=== PATIENT | male | born 1960 | race Caucasian/White ===

== ENCOUNTER 2016-08-09 12:50 | Inpatient (IN) | payer MEDICARE ==
[~2016-08-09] VITALS: Ht 177.8 cm; Wt 110.0 kg
[2016-08-09] VITALS (16 sets, daily range): BP systolic 113–248; BP diastolic 54–145; PULSE 65–90; RESP 14–18; TEMP 97.9; O2SAT 96–100
[~2016-08-09 12:50] MED LIST: ALPR.5 PO; ASPI-110 PO; BUME1TAB26 PO; CARV3.125 PO; FERR325T PO; FOLI1TAB4 PO; GABA300C5 PO; HYDR-3516 PO; LEVA750T PO; LEVEMIR SQ; LEVO50TA4 PO; LIPI40TA PO; NORC5TAB PO; NOVOLOGSS SQ; POTA10TA8 PO; PROT40TA PO; ROBA750T PO; TAMS5CAP PO; THIA100T PO; TICA1TAB PO
--- NOTE | 2016-08-09 17:11 | PD ---
HPI Chief Complaint: Hypertension Time Seen by Provider: 16:45 Travel History International Travel<30 days: No Contact w/Intl Traveler<30days: No Traveled to known affect area: No History of Present Illness HPI This is a 56-year-old male who has a history congestive heart failure who went for routine follow-up appointment with cardiology today and was found to have a systolic blood pressure in the 240s. He says he's had some chest tightness today, moderate severity, associated with some shortness of breath. Dr. Masters saw him in the office and told him to come to the emergency department. PFSH Past Medical History Hx Anticoagulant Therapy: Yes (ASA) Asthma: No Blood Disorders: No Anxiety: No Depression: No Heart Rhythm Problems: Yes (Murmur) Cancer: Yes (Skin cancer) Cardiovascular Problems: Yes (2015) High Cholesterol: No Chest Pain: Yes Congestive Heart Failure: No COPD: No Diabetes: Yes Diminished Hearing: No Endocrine: Yes Gastrointestinal Disorders: Yes (Acid reflux) Genitourinary: Yes (BPH) Hepatitis: Yes (C) Hypertension: Yes Immune Disorder: No Implanted Vascular Access Dvce: No Musculoskeletal: Yes (Buldging disk, back.) Neurologic: Yes (Neuropathy) Psychiatric: No Reproductive: No Respiratory: Yes Immunizations Current: No 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, 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.) Sleep Apnea: Yes (Not using C pap) Thyroid Disease: Yes Past Surgical History Ear Surgery: No Endocrine Surgery: No Eye Surgery: No Genitourinary Surgery: No Neurologic Surgery: No Oral Surgery: Yes (TONSILLS REMOVED) Pacemaker: No Tonsillectomy: Yes Other Surgery: Yes (feet) Social History Alcohol Use: No (sober x 2 months) Tobacco Use: No Substance Use: No Allergies-Medications (Allergen,Severity, Reaction): Coded Allergies: *MDRO Multi-Drug Resistant Organism (Verified Adverse Reaction, Unknown, MRSA, 08/08/16) MRSA (foot wound) - 12/2014, 02/2015, 07/2015, 09/2015, 11/2015, 05/2016 Reported Meds & Prescriptions Reported Meds & Active Scripts Active Levaquin (Levofloxacin) 750 Mg Tab 750 Mg PO DAILY Xanax (Alprazolam) 0.5 Mg Tab 0.5 Mg PO DAILY PRN Levemir Inj (Insulin Detemir) 1,000 unit/ 10 ML Vial 10 Units SQ HS 30 Days Reported Zanaflex (Tizanidine HCl) 4 Mg Tab 2 Mg PO QID Ibuprofen 800 Mg Tab 800 Mg PO TID PRN Novolog Inj (Insulin Aspart) 1,000 Unit/10 Ml Vial 2-10 Units SQ ACHS Max dose at bedtime ( ) units; sugars less than 70,(0) units; sugars 150-199,(2) units; sugars 200-249,(4) units; sugars 250-299,(7) units; sugars 300-349,(10) units; sugars greater than 349,(12)units Lortab (Hydrocodone-Acetaminophen) 10-325 Mg Tab 0.5 Tab PO QID PRN Atorvastatin (Atorvastatin Calcium) 20 Mg Tab 20 Mg PO HS Gabapentin 300 Mg Cap 300 Mg PO TID Aspirin 81 (Aspirin) 81 Mg Tabdr 81 Mg PO DAILY Bumex (Bumetanide) 1 Mg Tab 1 Mg PO BID Coreg (Carvedilol) 3.125 Mg Tab 3.125 Mg PO BID Folate (Folic Acid) 1 Mg Tab 1 Mg PO DAILY Levothyroxine (Levothyroxine Sodium) 50 Mcg Tab 50 Mcg PO DAILY Robaxin (Methocarbamol) 750 Mg Tab 750 Mg PO TID PRN Flomax (Tamsulosin HCl) 0.4 Mg Cap 0.4 Mg PO DAILY Thiamine (Thiamine HCl) 100 Mg Tab 100 Mg PO DAILY Review of Systems Except as stated in HPI: all other systems reviewed are Neg Physical Exam Narrative GENERAL:Well appearing, no acute distress SKIN: Chronic venous stasis changes on the bilateral lower extremities with right foot dressing clean and dry and intact HEAD: Atraumatic. Normocephalic. EYES: Pupils equal and round. No injection or drainage. ENT: Moist mucous membranes NECK: Trachea midline. CARDIOVASCULAR: Regular rate and rhythm. No murmur appreciated. RESPIRATORY: Clear to auscultation. Breath sounds equal bilaterally. GASTROINTESTINAL: Abdomen soft, non-tender, nondistended. MUSCULOSKELETAL: No obvious deformities. NEUROLOGICAL: Awake and alert. No obvious cranial nerve deficits. Moving all extremities. PSYCHIATRIC: Appropriate mood and affect; insight and judgment normal. Data Data Last Documented VS Vital Signs Date Time Temp Pulse Resp B/P Pulse Ox O2 Delivery O2 Flow Rate FiO2 08/09/16 17:24 67 18 98 Room Air 08/09/16 17:24 248/113 08/09/16 12:52 97.9 Orders Electrocardiogram (08/09/16 ) Cbc No Diff, Includes Plts (08/09/16 16:53) Basic Metabolic Panel (Bmp) (08/09/16 16:53) Troponin I (08/09/16 16:53) Labetalol Inj (Trandate Inj) (08/09/16 17:15) Resp Blood Gas Venous (08/09/16 ) Resp Lab Draw Arterial Punctur (08/09/16 ) B-Type Natriuretic Peptide (08/09/16 18:08) Chest, Single Ap (08/09/16 ) Morphine Inj (Morphine Inj) (08/09/16 18:15) Labs Laboratory Tests Test 08/09/16 18:00 Sodium Level 134 MEQ/L Potassium Level 4.7 MEQ/L Chloride Level 105 MEQ/L Carbon Dioxide Level 21.2 MEQ/L Anion Gap 8 MEQ/L Blood Urea Nitrogen 37 MG/DL Creatinine 1.71 MG/DL Estimat Glomerular Filtration 41 ML/MIN Rate Random Glucose 329 MG/DL Calcium Level 8.7 MG/DL Troponin I 0.05 NG/ML [facility] Medical Decision Making Medical Screen Exam Complete: Yes Emergency Medical Condition: Yes Interpretation(s) Afebrile, no tachycardia, hypertensive No leukocytosis Renal insufficiency Troponin is normal Differential Diagnosis Hypertensive urgency, hypertensive emergency, acute coronary syndrome Narrative Course This is a 56-year-old male who has a history of congestive heart failure who presents to the emergency department with poorly controlled high blood pressure. He is having some chest tightness in the setting of his symptoms. He was placed on a monitor and an IV was established. EKG is reassuring and nonischemic. Labs are pending. Patient was given a dose of IV labetalol. I think patient will likely require admission in the setting of hypertensive urgency. Case was signed out to Dr. Lopez pending labs. Renetta Smith MD Aug 09, 2016 17:10
[2016-08-09] MEDS ORDERED: LABETALOL HCL 100 MG/20 ML VIAL IV PUSH ONE (17:15)
[2016-08-09 18:12] LABS: HEMATOCRIT 30.9 % (39.0-51.0); MEAN CORPUSCULAR HEMOGLOBIN 26.5 PG (27.0-34.0); MEAN CORPUSCULAR HGB CONC 32.4 % (32.0-36.0); PLATELET COUNT 157 TH/MM3 (150-450); RED BLOOD COUNT 3.77 MIL/MM3 (4.50-5.90); RED CELL DISTRIBUTION WIDTH 22.8 % (11.6-17.2); WHITE BLOOD COUNT 8.7 TH/MM3 (4.0-11.0)
[2016-08-09] MEDS ORDERED: MORPHINE SULFATE 8 MG/ML INJ IV PUSH ONE (18:15)
[2016-08-09] MEDS ORDERED: ATOR20TA15 PO (18:23)
[2016-08-09] MEDS ORDERED: HYDR-3535 PO (18:23)
[2016-08-09] MEDS ORDERED: NOVOLOGP2 SQ (18:23)
[2016-08-09] MEDS ORDERED: IBUP800T23 PO (18:27)
[2016-08-09] MEDS ORDERED: TIZA4 PO (18:27)
[2016-08-09 18:32] LABS: BICARBONATE 21.2 MEQ/L (21.0-32.0); POTASSIUM 4.7 MEQ/L (3.5-5.1)
[2016-08-09 19:00] LABS: REVIEW FLAG FINAL
[2016-08-09] MEDS ORDERED: hydrALAZINE HCL 20 MG/ML VIAL IV PUSH ONE (19:00)
--- NOTE | 2016-08-09 19:03 | RADRPT ---
EXAM DATE/TIME: 08/09/2016 18:25 [place] COMPARISON: CHEST SINGLE AP, May 30, 2016, 17:11. INDICATIONS : Patient has had elevated blood pressure and chest pain since this morning. MEDICAL HISTORY : Hypertension. Hepatitis C. Cardiovascular disease. SURGICAL HISTORY : None. ENCOUNTER: Initial ACUITY: 1 day PAIN SCORE: 0/10 LOCATION: Bilateral chest FINDINGS: A single view of the chest demonstrates the lungs to be symmetrically aerated without evidence of mas s, infiltrate or effusion. The cardiomediastinal contours are unremarkable. Old healed right-sided r ib fractures are seen. CONCLUSION: No acute disease. Dionisio Soria MD on August 09, 2016 at 19:01 Board Certified Radiologist. This report was verified electronically.
[2016-08-09] MEDS ORDERED: ENALAPRILAT 1.25 MG/ML VIAL IV PUSH ONE (19:45)
[2016-08-09] MEDS ORDERED: NITROPRUSSIDE INJ 50 MG in DEXTROSE 5% IN WATER INJ 250 ML IV ONE ×2 (21:00)
--- NOTE | 2016-08-09 21:20 | HHI.HP ---
[facility] Braeden Parikh DO Admission Diagnosis hypertensive urgency, hyperglycemia Diagnoses: (1) Hypertensive urgency Diagnosis: Principal (2) CHF (congestive heart failure) Diagnosis: Principal (3) Renal insufficiency Diagnosis: Principal (4) Cirrhosis Diagnosis: Principal (5) Alcohol abuse Diagnosis: Principal (6) Open wound of right foot Diagnosis: Principal (7) DM (diabetes mellitus) Diagnosis: Principal Travel History International Travel<30 Days: No Contact w/Intl Traveler <30 Da: No Traveled to Known Affected Are: No History of Present Illness 66-year-old male with a PMH of HTN, H/o Alcohol Abuse (quit 2 months ago), Cirrhosis, CHF (Echo 04/04/16 w/ EF 60-65%, Moderate ), DM, Chronic Right Foot Wound and Peripheral Neuropathy who was sent to the ER by his Outboard Motorboat Rigger , Dr. Masters, secondary to elevated BP. Per office notes, BP 210/100. Pt reports no recent changes to meds and reports compliance. States BP "has been running high" x1 wk. Denies headache, blurry vision, nausea or vomiting. No chest pain or SOB. On arrival, BP 240/113, HR 67, O2 sat 98% on RA, Afebrile. S/p Hydralazine 10mg IV x1, Labetalol 20mg IV x1 and Vasotec 1.25mg IV x1 w/ no improvement. Started on Nipride gtt in ER, repeat BP currently 190's systolic. CBC at baseline. Creatinine 1.71, previously 1.48 on 06/05/16. Troponin 0.05. BNP 286. CXR with no acute findings. Review of Systems Except as stated in HPI: all other systems reviewed are Neg ROS: 14 point review of systems otherwise negative. Past Family Social History Past Medical History PMH: HTN, H/o Alcohol Abuse (quit 2 months ago), Cirrhosis, CHF (Echo 04/04/16 w/ EF 60-65%, Moderate ), DM, Chronic Right Foot Wound and Peripheral Neuropathy Past Surgical History PAST SURGICAL HISTORY: Tonsillectomy Allergies: Coded Allergies: *MDRO Multi-Drug Resistant Organism (Verified Adverse Reaction, Unknown, MRSA, 08/08/16) MRSA (foot wound) - 12/2014, 02/2015, 07/2015, 09/2015, 11/2015, 05/2016 Family History PAST FAMILY HISTORY: Reviewed, positive for DM. Social History PAST SOCIAL HISTORY: H/o Alcohol Abuse, quit 2 months ago, previously 12-24 beers/day. Negative for tobacco or drugs. Physical Exam Vital Signs Vital Signs Date Time Temp Pulse Resp B/P Pulse Ox O2 Delivery O2 Flow Rate FiO2 08/09/16 20:49 75 18 240/109 99 Room Air 08/09/16 20:30 72 18 232/106 100 Room Air 08/09/16 20:04 74 18 228/96 99 Room Air 08/09/16 19:56 72 18 235/145 99 Room Air 08/09/16 19:43 73 18 240/108 99 Room Air 08/09/16 18:58 69 18 247/114 99 Room Air 08/09/16 18:31 16 08/09/16 17:24 67 18 98 Room Air 08/09/16 17:24 65 18 248/113 98 Room Air 08/09/16 12:52 97.9 88 14 228/107 96 Room Air Physical Exam PE: GENERAL: Very pleasant middle-aged white male in no acute distress. HEENT: PERRLA, EOMI. No scleral icterus or conjunctival pallor. No lid lag or facial droop. CARDIOVASCULAR: Regular rate and rhythm. No obvious murmurs to auscultation. No chest tenderness to palpation. RESPIRATORY: No obvious rhonchi or wheezing. Clear to auscultation. Breath sounds equal bilaterally. GASTROINTESTINAL: Abdomen soft, non-tender, nondistended. BS normal. MUSCULOSKELETAL: Extremities without clubbing, cyanosis, or edema. No obvious deformities. Right foot dressing. NEUROLOGICAL: Awake, alert and oriented x4. No focal neurologic deficits. Moving both upper and lower extremities spontaneously. Laboratory Laboratory Tests Test 08/09/16 18:00 White Blood Count 8.7 Red Blood Count 3.77 Hemoglobin 10.0 Hematocrit 30.9 Mean Corpuscular Volume 82.0 Mean Corpuscular Hemoglobin 26.5 Mean Corpuscular Hemoglobin 32.4 Concent Red Cell Distribution Width 22.8 Platelet Count 157 Mean Platelet Volume 7.6 Sodium Level 134 Potassium Level 4.7 Chloride Level 105 Carbon Dioxide Level 21.2 Anion Gap 8 Blood Urea Nitrogen 37 Creatinine 1.71 Estimat Glomerular Filtration 41 Rate Random Glucose 329 Calcium Level 8.7 Troponin I 0.05 B-Type Natriuretic Peptide 286 Result Diagram: 08/09/16 1800 08/09/16 1800 Assessment and Plan Problem List: (1) Hypertensive urgency ICD Code: I16.0 Status: Acute (2) CHF (congestive heart failure) ICD Code: I50.9 Status: Acute (3) Cirrhosis ICD Code: K74.60 Status: Acute (4) Renal insufficiency ICD Code: N28.9 Status: Acute (5) Open wound of right foot ICD Code: S91.301A Status: Acute (6) Alcohol abuse ICD Code: F10.10 Status: Acute (7) DM (diabetes mellitus) ICD Code: E11.9 Status: Chronic Assessment and Plan A/P: 1. Hypertensive Urgency: referred to ER by Outboard Motorboat Rigger, Dr. Masters for elevated BP in office of 210/100. On arrival, BP 248/113, HR 67, s/p Vasotec, Labetalol and Hydralazine IV w/ minimal improvement in BP. Currently on Nipride gtt, hold for systolic <170. Resume home medications. Monitor BP. Consult Dr. Masters for further recommendations. 2. CHF: Chronic. Diastolic. Echo 04/04/16 w/ EF 60-65%, Moderate , BNP 286. CXR w/ no acute findings, images reviewed by me. Resume home Bumex, caution w/ renal insufficiency. Repeat labs in am. 3. Cirrhosis: Secondary to h/o Alcohol Abuse. Stable. INR 1.1. Check CMP in am. Resume home Bumex. 4. Alcohol Abuse: H/o 12-24 beers/day, quit 2 months ago. Continue home Folic Acid, Thiamine. 5. DM: Sliding scale w/ Accu-Cheks. Resume home Levemir. 6. Renal Insufficiency: Acute on Chronic. Creatinine 1.71, previously 1.48 on 06/05/16. Repeat labs in am, caution w/ diuretics. 7. Right Foot Wound: Chronic. Following w/ Dr. Perez for Hyperbaric treatments, consult Wound Management. 8. DVT Prophylaxis: SCD/Teds. 9. Social work for d/c planning as needed. 10. Case discussed w/ ER physician at length. Physician Certification 2 Midnight Certification Type: Admission for Inpatient Services Order for Inpatient Services The services are ordered in accordance with Medicare regulations or non- Medicare payer requirements, as applicable. In the case of services not specified as inpatient-only, they are appropriately provided as inpatient services in accordance with the 2-midnight benchmark. Estimated LOS (days): 2 days is the estimated time the patient will need to remain in the hospital, assuming treatment plan goals are met and no additional complications. Post-Hospital Plan: Not yet determined Roxana Orozco MD Aug 09, 2016 21:20
[2016-08-09] MEDS ORDERED: SODIUM CHLORIDE 0.9% FLUSH 5 ML FLUSH FLUSH PRN (21:30)
[2016-08-09] MEDS ORDERED: MORPHINE SULFATE 4 MG/ML INJ IV PRN (21:30)
[2016-08-09] MEDS ORDERED: ALPRAZolam 0.5 MG TAB PO PRN (21:30)
[2016-08-09] MEDS ORDERED: ACETAMINOPHEN/HYDROcodone 325 MG/5 MG TAB PO PRN (21:30)
[2016-08-09] MEDS ORDERED: ONDANSETRON HCL 4 MG/2 ML VIAL IVP PRN (21:30)
[2016-08-09] MEDS ORDERED: ACETAMINOPHEN 325 MG TAB PO PRN (21:30)
[2016-08-09] MEDS ORDERED: BISACODYL 10 MG SUPP PR PRN (21:30)
[2016-08-09] MEDS ORDERED: DEXTROSE 50% IN WATER 50 ML VIAL(D50) IV PUSH PRN (21:30)
[2016-08-09] MEDS ORDERED: GLUCAGON 1 MG/ML VIAL OTHER PRN (21:30)
[2016-08-10] VITALS (11 sets, daily range): BP systolic 77–184; BP diastolic 46–87; PULSE 75–98; RESP 14–18; O2SAT 95–99
[2016-08-10 04:38] LABS: AUTOMATED NEUTROPHIL # 6.7 TH/MM3 (1.8-7.7); BASOPHIL # 0.1 TH/MM3 (0-0.2); BASOPHIL % 0.6 % (0.0-2.0); EOSINOPHIL # 0.6 TH/MM3 (0-0.4); EOSINOPHIL % 5.7 % (0.0-4.0); HEMATOCRIT 30.9 % (39.0-51.0); LYMPHOCYTE # 3.1 TH/MM3 (1.0-4.8); MEAN CELL VOLUME 80.5 FL (80.0-100.0); MEAN CORPUSCULAR HEMOGLOBIN 27.7 PG (27.0-34.0); MEAN CORPUSCULAR HGB CONC 34.4 % (32.0-36.0); MONO % 7.7 % (0.0-8.0); PLATELET COUNT 193 TH/MM3 (150-450); RED BLOOD COUNT 3.84 MIL/MM3 (4.50-5.90); RED CELL DISTRIBUTION WIDTH 23.1 % (11.6-17.2); WHITE BLOOD COUNT 11.3 TH/MM3 (4.0-11.0)
[2016-08-10 04:39] LABS: HEMO FLAGS AUTO DIFF
[2016-08-10 05:32] LABS: ALKALINE PHOSPHATASE 146 U/L (45-117); ALT (GPT) 33 U/L (12-78); ANION GAP 8 MEQ/L (5-15); AST (GOT) 30 U/L (15-37); BICARBONATE 22.5 MEQ/L (21.0-32.0); BLOOD UREA NITROGEN 35 MG/DL (7-18); CHLORIDE 110 MEQ/L (98-107); GLOMERULAR FILTRATION RATE 47 ML/MIN (>89); POTASSIUM 4.8 MEQ/L (3.5-5.1); SODIUM (NA) 140 MEQ/L (136-145); TOTAL BILIRUBIN ADULT 0.3 MG/DL (0.2-1.0)
[2016-08-10 07:32] LABS: KERATOCYTES OCC (NORMAL); PLATELET ESTIMATE SMEAR NORMAL (NORMAL); PLATELET MORPHOLOGY NORMAL (NORMAL); SCAN/DIFF AUTO DIFF CONFIRMED
[2016-08-10] MEDS: INSULIN ASPART SUPPLEMENTAL SCALE SQ SCH ×4 (08:30→20:13)
[2016-08-10] MEDS: BUMETANIDE 1 MG TAB PO SCH ×2 (08:31→20:08)
[2016-08-10] MEDS: ASPIRIN EC 81 MG TABEC PO SCH (08:31)
[2016-08-10] MEDS: THIAMINE HCL 100 MG TAB PO SCH (08:32)
[2016-08-10] MEDS: GABAPENTIN 300 MG CAP PO SCH ×3 (08:32→18:37)
[2016-08-10] MEDS: FOLIC ACID 1 MG TAB PO SCH (08:32)
[2016-08-10] MEDS: TAMSULOSIN HCL 0.4 MG CAP PO SCH (08:32)
--- NOTE | 2016-08-10 08:52 | EKG ---
Date Performed: 08/09/2016 Time Performed: 14:35:31 PTAGE: 56 years EKG: Sinus rhythm NORMAL ECG PREVIOUS TRACING : 05/30/2016 17.49 DOCTOR: Sunny Olvera Interpretating Date/Time 08/10/2016 08:48:49
[2016-08-10] MEDS ORDERED: CARVEDILOL 3.125 MG TAB PO SCH (09:00)
[2016-08-10] MEDS ORDERED: ACETAMINOPHEN/HYDROcodone 325 MG/10 MG TAB PO PRN (11:45)
[2016-08-10] MEDS: SODIUM CHLORIDE 0.9% FLUSH 5 ML FLUSH FLUSH SCH ×2 (11:55→20:13)
[2016-08-10] MEDS: LISINOPRIL 10 MG TAB PO SCH (11:56)
[2016-08-10] MEDS: niCARdipine INJ 25 MG in SODIUM CHLOR 0.9% 250 ML INJ 250 ML IV PRN ×2 (12:24→12:32)
--- NOTE | 2016-08-10 12:41 | HHI.PR ---
Subjective Remarks Follow-up for hypertensive urgency. The patient states his blood pressure is normally around 145 systolic, but it has been running high. He denies any headache or chest pain. He states his chronic back pain is exacerbated by the stretcher that he is in. He does not feel like his blood pressures being exacerbated by the pain. Currently he feels well, and is hoping to go home today. Objective Vitals Vital Signs Date Time Temp Pulse Resp B/P Pulse Ox O2 Delivery O2 Flow Rate FiO2 08/10/16 06:35 77 18 171/72 98 Room Air 08/10/16 05:08 81 166/87 98 Room Air 08/10/16 04:04 85 16 178/72 98 Room Air 08/10/16 02:15 94 16 184/80 98 Room Air 08/10/16 00:24 95 147/65 08/09/16 23:57 90 177/80 08/09/16 23:25 85 16 200/88 99 Room Air 08/09/16 22:50 69 16 113/54 99 Room Air 08/09/16 22:35 70 16 178/79 99 Room Air 08/09/16 22:31 83 16 197/94 100 Room Air 08/09/16 22:08 80 16 216/100 99 Room Air 08/09/16 21:51 80 18 217/98 100 Room Air 08/09/16 21:42 76 18 237/107 99 Room Air 08/09/16 20:49 75 18 240/109 99 Room Air 08/09/16 20:30 72 18 232/106 100 Room Air 08/09/16 20:04 74 18 228/96 99 Room Air 08/09/16 19:56 72 18 235/145 99 Room Air 08/09/16 19:43 73 18 240/108 99 Room Air 08/09/16 18:58 69 18 247/114 99 Room Air 08/09/16 18:31 16 08/09/16 17:24 67 18 98 Room Air 08/09/16 17:24 65 18 248/113 98 Room Air 08/09/16 12:52 97.9 88 14 228/107 96 Room Air Result Diagram: 08/10/16 0413 08/10/16 0413 Imaging Last Impressions Chest X-Ray 08/09/16 0000 Signed Impressions: Service Date/Time: Tuesday, August 09, 2016 18:25 - CONCLUSION: No acute disease. Dionisio Soria MD Objective Remarks GENERAL: Well-developed well-nourished. In no acute distress. SKIN: Warm and dry. Right foot wound with dressing CDI in a boot. HEENT: Normocephalic. Pupils equal and round. Mucous membranes pink and moist. CARDIOVASCULAR: Regular rate and rhythm. No murmur appreciated. RESPIRATORY: No accessory muscle use. Clear to auscultation. Breath sounds equal bilaterally. GASTROINTESTINAL: Abdomen soft, non-tender, nondistended. Bowel sounds x4. MUSCULOSKELETAL: No obvious deformities. No clubbing or cyanosis. No edema. NEUROLOGICAL: Awake and alert. No focal neurological deficits. Moves upper and lower extremities spontaneously. Normal speech. PSYCHIATRIC: Appropriate mood and affect; insight and judgment normal. A/P Problem List: (1) Hypertensive urgency ICD Code: I16.0 Status: Acute (2) CHF (congestive heart failure) ICD Code: I50.9 Status: Acute (3) Cirrhosis ICD Code: K74.60 Status: Acute (4) Renal insufficiency ICD Code: N28.9 Status: Acute (5) Open wound of right foot ICD Code: S91.301A Status: Acute (6) Alcohol abuse ICD Code: F10.10 Status: Acute (7) DM (diabetes mellitus) ICD Code: E11.9 Status: Chronic Assessment and Plan 66-year-old male with a PMH of HTN, H/o Alcohol Abuse (quit 2 months ago), Cirrhosis, CHF (Echo 04/04/16 w/ EF 60-65%, Moderate ), DM, Chronic Right Foot Wound and Peripheral Neuropathy who was sent to the ED by his Clearance Rep , Dr. Masters, secondary to elevated BP Hypertensive Urgency: referred to ER by Clearance Rep, Dr. Masters for elevated BP in office of 210/100. On arrival, BP 248/113, HR 67, s/p Vasotec, Labetalol and Hydralazine IV w/ minimal improvement in BP. Systolic blood pressure remains 180s 190s. Nipride gtt prn. Increased home Coreg. Started lisinopril. Resume home pain control. Start nifedipine if no improvement with above, discussed with RN. Monitor BP. Dr. Masters consulted for further recommendations. CHF: Chronic. Diastolic. Echo 04/04/16 w/ EF 60-65%, Moderate , BNP 286. CXR w/ no acute findings. Continue home Bumex, caution w/ renal insufficiency. Cirrhosis: Chronic, stable. Secondary to h/o Alcohol Abuse. LFTs essentially within normal limits. Alcohol Abuse: H/o 12-24 beers/day, quit 2 months ago. Continue home Folic Acid, Thiamine. DM: Sliding scale w/ Accu-Cheks. Continue home Levemir. YAHIR on CKD stage 3: Creatinine 1.71, previously 1.48 on 06/05/16. Probably elevated secondary to elevated BP. Creatinine improved to 1.54 overnight. Currently stable. Right Foot Wound: Chronic. Following w/ Dr. Perez for Hyperbaric treatments, consulted Wound Management, appreciate recommendations. DVT Prophylaxis: SCD/Teds. Written by Eulogio Baesley, acting as scribe for Dr. Watts on 08/10/16 at 12:40. The documentation accurately reflects the work performed [id number] by me on at 12:40. Discharge patient to home Condition on discharge: Improved Diabetic Diet as tolerated Ad Janeth activity Rx written: - Nifedipine 60mg Qday. - Lisinopril 10mg Qday - titrate as needed per PCP. - Carvedilol increased from 3.125 to 6.25mg BID. Follow-up with primary care physician within one week. Cardiology within 3 weeks. Discharge Planning Discharge planning when BP is improved. Eulogio Beasley Aug 10, 2016 12:40 pm Douglas Watts DO Aug 10, 2016 3:36 pm
[2016-08-10] MEDS ORDERED: PILL SPLITTER OTHER PRN (12:45)
--- NOTE | 2016-08-10 14:34 | MB ---
cc: MARQUISE MOSLEY DATE OF CONSULTATION: 08/10/2016 REASON FOR CONSULTATION: Uncontrolled blood pressure. HISTORY OF PRESENT ILLNESS 56-year-old male with past medical history significant for. Hypertension, alcohol use, chronic kidney disease stage II diabetes mellitus, coronary artery disease, who was referred by his electric gas appliances demonstrator to present to the emergency room due to high blood pressure. The patient reports that he went to his a scheduled visit with Dr. Masters and everything was doing well, however, it was noted that his blood pressure was in the systolic range of 200/110 and the patient did not complain of a chest pain, shortness of breath, diaphoresis, leg edema, syncope, palpitations, shortness of breath, PND, or being noncompliant with medications. Cardiology recommended for him to present to the emergency department for blood pressure control. REVIEW OF SYSTEMS My review of systems negative except for what is mentioned in HPI. PAST MEDICAL HISTORY 1. Chronic kidney disease 2. Alcohol use 3. Anemia. 1. Mild aortic stenosis. 2. Coronary artery disease, status post [id number] myocardial infarction last year. 3. Carotid artery stenoses 4. Chronic pain syndrome. 5. Cirrhosis of the liver. 6. Diabetes mellitus type 2. 7. Hypertension 8. Mild mitral regurgitation 9. Osteomyelitis 10. Sleep apnea 11. Neuropathy 12. Obesity. 13. Peripheral vascular disease. PAST SURGICAL HISTORY Amputation of the right foot MEDICATIONS: 1. Cardiac home medications, aspirin 81 mg p.o. daily 2. Lipitor 20 mg p.o. daily 3. Bumex 1 mg p.o. daily 4. Coreg 3.125 mg p.o. b.i.d. ALLERGIES NO KNOWN DRUG ALLERGIES. FAMILY HISTORY Noncontributory. SOCIAL HISTORY Denies smoking, alcohol use or illicit drug abuse. PHYSICAL EXAMINATION VITAL SIGNS: Temperature 97.9, respiratory rate 16, heart rate 77, blood pressure 171/72, O2 sat 98 days room air. IN GENERAL: He is awake, oriented x3 having lunch at the bedside. NECK: No JVD or carotid bruits. HEART: Regular rate and rhythm. No murmurs, rubs or gallops appreciated. LUNGS: Clear to auscultation bilaterally, ABDOMEN: Obesw, Nontender, nondistended. EXTREMITIES: There is redness, bilateral Extremities, there has been amputation of the right foot, from the right leg. LABORATORY DATA CBC hemoglobin 10, hematocrit 30 platelet count 193. Chemistries full sodium 140, potassium 4.8, BUN 35 and creatinine 1.54 trending down from 1.7, troponin less than 0.05. BNP 286. RADIOLOGIC: Chest x-ray No acute cardiopulmonary process. EKG normal sinus rhythm. ASSESSMENT/PLAN 56-year-old male with above history and findings presenting with uncontrolled hypertension. He has no active cardiac complaints. He remains hemodynamically stable. His blood pressure has been better controlled on medications given in the emergency room. Continue blood pressure optimization; Increased Coreg to 6.25 p.o. b.i.d., Nifedipine started on 60 mg p.o. daily and also lisinopril 10 mg p.o. daily. When his blood pressure gets control he can be discharged home with a new blood pressure medication regimen and follow up with primary care physician as well as with Dr. Masters. Thank you for the opportunity to take part in the care of this patient. We will be available on as needed basis for any other question or concerns. MD SAÚL Rodriguez/sergio /1:02 PM /1:31 PM JACQUELINE
[2016-08-10] MEDS: NIFEdipine 60 MG SUSTAINED RELEASE TAB PO SCH (14:44)
[2016-08-10] MEDS ORDERED: LISI10TA3 PO (15:33)
[2016-08-10] MEDS ORDERED: NIFE60TA8 PO (15:33)
[2016-08-10] MEDS ORDERED: CARV6.25 PO (15:33)
[2016-08-10] MEDS ORDERED: LABETALOL HCL 100 MG/20 ML VIAL IV PUSH ONE ×2 (17:30→17:45)
[2016-08-10] MEDS: CARVEDILOL 6.25 MG TAB PO SCH (20:09)
[2016-08-10] MEDS: METHOCARBAMOL 500 MG TAB PO PRN (20:10)
[2016-08-10] MEDS ORDERED: SODIUM CHLORID 0.9% 500 ML INJ 500 ML IV ONE (20:30)
[2016-08-10] MEDS ORDERED: ATORVASTATIN 20 MG TAB PO SCH (21:00)
[2016-08-10] MEDS ORDERED: INSULIN DETEMIR 100 UNITS/ML VIAL SQ SCH (21:00)
[2016-08-11] VITALS: BP 120/63; PULSE 82; RESP 14; O2SAT 99
[2016-08-11] MEDS: ACETAMINOPHEN/HYDROcodone 325 MG/5 MG TAB PO PRN ×2 (00:21→05:49)
[2016-08-11 01:00] VITALS: BP 128/60; PULSE 72; RESP 14; O2SAT 99
[2016-08-11 02:00] VITALS: BP 128/60; PULSE 74; RESP 14; O2SAT 99
[2016-08-11 03:00] VITALS: BP 138/62; PULSE 74; RESP 14; O2SAT 99
[2016-08-11 05:30] VITALS: BP 159/75; PULSE 78; RESP 18; TEMP 98; O2SAT 98
[2016-08-11] MEDS: METHOCARBAMOL 500 MG TAB PO PRN (05:49)
[2016-08-11 07:09] LABS: AUTOMATED NEUTROPHIL # 4.4 TH/MM3 (1.8-7.7); BASOPHIL # 0.1 TH/MM3 (0-0.2); EOSINOPHIL # 0.6 TH/MM3 (0-0.4); EOSINOPHIL % 6.7 % (0.0-4.0); HEMATOCRIT 32.4 % (39.0-51.0); LYMPH % 36.2 % (9.0-44.0); LYMPHOCYTE # 3.5 TH/MM3 (1.0-4.8); MEAN CELL VOLUME 81.9 FL (80.0-100.0); MEAN CORPUSCULAR HEMOGLOBIN 27.1 PG (27.0-34.0); MEAN CORPUSCULAR HGB CONC 33.1 % (32.0-36.0); MONO % 9.9 % (0.0-8.0); NEUT % 46.2 % (16.0-70.0); PLATELET COUNT 163 TH/MM3 (150-450); RED BLOOD COUNT 3.95 MIL/MM3 (4.50-5.90); RED CELL DISTRIBUTION WIDTH 22.7 % (11.6-17.2); WHITE BLOOD COUNT 9.6 TH/MM3 (4.0-11.0)
[2016-08-11 07:13] LABS: HEMO FLAGS AUTO DIFF
[2016-08-11 07:15] VITALS: BP 169/78; PULSE 81; RESP 18; TEMP 98.3; O2SAT 98
[2016-08-11 07:31] LABS: BICARBONATE 20.2 MEQ/L (21.0-32.0); POTASSIUM 4.3 MEQ/L (3.5-5.1)
[2016-08-11 07:46] LABS: SCAN/DIFF AUTO DIFF CONFIRMED
[2016-08-11] MEDS: INSULIN ASPART SUPPLEMENTAL SCALE SQ SCH (08:23)
[2016-08-11] MEDS: BUMETANIDE 1 MG TAB PO SCH (08:23)
[2016-08-11] MEDS: CARVEDILOL 6.25 MG TAB PO SCH (08:23)
--- NOTE | 2016-08-11 08:53 | HHI.PR ---
Subjective Remarks Follow for HTN urgency. BP increased to systolic 190's prior to DC yesterday. DC held and patient given IV Labetalol. BP initially low, but did normalize overnight. The patient denies any associated symptoms with BP changes. He feels well and wants to go home. He states he can follow up with his PCP RACHEL. Objective Vitals Vital Signs Date Time Temp Pulse Resp B/P Pulse Ox O2 Delivery O2 Flow Rate FiO2 08/11/16 07:23 81 18 97 Room Air 08/11/16 07:15 98.3 81 18 169/78 98 Room Air 08/11/16 05:30 98.0 78 18 159/75 98 Nasal Cannula 2 08/11/16 03:00 74 14 138/62 99 Nasal Cannula 2 08/11/16 02:00 74 14 128/60 99 Nasal Cannula 2 08/11/16 01:00 72 14 128/60 99 Nasal Cannula 2 08/11/16 00:00 82 14 120/63 99 Nasal Cannula 2 08/10/16 22:00 78 14 109/58 99 Nasal Cannula 2 08/10/16 21:30 75 14 103/51 98 Nasal Cannula 2 08/10/16 21:00 82 14 106/53 97 Nasal Cannula 2 08/10/16 20:15 88 16 81/47 95 Room Air 77/49 88/46 08/10/16 19:19 168/81 08/10/16 16:52 98 16 166/87 95 Room Air Result Diagram: 08/11/16 0557 08/11/16 0552 Imaging Last Impressions Chest X-Ray 08/09/16 0000 Signed Impressions: Service Date/Time: Tuesday, August 09, 2016 18:25 - CONCLUSION: No acute disease. Dionisio Soria MD Objective Remarks GENERAL: Well-developed well-nourished. In no acute distress. SKIN: Warm and dry. Right foot chronic wound with dressing CDI. HEENT: Normocephalic. Pupils equal and round. Mucous membranes pink and moist. CARDIOVASCULAR: Regular rate and rhythm. No murmur appreciated. RESPIRATORY: No accessory muscle use. Clear to auscultation. Breath sounds equal bilaterally. GASTROINTESTINAL: Abdomen soft, non-tender, nondistended. Bowel sounds x4. MUSCULOSKELETAL: No obvious deformities. No clubbing or cyanosis. No edema. NEUROLOGICAL: Awake and alert. No focal neurological deficits. Moves upper and lower extremities spontaneously. Normal speech. PSYCHIATRIC: Appropriate mood and affect; insight and judgment normal. A/P Problem List: (1) Hypertensive urgency ICD Code: I16.0 Status: Acute (2) CHF (congestive heart failure) ICD Code: I50.9 Status: Acute (3) Cirrhosis ICD Code: K74.60 Status: Acute (4) Renal insufficiency ICD Code: N28.9 Status: Acute (5) Open wound of right foot ICD Code: S91.301A Status: Acute (6) Alcohol abuse ICD Code: F10.10 Status: Acute (7) DM (diabetes mellitus) ICD Code: E11.9 Status: Chronic Assessment and Plan 66-year-old male with a PMH of HTN, H/o Alcohol Abuse (quit 2 months ago), Cirrhosis, CHF (Echo 04/04/16 w/ EF 60-65%, Moderate ), DM, Chronic Right Foot Wound and Peripheral Neuropathy who was sent to the ED by his Slitting Machine Operator Helper , Dr. Masters, secondary to elevated BP Hypertensive Urgency: referred to ER by Slitting Machine Operator Helper, Dr. Masters for elevated BP in office of 210/100. Given IV BP meds and oral meds adjusted. Increased home Coreg. Started lisinopril and nifedipine. Resumed home pain control. Dr. Masters consulted, continue outpatient follow up. BP continues to improve overnight. Avoid rapid correction, follow up with PCP as outpatient to continue medication titration. CHF: Chronic. Diastolic. Echo 04/04/16 w/ EF 60-65%, Moderate , BNP 286. CXR w/ no acute findings. Continue home Bumex, caution w/ renal insufficiency. Cirrhosis: Chronic, stable. Secondary to h/o Alcohol Abuse. LFTs essentially within normal limits. Alcohol Abuse: H/o 12-24 beers/day, quit 2 months ago. Continue home Folic Acid, Thiamine. DM: Sliding scale w/ Accu-Cheks. Continue home Levemir. YAHIR on CKD stage 3: Creatinine 1.71, previously 1.48 on 06/05/16. Probably elevated secondary to elevated BP. Creatinine improved to 1.54. Currently stable. Right Foot Wound: Chronic. Following w/ Dr. Perez for Hyperbaric treatments, consulted Wound Management, appreciate recommendations. DVT Prophylaxis: SCD/Teds. Written by Eulogio Beasley, acting as scribe for Dr. Watts on 08/11/16 at 08:47. The documentation accurately reflects the work performed [id number] by me on at 08:47. Discharge Planning Discharge patient to home Condition on discharge: Improved Heart healthy diabetic Diet as tolerated Ad Janeth activity Rx written: Carvedilol, Lisinopril, Nifedipine Follow-up with primary care physician and cardiology Eulogio Beasley Aug 11, 2016 8:53 am Douglas Watts DO Aug 11, 2016 3:37 pm
[2016-08-11] MEDS: GABAPENTIN 300 MG CAP PO SCH (09:28)
[2016-08-11] MEDS: NIFEdipine 60 MG SUSTAINED RELEASE TAB PO SCH (09:28)
[2016-08-11] MEDS: TAMSULOSIN HCL 0.4 MG CAP PO SCH (09:29)
[2016-08-11] MEDS: FOLIC ACID 1 MG TAB PO SCH (09:29)
[2016-08-11] MEDS: THIAMINE HCL 100 MG TAB PO SCH (09:29)
[2016-08-11] MEDS: LISINOPRIL 10 MG TAB PO SCH (09:30)
[2016-08-11] MEDS: SODIUM CHLORIDE 0.9% FLUSH 5 ML FLUSH FLUSH SCH (09:30)
[2016-08-11] MEDS: ASPIRIN EC 81 MG TABEC PO SCH (09:30)
--- NOTE | 2016-08-27 19:50 | PD ---
Physical Exam Date Seen by Provider: Aug 15, 2016 Time Seen by Provider: 19:00 Narrative The patient was signed out to me by Dr. Renetta Neves. We are waiting labs and for the patient's blood pressure to become normalized. The patient had received one dose of IVD blood pressure medication. On reevaluation, the patient's blood pressure still was elevated over 200 systolic. He was given 2 further doses of IVD medication. Given this, and his presentation, the decision was made to admit him for blood pressure control. The patient was also noted to be hyperglycemic. Data Data Orders Electrocardiogram (08/09/16 ) Cbc No Diff, Includes Plts (08/09/16 16:53) Basic Metabolic Panel (Bmp) (08/09/16 16:53) Troponin I (08/09/16 16:53) Labetalol Inj (Trandate Inj) (08/09/16 17:15) Resp Blood Gas Venous (08/09/16 ) Resp Lab Draw Arterial Punctur (08/09/16 ) B-Type Natriuretic Peptide (08/09/16 18:08) Chest, Single Ap (08/09/16 ) Morphine Inj (Morphine Inj) (08/09/16 18:15) Hydralazine Inj (Apresoline Inj) (08/09/16 19:00) Enalaprilat Inj (Vasotec Inj) (08/09/16 19:45) Admit Order (Ed Use Only) (08/09/16 20:36) MDM Medical Record Reviewed: Yes Supervised Visit with TOÑO: No Differential Diagnosis Hypertensive urgency versus emergency versus uncontrolled hypertension versus uncontrolled hyperglycemia Narrative Course 56 year-old gentleman signed out to me by Dr. Renetta Neves, I was the physician replacing her. We are waiting laboratory tests and trying to get control of his blood pressure. The patient received 3 doses of IV blood pressure medication without resolution of his hypertension. Given this and his elevated sugar, the patient was [facility] with a diagnosis of hypertensive urgency and uncontrolled diabetes with hyperglycemia. Diagnosis Primary Impression: Hypertensive urgency Additional Impressions: Diabetes type 2, uncontrolled Renal insufficiency Patient Instructions: Heart Failure (DC), Cirrhosis (DC), Type 2 Diabetes in Adults (DC), Abuse of Alcohol (DC), Chronic Hypertension (GEN) Scripts Nifedipine ER 24 HR 60 Mg Tab60 Mg PO DAILY #30 TAB Prov:Ahmed,Shahabuddin DO 08/10/16 Lisinopril 10 Mg Tab10 Mg PO DAILY #30 TAB Prov:Douglas Watts DO 08/10/16 Carvedilol (Coreg)6.25 Mg Tab6.25 Mg PO BID #60 TAB Prov:Douglas Watts DO 08/10/16 Keron Lopez MD Aug 27, 2016 19:50
[2016-09-07] MEDS ORDERED: BACT800T5 PO (11:47)
== END 2016-08-11 11:08 | disposition home or self-care (01) | DRG 305 ==
LOC: NEPE 12:50 → NEDA 20:39 → NEDH 08-10 00:40
PROVIDERS: ADMIT Hospitalist; ATTEND Hospitalist
DX: I16.0 Hypertensive urgency (principal); I50.32 Chronic diastolic (congestive) heart failure; E11.22 Type 2 diabetes mellitus with diabetic chronic kidney disease; N17.9 Acute kidney failure, unspecified; N18.3 Chronic kidney disease, stage 3 (moderate); E11.65 Type 2 diabetes mellitus with hyperglycemia; I12.9 Hypertensive chronic kidney disease with stage 1 through stage 4 chronic kidney disease, or unspecified chronic kidney disease; K70.30 Alcoholic cirrhosis of liver without ascites; S91.301A Unspecified open wound, right foot, initial encounter; G62.9 Polyneuropathy, unspecified; I25.2 Old myocardial infarction; N40.0 Benign prostatic hyperplasia without lower urinary tract symptoms; G47.30 Sleep apnea, unspecified; Z79.82 Long term (current) use of aspirin; Z79.4 Long term (current) use of insulin; I25.10 Atherosclerotic heart disease of native coronary artery without angina pectoris; E66.9 Obesity, unspecified; Z68.34 Body mass index [BMI] 34.0-34.9, adult; I73.9 Peripheral vascular disease, unspecified; G89.29 Other chronic pain; M54.9 Dorsalgia, unspecified
CPT/HCPCS: 36600; 71010; 80048; 80053; 82948; 83880; 84484; 85025; 85027; 93005; 96374; 96375; G0277; J0360; J1815; J2270; J7040; J7050; J7060

== ENCOUNTER → 2016-10-11 | Day surgery (SDC) | payer MEDICARE, MEDICAID ==
[~2016-10-11] MED LIST changes: +AMLO5 PO; +ATOR20TA15 PO; +BUME1TAB PO; -CARV3.125 PO; +CARV6.25 PO; -FERR325T PO; +GLUCKIT15; +GLUCTES12; -HYDR-3516 PO; +HYDR-3535 PO; +HYDR25TA5 PO; +IBUP800T23 PO; +LACTATED RINGER'S 1000 ML INJ 1,000 ML ONE; -LIPI40TA PO; +LISI10TA3 PO; +METH750T PO; +NIFE60TA8 PO; -NORC5TAB PO; +NOVOLOGP2 SQ; -NOVOLOGSS SQ; -POTA10TA8 PO; +PROPOFOL 500 MG/50 ML BTL IV ONE; -PROT40TA PO; -TICA1TAB PO; +TIZA4 PO
--- NOTE | 2016-10-11 11:53 | GIPROC ---
[facility] [address] [facility], [address] COLONOSCOPY PROCEDURE REPORT EXAM DATE: 10/11/2016 PATIENT NAME: Reji San MR #: [id number] BIRTHDATE: 1960 ENDOSCOPIST: Preston Beltre MD ORDER #: [id number] RESIDENTIAL SOLAR CONSULTANT: Brenda Anderson RN STATUS: outpatient INDICATIONS: The patient is a 56 yr old male here for a colonoscopy due to average risk patient for colon cancer PROCEDURE PERFORMED: Colonoscopy with biopsy MEDICATIONS: None and Per Anesthesia. PREP QUALITY: fair ESTIMATED BLOOD LOSS: None CONSENT: The patient understands the risks and benefits of the procedure and understands that these risks include, but are not limited to: sedation, allergic reaction, infection, perforation and/or bleeding. Alternative means of evaluation and treatment include, among others: physical exam, x-rays, and/or surgical intervention. The patient elects to proceed with this endoscopic procedure. medical equipment was checked for proper function. Hand hygiene and appropriate measures for infection prevention was taken. After the risks, benefits and alternatives of the procedure were thoroughly explained, Informed consent was verified, confirmed and timeout was successfully executed by the treatment team. A digital exam revealed no abnormalities of the rectum The EC-[id number] ([id number]) endoscope was introduced through the anus and advanced to the cecum, which was identified by both the appendix and ileocecal valve. The instrument was then slowly withdrawn as the colon was fully examined. COLON FINDINGS: A small smooth sessile polyp was found in the sigmoid colon. A polypectomy was performed with cold forceps. The resection was complete and the polyp tissue was completely retrieved. The colon mucosa was otherwise normal. Retroflexed views revealed no abnormalities The scope was then completely withdrawn from the patient and the procedure terminated. PROCEDURE WITHDRAWAL TIME:13.3minutes ADVERSE EVENTS: There were no complications. IMPRESSIONS: 1. A small sessile polyp was found in the sigmoid colon; polypectomy was performed with cold forceps 2. The colon mucosa was otherwise normal 3. Retroflexed views revealed no abnormalities 4. Revealed no abnormalities of the rectum RECOMMENDATIONS: 1. Await biopsy results. Biopsy results will not be ready for 7-10 days. If you don't hear from us in two weeks, call our office for results. 2. High fiber diet 3. Yearly hemoccult 4. Follow-up: GI Clinic 4 week(s) RECALL: Return 5 years Colonoscopy Preston Beltre MD eSigned: Preston Beltre MD 10/11/2016 11:53 AM cc: Braeden Parikh M.D and Citlalli Ugarte
--- NOTE | 2016-10-11 11:57 | GIPROC ---
[facility] [address] [facility], [address] EGD PROCEDURE REPORT EXAM DATE: 10/11/2016 PATIENT NAME: Reji San MR #: [id number] BIRTHDATE: 1960 ATTENDING: Preston Beltre MD ORDER #: [id number] BOX FINISHER: Brenda Anderson RN STATUS: outpatient INDICATIONS: The patient is a 56 yr old male here for an EGD due to anemia PROCEDURE PERFORMED: EGD w/ biopsy MEDICATIONS: None, Per Anesthesia, None, and Per Anesthesia. TOPICAL ANESTHETIC: CONSENT: The patient understands the risks and benefits of the procedure and understands that these risks include, but are not limited to: sedation, allergic reaction, infection, perforation and/or bleeding. Alternative means of evaluation and treatment include, among others: physical exam, x-rays, and/or surgical intervention. The patient elects to proceed with this endoscopic procedure. medical equipment was checked for proper function. Hand hygiene and appropriate measures for infection prevention was taken. After the risks, benefits and alternatives of the procedure were thoroughly explained, Informed consent was verified, confirmed and timeout was successfully executed by the treatment team. The patient was anesthetized with topical anesthesia and the EC-[id number] ([id number]) endoscope was introduced through the mouth and advanced to the second portion of the duodenum. Retroflexed views revealed no abnormalities The gastroscope was then slowly withdrawn and removed. ESOPHAGUS: A small non-bleeding, round, shallow and clean-based ulcer was found at the gastroesophageal junction. Biopsies were taken at the center of the ulcer. The endoscopy was otherwise normal. STOMACH: A small hiatal hernia was noted. There was mild gastritis in the gastric antrum. Multiple biopsies were performed. ADVERSE EVENTS: There were no complications. IMPRESSIONS: 1. Small ulcer was found at the gastroesophageal junction; biopsies were taken 2. Normal endoscopy otherwise 3. Small hiatal hernia 4. There was mild gastritis in the gastric antrum; multiple biopsies were performed 5. Retroflexed views revealed no abnormalities RECOMMENDATIONS: 1. Await biopsy results. Biopsy results will not be ready for 7-10 days. If you don't hear from us in two weeks, call our office for biopsy results. 2. Start PPI 3. Follow-up: GI clinic 4 week(s) PATIENT CONDITION: stable DISPOSITION: Home REPEAT EXAM: Return 2 months EGD Preston Beltre MD eSigned: Preston Beltre MD 10/11/2016 11:57 AM cc: Braeden [place] [facility] PATIENT NAME: Mena Reji Nabeel MR#: [id number]
== END | disposition home or self-care (01) ==
LOC: ESDC 09:56
PROVIDERS: ATTEND Internal Medicine Gastroenterology
DX: Z12.11 Encounter for screening for malignant neoplasm of colon (principal); D12.5 Benign neoplasm of sigmoid colon; D64.9 Anemia, unspecified; K22.10 Ulcer of esophagus without bleeding; K29.70 Gastritis, unspecified, without bleeding; E11.9 Type 2 diabetes mellitus without complications; Z79.4 Long term (current) use of insulin
CPT/HCPCS: 00740; 00810; 43239; 45380; 82948; 88305; J3010; J7120

== ENCOUNTER 2016-10-15 20:50 | Emergency (ER) | payer MEDICAID, MEDICARE ==
[~2016-10-15] VITALS: Ht 177.8 cm; Wt 102.0 kg
[~2016-10-15 20:50] MED LIST changes: -AMLO5 PO; -BUME1TAB PO; -GLUCKIT15; -GLUCTES12; -HYDR25TA5 PO; -IBUP800T23 PO; -LACTATED RINGER'S 1000 ML INJ 1,000 ML ONE; -METH750T PO; -PROPOFOL 500 MG/50 ML BTL IV ONE
[2016-10-15 20:52] VITALS: BP 204/94; PULSE 80; RESP 18; TEMP 98.8; O2SAT 98
--- NOTE | 2016-10-15 22:41 | PD ---
HPI Chief Complaint: Injury Time Seen by Provider: 22:36 Travel History International Travel<30 days: No Contact w/Intl Traveler<30days: No Traveled to known affect area: No History of Present Illness HPI 56-year-old [id number] white male presents to emergency department complaints of right shoulder pain. He states that he was putting the hose on his compressor earlier today when he felt something pull in his right shoulder. Since then he's had difficulty raising his shoulder up. He has a history of chronic neck and back pain. He takes muscle relaxers and opiates. He also is a insulin-dependent diabetic. He states that he takes 10 units with each meal but does not check his sugars. He denies any numbness. Positive weakness. Pain is moderate. Worse with attempting to move his shoulder. He has improvement of pain with holding it against his body. PFSH Past Medical History Hx Anticoagulant Therapy: Yes (ASA) Asthma: No Blood Disorders: No Anxiety: No Depression: No Heart Rhythm Problems: Yes (Murmur) Cancer: Yes (Skin cancer) Cardiovascular Problems: Yes High Cholesterol: No Chest Pain: Yes Congestive Heart Failure: Yes COPD: No Diabetes: Yes (TYPE 2) Patient Takes Glucophage: No Diminished Hearing: No Endocrine: Yes Gastrointestinal Disorders: Yes (Acid reflux) GERD: Yes Genitourinary: Yes Hepatitis: Yes (C) Hiatal Hernia: Yes Hypertension: Yes Immune Disorder: No Implanted Vascular Access Dvce: No Musculoskeletal: Yes (Buldging disk, back) Neurologic: Yes (Neuropathy) Psychiatric: No Reproductive: No Respiratory: Yes Immunizations Current: No Myocardial Infarction: Yes 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, 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.) Sleep Apnea: Yes (Not using C pap) Thyroid Disease: Yes Past Surgical History Ear Surgery: No Endocrine Surgery: No Eye Surgery: No Genitourinary Surgery: No Neurologic Surgery: No Oral Surgery: Yes (TONSILLS REMOVED) Pacemaker: No Tonsillectomy: Yes Other Surgery: Yes (SKIN CA REMOVAL) Social History Alcohol Use: No (sober x 6 months) Tobacco Use: No Substance Use: No Allergies-Medications (Allergen,Severity, Reaction): Coded Allergies: *MDRO Multi-Drug Resistant Organism (Verified Adverse Reaction, Unknown, MRSA, 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) MRSA (foot wound) - 12/2014, 02/2015, 07/2015, 09/2015, 11/2015, 05/2016, 08/24/16 Reported Meds & Prescriptions Reported Meds & Active Scripts Active Nifedipine ER 24 HR (Nifedipine) 60 Mg Tab 60 Mg PO DAILY Lisinopril 10 Mg Tab 10 Mg PO DAILY Coreg (Carvedilol) 6.25 Mg Tab 6.25 Mg PO BID Levaquin (Levofloxacin) 750 Mg Tab 750 Mg PO DAILY Xanax (Alprazolam) 0.5 Mg Tab 0.5 Mg PO DAILY PRN Levemir Inj (Insulin Detemir) 1,000 unit/ 10 ML Vial 10 Units SQ HS 30 Days Reported Zanaflex (Tizanidine HCl) 4 Mg Tab 2 Mg PO QID Novolog Inj (Insulin Aspart) 1,000 Unit/10 Ml Vial 2-10 Units SQ ACHS Max dose at bedtime ( ) units; sugars less than 70,(0) units; sugars 150-199,(2) units; sugars 200-249,(4) units; sugars 250-299,(7) units; sugars 300-349,(10) units; sugars greater than 349,(12)units Lortab (Hydrocodone-Acetaminophen) 10-325 Mg Tab 0.5 Tab PO QID PRN Atorvastatin (Atorvastatin Calcium) 20 Mg Tab 20 Mg PO HS Gabapentin 300 Mg Cap 300 Mg PO TID Aspirin 81 (Aspirin) 81 Mg Tabdr 81 Mg PO DAILY Bumex (Bumetanide) 1 Mg Tab 1 Mg PO BID Folate (Folic Acid) 1 Mg Tab 1 Mg PO DAILY Levothyroxine (Levothyroxine Sodium) 50 Mcg Tab 50 Mcg PO DAILY Robaxin (Methocarbamol) 750 Mg Tab 750 Mg PO TID PRN Flomax (Tamsulosin HCl) 0.4 Mg Cap 0.4 Mg PO DAILY Thiamine (Thiamine HCl) 100 Mg Tab 100 Mg PO DAILY Review of Systems Except as stated in HPI: all other systems reviewed are Neg Musculoskeletal: Positive: Myalgias, Arthralgias, Limited ROM, Weakness, Pain, No: Edema Neurologic: No: Headache Physical Exam Narrative GENERAL: This is a well-nourished, well-developed patient, in no apparent distress. SKIN: No rashes, ecchymoses or lesions. Warm and dry. HEAD: Atraumatic. Normocephalic. EYES: PERRL, EOMI, no discharge or injection. No scleral icterus. EARS: Clear NOSE: Nasal turbinates appear normal. THROAT: Mucosa pink and moist. Airway patent. NECK: Trachea midline. supple, moves head freely. LUNGS: Clear to auscultation. CV: Regular in rhythm. ABDOMEN: Soft nontender. EXT: No clubbing cyanosis or edema. Examination the right upper extremity reveals tenderness to the anterior component of the shoulder. The patient has very limited range of motion due to pain. There is no erythema or warmth. Positive crepitus. Positive drop test. No pain in the elbow, wrist or hand. He opens and closes fingers freely. 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 Data Data Last Documented VS Vital Signs Date Time Temp Pulse Resp B/P Pulse Ox O2 Delivery O2 Flow Rate FiO2 10/15/16 20:52 98.8 80 18 204/94 98 Orders Ice/Cold Pack (10/15/16 22:34) Splint Or Brace Apply/Monitor (10/15/16 22:34) Shoulder, Limited(2vws) (10/15/16 22:34) Sling Cradle Arm (10/15/16 ) MDM Medical Decision Making Medical Screen Exam Complete: Yes Emergency Medical Condition: Yes Medical Record Reviewed: Yes Interpretation(s) Right shoulder: Positive degenerative changes no acute fracture or subluxation. Differential Diagnosis MDM: High Differential diagnoses: Fracture, sprain, strain, dislocation, contusion, neurovascular injury, rotator injury Narrative Course The patient has requested a cortisone shot but unfortunately due to his diabetes I feel this would be contraindicated. He has NSAIDs, opiates and muscle relaxers at home. The patient is given a sling and ice pack here. I am concerned that his injury may have strained or torn his rotator cuff. This is right shoulder pain, right rotator cuff injury Diagnosis Primary Impression: Acute pain of right shoulder due to trauma Additional Impression: Injury of right rotator cuff Qualified Code: S46.001A - Injury of right rotator cuff, initial encounter Patient Instructions: General Instructions Additional Instructions: Rest. Ice. Continue your home medications. Sling. Follow-up with your doctor in the next 2-3 days. Follow-up with an orthopedic in one week. Med/Other Pt SpecificInfo: No Change to Meds Disposition: 01 DISCHARGE HOME Condition: Stable Won Conde Oct 15, 2016 22:41
--- NOTE | 2016-10-15 23:14 | RADRPT ---
EXAM DATE/TIME: 10/15/2016 22:47 [place] COMPARISON: No previous studies available for comparison. INDICATIONS : Fall. Right shoulder pain. MEDICAL HISTORY : None. SURGICAL HISTORY : None. ENCOUNTER: Initial ACUITY: 3 days PAIN SCORE: 7/10 LOCATION: Right upper extremity FINDINGS: Two view examination of the right shoulder demonstrates no evidence of fracture or dislocation. The glenohumeral and acromioclavicular joints are maintained. Bony mineralization is normal. There are m ultiple old healed right-sided rib fractures. CONCLUSION: 1. Unremarkable exam of the right shoulder. 2. Multiple old healed right rib fractures. Elvin Pagan MD on October 15, 2016 at 23:12 Board Certified Radiologist. This report was verified electronically.
== END 2016-10-15 23:17 | disposition home or self-care (01) ==
LOC: NEPD 20:50
DX: M25.511 Pain in right shoulder (principal)
CPT/HCPCS: 73030; 99283

== ENCOUNTER 2016-11-15 15:09 | Inpatient (IN) | payer MEDICARE ==
[2016-11-15] VITALS (13 sets, daily range): BP systolic 168–260; BP diastolic 77–110; PULSE 72–104; RESP 12–18; TEMP 98.7–98.8; O2SAT 97–100
[~2016-11-15] VITALS: Ht 177.8 cm; Wt 102.5 kg
[2016-11-15] MEDS ORDERED: SODIUM CHLORIDE 0.9% FLUSH 10 ML FLUSH IVF PRN (15:30)
[2016-11-15 16:00] LABS: AUTOMATED NEUTROPHIL # 4.8 TH/MM3 (1.8-7.7); BASOPHIL # 0.1 TH/MM3 (0-0.2); BASOPHIL % 1.3 % (0.0-2.0); EOSINOPHIL # 0.5 TH/MM3 (0-0.4); EOSINOPHIL % 5.3 % (0.0-4.0); HEMATOCRIT 31.2 % (39.0-51.0); HEMO FLAGS DIFF FINAL; LYMPH % 32.6 % (9.0-44.0); LYMPHOCYTE # 3.2 TH/MM3 (1.0-4.8); MEAN CELL VOLUME 86.2 FL (80.0-100.0); MEAN CORPUSCULAR HEMOGLOBIN 27.6 PG (27.0-34.0); MONO % 10.9 % (0.0-8.0); NEUT % 49.9 % (16.0-70.0); PLATELET COUNT 209 TH/MM3 (150-450); RED BLOOD COUNT 3.62 MIL/MM3 (4.50-5.90); RED CELL DISTRIBUTION WIDTH 15.3 % (11.6-17.2); WHITE BLOOD COUNT 9.7 TH/MM3 (4.0-11.0)
[2016-11-15 16:09] LABS: APTT (PATIENT) 27.3 SEC (24.3-30.1); INTERNATIONAL NORMALIZED RATIO 1.1 RATIO
--- NOTE | 2016-11-15 16:11 | PD ---
HPI Chief Complaint: Chest Pain Time Seen by Provider: 15:30 Travel History International Travel<30 days: No Contact w/Intl Traveler<30days: No Traveled to known affect area: No History of Present Illness HPI Patient is a 56-year-old male presenting to the emergency department on the advice of his bottom saw operator Dr. Masters due to shortness of breath and chest tightness. Patient states that the shortness of breath has been ongoing all morning, it occurs with and without exertion. He reports a mild chest tightness almost pressure-like. Patient reports his pain is 3 out of 10. He denies any nausea, vomiting, abdominal pain, headache, fever, chills. He reports feeling sweaty. Patient reports that he did take his blood pressure medicine this morning however his blood pressure was markedly elevated and his bottom saw operator office. Past medical history significant for aortic stenosis, coronary artery disease, congestive heart failure, chronic kidney disease stage III, type 2 diabetes, mitral valve regurgitation, sleep apnea, NSTEMI 04/09. Patient has not been checking his blood glucose since July due to lack of a glucometer and test strips. He does report compliance with his blood pressure medications. PFSH Past Medical History Hx Anticoagulant Therapy: Yes (ASA) Arthritis: Yes Asthma: No Blood Disorders: No Anxiety: No Depression: No Cancer: Yes (skin cancer) Cardiovascular Problems: Yes (aortic stenosis, mitral valve regurgitation, carotid artery stenosis) High Cholesterol: Yes Chest Pain: Yes Congestive Heart Failure: Yes Cirrhosis: Yes (alcoholic) COPD: No Coronary Artery Disease: Yes Diabetes: Yes Patient Takes Glucophage: Yes Diminished Hearing: No GERD: Yes Genitourinary: Yes (BPH) Hepatitis: Yes (C) Hiatal Hernia: Yes Hypertension: Yes Immune Disorder: No Implanted Vascular Access Dvce: No Musculoskeletal: Yes (Buldging disk, back) Neurologic: Yes (diabetic Neuropathy) Psychiatric: No Reproductive: No Respiratory: Yes Immunizations Current: No Myocardial Infarction: Yes (03/2016) Renal Failure: Yes (stage III chronic kidney disease) 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, 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.) Sleep Apnea: Yes (Not using C pap) Thyroid Disease: Yes Tetanus Vaccination: < 5 Years Past Surgical History Ear Surgery: No Endocrine Surgery: No Eye Surgery: No Genitourinary Surgery: No Neurologic Surgery: No Pacemaker: No Tonsillectomy: Yes Other Surgery: Yes (bilateral toe amputations) Social History Alcohol Use: No Tobacco Use: No Substance Use: No Allergies-Medications (Allergen,Severity, Reaction): Coded Allergies: *MDRO Multi-Drug Resistant Organism (Verified Adverse Reaction, Unknown, MRSA, 10/15/16) MRSA (foot wound) - 12/2014, 02/2015, 07/2015, 09/2015, 11/2015, 05/2016, 08/24/16 Reported Meds & Prescriptions Reported Meds & Active Scripts Active Coreg (Carvedilol) 6.25 Mg Tab 6.25 Mg PO BID Reported Bumetanide 1 Mg Tab 1 Mg PO BID Levemir Inj (Insulin Detemir) 1,000 unit/ 10 ML Vial 10 Units SQ TID Do not mix with any other Insulin. Ibuprofen 800 Mg Tab 800 Mg PO TID Zanaflex (Tizanidine HCl) 4 Mg Tab 2 Mg PO HS PRN Novolog Inj (Insulin Aspart) 1,000 Unit/10 Ml Vial 10 Units SQ TID Lortab (Hydrocodone-Acetaminophen) 10-325 Mg Tab 1 Tab PO QID PRN Atorvastatin (Atorvastatin Calcium) 20 Mg Tab 20 Mg PO HS Aspirin 81 (Aspirin) 81 Mg Tabdr 81 Mg PO DAILY Levothyroxine (Levothyroxine Sodium) 50 Mcg Tab 50 Mcg PO DAILY Robaxin (Methocarbamol) 750 Mg Tab 750 Mg PO TID PRN Flomax (Tamsulosin HCl) 0.4 Mg Cap 0.4 Mg PO DAILY Review of Systems Except as stated in HPI: all other systems reviewed are Neg General / Constitutional: No: Fever, Chills Eyes: No: Blurred Vision HENT: No: Headaches Cardiovascular: Positive: Chest Pain or Discomfort Respiratory: Positive: Shortness of Breath Gastrointestinal: No: Nausea, Vomiting, Abdominal Pain Genitourinary: No: Dysuria Musculoskeletal: No: Myalgias Neurologic: No: Weakness, Dizziness, Syncope, Focal Abnormalities Physical Exam Narrative GENERAL: Well-developed, well-nourished, alert male. Resting comfortably in no acute distress. SKIN: Focused skin assessment warm/dry. HEAD: Atraumatic. Normocephalic. EYES: Pupils equal and round. No scleral icterus. No injection or drainage. ENT: No nasal bleeding or discharge. Mucous membranes pink and moist. NECK: Trachea midline. No JVD. CARDIOVASCULAR: Regular rate and rhythm. 3/6 systolic murmur appreciated. RESPIRATORY: No accessory muscle use. Clear to auscultation. Breath sounds equal bilaterally. GASTROINTESTINAL: Abdomen soft, non-tender, nondistended. Hepatic and splenic margins not palpable. MUSCULOSKELETAL: No obvious deformities. No clubbing. No cyanosis. No edema. Positive pedal pulses. Bilateral toe amputations. NEUROLOGICAL: Awake and alert. No obvious cranial nerve deficits. Motor grossly within normal limits. Normal speech. PSYCHIATRIC: Appropriate mood and affect; insight and judgment normal. Data Data Last Documented VS Vital Signs Date Time Temp Pulse Resp B/P Pulse Ox O2 Delivery O2 Flow Rate FiO2 11/15/16 18:08 76 220/90 11/15/16 18:06 15 99 Nasal Cannula 2 11/15/16 15:11 98.8 Orders Electrocardiogram (11/15/16 15:30) B-Type Natriuretic Peptide (11/15/16 15:30) Ckmb (Isoenzyme) Profile (11/15/16 15:30) Complete Blood Count With Diff (11/15/16 15:30) Comprehensive Metabolic Panel (11/15/16 15:30) Magnesium (Mg) (11/15/16 15:30) Prothrombin Time / Inr (Pt) (11/15/16 15:30) Act Partial Throm Time (Ptt) (11/15/16 15:30) Troponin I (11/15/16 15:30) Chest, Single Ap (11/15/16 15:30) Ecg Monitoring (11/15/16 15:30) Bilateral Bp Monitoring (11/15/16 15:30) Iv Access Insert/Monitor (11/15/16 15:30) Oximetry (11/15/16 15:30) Oxygen Administration (11/15/16 15:30) Sodium Chloride 0.9% Flush (Ns Flush) (11/15/16 15:30) Metoprolol Tartrate Inj (Lopressor Inj) (11/15/16 16:12) CKMB (11/15/16 15:40) CKMB% (11/15/16 15:40) Bumetanide Inj (Bumex Inj) (11/15/16 17:00) Ct Pulmonary Angiogram (11/15/16 ) Iodixanol 320 Inj (Rad Ct) (Visipaque 32 (11/15/16 17:37) Alprazolam (Xanax) (11/15/16 18:15) Nitroglycerin 2% Oint (Nitroglycerin 2% (11/15/16 18:15) Consult Cardiology (11/15/16 ) Admit Order (Ed Use Only) (11/15/16 18:13) Labs Laboratory Tests Test 11/15/16 15:40 White Blood Count 9.7 TH/MM3 Red Blood Count 3.62 MIL/MM3 Hemoglobin 10.0 GM/DL Hematocrit 31.2 % Mean Corpuscular Volume 86.2 FL Mean Corpuscular Hemoglobin 27.6 PG Mean Corpuscular Hemoglobin 32.0 % Concent Red Cell Distribution Width 15.3 % Platelet Count 209 TH/MM3 Mean Platelet Volume 7.3 FL Neutrophils (%) (Auto) 49.9 % Lymphocytes (%) (Auto) 32.6 % Monocytes (%) (Auto) 10.9 % Eosinophils (%) (Auto) 5.3 % Basophils (%) (Auto) 1.3 % Neutrophils # (Auto) 4.8 TH/MM3 Lymphocytes # (Auto) 3.2 TH/MM3 Monocytes # (Auto) 1.1 TH/MM3 Eosinophils # (Auto) 0.5 TH/MM3 Basophils # (Auto) 0.1 TH/MM3 CBC Comment DIFF FINAL Differential Comment Prothrombin Time 12.0 SEC Prothromb Time International 1.1 RATIO Ratio Activated Partial 27.3 SEC Thromboplast Time Sodium Level 144 MEQ/L Potassium Level 5.5 MEQ/L Chloride Level 115 MEQ/L Carbon Dioxide Level 21.0 MEQ/L Anion Gap 8 MEQ/L Blood Urea Nitrogen 37 MG/DL Creatinine 1.74 MG/DL Estimat Glomerular Filtration 41 ML/MIN Rate Random Glucose 82 MG/DL Calcium Level 9.2 MG/DL Magnesium Level 1.9 MG/DL Total Bilirubin 0.3 MG/DL Aspartate Amino Transf 34 U/L (AST/SGOT) Alanine Aminotransferase 29 U/L (ALT/SGPT) Alkaline Phosphatase 155 U/L Total Creatine Kinase 144 U/L Creatine Kinase MB 5.8 NG/ML Troponin I 0.11 NG/ML B-Type Natriuretic Peptide 248 PG/ML Total Protein 8.2 GM/DL Albumin 3.6 GM/DL MDM Medical Decision Making Medical Screen Exam Complete: Yes Emergency Medical Condition: Yes Interpretation(s) Vital Signs Date Time Temp Pulse Resp B/P Pulse Ox O2 Delivery O2 Flow Rate FiO2 11/15/16 15:43 240/100 11/15/16 15:32 99 Nasal Cannula 2 11/15/16 15:32 77 15 228/98 99 Nasal Cannula 2 11/15/16 15:26 74 16 99 Nasal Cannula 2 11/15/16 15:11 98.8 83 18 260/110 99 Room Air Differential Diagnosis ACS vs NSTEMI vs PNA vs CHF vs other Narrative Course Patient is a 56-year-old male sent by his bottom saw operator for evaluation of shortness of breath and chest tightness. BP is markedly elevated in the emergency department, IV access established, patient presents to monitoring and continuous pulse oximetry. is at bedside. Patient resting comfortably. Lopressor 1 dose ordered Chest x-ray shows no acute disease CBC with a mild anemia with hemoglobin of 10/31.2. Eosinophilia. Chemistry with potassium 5.5, BUN and creatinine are elevated 37/1.74. Troponin 0.11, BNP 248. Bumex IV 1 dose ordered Coags are unremarkable Discuss elevated troponin with Dr. Masters who saw patient in his office today , he is not concerned about the elevated troponin as he saw the patient a office and patient was asymptomatic. And he did recommend trending his enzymes and was concerned regarding the elevated blood pressure which is what needed to be treated. CT pulmonary angiogram ordered due to abrupt onset of shortness of breath this morning and chest tightness coupled with a negative chest x-ray. CT pulmonary angiogram is negative for pulmonary embolism. BP remains elevated, nitro paste ordered. [facility] paged for admission. Dr. Rg accepted admission Diagnosis Primary Impression: Acute kidney injury Additional Impressions: Elevated troponin I level HTN (hypertension) Qualified Code: I10 - Essential hypertension Type 2 diabetes mellitus with peripheral neuropathy CHF (congestive heart failure) Qualified Code: I50.9 - Congestive heart failure, unspecified congestive heart failure chronicity, unspecified congestive heart failure type Admitting Information Admitting Physician Requests: Admit Condition: Stable Lo Arias November 15, 2016 16:11
[2016-11-15] MEDS ORDERED: METOPROLOL TARTRATE 5 MG/5 ML VIAL IV PUSH STA (16:12)
[2016-11-15 16:21] LABS: ALT (GPT) 29 U/L (12-78); ANION GAP 8 MEQ/L (5-15); AST (GOT) 34 U/L (15-37); BLOOD UREA NITROGEN 37 MG/DL (7-18); CHLORIDE 115 MEQ/L (98-107); GLOMERULAR FILTRATION RATE 41 ML/MIN (>89); MAGNESIUM 1.9 MG/DL (1.5-2.5); POTASSIUM 5.5 MEQ/L (3.5-5.1); SODIUM (NA) 144 MEQ/L (136-145)
--- NOTE | 2016-11-15 16:21 | RADRPT ---
EXAM DATE/TIME: 11/15/2016 15:54 [facility] COMPARISON: CHEST SINGLE AP, August 09, 2016, 18:25. INDICATIONS : Chest pain and hypertension. MEDICAL HISTORY : Hypertension. Hepatitis C. Cardiovascular disease. SURGICAL HISTORY : None. ENCOUNTER: Initial ACUITY: 1 day PAIN SCORE: 7/10 LOCATION: Bilateral chest FINDINGS: A single view of the chest demonstrates the lungs to be symmetrically aerated without evidence of mas s, infiltrate or effusion. The cardiomediastinal contours are unremarkable. Osseous structures are intact. CONCLUSION: No acute cardiopulmonary process. Po Guajardo MD on November 15, 2016 at 16:18 Board Certified Radiologist. This report was verified electronically.
[2016-11-15 16:25] LABS: ALKALINE PHOSPHATASE 155 U/L (45-117); CREATINE KINASE 144 U/L (39-308); TOTAL BILIRUBIN ADULT 0.3 MG/DL (0.2-1.0)
[2016-11-15 16:42] LABS: CKMB 5.8 NG/ML (0.5-3.6)
[2016-11-15] MEDS ORDERED: BUMETANIDE INJ 1 MG/4 ML VIAL IV PUSH ONE (17:00)
[2016-11-15] MEDS ORDERED: IBUP800T23 PO (17:30)
[2016-11-15] MEDS ORDERED: IODIXANOL 320 MG/ML 10 ML VIAL (for Rad CT) IV ONE (17:37)
[2016-11-15] MEDS ORDERED: LEVEMIR SQ (17:46)
--- NOTE | 2016-11-15 17:47 | RADRPT ---
EXAM DATE/TIME: 11/15/2016 17:29 [facility] COMPARISON: CHEST SINGLE AP, November 15, 2016, 15:54. INDICATIONS : Chest pain with shortness of breath. IV CONTRAST: 50 cc Visipaque (iodixanol) IV RADIATION DOSE: 35.45 CTDIvol (mGy) MEDICAL HISTORY : Cardiovascular disease. Hypertension. Diabetes mellitus type 2.Hep C Corrhosis Renal failure SURGICAL HISTORY : None. ENCOUNTER: Initial ACUITY: 1 day PAIN SCALE: 4/10 LOCATION: Bilateral chest TECHNIQUE: Volumetric scanning of the chest was performed using a pulmonary embolism protocol MIP images were re constructed. Using automated exposure control and adjustment of the mA and/or kV according to patien t size, radiation dose was kept as low as reasonably achievable to obtain optimal diagnostic quality images. FINDINGS: PULMONARY ARTERIES: No filling defects are seen in the pulmonary arteries through the segmental level. LUNGS: There is no consolidation or pneumothorax . No concerning pulmonary nodule is visualized. PLEURAE: There is no pleural thickening or pleural effusion. MEDIASTINUM: There is good visualization of the great vessels of the middle mediastinum. No evidence of mediastin al or hilar adenopathy/mass. MUSCULOSKELETAL: Within normal limits for patient age. MISCELLANEOUS: Cirrhotic appearing liver. Coronary artery calcification is noted, calcification at the mitral annulu s and aortic root and atherosclerotic calcification of the aorta. Cholelithiasis. CONCLUSION: 1. Atherosclerosis. 2. No evidence for pulmonary embolism. 3. Cirrhosis. Elias Rodriges MD on November 15, 2016 at 17:43 Board Certified Radiologist. This report was verified electronically.
[2016-11-15] MEDS ORDERED: BUME1TAB26 PO (17:48)
[2016-11-15] MEDS ORDERED: BUME1TAB PO (17:49)
[2016-11-15] MEDS ORDERED: NITROGLYCERIN 2% OINT 1 GM PACKET TOPICAL ONE (18:15)
[2016-11-15] MEDS ORDERED: ALPRAZolam 0.5 MG TAB PO ONE (18:15)
--- NOTE | 2016-11-15 18:36 | HHI.HP ---
HPI Service [facility] Primary Care Physician Braeden Parikh DO Admission Diagnosis chest pain, hypertension Diagnoses: (1) Malignant hypertensive urgency (2) HTN (hypertension) (3) Elevated troponin I level (4) Diabetes mellitus (5) Hepatitis C Chief Complaint: Shortness of breath, chest tightness and elevated BP Travel History International Travel<30 Days: No Contact w/Intl Traveler <30 Da: No Traveled to Known Affected Are: No History of Present Illness 56 year-old male with a history of diabetes type 2, hypertension, hyperlipidemia was sent to the ED for evaluation of elevated BP from his test rider's office, which he has gone to see today for a routine visit when patient was found to have blood pressure of 230/100+ along with some shortness of breath and chest tightness. Patient reports being compliant with his medical care. He states, since 12:30 AM he has not slept and noticed to be short of breath yesterday while walking his dog for about a mile. Denies any headaches or heart palpitation. He has no GI bleed. Review of Systems Except as stated in HPI: all other systems reviewed are Neg Past Family Social History Past Medical History Arthritis: Yes Asthma: No Blood Disorders: No Anxiety: No Depression: No Cancer: Yes (skin cancer) Cardiovascular Problems: Yes (aortic stenosis, mitral valve regurgitation, carotid artery stenosis) High Cholesterol: Yes Chest Pain: Yes Congestive Heart Failure: Yes Cirrhosis: Yes (alcoholic) COPD: No Coronary Artery Disease: Yes Diabetes: Yes Patient Takes Glucophage: Yes Diminished Hearing: No GERD: Yes Genitourinary: Yes (BPH) Hepatitis: Yes (C) Hiatal Hernia: Yes Hypertension: Yes Immune Disorder: No Implanted Vascular Access Dvce: No Musculoskeletal: Yes (Buldging disk, back) Neurologic: Yes (diabetic Neuropathy) Psychiatric: No Reproductive: No Respiratory: Yes Immunizations Current: No Myocardial Infarction: Yes (03/2016) Renal Failure: Yes (stage III chronic kidney disease) 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, 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.) Sleep Apnea: Yes (Not using C pap) Thyroid Disease: Yes Past Surgical History Tonsillectomy: Yes Other Surgery: Yes (bilateral toe amputations) Reported Medications Coreg (Carvedilol) 6.25 Mg Tab 6.25 Mg PO BID Reported Bumetanide 1 Mg Tab 1 Mg PO BID Levemir Inj (Insulin Detemir) 1,000 unit/ 10 ML Vial 10 Units SQ TID Do not mix with any other Insulin. Ibuprofen 800 Mg Tab 800 Mg PO TID Zanaflex (Tizanidine HCl) 4 Mg Tab 2 Mg PO HS PRN Novolog Inj (Insulin Aspart) 1,000 Unit/10 Ml Vial 10 Units SQ TID Lortab (Hydrocodone-Acetaminophen) 10-325 Mg Tab 1 Tab PO QID PRN Atorvastatin (Atorvastatin Calcium) 20 Mg Tab 20 Mg PO HS Aspirin 81 (Aspirin) 81 Mg Tabdr 81 Mg PO DAILY Levothyroxine (Levothyroxine Sodium) 50 Mcg Tab 50 Mcg PO DAILY Robaxin (Methocarbamol) 750 Mg Tab 750 Mg PO TID PRN Flomax (Tamsulosin HCl) 0.4 Mg Cap 0.4 Mg PO DAILY Allergies: Coded Allergies: *MDRO Multi-Drug Resistant Organism (Verified Adverse Reaction, Unknown, MRSA, 10/15/16) MRSA (foot wound) - 12/2014, 02/2015, 07/2015, 09/2015, 11/2015, 05/2016, 08/24/16 Family History Father from complication of heart disease Mother from complication of COPD/emphysema; she also had diabetes type 2 Social History Alcohol Use: No Tobacco Use: No Substance Use: No Physical Exam Vital Signs Vital Signs Date Time Temp Pulse Resp B/P Pulse Ox O2 Delivery O2 Flow Rate FiO2 11/15/16 18:08 76 220/90 11/15/16 18:06 72 15 242/109 99 Nasal Cannula 2 11/15/16 17:22 72 14 182/98 99 Nasal Cannula 2 11/15/16 16:55 73 15 178/98 99 Nasal Cannula 2 11/15/16 15:43 240/100 11/15/16 15:32 99 Nasal Cannula 2 11/15/16 15:32 77 15 228/98 99 Nasal Cannula 2 11/15/16 15:26 74 16 99 Nasal Cannula 2 11/15/16 15:11 98.8 83 18 260/110 99 Room Air Physical Exam GENERAL: This is a well-nourished, well-developed patient, in no apparent distress. SKIN: No rashes, ecchymoses or lesions. Cool and dry. HEAD: Atraumatic. Normocephalic. No temporal or scalp tenderness. EYES: Pupils equal round and reactive. Extraocular motions intact. No scleral icterus. No injection or drainage. ENT: Nose without bleeding, purulent drainage or septal hematoma. Throat without erythema, tonsillar hypertrophy or exudate. Uvula midline. Airway patent. NECK: Trachea midline. No JVD or lymphadenopathy. Supple, nontender, no meningeal signs. CARDIOVASCULAR: Regular rate and rhythm with II/ KELLEY. RESPIRATORY: Clear to auscultation. Breath sounds equal bilaterally. No wheezes , rales, or rhonchi. GASTROINTESTINAL: Abdomen soft, non-tender, nondistended. No hepato-splenomegaly , or palpable masses. No guarding. MUSCULOSKELETAL: Extremities without clubbing, cyanosis, or edema. No joint tenderness, effusion, or edema noted. No calf tenderness. Negative Homans sign bilaterally. NEUROLOGICAL: Awake and alert. Cranial nerves II through XII intact. Motor and sensory grossly within normal limits. Five out of 5 muscle strength in all muscle groups. Normal speech. Laboratory Laboratory Tests Test 11/15/16 15:40 White Blood Count 9.7 Red Blood Count 3.62 Hemoglobin 10.0 Hematocrit 31.2 Mean Corpuscular Volume 86.2 Mean Corpuscular Hemoglobin 27.6 Mean Corpuscular Hemoglobin 32.0 Concent Red Cell Distribution Width 15.3 Platelet Count 209 Mean Platelet Volume 7.3 Neutrophils (%) (Auto) 49.9 Lymphocytes (%) (Auto) 32.6 Monocytes (%) (Auto) 10.9 Eosinophils (%) (Auto) 5.3 Basophils (%) (Auto) 1.3 Neutrophils # (Auto) 4.8 Lymphocytes # (Auto) 3.2 Monocytes # (Auto) 1.1 Eosinophils # (Auto) 0.5 Basophils # (Auto) 0.1 CBC Comment DIFF FINAL Differential Comment Prothrombin Time 12.0 Prothromb Time International 1.1 Ratio Activated Partial 27.3 Thromboplast Time Sodium Level 144 Potassium Level 5.5 Chloride Level 115 Carbon Dioxide Level 21.0 Anion Gap 8 Blood Urea Nitrogen 37 Creatinine 1.74 Estimat Glomerular Filtration 41 Rate Random Glucose 82 Calcium Level 9.2 Magnesium Level 1.9 Total Bilirubin 0.3 Aspartate Amino Transf 34 (AST/SGOT) Alanine Aminotransferase 29 (ALT/SGPT) Alkaline Phosphatase 155 Total Creatine Kinase 144 Creatine Kinase MB 5.8 Troponin I 0.11 B-Type Natriuretic Peptide 248 Total Protein 8.2 Albumin 3.6 Result Diagram: 11/15/16 1540 11/15/16 1540 Imaging Last Impressions Chest X-Ray 11/15/16 1530 Signed Impressions: Service Date/Time: Tuesday, November 15, 2016 15:54 - CONCLUSION: No acute cardiopulmonary process. Po Guajardo MD CT Angiography 11/15/16 0000 Signed Impressions: Service Date/Time: Tuesday, November 15, 2016 17:29 - CONCLUSION: 1. Atherosclerosis. 2. No evidence for pulmonary embolism. 3. Cirrhosis. Elias Rodriges MD Assessment and Plan Problem List: (1) Malignant hypertensive urgency ICD Code: I16.0 Status: Acute (2) HTN (hypertension) ICD Code: I10 Status: Chronic (3) Diabetes mellitus ICD Code: E11.9 Status: Chronic (4) CKD (chronic kidney disease), stage III ICD Code: N18.3 Status: Acute (5) Hyperkalemia ICD Code: E87.5 Status: Acute Assessment and Plan 56-year-old man with Malignant hypertensive urgency Chest tightness Elevating troponin I Chest x-ray noted and review by me without any cardio pulmonary disease CT Angiography noted and review by me with finding of Atherosclerosis. 2. No evidence for pulmonary embolism. 3. Cirrhosis Start Cardene drip and monitor in ICU ACS rule out per protocol with serial cardiac enzyme and EKGs Check 2-D echo Cardiology consultation pending Diabetes type 2 Starts insulin sliding scale and resume long-acting basal insulin Hyperlipidemia Resume statin Hyperkalemia Recheck potassium and treat accordingly with Kayexalate Chronic kidney disease stage III Renal indices at baseline, continue to monitor BUN and creatinine and avoid all nephrotoxic drugs DVT prophylaxis Heparin subcutaneous Code Status Full code Discussed Condition With Patient, , ED physician Physician Certification 2 Midnight Certification Type: Admission for Inpatient Services Order for Inpatient Services The services are ordered in accordance with Medicare regulations or non- Medicare payer requirements, as applicable. In the case of services not specified as inpatient-only, they are appropriately provided as inpatient services in accordance with the 2-midnight benchmark. Estimated LOS (days): 2 days is the estimated time the patient will need to remain in the hospital, assuming treatment plan goals are met and no additional complications. Post-Hospital Plan: Not yet determined Problem Qualifiers (1) HTN (hypertension): Qualified Code: I10 - Essential hypertension Jose Manuel Rg MD November 15, 2016 18:36
[2016-11-15] MEDS ORDERED: ACETAMINOPHEN/HYDROcodone 325 MG/5 MG TAB PO PRN (18:45)
[2016-11-15] MEDS ORDERED: NALOXONE HCL 0.4 MG/ML AMP IV PRN (18:45)
[2016-11-15] MEDS ORDERED: GLUCAGON 1 MG/ML VIAL OTHER PRN (18:45)
[2016-11-15] MEDS ORDERED: ONDANSETRON HCL 4 MG/2 ML VIAL IVP PRN (18:45)
[2016-11-15] MEDS ORDERED: DEXTROSE 50% IN WATER 50 ML VIAL(D50) IV PRN (18:45)
[2016-11-15] MEDS ORDERED: SODIUM CHLORIDE 0.9% FLUSH 10 ML FLUSH IV FLUSH PRN (18:45)
[2016-11-15] MEDS ORDERED: MAGNESIUM HYDROXIDE SUSP 30 ML CUP PO PRN (18:45)
[2016-11-15] MEDS ORDERED: ACETAMINOPHEN 325 MG TAB PO PRN ×2 (18:45)
[2016-11-15] MEDS: BUMETANIDE 1 MG TAB PO SCH (18:54)
[2016-11-15] MEDS: niCARdipine INJ 25 MG in SODIUM CHLOR 0.9% 250 ML INJ 250 ML IV SCH ×2 (20:03→23:46)
[2016-11-15] MEDS: INSULIN ASPART SUPPLEMENTAL SCALE SQ SCH (20:52)
[2016-11-15] MEDS: ATORVASTATIN 20 MG TAB PO SCH (20:52)
[2016-11-15] MEDS: SODIUM CHLORIDE 0.9% FLUSH 10 ML FLUSH IV FLUSH SCH (20:52)
[2016-11-15] MEDS: CHLORHEXIDINE GLUCONATE 2 % 1 PACK (2 CLOTHS)(taper/protocol) TOPICAL SCH (22:12)
[2016-11-15] MEDS ORDERED: CHLORHEXIDINE GLUCONATE 2 % 1 PACK (2 CLOTHS)(extra cloths) TOPICAL PRN (22:15)
[2016-11-15] MEDS: ACETAMINOPHEN/HYDROcodone 325 MG/7.5 MG TAB PO PRN (22:25)
[2016-11-16] VITALS (28 sets, daily range): BP systolic 108–197; BP diastolic 51–87; PULSE 72–109; RESP 12–26; TEMP 98.2–98.5; O2SAT 93–97
[2016-11-16] MEDS: niCARdipine INJ 25 MG in SODIUM CHLOR 0.9% 250 ML INJ 250 ML IV SCH ×3 (02:52→07:45)
[2016-11-16] MEDS ORDERED: PILL SPLITTER OTHER PRN (04:00)
[2016-11-16] MEDS: MORPHINE SULFATE 4 MG/ML INJ IV PUSH PRN ×2 (04:00→20:33)
[2016-11-16] MEDS: METHOCARBAMOL 500 MG TAB PO PRN ×3 (04:01→20:32)
[2016-11-16 04:56] LABS: AUTOMATED NEUTROPHIL # 8.7 TH/MM3 (1.8-7.7); BASOPHIL # 0.1 TH/MM3 (0-0.2); BASOPHIL % 0.8 % (0.0-2.0); EOSINOPHIL # 0.2 TH/MM3 (0-0.4); EOSINOPHIL % 1.5 % (0.0-4.0); HEMATOCRIT 31.6 % (39.0-51.0); HEMO FLAGS DIFF FINAL; LYMPH % 17.6 % (9.0-44.0); LYMPHOCYTE # 2.1 TH/MM3 (1.0-4.8); MEAN CELL VOLUME 85.1 FL (80.0-100.0); MEAN CORPUSCULAR HEMOGLOBIN 27.4 PG (27.0-34.0); MEAN CORPUSCULAR HGB CONC 32.2 % (32.0-36.0); MONO % 6.5 % (0.0-8.0); NEUT % 73.6 % (16.0-70.0); PLATELET COUNT 232 TH/MM3 (150-450); RED BLOOD COUNT 3.72 MIL/MM3 (4.50-5.90); RED CELL DISTRIBUTION WIDTH 15.1 % (11.6-17.2); WHITE BLOOD COUNT 11.9 TH/MM3 (4.0-11.0)
[2016-11-16] MEDS: LEVOTHYROXINE SODIUM 50 MCG TAB PO SCH (05:14)
[2016-11-16 05:22] LABS: ALKALINE PHOSPHATASE 160 U/L (45-117); ALT (GPT) 27 U/L (12-78); ANION GAP 11 MEQ/L (5-15); AST (GOT) 33 U/L (15-37); BICARBONATE 19.2 MEQ/L (21.0-32.0); BLOOD UREA NITROGEN 33 MG/DL (7-18); CHLORIDE 109 MEQ/L (98-107); CREATINE KINASE 146 U/L (39-308); GLOMERULAR FILTRATION RATE 48 ML/MIN (>89); POTASSIUM 4.8 MEQ/L (3.5-5.1); SODIUM (NA) 139 MEQ/L (136-145); TOTAL BILIRUBIN ADULT 0.4 MG/DL (0.2-1.0)
[2016-11-16] MEDS: INSULIN ASPART SUPPLEMENTAL SCALE SQ SCH ×4 (05:29→20:45)
[2016-11-16] MEDS: TAMSULOSIN HCL 0.4 MG CAP PO SCH (07:41)
[2016-11-16] MEDS: SODIUM CHLORIDE 0.9% FLUSH 10 ML FLUSH IV FLUSH SCH ×2 (07:41→20:38)
[2016-11-16] MEDS: ASPIRIN 81 MG CHEW TAB PO SCH (07:41)
[2016-11-16] MEDS: BUMETANIDE 1 MG TAB PO SCH ×2 (07:41→17:22)
[2016-11-16] MEDS: INSULIN DETEMIR 100 UNITS/ML VIAL SQ SCH ×3 (07:44→17:28)
[2016-11-16] MEDS: INSULIN ASPART 1,000 UNITS/10 ML VIAL SQ SCH ×3 (07:44→17:28)
--- NOTE | 2016-11-16 08:02 | PD.CONS ---
HPI Service Hosp Consult Requested By Reason for Consult Troponin Primary Care Physician Braeden Parikh DO History of Present Illness 56 y/o M with cardiac risk factors diabetes type 2, hypertension, hyperlipidemia admitted elevated BP and symptoms of SOB and chest tightness. 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 Patient reports being compliant with his medical care. Denies any headaches or heart palpitation. He has no GI bleed. Review of Systems Consitutional: DENIES: Fatigue, Fever, Chills, Weight gain, Weight loss Eyes: DENIES: Amaurosis Fugax, Change in vision HEENT: DENIES: Lightheadedness, Change in hearing Respiratory: COMPLAINS OF: See HPI Cardiovascular: COMPLAINS OF: See HPI Gastrointestinal: DENIES: Nausea, Vomiting, Change in bowel habits, Reflux, Bloody stools, Melena Genitourinary: DENIES: Urinary incontinence, Difficulty voiding Integumentary: DENIES: Rash Neurologic: DENIES: Tingling or numbness, Memory problems, Poor Balance, Stroke symptoms Psychiatric: DENIES: Anxiety, Depression, Sleep disturbances Hematologic: DENIES: Bruising tendencies, Bleeding tendencies Endocrine: DENIES: Weight gain, Weight loss, Thyroid disease Past Family Social History Allergies: Coded Allergies: *MDRO Multi-Drug Resistant Organism (Verified Adverse Reaction, Unknown, MRSA, 10/15/16) MRSA (foot wound) - 12/2014, 02/2015, 07/2015, 09/2015, 11/2015, 05/2016, 08/24/16 Past Medical History HTN DM HLD Reported Medications Reported Meds & Active Scripts Active Coreg (Carvedilol) 6.25 Mg Tab 6.25 Mg PO BID Reported Bumetanide 1 Mg Tab 1 Mg PO BID Levemir Inj (Insulin Detemir) 1,000 unit/ 10 ML Vial 10 Units SQ TID Do not mix with any other Insulin. Ibuprofen 800 Mg Tab 800 Mg PO TID Zanaflex (Tizanidine HCl) 4 Mg Tab 2 Mg PO HS PRN Novolog Inj (Insulin Aspart) 1,000 Unit/10 Ml Vial 10 Units SQ TID Lortab (Hydrocodone-Acetaminophen) 10-325 Mg Tab 1 Tab PO QID PRN Atorvastatin (Atorvastatin Calcium) 20 Mg Tab 20 Mg PO HS Aspirin 81 (Aspirin) 81 Mg Tabdr 81 Mg PO DAILY Levothyroxine (Levothyroxine Sodium) 50 Mcg Tab 50 Mcg PO DAILY Robaxin (Methocarbamol) 750 Mg Tab 750 Mg PO TID PRN Flomax (Tamsulosin HCl) 0.4 Mg Cap 0.4 Mg PO DAILY Active Ordered Medications Current Medications Medications (Trade) Dose Ordered Sig/Sergei Route Start Time Stop Time Status Last Admin (NS Flush) 2 ml UNSCH PRN IV FLUSH 11/15/16 18:45 (NS Flush) 2 ml BID IV FLUSH 11/15/16 21:00 11/16/16 07:41 (Tylenol) 650 mg Q4H PRN PO 11/15/16 18:45 (Zofran Inj) 4 mg Q6H PRN IVP 11/15/16 18:45 (Tylenol) 650 mg Q6H PRN PO 11/15/16 18:45 (Davis 5-325 Mg) 1 tab Q4H PRN PO 11/15/16 18:45 (Davis 7.5-325 Mg) 1 tab Q4H PRN PO 11/15/16 18:45 11/15/16 22:25 (Narcan Inj) 0.4 mg UNSCH PRN IV 11/15/16 18:45 (Milk Of Magnesia Liq) 30 ml Q12H PRN PO 11/15/16 18:45 (D50w (Vial) Inj) 50 ml UNSCH PRN IV 11/15/16 18:45 Glucagon 1 mg 1 mg UNSCH PRN OTHER 11/15/16 18:45 (Cardene Inj/NS 250 ml Inj) 260 ml @ 0 mls/hr TITRATE IV 11/15/16 21:00 11/16/16 07:45 (Lipitor) 20 mg HS PO 11/15/16 21:00 11/15/16 20:52 (Bumetanide) 1 mg BID@09,18 PO 11/15/16 18:54 11/16/16 07:41 (NovoLOG INJ) 10 units TID SQ 11/16/16 09:00 11/16/16 07:44 (Synthroid) 50 mcg DAILY@06 PO 11/16/16 06:00 11/16/16 05:14 (Flomax) 0.4 mg DAILY PO 11/16/16 09:00 11/16/16 07:41 (Aspirin Chew) 81 mg DAILY PO 11/16/16 09:00 11/16/16 07:41 (Levemir Inj) 10 units TID SQ 11/16/16 09:00 11/16/16 07:44 Miscellaneous Information Patient in critical care unit? Ass... [id number] .XX 11/15/16 22:15 11/15/16 22:15 (Chlorhexidine 2% Cloth) 3 pack DAILY@04 TOPICAL 11/16/16 04:00 11/20/16 04:01 11/15/16 22:12 (Chlorhexidine 2% Cloth) 3 pack UNSCH PRN TOPICAL 11/15/16 22:15 11/20/16 22:08 (Morphine Inj) 2 mg Q3H PRN IV PUSH 11/16/16 03:45 11/16/16 04:00 (Robaxin) 750 mg TID PRN PO 11/16/16 03:45 11/16/16 04:01 (Pill Splitter) 1 ea UNSCH PRN OTHER 11/16/16 04:00 Physical Exam Vital Signs Vital Signs Date Time Temp Pulse Resp B/P Pulse Ox O2 Delivery O2 Flow Rate FiO2 11/16/16 06:00 108 11/16/16 04:00 98.4 105 15 188/85 96 11/16/16 04:00 105 11/16/16 02:00 109 11/16/16 00:00 98.5 103 15 181/79 95 11/16/16 00:00 103 11/15/16 22:00 98.7 104 12 179/84 97 Manual Cuff/Auscultation 11/15/16 21:41 168/77 168/77 11/15/16 20:50 104 18 188/82 98 Nasal Cannula 2 11/15/16 20:23 98 18 190/82 99 Nasal Cannula 2 11/15/16 20:12 86 16 202/88 98 Room Air 11/15/16 19:16 97 18 210/98 100 Room Air 11/15/16 18:08 76 220/90 11/15/16 18:06 72 15 242/109 99 Nasal Cannula 2 11/15/16 17:22 72 14 182/98 99 Nasal Cannula 2 11/15/16 16:55 73 15 178/98 99 Nasal Cannula 2 11/15/16 15:43 240/100 11/15/16 15:32 99 Nasal Cannula 2 11/15/16 15:32 77 15 228/98 99 Nasal Cannula 2 11/15/16 15:26 74 16 99 Nasal Cannula 2 11/15/16 15:11 98.8 83 18 260/110 99 Room Air Laboratory Laboratory Tests Test 11/15/16 11/15/16 11/15/16 11/16/16 15:40 21:38 22:05 03:56 White Blood Count 9.7 11.9 Red Blood Count 3.62 3.72 Hemoglobin 10.0 10.2 Hematocrit 31.2 31.6 Mean Corpuscular Volume 86.2 85.1 Mean Corpuscular Hemoglobin 27.6 27.4 Mean Corpuscular Hemoglobin 32.0 32.2 Concent Red Cell Distribution Width 15.3 15.1 Platelet Count 209 232 Mean Platelet Volume 7.3 7.8 Neutrophils (%) (Auto) 49.9 73.6 Lymphocytes (%) (Auto) 32.6 17.6 Monocytes (%) (Auto) 10.9 6.5 Eosinophils (%) (Auto) 5.3 1.5 Basophils (%) (Auto) 1.3 0.8 Neutrophils # (Auto) 4.8 8.7 Lymphocytes # (Auto) 3.2 2.1 Monocytes # (Auto) 1.1 0.8 Eosinophils # (Auto) 0.5 0.2 Basophils # (Auto) 0.1 0.1 CBC Comment DIFF FINAL DIFF FINAL Differential Comment Prothrombin Time 12.0 Prothromb Time International 1.1 Ratio Activated Partial 27.3 Thromboplast Time Sodium Level 144 139 Potassium Level 5.5 4.8 Chloride Level 115 109 Carbon Dioxide Level 21.0 19.2 Anion Gap 8 11 Blood Urea Nitrogen 37 33 Creatinine 1.74 1.51 Estimat Glomerular Filtration 41 48 Rate Random Glucose 82 208 Calcium Level 9.2 8.9 Magnesium Level 1.9 Total Bilirubin 0.3 0.4 Aspartate Amino Transf 34 33 (AST/SGOT) Alanine Aminotransferase 29 27 (ALT/SGPT) Alkaline Phosphatase 155 160 Total Creatine Kinase 144 126 146 Creatine Kinase MB 5.8 Troponin I 0.11 0.17 0.18 B-Type Natriuretic Peptide 248 Total Protein 8.2 8.1 Albumin 3.6 3.4 Nasal Screen MRSA (PCR) MRSA DETECTED Result Diagram: 11/16/16 0356 11/16/16 0356 Imaging Last Impressions Chest X-Ray 11/15/16 1530 Signed Impressions: Service Date/Time: Tuesday, November 15, 2016 15:54 - CONCLUSION: No acute cardiopulmonary process. Po Guajardo MD CT Angiography 11/15/16 0000 Signed Impressions: Service Date/Time: Tuesday, November 15, 2016 17:29 - CONCLUSION: 1. Atherosclerosis. 2. No evidence for pulmonary embolism. 3. Cirrhosis. Elias Rodriges MD Assessment and Plan Problem List: (1) Hypertensive urgency Assessment and Plan: BP better controlled No CV complaints Continue medical management Start PO BP meds Start Coreg 6.25mg PO BID Start Norvasc 5mg PO daily Start HCTZ 25mg PO daily Cont statin F/U echo results (2) Acute renal failure (3) Type 2 diabetes mellitus with peripheral neuropathy (4) HTN (hypertension) (5) Elevated troponin I level (6) Obesity Problem Qualifiers (1) HTN (hypertension): Qualified Code: I10 - Essential hypertension Logan Owens MD November 16, 2016 08:01
[2016-11-16] MEDS: ACETAMINOPHEN/HYDROcodone 325 MG/7.5 MG TAB PO PRN ×2 (08:51→12:18)
--- NOTE | 2016-11-16 11:46 | EC ---
Study Study Date:11/16/2016 STUDY CONCLUSIONS SUMMARY - Left ventricle: The cavity size was normal. Wall thickness was normal. Systolic function was normal. The estimated ejection fraction was in the range of 55% to 60%. Wall motion was normal; there were no regional wall motion abnormalities. Doppler parameters are consistent with abnormal left ventricular relaxation (grade 1 diastolic dysfunction). - Aortic valve: Valve area: 2.16cm^2 (Vmax). - Tricuspid valve: Mild regurgitation. - Pulmonic valve: Peak gradient: 14mm Hg (S). If LV function is below 40, please consider prescribing an ACEI or ARB or document rationale for non-use. PROCEDURE DATA STUDY STATUS: Elective. Procedure: Transthoracic echocardiography. Image quality was good. Scanning was performed from the parasternal, apical, and subcostal acoustic windows. Study completion: The patient tolerated the procedure well. Transthoracic echocardiography. M-mode, complete 2D, complete spectral Doppler, and color Doppler. Height: Height: 70in. Weight: Weight: 231.5lb. Body mass index: BMI: 33.3kg/m^2. Body surface area: BSA: 2.22m^2. Patient status: Inpatient. CARDIAC ANATOMY LEFT VENTRICLE: The cavity size was normal. Wall thickness was normal. Systolic function was normal. The estimated ejection fraction was in the range of 55% to 60%. Wall motion was normal; there were no regional wall motion abnormalities. Doppler parameters are consistent with abnormal left ventricular relaxation (grade 1 diastolic dysfunction). AORTIC VALVE: Trileaflet; normal thickness leaflets. Doppler: Transvalvular velocity was within the normal range. There was no stenosis. No regurgitation. Valve area: 2.16cm^2 (Vmax). Indexed valve area: 0.97cm^2/m^2 (Vmax). AORTA: Aortic root: The aortic root was normal in size. MITRAL VALVE: Structurally normal valve. Doppler: Transvalvular velocity was within the normal range. There was no evidence for stenosis. No regurgitation. Peak gradient: 3mm Hg (D). LEFT ATRIUM: The atrium was normal in size. RIGHT VENTRICLE: The cavity size was normal. Wall thickness was normal. PULMONIC VALVE: Doppler: Transvalvular velocity was within the normal range. There was no evidence for stenosis. No regurgitation. Peak gradient: 14mm Hg (S). TRICUSPID VALVE: Structurally normal valve. Doppler: Transvalvular velocity was within the normal range. Mild regurgitation. PULMONARY ARTERY: The main pulmonary artery was normal-sized. Systolic pressure was within the normal range. RIGHT ATRIUM: The atrium was normal in size. PERICARDIUM: There was no pericardial effusion. SYSTEMIC VEINS: Inferior vena cava: The vessel was normal in size. Patient weight: 231.5lb _Ejection fraction:_ 65-75% _Fractional shortening:_ 32% up to 5Kg 5-11.5Kg 11.6-22.9Kg 23-45Kg 45-57Kg Aortic Root 7-13 <17 13-22 17-27 17-27 LA diam 6-13 <23 24-38 33-47 37-40 RVID 10-17 7-15 7-15 7-18 8-17 LVIDd 12-22 <32 24-38 33-47 37-40 LVPW 2-4 3-6 5-7 6-8 7-8 IVS 2-4 3-6 5-7 6-8 7-8 BASIC MEASUREMENTS ADULT NORMAL Left ventricle LV internal dimension, ED, chordal *54.5 mm 43-52 level, PLAX LV internal dimension, ES, chordal *41.3 mm 23-38 level, PLAX Fractional shortening, chordal level, *24 % >29 PLAX LV posterior wall thickness, ED 10.5 mm IVS/LVPW ratio, ED 1 <1.3 Ventricular septum Septal thickness, ED 10.5 mm Aortic valve Leaflet separation 20 mm 15-26 BASIC MEASUREMENTS ADULT NORMAL Aortic valve Leaflet separation 20 mm 15-26 Aorta Root diameter, ED 35 mm 20-37 Left atrium Anterior-posterior dimension, ES 34 mm 19-40 Anterior-posterior dimension index, ES 1.53 cm/m^2 <2.2 LA/aortic root ratio 0.97 DOPPLER MEASUREMENTS ADULT NORMAL Main pulmonary artery Pressure, S 13 mm Hg =30 Aortic valve Peak velocity, S 121 cm/s Valve area, Vmax 2.16 cm^2 Valve area index, Vmax 0.97 cm^2/m^2 Mitral valve Peak E-wave velocity 81.9 cm/s Peak A-wave velocity 95.8 cm/s Deceleration time 218 ms 150-230 Peak gradient, D 3 mm Hg Peak E/A ratio 0.9 Tricuspid valve Regurgitant peak velocity 182 cm/s Peak RV-RA gradient, S 13 mm Hg Maximal regurgitant velocity 182 cm/s Systemic veins Estimated CVP 10 mm Hg Right ventricle RV pressure, S 27 mm Hg <30 Pulmonic valve Peak velocity, S 189 cm/s Peak gradient, S 14 mm Hg LEGEND: Mean values are shown as u=mean value. Asterisk (*) bernard values outside specified normal range. Prepared and signed by Sunny Olvera [id number]
[2016-11-16] MEDS: amLODIPine BESYLATE 5 MG TAB PO SCH (12:19)
[2016-11-16] MEDS: HYDROCHLOROTHIAZIDE 25 MG TAB PO SCH (12:19)
[2016-11-16] MEDS: CARVEDILOL 6.25 MG TAB PO SCH ×2 (12:19→20:32)
--- NOTE | 2016-11-16 12:45 | HHI.PR ---
Subjective Remarks Follow-up malignant hypertensive urgency 11/16/16-patient seen and examined, denies any chest tightness or shortness of breath. Blood pressure within normal limit Objective Vitals Vital Signs Date Time Temp Pulse Resp B/P Pulse Ox O2 Delivery O2 Flow Rate FiO2 11/16/16 08:00 92 11/16/16 06:00 108 11/16/16 04:00 98.4 105 15 188/85 96 11/16/16 04:00 105 11/16/16 02:00 109 11/16/16 00:00 98.5 103 15 181/79 95 11/16/16 00:00 103 11/15/16 22:00 98.7 104 12 179/84 97 Manual Cuff/Auscultation 11/15/16 21:41 168/77 168/77 11/15/16 20:50 104 18 188/82 98 Nasal Cannula 2 11/15/16 20:23 98 18 190/82 99 Nasal Cannula 2 11/15/16 20:12 86 16 202/88 98 Room Air 11/15/16 19:16 97 18 210/98 100 Room Air 11/15/16 18:08 76 220/90 11/15/16 18:06 72 15 242/109 99 Nasal Cannula 2 11/15/16 17:22 72 14 182/98 99 Nasal Cannula 2 11/15/16 16:55 73 15 178/98 99 Nasal Cannula 2 11/15/16 15:43 240/100 11/15/16 15:32 99 Nasal Cannula 2 11/15/16 15:32 77 15 228/98 99 Nasal Cannula 2 11/15/16 15:26 74 16 99 Nasal Cannula 2 11/15/16 15:11 98.8 83 18 260/110 99 Room Air I/O 11/15/16 11/15/16 11/15/16 11/16/16 11/16/16 11/16/16 07:00 15:00 23:00 07:00 15:00 23:00 Intake Total 1020 ml Output Total 1750 ml 1000 ml Balance -1750 ml 20 ml Intake Oral 240 ml IV Total 780 ml Output Urine Total 1750 ml 1000 ml # Voids 1 Result Diagram: 11/16/16 0356 11/16/16 0356 Imaging Last Impressions Chest X-Ray 11/15/16 1530 Signed Impressions: Service Date/Time: Tuesday, November 15, 2016 15:54 - CONCLUSION: No acute cardiopulmonary process. Po Guajardo MD CT Angiography 11/15/16 0000 Signed Impressions: Service Date/Time: Tuesday, November 15, 2016 17:29 - CONCLUSION: 1. Atherosclerosis. 2. No evidence for pulmonary embolism. 3. Cirrhosis. Elias Rodriges MD Objective Remarks GENERAL: NAD SKIN: Warm and dry. HEAD: Normocephalic. EYES: No scleral icterus. No injection or drainage. NECK: Supple, trachea midline. No JVD or lymphadenopathy. CARDIOVASCULAR: Regular rate and rhythm with II/ RESPIRATORY: Breath sounds equal bilaterally. No accessory muscle use. GASTROINTESTINAL: Abdomen soft, non-tender, nondistended. MUSCULOSKELETAL: No cyanosis, or edema. BACK: Nontender without obvious deformity. No CVA tenderness. A/P Problem List: (1) Malignant hypertensive urgency ICD Code: I16.0 Status: Acute (2) HTN (hypertension) ICD Code: I10 Status: Chronic (3) Diabetes mellitus ICD Code: E11.9 Status: Chronic (4) CKD (chronic kidney disease), stage III ICD Code: N18.3 Status: Acute (5) Hyperkalemia ICD Code: E87.5 Status: Acute Assessment and Plan 56-year-old man with Malignant hypertensive urgency-resolved Chest tightness Elevating troponin I Chest x-ray without any cardio pulmonary disease CT Angiography with finding of Atherosclerosis. 2. No evidence for pulmonary embolism. 3. Cirrhosis Discontinue Cardene drip and starts per cardiology Norvasc 5 mg, hydrochlorothiazide 12.5 mg and resume Coreg 6.25 mg by mouth twice a day ACS ruled out per protocol with serial cardiac enzyme and EKGs---> elevated cardiac enzyme likely secondary to hypertensive crisis/urgency 2-D echo with EF 55-60% Diabetes type 2 Continue insulin sliding scale and long-acting basal insulin Hyperlipidemia Continue statin Hyperkalemia-resolved Chronic kidney disease stage III Renal indices at baseline with now improving creatinine, continue to monitor BUN and creatinine and avoid all nephrotoxic drugs DVT prophylaxis Heparin subcutaneous Total critical care 32 minutes Transfer to [facility] Problem Qualifiers (1) HTN (hypertension): Qualified Code: I10 - Essential hypertension Jose Manuel Rg MD November 16, 2016 12:45
[2016-11-16] MEDS ORDERED: LABETALOL HCL 100 MG/20 ML VIAL IV PRN ×2 (17:00→19:45)
--- NOTE | 2016-11-16 17:04 | EKG ---
Date Performed: 11/16/2016 Time Performed: 04:13:28 PTAGE: 56 years EKG: Sinus tachycardia Indeterminate axis Right bundle branch block Abnormal ECG Compared to pre vious from 11/15/16, no significant change DOCTOR: Willard Dueñas Interpretating Date/Time 11/16/2016 17:03:28
--- NOTE | 2016-11-16 17:13 | EKG ---
Date Performed: 11/15/2016 Time Performed: 21:35:06 PTAGE: 56 years EKG: ECTOPIC ATRIAL TACHYCARDIA VS SINUS TACHYCARDIA MARKED RIGHT AXIS DEVIATION RIGHT BUNDLE BR ANCH BLOCK ABNORMAL ECG PREVIOUS TRACING : 11/15/2016 15.23 Compared to the previous tracing rate has increased and RBB B is new DOCTOR: Willard Dueñas Interpretating Date/Time 11/16/2016 17:13:09
--- NOTE | 2016-11-16 17:30 | EKG ---
Date Performed: 11/15/2016 Time Performed: 15:23:29 PTAGE: 56 years EKG: Sinus rhythm NORMAL ECG PREVIOUS TRACING : 08/09/2016 14.35 Compared to prior tracing no significant change DOCTOR: Willard Dueñas Interpretating Date/Time 11/16/2016 17:29:21
[2016-11-16] MEDS: ATORVASTATIN 20 MG TAB PO SCH (20:32)
[2016-11-16] MEDS: hydrALAZINE HCL 20 MG/ML VIAL IV PRN ×2 (20:33→21:59)
[2016-11-16] MEDS ORDERED: CARVEDILOL 6.25 MG TAB PO SCH (21:00)
[2016-11-17] VITALS: BP 184/83; PULSE 93; RESP 18; TEMP 98; O2SAT 97
[2016-11-17] MEDS: hydrALAZINE HCL 20 MG/ML VIAL IV PRN (00:03)
[2016-11-17] MEDS: MORPHINE SULFATE 4 MG/ML INJ IV PUSH PRN ×3 (00:06→07:49)
[2016-11-17 04:00] VITALS: BP 155/70; PULSE 101; RESP 11; TEMP 98.6; O2SAT 95
[2016-11-17] MEDS: CHLORHEXIDINE GLUCONATE 2 % 1 PACK (2 CLOTHS)(taper/protocol) TOPICAL SCH (04:00)
[2016-11-17] MEDS: INSULIN ASPART SUPPLEMENTAL SCALE SQ SCH ×2 (06:16→11:00)
[2016-11-17] MEDS: LEVOTHYROXINE SODIUM 50 MCG TAB PO SCH (06:16)
[2016-11-17] MEDS: ASPIRIN 81 MG CHEW TAB PO SCH (07:43)
[2016-11-17] MEDS: BUMETANIDE 1 MG TAB PO SCH (07:43)
[2016-11-17] MEDS: SODIUM CHLORIDE 0.9% FLUSH 10 ML FLUSH IV FLUSH SCH (07:43)
[2016-11-17] MEDS: TAMSULOSIN HCL 0.4 MG CAP PO SCH (07:44)
[2016-11-17] MEDS: CARVEDILOL 6.25 MG TAB PO SCH (07:44)
[2016-11-17] MEDS: amLODIPine BESYLATE 5 MG TAB PO SCH (07:44)
[2016-11-17] MEDS: HYDROCHLOROTHIAZIDE 25 MG TAB PO SCH (07:44)
[2016-11-17] MEDS: INSULIN DETEMIR 100 UNITS/ML VIAL SQ SCH (07:45)
[2016-11-17] MEDS: INSULIN ASPART 1,000 UNITS/10 ML VIAL SQ SCH (07:46)
[2016-11-17 08:00] VITALS: BP 147/79; PULSE 93; RESP 18; TEMP 98.6; O2SAT 96
[2016-11-17 09:30] VITALS: BP 160/81; PULSE 88; RESP 18; TEMP 98.1; O2SAT 93
--- NOTE | 2016-11-17 10:41 | HHI.PR ---
Subjective Remarks Follow-up malignant hypertensive urgency 11/16/16-patient seen and examined, denies any chest tightness or shortness of breath. Blood pressure within normal limit 11/17/16-patient seen and examined, denies any headaches, chest tightness or shortness of breath. would Like to be discharged home Objective Vitals Vital Signs Date Time Temp Pulse Resp B/P Pulse Ox O2 Delivery O2 Flow Rate FiO2 11/17/16 09:30 98.1 88 18 160/81 93 11/17/16 08:00 93 11/17/16 08:00 98.6 93 18 147/79 96 11/17/16 04:00 101 11/17/16 04:00 98.6 101 11 155/70 95 11/17/16 00:00 93 11/17/16 00:00 98.0 93 18 184/83 97 11/16/16 20:00 82 11/16/16 20:00 98.2 82 20 197/87 97 11/16/16 18:00 82 11/16/16 16:00 80 11/16/16 16:00 98.4 93 25 189/84 11/16/16 14:00 87 11/16/16 12:45 83 19 164/78 97 11/16/16 12:30 84 21 150/71 97 11/16/16 12:15 83 19 153/67 97 11/16/16 12:00 98.3 75 14 152/68 96 11/16/16 12:00 75 11/16/16 11:45 75 15 139/63 95 11/16/16 11:30 80 18 108/57 97 11/16/16 11:15 73 16 121/60 94 11/16/16 11:00 72 20 116/58 94 11/16/16 10:45 80 15 134/61 97 I/O 11/16/16 11/16/16 11/16/16 11/17/16 11/17/16 11/17/16 07:00 15:00 23:00 07:00 15:00 23:00 Intake Total 1020 ml 1042 ml 300 ml 250 ml Output Total 1000 ml 700 ml 1650 ml 950 ml Balance 20 ml 342 ml -1350 ml -700 ml Intake Oral 240 ml 600 ml 300 ml 250 ml IV Total 780 ml 442 ml Output Urine Total 1000 ml 700 ml 1650 ml 950 ml # Bowel Movements 0 2 Result Diagram: 11/16/16 0356 11/16/16 0356 Imaging Last Impressions Chest X-Ray 11/15/16 1530 Signed Impressions: Service Date/Time: Tuesday, November 15, 2016 15:54 - CONCLUSION: No acute cardiopulmonary process. Po Guajardo MD CT Angiography 11/15/16 0000 Signed Impressions: Service Date/Time: Tuesday, November 15, 2016 17:29 - CONCLUSION: 1. Atherosclerosis. 2. No evidence for pulmonary embolism. 3. Cirrhosis. Elias Rodriges MD Objective Remarks GENERAL: NAD SKIN: Warm and dry. HEAD: Normocephalic. EYES: No scleral icterus. No injection or drainage. NECK: Supple, trachea midline. No JVD or lymphadenopathy. CARDIOVASCULAR: Regular rate and rhythm with II/ RESPIRATORY: Breath sounds equal bilaterally. No accessory muscle use. GASTROINTESTINAL: Abdomen soft, non-tender, nondistended. MUSCULOSKELETAL: No cyanosis, or edema. BACK: Nontender without obvious deformity. No CVA tenderness. Procedures none A/P Problem List: (1) Malignant hypertensive urgency ICD Code: I16.0 Status: Acute (2) HTN (hypertension) ICD Code: I10 Status: Chronic (3) Diabetes mellitus ICD Code: E11.9 Status: Chronic (4) CKD (chronic kidney disease), stage III ICD Code: N18.3 Status: Acute (5) Hyperkalemia ICD Code: E87.5 Status: Acute Assessment and Plan 56-year-old man with Malignant hypertensive urgency-resolved Chest tightness Elevating troponin I -Chest x-ray without any cardio pulmonary disease -CT Angiography with finding of Atherosclerosis. 2. No evidence for pulmonary embolism. 3. Cirrhosis -s/p Cardene drip and now on Norvasc 5 mg, hydrochlorothiazide 12.5 mg and Coreg 6.25 mg by mouth twice a day. Appreciate input from cardiology -ACS ruled out per protocol with serial cardiac enzyme and EKGs---> elevated cardiac enzyme likely secondary to hypertensive crisis/urgency - 2-D echo with EF 55-60% Diabetes type 2 Continue insulin sliding scale and long-acting basal insulin Hyperlipidemia Continue statin Hyperkalemia-resolved Chronic kidney disease stage III Renal indices at baseline with now improving creatinine, continue to monitor BUN and creatinine and avoid all nephrotoxic drugs DVT prophylaxis Heparin subcutaneous Problem Qualifiers (1) HTN (hypertension): Qualified Code: I10 - Essential hypertension Jose Manuel Rg MD November 17, 2016 10:41
[2016-11-17] MEDS ORDERED: AMLO5 PO (10:45)
[2016-11-17] MEDS ORDERED: HYDR25TA5 PO (10:45)
[2016-11-17] MEDS ORDERED: GLUCTES12 (10:46)
[2016-11-17] MEDS ORDERED: GLUCKIT15 (10:46)
--- NOTE | 2016-11-17 10:56 | HHI.DS ---
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 Patient reports being compliant with his medical care. He states, since 12:30 AM he has not slept and noticed to be short of breath yesterday while walking his dog for about a mile. Denies any headaches or heart palpitation. He has no GI bleed. CBC/BMP: 11/16/16 0356 11/16/16 0356 Significant Findings Laboratory Tests Test 11/15/16 11/15/16 11/16/16 15:40 21:38 03:56 Red Blood Count 3.62 MIL/MM3 3.72 MIL/MM3 (4.50-5.90) (4.50-5.90) Hemoglobin 10.0 GM/DL 10.2 GM/DL (13.0-17.0) (13.0-17.0) Hematocrit 31.2 % 31.6 % (39.0-51.0) (39.0-51.0) Monocytes (%) (Auto) 10.9 % (0.0-8.0) Eosinophils (%) (Auto) 5.3 % (0.0-4.0) Monocytes # (Auto) 1.1 TH/MM3 (0-0.9) Eosinophils # (Auto) 0.5 TH/MM3 (0-0.4) Prothrombin Time 12.0 SEC (9.8-11.6) Potassium Level 5.5 MEQ/L (3.5-5.1) Chloride Level 115 MEQ/L 109 MEQ/L (98-107) (98-107) Blood Urea Nitrogen 37 MG/DL (7-18) 33 MG/DL (7-18) Creatinine 1.74 MG/DL 1.51 MG/DL (0.60-1.30) (0.60-1.30) Estimat Glomerular Filtration 41 ML/MIN (>89) 48 ML/MIN (>89) Rate Alkaline Phosphatase 155 U/L 160 U/L (45-117) (45-117) Creatine Kinase MB 5.8 NG/ML (0.5-3.6) Troponin I 0.11 NG/ML 0.17 NG/ML 0.18 NG/ML (0.02-0.05) (0.02-0.05) (0.02-0.05) B-Type Natriuretic Peptide 248 PG/ML (0-100) White Blood Count 11.9 TH/MM3 (4.0-11.0) Neutrophils (%) (Auto) 73.6 % (16.0-70.0) Neutrophils # (Auto) 8.7 TH/MM3 (1.8-7.7) Carbon Dioxide Level 19.2 MEQ/L (21.0-32.0) Random Glucose 208 MG/DL (74-106) Imaging Last Impressions Chest X-Ray 11/15/16 1530 Signed Impressions: Service Date/Time: Tuesday, November 15, 2016 15:54 - CONCLUSION: No acute cardiopulmonary process. Po Guajardo MD CT Angiography 11/15/16 0000 Signed Impressions: Service Date/Time: Tuesday, November 15, 2016 17:29 - CONCLUSION: 1. Atherosclerosis. 2. No evidence for pulmonary embolism. 3. Cirrhosis. Elias Rodriges MD PE at Discharge GENERAL: NAD SKIN: Warm and dry. HEAD: Normocephalic. EYES: No scleral icterus. No injection or drainage. NECK: Supple, trachea midline. No JVD or lymphadenopathy. CARDIOVASCULAR: Regular rate and rhythm with II/ RESPIRATORY: Breath sounds equal bilaterally. No accessory muscle use. GASTROINTESTINAL: Abdomen soft, non-tender, nondistended. MUSCULOSKELETAL: No cyanosis, or edema. BACK: Nontender without obvious deformity. No CVA tenderness. Hospital Course Patient admitted secondary to malignant hypertensive urgency for which he was started on Cardene drip and ACS ruled out per protocol with serial cardiac enzymes and EKGs. Cardiology was consulted. He was eventually switched to by mouth oral antihypertensive medication including hydrochlorothiazide 12.5 mg daily, Norvasc 5 mg daily and continued on Coreg. Prior to discharge, patient' s condition improved and vitals remained stable. Pt Condition on Discharge: Stable Discharge Disposition: Discharge Home Discharge Time: > 30 minutes Discharge Instructions DIET: Follow Instructions for: Diabetic Diet Activities you can perform: Regular-No Restrictions Follow up Referrals: Cardiology PCP Follow-up - 1 Week New Medications: Blood Glucose Monitoring W/Device (Glucocom Blood Glucose Mo W/Device) 1 Kit Kit 1 KIT .ROUTE DIRECTED Blood Sugar Management #1 KIT Glucocom Test Strips (Glucocom Test Strips) 1 Claribel Claribel 1 EA .ROUTE DIRECTED Blood Sugar Management #100 BOX Amlodipine (Norvasc) 5 Mg Tab 5 MG PO DAILY Blood Pressure Management #30 Ref 3 TAB Hydrochlorothiazide (Hydrochlorothiazide) 25 Mg Tab 25 MG PO DAILY Blood Pressure Management #30 Ref 3 TAB Continued Medications: Aspirin DR (Aspirin 81) 81 Mg Tabdr 81 MG PO DAILY Ref 0 TAB Atorvastatin (Atorvastatin) 20 Mg Tab 20 MG PO HS Cholesterol Management #30 Ref 0 TAB Bumetanide (Bumetanide) 1 Mg Tab 1 MG PO BID #60 Ref 0 TAB Carvedilol (Coreg) 6.25 Mg Tab 6.25 MG PO BID Heart #60 TAB Hydrocodone-Acetaminophen (Lortab) 10-325 Mg Tab 1 TAB PO QID PRN BREAKTHROUGH PAIN Ref 0 TAB Insulin Aspart Inj (Novolog Inj) 1,000 Unit/10 Ml Vial 10 UNITS SQ TID Blood Sugar Management #10 Ref 0 ML Insulin Detemir Inj (Levemir Inj) 1,000 unit/ 10 ML Vial 10 UNITS SQ TID Do not mix with any other Insulin. Blood Sugar Management Ref 0 VIAL Levothyroxine (Levothyroxine) 50 Mcg Tab 50 MCG PO DAILY Thyroid #30 Ref 0 TAB Methocarbamol (Robaxin) 750 Mg Tab 750 MG PO TID PRN MUSCLE SPASM Ref 0 TAB Tamsulosin (Flomax) 0.4 Mg Cap 0.4 MG PO DAILY Manage Prostate Problems #30 Ref 0 CAP Tizanidine (Zanaflex) 4 Mg Tab 2 MG PO HS PRN SLEEP Ref 0 TAB Discontinued Medications: Ibuprofen (Ibuprofen) 800 Mg Tab 800 MG PO TID Pain Management Ref 0 TAB Jose Manuel Rg MD November 17, 2016 10:56
[2016-11-17] MEDS: ACETAMINOPHEN/HYDROcodone 325 MG/7.5 MG TAB PO PRN (11:29)
[2016-11-17 12:00] VITALS: BP 174/78; PULSE 85; RESP 18; TEMP 97.9; O2SAT 97
== END 2016-11-17 13:26 | disposition home or self-care (01) | DRG 305 ==
LOC: NEPE 15:09 → NEDA 18:16 → HIMW 21:55 → N04A 11-17 09:13
PROVIDERS: ADMIT Hospitalist; ATTEND Hospitalist
DX: I16.0 Hypertensive urgency (principal); E11.22 Type 2 diabetes mellitus with diabetic chronic kidney disease; E11.42 Type 2 diabetes mellitus with diabetic polyneuropathy; N17.9 Acute kidney failure, unspecified; N18.3 Chronic kidney disease, stage 3 (moderate); I13.0 Hypertensive heart and chronic kidney disease with heart failure and stage 1 through stage 4 chronic kidney disease, or unspecified chronic kidney disease; I50.9 Heart failure, unspecified; R74.8 Abnormal levels of other serum enzymes; I25.2 Old myocardial infarction; I08.0 Rheumatic disorders of both mitral and aortic valves; B19.20 Unspecified viral hepatitis C without hepatic coma; G47.30 Sleep apnea, unspecified; Z79.82 Long term (current) use of aspirin; M19.90 Unspecified osteoarthritis, unspecified site; Z85.828 Personal history of other malignant neoplasm of skin; K70.30 Alcoholic cirrhosis of liver without ascites; I25.10 Atherosclerotic heart disease of native coronary artery without angina pectoris; K21.9 Gastro-esophageal reflux disease without esophagitis; N40.0 Benign prostatic hyperplasia without lower urinary tract symptoms; K44.9 Diaphragmatic hernia without obstruction or gangrene; Z86.14 Personal history of Methicillin resistant Staphylococcus aureus infection; Z79.4 Long term (current) use of insulin; E78.00 Pure hypercholesterolemia, unspecified; E78.5 Hyperlipidemia, unspecified; I65.29 Occlusion and stenosis of unspecified carotid artery; E87.5 Hyperkalemia; E07.9 Disorder of thyroid, unspecified
CPT/HCPCS: 71010; 71275; 80053; 82550; 82552; 82948; 83735; 83880; 84484; 85025; 85610; 85730; 87641; 93005; 93306; 96374; 96375; J0360; J1815; J2270; J7050; Q9967

== ENCOUNTER 2016-11-25 02:28 | Emergency (ER) | payer MEDICARE ==
[~2016-11-25] VITALS: Ht 177.8 cm; Wt 105.0 kg
[~2016-11-25 02:28] MED LIST changes: -ALPR.5 PO; +AMLO5 PO; +BUME1TAB PO; -BUME1TAB26 PO; -FOLI1TAB4 PO; -GABA300C5 PO; +GLUCKIT15; +GLUCTES12; +HYDR25TA5 PO; -LEVA750T PO; -LISI10TA3 PO; -NIFE60TA8 PO; -THIA100T PO
[2016-11-25 02:30] VITALS: BP 209/95; PULSE 82; RESP 15; TEMP 98.7; O2SAT 98
--- NOTE | 2016-11-25 03:37 | PD ---
HPI . Bleeding from the right foot Chief Complaint: Skin Problem Time Seen by Provider: 03:11 Travel History International Travel<30 days: No Contact w/Intl Traveler<30days: No Traveled to known affect area: No History of Present Illness HPI This is a diabetic patient who has very little sensation in his feet and he has also already had a few toes amputated. He presents to us tonight complaining with the acute onset of bleeding from the right foot. He does not have any pain. He has not been running any fever. He just noticed this tonight. No obvious exacerbating or relieving factors. Symptoms are minimal. PFSH Past Medical History Hx Anticoagulant Therapy: Yes (ASA) Arthritis: Yes Asthma: No Blood Disorders: No Anxiety: No Depression: No Heart Rhythm Problems: Yes (Murmur) Cancer: Yes (skin cancer) Cardiovascular Problems: Yes (MURMUR, CHF) High Cholesterol: Yes Chest Pain: Yes Congestive Heart Failure: Yes Cirrhosis: Yes (alcoholic) COPD: No Coronary Artery Disease: Yes Diabetes: Yes (TYPE 2) Diminished Hearing: No Endocrine: Yes GERD: Yes Genitourinary: Yes (BPH) Hepatitis: Yes (C) Hiatal Hernia: Yes Hypertension: Yes Immune Disorder: No Implanted Vascular Access Dvce: No Musculoskeletal: Yes (Buldging disk, back) Neurologic: Yes (diabetic Neuropathy) Psychiatric: No Reproductive: No Respiratory: Yes Immunizations Current: No Myocardial Infarction: Yes (03/2016) Renal Failure: Yes (stage III chronic kidney disease) 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, 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.) Sleep Apnea: Yes (Not using C pap) Thyroid Disease: Yes Past Surgical History Ear Surgery: No Endocrine Surgery: No Eye Surgery: No Genitourinary Surgery: No Neurologic Surgery: No Oral Surgery: Yes (TONSILLS REMOVED) Pacemaker: No Tonsillectomy: Yes Other Surgery: Yes (bilateral toe amputations) Social History Alcohol Use: No Tobacco Use: No Substance Use: No Allergies-Medications (Allergen,Severity, Reaction): Coded Allergies: *MDRO Multi-Drug Resistant Organism (Verified Adverse Reaction, Unknown, MRSA, 11/25/16) MRSA (foot wound) - 12/2014, 02/2015, 07/2015, 09/2015, 11/2015, 05/2016, 08/24/16 Reported Meds & Prescriptions Reported Meds & Active Scripts Active Glucocom Test Strips (Blood Glucose Test Strips) 1 Claribel Claribel 1 Ea .ROUTE DIRECTED Glucocom Blood Glucose Mo W/Device (Device) 1 Kit Kit 1 Kit .ROUTE DIRECTED Hydrochlorothiazide 25 Mg Tab 25 Mg PO DAILY Norvasc (Amlodipine Besylate) 5 Mg Tab 5 Mg PO DAILY Coreg (Carvedilol) 6.25 Mg Tab 6.25 Mg PO BID Reported Bumetanide 1 Mg Tab 1 Mg PO BID Levemir Inj (Insulin Detemir) 1,000 unit/ 10 ML Vial 10 Units SQ TID Do not mix with any other Insulin. Zanaflex (Tizanidine HCl) 4 Mg Tab 2 Mg PO HS PRN Novolog Inj (Insulin Aspart) 1,000 Unit/10 Ml Vial 10 Units SQ TID Lortab (Hydrocodone-Acetaminophen) 10-325 Mg Tab 1 Tab PO QID PRN Atorvastatin (Atorvastatin Calcium) 20 Mg Tab 20 Mg PO HS Aspirin 81 (Aspirin) 81 Mg Tabdr 81 Mg PO DAILY Levothyroxine (Levothyroxine Sodium) 50 Mcg Tab 50 Mcg PO DAILY Robaxin (Methocarbamol) 750 Mg Tab 750 Mg PO TID PRN Flomax (Tamsulosin HCl) 0.4 Mg Cap 0.4 Mg PO DAILY Review of Systems Except as stated in HPI: all other systems reviewed are Neg General / Constitutional: No: Fever, Chills Neurologic: Positive: Sensory Disturbance (patient cannot feel his feet.) Physical Exam Narrative GENERAL: Awake and alert and in no acute distress. SKIN: Warm and dry. He has a blood blister on the plantar aspect of his right foot over the second MTP joint. The skin is not red or hot. HEAD: Atraumatic. Normocephalic. EYES: Pupils equal and round. NECK: Trachea midline. CARDIOVASCULAR: Regular rate and rhythm. RESPIRATORY: No accessory muscle use. MUSCULOSKELETAL: The patient has already had several toes amputated on his right foot. NEUROLOGICAL: Awake and alert. No obvious cranial nerve deficits. Motor grossly within normal limits. Normal speech. PSYCHIATRIC: Appropriate mood and affect; insight and judgment normal. Data Data Last Documented VS Vital Signs Date Time Temp Pulse Resp B/P Pulse Ox O2 Delivery O2 Flow Rate FiO2 11/25/16 02:30 98.7 82 15 209/95 98 Room Air Orders Complete Blood Count With Diff (11/25/16 03:11) C-Reactive Protein (Crp) (11/25/16 03:11) Basic Metabolic Panel (Bmp) (11/25/16 03:11) Foot, Limited (2vws) (11/25/16 03:11) Labs Laboratory Tests Test 11/25/16 03:40 White Blood Count 9.4 TH/MM3 Red Blood Count 3.47 MIL/MM3 Hemoglobin 9.7 GM/DL Hematocrit 29.6 % Mean Corpuscular Volume 85.2 FL Mean Corpuscular Hemoglobin 27.9 PG Mean Corpuscular Hemoglobin 32.7 % Concent Red Cell Distribution Width 14.5 % Platelet Count 207 TH/MM3 Mean Platelet Volume 8.1 FL Neutrophils (%) (Auto) 48.3 % Lymphocytes (%) (Auto) 32.6 % Monocytes (%) (Auto) 10.6 % Eosinophils (%) (Auto) 6.0 % Basophils (%) (Auto) 2.5 % Neutrophils # (Auto) 4.5 TH/MM3 Lymphocytes # (Auto) 3.1 TH/MM3 Monocytes # (Auto) 1.0 TH/MM3 Eosinophils # (Auto) 0.6 TH/MM3 Basophils # (Auto) 0.2 TH/MM3 CBC Comment DIFF FINAL Differential Comment Sodium Level 135 MEQ/L Potassium Level 3.2 MEQ/L Chloride Level 100 MEQ/L Carbon Dioxide Level 27.2 MEQ/L Anion Gap 8 MEQ/L Blood Urea Nitrogen 48 MG/DL Creatinine 1.67 MG/DL Estimat Glomerular Filtration 43 ML/MIN Rate Random Glucose 315 MG/DL Calcium Level 8.4 MG/DL C-Reactive Protein LESS THAN 0.29 MG/DL [facility] Medical Decision Making Medical Screen Exam Complete: Yes Emergency Medical Condition: Yes Differential Diagnosis Differential diagnosis of diabetic foot ulcer includes superficial wound, cellulitis, abscess, osteomyelitis, sepsis Narrative Course Patient presents for evaluation of a possible diabetic foot ulcer. Last Impressions Foot X-Ray 11/25/161 Signed Impressions: Service Date/Time: Sunday, November 25, 2016 03:22 - CONCLUSION: Healing fracture of fourth mid metatarsal bone not present previously, otherwise chronic changes are stable. Anjali Perkins MD The x-ray was independently viewed by me. CBC & BMP Diagram 11/25/16 03:40 C-reactive protein is normal. There is no evidence of infection or osteomyelitis. Diagnosis Primary Impression: Diabetic foot ulcer Qualified Code: E10.621 - Diabetic ulcer of toe of right foot associated with type 1 diabetes mellitus, limited to breakdown of skin Referrals: Jose Manuel Perez DPM 3 days Patient Instructions: Diabetic Foot Ulcers (DC), General Instructions Disposition: 01 DISCHARGE HOME Condition: Stable Nithya Harrison MD Nov 25, 2016 03:36
--- NOTE | 2016-11-25 03:45 | RADRPT ---
EXAM DATE/TIME: 11/25/2016 03:22 [facility] COMPARISON: FOOT RIGHT COMPLETE ([id number]), June 02, 2016, 12:58. INDICATIONS : Pt has sore to bottom of right foot- noticed today. MEDICAL HISTORY : Diabetes mellitus type II. SURGICAL HISTORY : None. ENCOUNTER: Initial ACUITY: 1 day PAIN SCORE: 4/10 LOCATION: Right Foot FINDINGS: There is evidence for prior amputation of the third and fifth digits. There is a healing fracture inv olving the fourth mid metatarsal bone not present previously. There are no signs of osteomyelitis. Ch ronic atherosclerotic calcifications are seen involving the visualized arteries.The rest of the exami nation has not significantly changed. CONCLUSION: Healing fracture of fourth mid metatarsal bone not present previously, otherwise chronic changes are stable. Anjali Perkins MD on November 25, 2016 at 3:43 Board Certified Radiologist. This report was verified electronically.
[2016-11-25 03:52] LABS: AUTOMATED NEUTROPHIL # 4.5 TH/MM3 (1.8-7.7); BASOPHIL # 0.2 TH/MM3 (0-0.2); BASOPHIL % 2.5 % (0.0-2.0); EOSINOPHIL # 0.6 TH/MM3 (0-0.4); HEMATOCRIT 29.6 % (39.0-51.0); HEMO FLAGS DIFF FINAL; LYMPH % 32.6 % (9.0-44.0); LYMPHOCYTE # 3.1 TH/MM3 (1.0-4.8); MEAN CELL VOLUME 85.2 FL (80.0-100.0); MEAN CORPUSCULAR HEMOGLOBIN 27.9 PG (27.0-34.0); MEAN CORPUSCULAR HGB CONC 32.7 % (32.0-36.0); MONO % 10.6 % (0.0-8.0); NEUT % 48.3 % (16.0-70.0); PLATELET COUNT 207 TH/MM3 (150-450); RED BLOOD COUNT 3.47 MIL/MM3 (4.50-5.90); RED CELL DISTRIBUTION WIDTH 14.5 % (11.6-17.2); WHITE BLOOD COUNT 9.4 TH/MM3 (4.0-11.0)
[2016-11-25 04:16] LABS: ANION GAP 8 MEQ/L (5-15); BICARBONATE 27.2 MEQ/L (21.0-32.0); BLOOD UREA NITROGEN 48 MG/DL (7-18); CHLORIDE 100 MEQ/L (98-107); GLOMERULAR FILTRATION RATE 43 ML/MIN (>89); POTASSIUM 3.2 MEQ/L (3.5-5.1); SODIUM (NA) 135 MEQ/L (136-145)
[2016-11-25 05:13] VITALS: BP 185/89; PULSE 80; RESP 14; O2SAT 98
== END 2016-11-25 05:14 | disposition home or self-care (01) ==
LOC: NEPC 02:28
DX: E10.621 Type 1 diabetes mellitus with foot ulcer (principal); E78.00 Pure hypercholesterolemia, unspecified; I50.9 Heart failure, unspecified; I25.10 Atherosclerotic heart disease of native coronary artery without angina pectoris; I12.9 Hypertensive chronic kidney disease with stage 1 through stage 4 chronic kidney disease, or unspecified chronic kidney disease; N18.3 Chronic kidney disease, stage 3 (moderate); I25.2 Old myocardial infarction; Z79.01 Long term (current) use of anticoagulants
CPT/HCPCS: 73620; 80048; 85025; 86140; 99284

== ENCOUNTER 2016-12-05 12:40 | Observation (INO) | payer MEDICARE ==
[~2016-12-05] VITALS: Ht 177.8 cm; Wt 109.0 kg
[2016-12-05 12:41] VITALS: BP 82/52; PULSE 70; RESP 18; TEMP 98; O2SAT 95
[2016-12-05] MEDS ORDERED: SODIUM CHLOR 0.9% 1000 ML INJ 1,000 ML IV SCH ×2 (13:09→14:29)
--- NOTE | 2016-12-05 13:12 | PD ---
HPI Chief Complaint: Pain: Acute or Chronic Time Seen by Provider: 13:09 Travel History International Travel<30 days: No Contact w/Intl Traveler<30days: No Traveled to known affect area: No History of Present Illness HPI 56-year-old male with a history of hypertension, hyperlipidemia, diabetes, CHF, hepatitis C presents to the emergency department for evaluation of mid back pain and generalized weakness. Patient states that about an hour ago while eating lunch he began to experience sharp burning pain in his mid upper back that radiates to bilateral shoulders and neck. States that he also is feeling very weak and sluggish. He states that he also had some bilateral blurred vision earlier which has since resolved, states he's had several episodes of this recently over the last week when feeling tired and drowsy. He denies any chest pain, shortness of breath, lightheadedness, dizziness, nausea, vomiting abdominal pain, diarrhea, constipation, bloody stool, black stool, fever, chills. He does note that he's had a wound on the bottom of his right foot for the past 2 weeks and has been unable to see his radiology specialist. He is not on any antibiotics for this wound. Patient states he has severe neuropathy and cannot feel his feet and therefore does not report any pain, patient's is at bedside and notes that the wound is larger than it was previously. No other complaints. PCP is Dr. Blankenship. [facility] Past Medical History Hx Anticoagulant Therapy: Yes Arthritis: Yes Asthma: No Blood Disorders: No Anxiety: No Depression: No Heart Rhythm Problems: Yes (Murmur) Cancer: Yes (skin cancer) Cardiovascular Problems: Yes High Cholesterol: Yes Chest Pain: Yes Congestive Heart Failure: Yes Cirrhosis: Yes (alcoholic) COPD: No Coronary Artery Disease: Yes Diabetes: Yes Diminished Hearing: No Endocrine: Yes Gastrointestinal Disorders: Yes (Acid reflux) GERD: Yes Genitourinary: Yes (BPH) Hepatitis: Yes (C) Hiatal Hernia: Yes Hypertension: Yes Immune Disorder: No Implanted Vascular Access Dvce: No Musculoskeletal: Yes (Buldging disk, back) Neurologic: Yes (diabetic Neuropathy) Psychiatric: No Reproductive: No Respiratory: Yes Immunizations Current: No Myocardial Infarction: Yes (03/2016) Renal Failure: Yes (stage III chronic kidney disease) 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, 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.) Sleep Apnea: Yes (Not using C pap) Thyroid Disease: Yes Past Surgical History Ear Surgery: No Endocrine Surgery: No Eye Surgery: No Genitourinary Surgery: No Neurologic Surgery: No Oral Surgery: Yes (TONSILLS REMOVED) Pacemaker: No Tonsillectomy: Yes Other Surgery: Yes (bilateral toe amputations) Social History Alcohol Use: No Tobacco Use: No Substance Use: No Allergies-Medications (Allergen,Severity, Reaction): Coded Allergies: *MDRO Multi-Drug Resistant Organism (Verified Adverse Reaction, Unknown, MRSA, 11/25/16) MRSA (foot wound) - 12/2014, 02/2015, 07/2015, 09/2015, 11/2015, 05/2016, 08/24/16 Reported Meds & Prescriptions Reported Meds & Active Scripts Active Glucocom Test Strips (Blood Glucose Test Strips) 1 Claribel Claribel 1 Ea .ROUTE DIRECTED Glucocom Blood Glucose Mo W/Device (Device) 1 Kit Kit 1 Kit .ROUTE DIRECTED Hydrochlorothiazide 25 Mg Tab 25 Mg PO DAILY Norvasc (Amlodipine Besylate) 5 Mg Tab 5 Mg PO DAILY Coreg (Carvedilol) 6.25 Mg Tab 6.25 Mg PO BID Reported Bumetanide 1 Mg Tab 1 Mg PO BID Levemir Inj (Insulin Detemir) 1,000 unit/ 10 ML Vial 10 Units SQ TID Do not mix with any other Insulin. Zanaflex (Tizanidine HCl) 4 Mg Tab 2 Mg PO HS PRN Novolog Inj (Insulin Aspart) 1,000 Unit/10 Ml Vial 10 Units SQ TID Lortab (Hydrocodone-Acetaminophen) 10-325 Mg Tab 1 Tab PO QID PRN Atorvastatin (Atorvastatin Calcium) 20 Mg Tab 20 Mg PO HS Aspirin 81 (Aspirin) 81 Mg Tabdr 81 Mg PO DAILY Levothyroxine (Levothyroxine Sodium) 50 Mcg Tab 50 Mcg PO DAILY Robaxin (Methocarbamol) 750 Mg Tab 750 Mg PO TID PRN Flomax (Tamsulosin HCl) 0.4 Mg Cap 0.4 Mg PO DAILY Review of Systems Except as stated in HPI: all other systems reviewed are Neg Physical Exam Narrative GENERAL: Well-nourished and well-developed male patient in no acute distress. SKIN: Warm and dry. Plantar right foot below second and third toes there is a 2 cm white callous appearing wound. HEAD: Normocephalic and atraumatic. EYES: No injection, drainage, or hyphema noted. PERRLA. EOMI. ENT: No nasal drainage noted. Oropharynx is clear. NECK: Supple and the trachea is midline. CARDIOVASCULAR: Regular rate and rhythm. RESPIRATORY: Breath sounds are equal bilaterally with no accessory muscle use, wheezing, rhonchi, or crackles. GASTROINTESTINAL: Abdomen is soft, non-tender, and nondistended. MUSCULOSKELETAL: No obvious deformities, swelling, cyanosis, or ecchymosis is present throughout the upper and lower extremities. Patient has full range of motion without any signs of neurovascular compromise. BACK: Nontender without any obvious deformities, bony point tenderness, or crepitus noted throughout the thoracic and lumbar vertebrae. NEUROLOGICAL: Awake, alert, and oriented. Normal speech and gait. Cranial nerves are grossly intact. Data Data Last Documented VS Vital Signs Date Time Temp Pulse Resp B/P Pulse Ox O2 Delivery O2 Flow Rate FiO2 12/05/16 14:37 58 16 124/65 98 12/05/16 12:41 98.0 Orders Electrocardiogram (12/05/16 13:07) Ckmb (Isoenzyme) Profile (12/05/16 13:07) Complete Blood Count With Diff (12/05/16 13:07) Comprehensive Metabolic Panel (12/05/16 13:07) Magnesium (Mg) (12/05/16 13:07) Prothrombin Time / Inr (Pt) (12/05/16 13:07) Act Partial Throm Time (Ptt) (12/05/16 13:07) Troponin I (12/05/16 13:07) Chest, Single Ap (12/05/16 13:07) Ecg Monitoring (12/05/16 13:07) Bilateral Bp Monitoring (12/05/16 13:07) Iv Access Insert/Monitor (12/05/16 13:07) Oximetry (12/05/16 13:07) Oxygen Administration (12/05/16 13:07) Sodium Chloride 0.9% Flush (Ns Flush) (12/05/16 13:15) Cta Thor Abd Aorta W Iv C W3d (12/05/16 13:07) Sodium Chlor 0.9% 1000 Ml Inj (Ns 1000 M (12/05/16 13:09) Foot, Complete ([id number]) (12/05/16 13:12) Lactic Acid Sepsis Protocol (12/05/16 13:12) CKMB (12/05/16 13:15) CKMB% (12/05/16 13:15) Diatrizoate Liq ( Gastroview Liq) (12/05/16 14:11) Lipase (12/05/16 14:28) Sodium Chlor 0.9% 1000 Ml Inj (Ns 1000 M (12/05/16 14:29) Morphine Inj (Morphine Inj) (12/05/16 14:45) Admit Order (Ed Use Only) (12/05/16 15:48) Hydromorphone Pf Inj (Dilaudid Pf Inj) (12/05/16 16:00) Labs Laboratory Tests Test 12/05/16 12/05/16 13:15 13:23 White Blood Count 10.9 TH/MM3 Red Blood Count 3.46 MIL/MM3 Hemoglobin 9.5 GM/DL Hematocrit 29.4 % Mean Corpuscular Volume 84.9 FL Mean Corpuscular Hemoglobin 27.4 PG Mean Corpuscular Hemoglobin 32.2 % Concent Red Cell Distribution Width 14.6 % Platelet Count 188 TH/MM3 Mean Platelet Volume 8.3 FL Neutrophils (%) (Auto) 69.4 % Lymphocytes (%) (Auto) 18.4 % Monocytes (%) (Auto) 7.7 % Eosinophils (%) (Auto) 3.8 % Basophils (%) (Auto) 0.7 % Neutrophils # (Auto) 7.6 TH/MM3 Lymphocytes # (Auto) 2.0 TH/MM3 Monocytes # (Auto) 0.8 TH/MM3 Eosinophils # (Auto) 0.4 TH/MM3 Basophils # (Auto) 0.1 TH/MM3 CBC Comment DIFF FINAL Differential Comment Prothrombin Time 11.5 SEC Prothromb Time International 1.0 RATIO Ratio Activated Partial 26.9 SEC Thromboplast Time Sodium Level 134 MEQ/L Potassium Level 5.4 MEQ/L Chloride Level 104 MEQ/L Carbon Dioxide Level 19.9 MEQ/L Anion Gap 10 MEQ/L Blood Urea Nitrogen 45 MG/DL Creatinine 1.81 MG/DL Estimat Glomerular Filtration 39 ML/MIN Rate Random Glucose 299 MG/DL Calcium Level 8.3 MG/DL Magnesium Level 1.9 MG/DL Total Bilirubin 0.3 MG/DL Aspartate Amino Transf 30 U/L (AST/SGOT) Alanine Aminotransferase 30 U/L (ALT/SGPT) Alkaline Phosphatase 117 U/L Total Creatine Kinase 109 U/L Creatine Kinase MB 3.8 NG/ML Troponin I 0.03 NG/ML Total Protein 7.2 GM/DL Albumin 3.0 GM/DL Lipase 177 U/L Lactic Acid Level 1.5 mmol/L MDM Medical Decision Making Medical Screen Exam Complete: Yes Emergency Medical Condition: Yes Differential Diagnosis Aortic dissection versus dehydration versus sepsis versus ACS versus musculoskeletal back pain versus pancreatitis versus gastritis Narrative Course 56-year-old male is presents to the emergency department for evaluation of sudden onset mid upper back pain with weakness and low blood pressure. Patient is afebrile. He is initially hypertensive with a blood pressure of 82/52. Repeat blood pressure shows 95/50. Patient's blood pressure usually runs about 140/90 per patient and his . He states he didn't take any extra medications today, took only what he is prescribed. He is reporting mid upper back pain it's a burning and began about an hour ago and is accompanied by weakness. The pain is not reproducible on palpation. This is concerning for an aortic dissection. IV access is obtained, labs have been drawn and sent. Patient is placed on cardiac telemetry and pulse oximetry monitoring. CTA of the aorta has been ordered and is pending. Patient is administered IV fluids. He also has a wound on his right foot that has been present and worsening for 2 weeks, has a history of diabetic wound infections and amputations. EKG shows sinus rhythm with peaked T waves in V2 and V3, no acute ST elevations or depressions. Chest x-ray is negative for any acute abnormalities. CBC shows anemia with hemoglobin of 9.5, hematocrit 29.4. This does appear consistent with previous lab values. CMP shows renal insufficiency with a creatinine of 1.81, UA and 45, GFR 39. Also shows hyperkalemia with a potassium of 5.4. X-ray of the right foot is negative for any acute abnormalities. While the patient does have renal insufficiency we will perform the CTA aorta as the risk of an undiagnosed aortic dissection outweighs risk of kidney injury. With his history of malignant hypertension and diabetes and presentation of mid upper back pain with hypotension here in the ED we need to rule out aortic dissection. We will hydrate the patient with IV fluids before and after CT scan and he'll be admitted for IV fluids and repeat Creatinine tomorrow. CTA thoracic and abdominal aorta shows no evidence of aortic aneurysm or dissection. There is cholelithiasis, nodular heterogeneous-appearing liver characteristic of chronic parenchymal disease. Pancreatic calcific deposits characteristic of previous pancreatitis. No acute inflammatory change noted. Patient is reassessed and his blood pressure has improved to 148/90 with IV fluids. He still complains of pain in his thoracic back after multiple doses of pain medication. Patient will be admitted to observation for IV hydration and pain control. I discussed the case with my attending physician Dr. Hills who is aware of the patients history, physical examination findings, and treatment plan. Physician Communication Physician Communication I spoke to Dr. Ennis who agrees to admit the patient to his service. Diagnosis Primary Impression: Intractable back pain Additional Impressions: Chronic renal insufficiency Qualified Code: N18.3 - Chronic renal insufficiency, stage 3 (moderate) Hyperkalemia Cholelithiasis Qualified Code: K80.80 - Biliary calculus of other site without obstruction Litzy Duong Dec 05, 2016 13:12
[2016-12-05] MEDS ORDERED: SODIUM CHLORIDE 0.9% FLUSH 10 ML FLUSH IVF PRN (13:15)
[2016-12-05 13:24] VITALS: BP_SYST 92; BP_SYST 95; BP_DIAS 50; BP_DIAS 54; PULSE 62
[2016-12-05 13:37] LABS: AUTOMATED NEUTROPHIL # 7.6 TH/MM3 (1.8-7.7); BASOPHIL # 0.1 TH/MM3 (0-0.2); BASOPHIL % 0.7 % (0.0-2.0); EOSINOPHIL # 0.4 TH/MM3 (0-0.4); EOSINOPHIL % 3.8 % (0.0-4.0); HEMATOCRIT 29.4 % (39.0-51.0); HEMO FLAGS DIFF FINAL; LYMPH % 18.4 % (9.0-44.0); MEAN CELL VOLUME 84.9 FL (80.0-100.0); MEAN CORPUSCULAR HEMOGLOBIN 27.4 PG (27.0-34.0); MEAN CORPUSCULAR HGB CONC 32.2 % (32.0-36.0); MONO % 7.7 % (0.0-8.0); NEUT % 69.4 % (16.0-70.0); PLATELET COUNT 188 TH/MM3 (150-450); RED BLOOD COUNT 3.46 MIL/MM3 (4.50-5.90); RED CELL DISTRIBUTION WIDTH 14.6 % (11.6-17.2); WHITE BLOOD COUNT 10.9 TH/MM3 (4.0-11.0)
[2016-12-05 13:46] LABS: APTT (PATIENT) 26.9 SEC (24.3-30.1); PROTHROMBIN TIME - PATIENT 11.5 SEC (9.8-11.6)
[2016-12-05 13:58] LABS: ANION GAP 10 MEQ/L (5-15); AST (GOT) 30 U/L (15-37); BICARBONATE 19.9 MEQ/L (21.0-32.0); BLOOD UREA NITROGEN 45 MG/DL (7-18); CHLORIDE 104 MEQ/L (98-107); GLOMERULAR FILTRATION RATE 39 ML/MIN (>89); MAGNESIUM 1.9 MG/DL (1.5-2.5); POTASSIUM 5.4 MEQ/L (3.5-5.1); SODIUM (NA) 134 MEQ/L (136-145)
[2016-12-05 14:03] LABS: ALKALINE PHOSPHATASE 117 U/L (45-117); ALT (GPT) 30 U/L (12-78); CREATINE KINASE 109 U/L (39-308); TOTAL BILIRUBIN ADULT 0.3 MG/DL (0.2-1.0)
[2016-12-05] MEDS ORDERED: DIATRIZOATE MEGLUM/DIATRIZOATE SOD 9 ML CUP ONE (14:11)
[2016-12-05 14:15] LABS: CKMB 3.8 NG/ML (0.5-3.6)
--- NOTE | 2016-12-05 14:25 | RADRPT ---
EXAM DATE/TIME: 12/05/2016 13:20 [facility] COMPARISON: CHEST SINGLE AP, November 15, 2016, 15:54. INDICATIONS : Chest and back pain today, short of breath, lethargic, blurred vision MEDICAL HISTORY : Diabetes mellitus type II. Cardiovascular disease. Cirrhosis. hepatitis C, renal failure SURGICAL HISTORY : amputation parts of right foot ENCOUNTER: Initial ACUITY: 1 day PAIN SCORE: 10/10 LOCATION: Bilateral chest FINDINGS: A single view of the chest demonstrates the lungs to be symmetrically aerated without evidence of mas s, infiltrate or effusion. The cardiomediastinal contours are unremarkable. Old right-sided rib fra ctures are again noted. Osseous structures are otherwise intact. CONCLUSION: Stable chest without evidence of acute process. Old right-sided rib fractures. Frank Roque MD on December 05, 2016 at 14:22 Board Certified Radiologist. This report was verified electronically.
[2016-12-05 14:37] VITALS: BP 124/65; PULSE 58; RESP 16; O2SAT 98
[2016-12-05] MEDS ORDERED: MORPHINE SULFATE 4 MG/ML INJ IV PUSH ONE (14:45)
--- NOTE | 2016-12-05 14:47 | RADRPT ---
EXAM DATE/TIME: 12/05/2016 13:24 [facility] COMPARISON: FOOT RIGHT COMPLETE ([id number]), June 02, 2016, 12:58. INDICATIONS : Right foot pain, wound on dorsal right foot, diabetic MEDICAL HISTORY : Cirrhosis. Diabetes mellitus type II. Hepatitis C. Renal failure SURGICAL HISTORY : Partial amputation right foot ENCOUNTER: Initial ACUITY: 1 month PAIN SCORE: 10/10 LOCATION: Right foot FINDINGS: The patient is status post previous amputations of the right third and fifth digits. There is an old healed fracture involving the midshaft of the right fourth metatarsal. No acute fracture or disloca tion is noted. Degenerative changes are noted involving the ankle joint. Degenerative changes are a lso noted involving the right first interphalangeal joint. CONCLUSION: 1. No acute fracture or dislocation. 2. Old healed fracture involving the midshaft of the right fourth metatarsal. 3. Stable previous amputations of the right third and fifth digits. 4. Arthritic changes involving the right first interphalangeal joint and the right ankle joint. Jasbir Nagy MD on December 05, 2016 at 14:34 Board Certified Radiologist. This report was verified electronically.
[2016-12-05] MEDS ORDERED: IODIXANOL 320 MG/ML 10 ML VIAL (for Rad CT) IV ONE (15:01)
--- NOTE | 2016-12-05 15:34 | RADRPT ---
EXAM DATE/TIME: 12/05/2016 15:01 [facility] COMPARISON: No previous studies available for comparison. INDICATIONS : Right upper back pain. Blurred vision today. Evaluate for aortic dissection. IV CONTRAST: 50 cc Visipaque (iodixanol) IV RADIATION DOSE: 12.58 CTDIvol (mGy) MEDICAL HISTORY : Cardiovascular disease. Diabetes mellitus type 2. Renal failure, chronic. SURGICAL HISTORY : None. ENCOUNTER: Initial ACUITY: 1 week PAIN SCALE: 7/10 LOCATION: Right upper back TECHNIQUE: Volumetric scanning was performed using a multi-row detector CT scanner. The data was post processed with a variety of visualization algorithms including full volume maximum intensity projection, multi -planar sliding thin slab reformation, curved planar reformation, and surface rendering techniques. Using automated exposure control and adjustment of the mA and/or kV according to patient size, radiat ion dose was kept as low as reasonably achievable to obtain optimal diagnostic quality images. FINDINGS: LUNGS: There is no consolidation or pneumothorax. No concerning pulmonary nodule is visualized. No pleural fluid is present. MEDIASTINUM: No abnormally enlarged lymph nodes by CT criteria. No axillary or hilar abnormalities are identified. ABDOMEN: Liver has a heterogeneous echotexture with mildly nodular contour. The liver and spleen are free of f ocal defects. The gallbladder contains multiple small gallstones. The pancreas demonstrates small destini cific deposits but no other abnormality. The adrenal glands are normal. The kidneys demonstrate no ev idence of solid renal mass or hydronephrosis. No free fluid or abdominal masses are identified. No pa ra-aortic adenopathy is seen. PELVIS: No evidence of free fluid or pelvic mass. No abnormally enlarged inguinal or retroperitoneal lymph no vlad are present. The bladder is unremarkable. THORACIC AORTA: The thoracic aortic root is normal with normal branching of the great vessels. There is no evidence of aneurysm or dissection. ABDOMINAL AORTA: The aorta is normal in caliber without aneurysm or dissection. The renal arteries are patent bilater ally. The proximal celiac and superior mesenteric arteries are patent and normal in diameter. PELVIC VESSELS: The internal iliac and external iliac vessels are patent without aneurysm or stenosis. CONCLUSION: No evidence of aortic aneurysm or dissection. Cholelithiasis. Nodular heterogeneous appearing liver characteristic of chronic parenchymal disease. Pancreatic calcific deposits characteristic of previous pancreatitis. No acute inflammatory change no cristi. No acute abnormality. Frank Roque MD on December 05, 2016 at 15:26 Board Certified Radiologist. This report was verified electronically.
[2016-12-05] MEDS ORDERED: HYDROmorphone HCL PF 1 MG/ML VIAL IV PUSH ONE (16:00)
[2016-12-05] MEDS ORDERED: ACETAMINOPHEN 325 MG TAB PO PRN (17:00)
[2016-12-05] MEDS ORDERED: GLUCAGON 1 MG/ML VIAL OTHER PRN (17:00)
[2016-12-05] MEDS: SODIUM CHLOR 0.9% 1000 ML INJ 1,000 ML IV SCH (17:00)
[2016-12-05] MEDS ORDERED: CALCIUM CARBONATE 500 MG CHEWABLE TAB CHEW PRN (17:00)
[2016-12-05] MEDS ORDERED: ALUMINUM/MAGNESIUM/SIMETH 30 ML CUP PO PRN (17:00)
[2016-12-05] MEDS ORDERED: DOCUSATE SODIUM 100 MG CAP PO PRN (17:00)
[2016-12-05] MEDS ORDERED: ONDANSETRON HCL 4 MG/2 ML VIAL IV PRN (17:00)
[2016-12-05] MEDS ORDERED: DEXTROSE 50% IN WATER 50 ML VIAL(D50) IV PRN (17:00)
[2016-12-05] MEDS ORDERED: DOCUSATE SODIUM 50 MG/SENNA 8.6 MG TAB PO PRN (17:00)
[2016-12-05] MEDS ORDERED: MAGNESIUM HYDROXIDE SUSP 30 ML CUP PO PRN (17:00)
--- NOTE | 2016-12-05 18:11 | EKG ---
Date Performed: 12/05/2016 Time Performed: 13:18:10 PTAGE: 56 years EKG: Sinus rhythm ST ELEVATION, PROBABLY EARLY REPOLARIZATION TALL T-WAVES, SUGGESTS POSSIBLE HYPERKALEMIA ABNORMAL EC G NO PREVIOUS TRACING DOCTOR: Ezio Masters Interpretating Date/Time 12/05/2016 18:10:00
[2016-12-05] MEDS: INSULIN DETEMIR 100 UNITS/ML VIAL SQ SCH (18:30)
[2016-12-05 18:45] VITALS: BP 132/63; PULSE 61; RESP 18; TEMP 97.4; O2SAT 98
--- NOTE | 2016-12-05 18:48 | HHI.PR ---
Objective Objective Results - Vital Signs Date Time Temp Pulse Resp B/P Pulse Ox O2 Delivery O2 Flow Rate FiO2 12/05/16 14:37 58 16 124/65 98 12/05/16 13:24 98 12/05/16 13:24 62 92/54 12/05/16 13:24 62 14 12/05/16 13:24 95/50 12/05/16 12:41 98.0 70 18 82/52 95 Result Diagram: 12/05/16 1315 12/05/16 1315 Other Results Laboratory Tests Test 12/05/16 12/05/16 13:15 13:23 White Blood Count 10.9 Red Blood Count 3.46 Hemoglobin 9.5 Hematocrit 29.4 Mean Corpuscular Volume 84.9 Mean Corpuscular Hemoglobin 27.4 Mean Corpuscular Hemoglobin 32.2 Concent Red Cell Distribution Width 14.6 Platelet Count 188 Mean Platelet Volume 8.3 Neutrophils (%) (Auto) 69.4 Lymphocytes (%) (Auto) 18.4 Monocytes (%) (Auto) 7.7 Eosinophils (%) (Auto) 3.8 Basophils (%) (Auto) 0.7 Neutrophils # (Auto) 7.6 Lymphocytes # (Auto) 2.0 Monocytes # (Auto) 0.8 Eosinophils # (Auto) 0.4 Basophils # (Auto) 0.1 CBC Comment DIFF FINAL Differential Comment Prothrombin Time 11.5 Prothromb Time International 1.0 Ratio Activated Partial 26.9 Thromboplast Time Sodium Level 134 Potassium Level 5.4 Chloride Level 104 Carbon Dioxide Level 19.9 Anion Gap 10 Blood Urea Nitrogen 45 Creatinine 1.81 Estimat Glomerular Filtration 39 Rate Random Glucose 299 Calcium Level 8.3 Magnesium Level 1.9 Total Bilirubin 0.3 Aspartate Amino Transf 30 (AST/SGOT) Alanine Aminotransferase 30 (ALT/SGPT) Alkaline Phosphatase 117 Total Creatine Kinase 109 Creatine Kinase MB 3.8 Troponin I 0.03 Total Protein 7.2 Albumin 3.0 Lipase 177 Lactic Acid Level 1.5 Physical Exam Physical Exam pt is seen & Examined d/w PT d/w Alyson see orders see H&P will f/u Avtar Ennis MD Dec 05, 2016 18:48
--- NOTE | 2016-12-05 19:01 | HHI.HP ---
HPI Service [facility] Primary Care Physician Angel Edwards DO Admission Diagnosis Intractable Thoracic Back Pain, Cholelithiasis, Renal Insufficiency Diagnoses: Chief Complaint: Weakness, back pain. Travel History International Travel<30 Days: No Contact w/Intl Traveler <30 Da: No Traveled to Known Affected Are: No History of Present Illness This is a 56-year-old male with multiple comorbidities, history of hypertension , hyperlipidemia, diabetes, chronic foot ulcers and amputations of toes, CHF, CAD, prior myocardial infarction, hepatitis C, CKD stage III, chronic back pain. Patient presented to the emergency room for complaint of back pain and generalized weakness. According to the patient, he was eating lunch with his around 12 noon when he experienced a burning like pain that started around his neck and radiated down to his back, he felt very weak, vision became blurry. Patient endorses that he had been fasting to have lab work done and he had taken his medications that morning. Patient is on diuretics, as well as blood pressure medications. Also endorses that for the last 8-10 days he's had a pain to an area right below the right shoulder blade it's sharp stabbing, he denies any trauma, no falls, has not lifted anything heavy. Indicates he has a history of chronic back pain that is mainly on the lower back. States that this morning he had taken to hydrocodone's 10/325, one at 7:30 in the 1 at 10: 30 as well as a Zanaflex. Patient states that prior to today's events he had bee in his normal state of health. He has typical aches and pains associated with his chronic pain. Other than that he had been doing relatively well. He denies any chest pain, no shortness of breath, no diarrhea, no abdominal pain, no fever, no chills. Patient states that he has a chronic wound to the right plantar foot that he has been trying to get in to see Dr. Perez. Denies any drainage, no odor. He has no pain as he has severe neuropathy. He recently had a blister to the same area that burst open but appears to be healing now. Patient was evaluated in the emergency room. CBC was remarkable for anemia, hemoglobin 9.5 and hematocrit 29.4. Patient denies any blood in stool, had recent GI evaluation in May 2016. BMP was remarkable for hyponatremia, sodium 134. Potassium 5.4. BUN 45, creatinine 1.81. Random glucose was 299. Lactic acid 1.5. Troponin 0.03. Lipase 177. Imaging studies were completed, no acute findings were noted. No evidence of aortic aneurysm or dissection. Chest x-ray without any significant findings. There were old right-sided rib fractures. Patient was noted hypotensive, blood pressure 82/52, heart rate 70. IV fluid boluses were given. Blood pressure has gone up to 124/65, heart rate 58. Patient indicates he is feeling much better, no dizziness. Indicates that back pain has been relieved after IV Dilaudid. Patient is admitted for further evaluation and treatment. Review of Systems Constitutional: DENIES: Diaphoretic episodes, Fatigue, Fever, Weight gain, Weight loss, Chills, Dizziness, Change in appetite, Night Sweats Endocrine: DENIES: Heat/cold intolerance, Polydipsia, Polyuria, Polyphagia Eyes: DENIES: Blurred vision, Diplopia, Eye inflammation, Eye pain, Vision loss , Photosensitivity, Double Vision Ears, nose, mouth, throat: DENIES: Tinnitus, Hearing loss, Vertigo, Nasal discharge, Oral lesions, Throat pain, Hoarseness, Ear Pain, Running Nose, Epistaxis, Sinus Pain, Toothache, Odynophagia Respiratory: DENIES: Apneas, Cough, Snoring, Wheezing, Hemoptysis, Sputum production, Shortness of breath Cardiovascular: DENIES: Chest pain, Palpitations, Syncope, Dyspnea on Exertion , PND, Lower Extremity Edema, Orthopnea, Claudication Gastrointestinal: DENIES: Abdominal pain, Black stools, Bloody stools, Constipation, Diarrhea, Nausea, Vomiting, Difficulty Swallowing, Anorexia Genitourinary: DENIES: Sexual dysfunction, Urinary frequency, Urinary incontinence, Urgency, Hematuria, Dysuria, Nocturia, Penile Discharge, Testicular Pain, Testicular Swelling Musculoskeletal: COMPLAINS OF: Joint pain, Back pain, Neck pain, DENIES: Muscle aches, Stiffness, Joint Swelling Integumentary: DENIES: Abnormal pigmentation, Nail changes, Pruritus, Rash Hematologic/lymphatic: DENIES: Bruising, Lymphadenopathy Immunologic/allergic: DENIES: Eczema, Urticaria Neurologic: DENIES: Abnormal gait, Headache, Localized weakness, Paresthesias, Seizures, Speech Problems, Tremor, Poor Balance Psychiatric: DENIES: Anxiety, Confusion, Mood changes, Depression, Hallucinations, Agitation, Suicidal Ideation, Homicidal Ideation, Delusions Other WEAKNESS Past Family Social History Past Medical History Arthritis Skin cancer aortic stenosis, mitral valve regurgitation, carotid artery stenosis High Cholesterol Congestive Heart Failure Cirrhosis-alcoholic Coronary Artery Disease Diabetes Neuropathy Chronic foot ulcers History of MRSA infection GERD BPH Hepatitis C Hiatal Hernia Hypertension: Immune Disorder: No Chronic back pain Prior myocardial infarction, March 2016 CKD stage III His sleep apnea, doesn't use CPAP 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 Past Surgical History Toe amputations, last surgery -s/p Amputation partial fifth ray right foot including toe on 06/02/16 Tonsillectomy s/p EGD/ colonoscopy with gastritis/ esophagitis/ poor prep for colonoscopy with internal/ external hemorrhoids Apr 2016 Reported Medications Reported Meds & Active Scripts Active Glucocom Test Strips (Blood Glucose Test Strips) 1 Claribel Claribel 1 Ea .ROUTE DIRECTED Glucocom Blood Glucose Mo W/Device (Device) 1 Kit Kit 1 Kit .ROUTE DIRECTED Hydrochlorothiazide 25 Mg Tab 25 Mg PO DAILY Norvasc (Amlodipine Besylate) 5 Mg Tab 5 Mg PO DAILY Coreg (Carvedilol) 6.25 Mg Tab 6.25 Mg PO BID Reported Bumetanide 1 Mg Tab 1 Mg PO BID Levemir Inj (Insulin Detemir) 1,000 unit/ 10 ML Vial 10 Units SQ TID Do not mix with any other Insulin. Zanaflex (Tizanidine HCl) 4 Mg Tab 2 Mg PO HS PRN Novolog Inj (Insulin Aspart) 1,000 Unit/10 Ml Vial 10 Units SQ TID Lortab (Hydrocodone-Acetaminophen) 10-325 Mg Tab 1 Tab PO QID PRN Atorvastatin (Atorvastatin Calcium) 20 Mg Tab 20 Mg PO HS Aspirin 81 (Aspirin) 81 Mg Tabdr 81 Mg PO DAILY Levothyroxine (Levothyroxine Sodium) 50 Mcg Tab 50 Mcg PO DAILY Robaxin (Methocarbamol) 750 Mg Tab 750 Mg PO TID PRN Flomax (Tamsulosin HCl) 0.4 Mg Cap 0.4 Mg PO DAILY Allergies: Coded Allergies: *MDRO Multi-Drug Resistant Organism (Verified Adverse Reaction, Unknown, MRSA, 11/25/16) MRSA (foot wound) - 12/2014, 02/2015, 07/2015, 09/2015, 11/2015, 05/2016, 08/24/16 Active Ordered Medications Inpatient Medications Acetaminophen (Tylenol) 650 mg Q4H PRN PO Temp > 100.4; Start 12/05/16 at 17:00 Al Hydrox/Mg Hydrox/Simethicone (Mag-Al Plus Susp Liq) 30 ml Q6H PRN PO DYSPEPSIA; Start 12/05/16 at 17:00 Aspirin (Ecotrin Ec) 81 mg DAILY PO ; Start 12/06/16 at 09:00 Atorvastatin Calcium (Lipitor) 20 mg HS PO ; Start 12/05/16 at 21:00 Calcium Carbonate (Tums Chew) 1,000 mg TID PRN CHEW DYSPEPSIA; Start 12/05/16 at 17:00 Carvedilol (Coreg) 6.25 mg BID PO ; Start 12/05/16 at 21:00 Dextrose (D50w (Vial) Inj) 50 ml UNSCH PRN IV HYPOGLYCEMIA-SEE COMMENTS; Start 12/05/16 at 17:00 Docusate Sodium (Colace) 100 mg BID PRN PO CONSTIPATION; Start 12/05/16 at 17: 00 Glucagon (Glucagon Inj) 1 mg UNSCH PRN OTHER HYPOGLYCEMIA-SEE COMMENTS; Start 12/05/16 at 17:00 Hydromorphone HCl (Dilaudid Pf Inj) 1 mg ONCE ONCE IV PUSH Last administered on 12/05/16t 15:58; Start 12/05/16 at 16:00; Stop 12/05/16 at 16:01; Status DC Insulin Aspart (NovoLOG SUPPLEMENTAL SCALE) 1 ACHS SLIDING SCALE SQ ; Start at 21:00 Insulin Detemir (Levemir Inj) 10 units TID SQ ; Start 12/05/16 at 18:00 Levothyroxine Sodium (Synthroid) 50 mcg DAILY@0600 PO ; Start 12/06/16 at 06:00 Magnesium Hydroxide (Milk Of Magnesia Liq) 30 ml DAILY PRN PO for Severe Constipation; Start 12/05/16 at 17:00 Morphine Sulfate (Morphine Inj) 4 mg Q3H PRN IV PUSH PAIN 6 TO 10; Start 12/05 at 17:00 Ondansetron HCl (Zofran Inj) 4 mg Q6H PRN IV NAUSEA; Start 12/05/16 at 17:00 Senna/Docusate Sodium (Nikki-Colace) 1 tab BID PRN PO CONSTIPATION; Start at 17:00 Sodium Chloride (NS 1000 ml Inj) 1,000 ml @ 125 mls/hr Q8H IV Last administered on 12/05/16t 17:00; Start 12/05/16 at 17:00 Sodium Chloride (NS Flush) 2 ml UNSCH PRN IVF FLUSH AFTER USING IV ACCESS; Start 12/05/16 at 13:15 Tamsulosin HCl 0.4 mg 0.4 mg DAILY PO ; Start 12/06/16 at 09:00 Family History Father from complication of heart disease Mother from complication of COPD/emphysema; she also had diabetes type 2 Social History Used to drink heavily, quit a few years ago. No smoking, no substance abuse. Patient is , has grown children. Physical Exam Vital Signs Vital Signs Date Time Temp Pulse Resp B/P Pulse Ox O2 Delivery O2 Flow Rate FiO2 12/05/16 14:37 58 16 124/65 98 12/05/16 13:24 98 12/05/16 13:24 62 92/54 12/05/16 13:24 62 14 12/05/16 13:24 95/50 12/05/16 12:41 98.0 70 18 82/52 95 Physical Exam GENERAL: This is a well-nourished, well-developed patient, in no apparent distress. SKIN: No rashes, ecchymoses or lesions. Cool and dry. HEAD: Atraumatic. Normocephalic. No temporal or scalp tenderness. EYES: Pupils equal round and reactive. Extraocular motions intact. No scleral icterus. No injection or drainage. ENT: Nose without bleeding, purulent drainage or septal hematoma. Throat without erythema, tonsillar hypertrophy or exudate. Uvula midline. Airway patent. NECK: Trachea midline. No JVD or lymphadenopathy. Supple, nontender, no meningeal signs. CARDIOVASCULAR: Regular rate and rhythm with murmur, 2/6. RESPIRATORY: Clear to auscultation. Breath sounds equal bilaterally. No wheezes , rales, or rhonchi. GASTROINTESTINAL: Abdomen soft, non-tender, nondistended. No hepato-splenomegaly , or palpable masses. No guarding. MUSCULOSKELETAL: Extremities without clubbing, cyanosis. Bilateral lower extremity with +1 pretibial edema, pedal pulses +1 bilaterally. Partial toe amputations noted. No joint tenderness, effusion, or edema noted. No calf tenderness. Negative Homans sign bilaterally. Point tenderness to right shoulder blade. No abnormalities noted. Able to flex and extend right shoulder. NEUROLOGICAL: Awake, alert oriented 3. No focal deficits. Laboratory Laboratory Tests Test 12/05/16 12/05/16 13:15 13:23 White Blood Count 10.9 Red Blood Count 3.46 Hemoglobin 9.5 Hematocrit 29.4 Mean Corpuscular Volume 84.9 Mean Corpuscular Hemoglobin 27.4 Mean Corpuscular Hemoglobin 32.2 Concent Red Cell Distribution Width 14.6 Platelet Count 188 Mean Platelet Volume 8.3 Neutrophils (%) (Auto) 69.4 Lymphocytes (%) (Auto) 18.4 Monocytes (%) (Auto) 7.7 Eosinophils (%) (Auto) 3.8 Basophils (%) (Auto) 0.7 Neutrophils # (Auto) 7.6 Lymphocytes # (Auto) 2.0 Monocytes # (Auto) 0.8 Eosinophils # (Auto) 0.4 Basophils # (Auto) 0.1 CBC Comment DIFF FINAL Differential Comment Prothrombin Time 11.5 Prothromb Time International 1.0 Ratio Activated Partial 26.9 Thromboplast Time Sodium Level 134 Potassium Level 5.4 Chloride Level 104 Carbon Dioxide Level 19.9 Anion Gap 10 Blood Urea Nitrogen 45 Creatinine 1.81 Estimat Glomerular Filtration 39 Rate Random Glucose 299 Calcium Level 8.3 Magnesium Level 1.9 Total Bilirubin 0.3 Aspartate Amino Transf 30 (AST/SGOT) Alanine Aminotransferase 30 (ALT/SGPT) Alkaline Phosphatase 117 Total Creatine Kinase 109 Creatine Kinase MB 3.8 Troponin I 0.03 Total Protein 7.2 Albumin 3.0 Lipase 177 Lactic Acid Level 1.5 Result Diagram: 12/05/16 1315 12/05/16 1315 Imaging Last Impressions Foot X-Ray 12/05/16 1312 Signed Impressions: Service Date/Time: Monday, December 05, 2016 13:24 - CONCLUSION: 1. No acute fracture or dislocation. 2. Old healed fracture involving the midshaft of the right fourth metatarsal. 3. Stable previous amputations of the right third and fifth digits. 4. Arthritic changes involving the right first interphalangeal joint and the right ankle joint. Jasbir Nagy MD Chest X-Ray 12/05/16 1307 Signed Impressions: Service Date/Time: Monday, December 05, 2016 13:20 - CONCLUSION: Stable chest without evidence of acute process. Old right-sided rib fractures. Frank Roque MD Aorta CTA 12/05/16 1303 Signed Impressions: Service Date/Time: Monday, December 05, 2016 15:01 - CONCLUSION: No evidence of aortic aneurysm or dissection. Cholelithiasis. Nodular heterogeneous appearing liver characteristic of chronic parenchymal disease. Pancreatic calcific deposits characteristic of previous pancreatitis. No acute inflammatory change noted. No acute abnormality. Frank Roque MD Assessment and Plan Problem List: (1) Intractable back pain (2) Weakness (3) Hyperkalemia (4) Acute renal failure (5) CKD (chronic kidney disease), stage III (6) Anemia (7) Hyponatremia (8) Diabetic foot ulcer (9) Cirrhosis (10) CHF (congestive heart failure) (11) DM (diabetes mellitus) (12) Neuropathy (13) Hepatitis C (14) Valvular disease Assessment and Plan Admit to Dr. Ennis 56-year-old male patient with multiple comorbidities, presented to the emergency room with evaluation of weakness in back pain. Noted hypotensive, lactic acid negative. No fever, chills. Indicated he had been fasting that morning and had taken diuretics. Patient does not appear septic, possibly near syncope secondary to dehydration, need to rule out infectious process. -Continue with IV fluids, normal saline at 100 hour -We will check MRI of thoracic spine, rule out discitis. -Sedimentation rate and C-reactive protein pending Right shoulder blade pain, appears to be musculoskeletal. Continue with pain management Acute on chronic renal injury, possibly secondary to dehydration. Patient did receive contrast with CT, we will need to monitor renal function closely. Hyperkalemia Continue with IV fluids Follow BMP Type 2 diabetes, uncontrolled -Accu-Cheks before meals and at bedtime with insulin therapy History of HTN, currently hypotensive Hold antihypertensive agents Right plantar foot chronic diabetic ulcer, it does not appear infected Diabetic neuropathy Patient is to follow-up with Dr. Perez as outpatient. CAD, prior history of ME Valvular heart disease -Continuous cardiac telemetry Anemia, had recent GI evaluation Monitor CBC Home medications reviewed, initiated as indicated SCDs for DVT prophylaxis Plan of care has been discussed with the patient, attending and registered nurse. Further management of the patient will be dependent on the hospital course This patient was seen by myself and Dr. Ennis, this H&P is written on his behalf Problem Qualifiers (1) Acute renal failure: Qualified Code: N17.9 - Acute renal failure, unspecified acute renal failure type (2) Anemia: Qualified Code: D64.9 - Anemia, unspecified type (3) Diabetic foot ulcer: Qualified Code: E11.621 - Diabetic ulcer of right midfoot associated with type 2 diabetes mellitus, limited to breakdown of skin (4) Cirrhosis: Qualified Code: K70.30 - Alcoholic cirrhosis of liver without ascites (5) CHF (congestive heart failure): Qualified Code: I50.9 - Chronic congestive heart failure, unspecified congestive heart failure type (6) DM (diabetes mellitus): Qualified Code: E11.22 - Type 2 diabetes mellitus with diabetic chronic kidney disease, unspecified CKD stage, unspecified tank terminal gauger insulin use status (7) Hepatitis C: Qualified Code: B18.2 - Chronic hepatitis C without hepatic coma Alyson Kingston Dec 05, 2016 19:01
[2016-12-05 19:53] VITALS: BP 133/63; PULSE 64; RESP 18; TEMP 98; O2SAT 99
[2016-12-05] MEDS: CARVEDILOL 6.25 MG TAB PO SCH (21:34)
[2016-12-05] MEDS: ATORVASTATIN 20 MG TAB PO SCH (21:34)
[2016-12-05] MEDS: MORPHINE SULFATE 4 MG/ML INJ IV PUSH PRN (21:35)
[2016-12-05] MEDS: INSULIN ASPART SUPPLEMENTAL SCALE SQ SCH (21:51)
[2016-12-06] VITALS (9 sets, daily range): BP systolic 140–196; BP diastolic 64–90; PULSE 72–87; RESP 14–18; TEMP 98–98.2; O2SAT 96–98
[2016-12-06] MEDS: MORPHINE SULFATE 4 MG/ML INJ IV PUSH PRN ×5 (02:18→21:44)
[2016-12-06 05:31] LABS: HEMATOCRIT 30.3 % (39.0-51.0); MEAN CELL VOLUME 84.6 FL (80.0-100.0); MEAN CORPUSCULAR HEMOGLOBIN 27.5 PG (27.0-34.0); MEAN CORPUSCULAR HGB CONC 32.5 % (32.0-36.0); PLATELET COUNT 200 TH/MM3 (150-450); RED BLOOD COUNT 3.58 MIL/MM3 (4.50-5.90); RED CELL DISTRIBUTION WIDTH 14.6 % (11.6-17.2); REVIEW FLAG FINAL; WHITE BLOOD COUNT 9.8 TH/MM3 (4.0-11.0)
[2016-12-06 05:51] LABS: BICARBONATE 20.6 MEQ/L (21.0-32.0); POTASSIUM 4.6 MEQ/L (3.5-5.1)
[2016-12-06] MEDS: LEVOTHYROXINE SODIUM 50 MCG TAB PO SCH (06:42)
[2016-12-06] MEDS: SODIUM CHLOR 0.9% 1000 ML INJ 1,000 ML IV SCH ×3 (06:42→22:57)
[2016-12-06] MEDS: INSULIN ASPART SUPPLEMENTAL SCALE SQ SCH ×4 (06:43→22:56)
--- NOTE | 2016-12-06 08:36 | HHI.PR ---
Subjective Remarks weakness resolved right shoulder blade pain still present no problem with ROM no fever no cp no sob anxious to go home, has a court date tomorrow Objective Objective Results - Vital Signs Date Time Temp Pulse Resp B/P Pulse Ox O2 Delivery O2 Flow Rate FiO2 12/06/16 07:57 98.0 72 16 140/64 98 12/06/16 06:52 18 12/06/16 04:08 98.2 79 18 196/90 98 12/06/16 01:15 87 12/06/16 00:02 98.1 74 18 144/78 97 12/05/16 19:53 98.0 64 18 133/63 99 12/05/16 18:45 97.4 61 18 132/63 98 12/05/16 14:37 58 16 124/65 98 12/05/16 13:24 98 12/05/16 13:24 62 92/54 12/05/16 13:24 62 14 12/05/16 13:24 95/50 12/05/16 12:41 98.0 70 18 82/52 95 I/O 12/05/16 12/05/16 12/05/16 12/06/16 12/06/16 12/06/16 07:00 15:00 23:00 07:00 15:00 23:00 Output Total 400 ml 600 ml Balance -400 ml -600 ml Output Urine Total 400 ml 600 ml Result Diagram: 12/06/16 0458 12/06/16 0458 Imaging Last Impressions Foot X-Ray 12/05/16 1312 Signed Impressions: Service Date/Time: Monday, December 05, 2016 13:24 - CONCLUSION: 1. No acute fracture or dislocation. 2. Old healed fracture involving the midshaft of the right fourth metatarsal. 3. Stable previous amputations of the right third and fifth digits. 4. Arthritic changes involving the right first interphalangeal joint and the right ankle joint. Jasbir Nagy MD Chest X-Ray 12/05/16 1307 Signed Impressions: Service Date/Time: Monday, December 05, 2016 13:20 - CONCLUSION: Stable chest without evidence of acute process. Old right-sided rib fractures. Frank Roque MD Aorta CTA 12/05/16 1307 Signed Impressions: Service Date/Time: Monday, December 05, 2016 15:01 - CONCLUSION: No evidence of aortic aneurysm or dissection. Cholelithiasis. Nodular heterogeneous appearing liver characteristic of chronic parenchymal disease. Pancreatic calcific deposits characteristic of previous pancreatitis. No acute inflammatory change noted. No acute abnormality. Frank Roque MD Other Results Laboratory Tests Test 12/05/16 12/05/16 12/06/16 13:15 13:23 04:58 White Blood Count 10.9 9.8 Red Blood Count 3.46 3.58 Hemoglobin 9.5 9.9 Hematocrit 29.4 30.3 Mean Corpuscular Volume 84.9 84.6 Mean Corpuscular Hemoglobin 27.4 27.5 Mean Corpuscular Hemoglobin 32.2 32.5 Concent Red Cell Distribution Width 14.6 14.6 Platelet Count 188 200 Mean Platelet Volume 8.3 8.4 Neutrophils (%) (Auto) 69.4 Lymphocytes (%) (Auto) 18.4 Monocytes (%) (Auto) 7.7 Eosinophils (%) (Auto) 3.8 Basophils (%) (Auto) 0.7 Neutrophils # (Auto) 7.6 Lymphocytes # (Auto) 2.0 Monocytes # (Auto) 0.8 Eosinophils # (Auto) 0.4 Basophils # (Auto) 0.1 CBC Comment DIFF FINAL Differential Comment Erythrocyte Sedimentation Rate 47 Prothrombin Time 11.5 Prothromb Time International 1.0 Ratio Activated Partial 26.9 Thromboplast Time Sodium Level 134 137 Potassium Level 5.4 4.6 Chloride Level 104 105 Carbon Dioxide Level 19.9 20.6 Anion Gap 10 11 Blood Urea Nitrogen 45 38 Creatinine 1.81 1.44 Estimat Glomerular Filtration 39 51 Rate Random Glucose 299 190 Calcium Level 8.3 8.6 Magnesium Level 1.9 Total Bilirubin 0.3 Aspartate Amino Transf 30 (AST/SGOT) Alanine Aminotransferase 30 (ALT/SGPT) Alkaline Phosphatase 117 Total Creatine Kinase 109 Creatine Kinase MB 3.8 Troponin I 0.03 C-Reactive Protein LESS THAN 0.29 Total Protein 7.2 Albumin 3.0 Lipase 177 Lactic Acid Level 1.5 ROS General: No: Fatigue, Weakness HEENT: No: Sore Throat, Dysphagia Cardiac: No: Chest Pain, Edema, Palpitations Pulmonary: No: Cough, SOB, Wheezing GI: No: Abdominal Pain, BM, Diarrhea, 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 SKIN: No rashes, ecchymoses or lesions. Cool and dry. Right plantar ulcer with fibrotic tissues, no exudate, no redness. HEAD: Atraumatic. Normocephalic. No temporal or scalp tenderness. EYES: Pupils equal round and reactive. Extraocular motions intact. No scleral icterus. No injection or drainage. ENT: Nose without bleeding, purulent drainage or septal hematoma. Throat without erythema, tonsillar hypertrophy or exudate. Uvula midline. Airway patent. NECK: Trachea midline. No JVD or lymphadenopathy. Supple, nontender, no meningeal signs. CARDIOVASCULAR: Regular rate and rhythm with murmur, 2/6. RESPIRATORY: Clear to auscultation. Breath sounds equal bilaterally. No wheezes , rales, or rhonchi. GASTROINTESTINAL: Abdomen soft, non-tender, nondistended. No hepato-splenomegaly , or palpable masses. No guarding. MUSCULOSKELETAL: Extremities without clubbing, cyanosis. Bilateral lower extremity with +1 pretibial edema, pedal pulses +1 bilaterally. Partial toe amputations noted. No joint tenderness, effusion, or edema noted. No calf tenderness. Negative Homans sign bilaterally. Point tenderness to right shoulder blade. No abnormalities noted. Able to flex and extend right shoulder. NEUROLOGICAL: Awake, alert oriented 3. No focal deficits. Urinary Catheter: No Vascular Central Line Catheter: No A/P Diagnosis: (1) Intractable back pain (2) Weakness (3) Hyperkalemia (4) Acute renal failure (5) CKD (chronic kidney disease), stage III (6) Anemia (7) Hyponatremia (8) Diabetic foot ulcer (9) Cirrhosis (10) CHF (congestive heart failure) (11) DM (diabetes mellitus) (12) Neuropathy (13) Hepatitis C (14) Valvular disease Assessment and Plan 56-year-old male patient with multiple comorbidities, presented to the emergency room with evaluation of weakness in back pain. Noted hypotensive, lactic acid negative. No fever, chills. Indicated he had been fasting that morning and had taken diuretics. Patient does not appear septic, possibly near syncope secondary to dehydration, need to rule out infectious process. -Continue with IV fluids, normal saline at 100 hour -MRI of thoracic spine, rule out discitis-pending -Sedimentation rate elevated, CRP okay -doubt infection, will f/u MRI results -pt. improved, no longer feeling weak Right shoulder blade pain, appears to be musculoskeletal. Continue with pain management Acute on chronic renal injury, possibly secondary to dehydration. Patient did receive contrast with CT, we will need to monitor renal function closely. Hyperkalemia renal function improving, continue with IVF for now -K better Type 2 diabetes, uncontrolled -Accu-Cheks before meals and at bedtime with insulin therapy History of HTN, currently hypotensive BP trending up, 190s, 140s, resume home meds Right plantar foot chronic diabetic ulcer, it does not appear infected Diabetic neuropathy Patient is to follow-up with Dr. Perez as outpatient. CAD, prior history of [place] Valvular heart disease -Continuous cardiac telemetry Anemia, had recent GI evaluation HH stable SCDs for DVT prophylaxis f/u MRI results poss dc fariba D/W RN D/W Dr. Ennis D/W pt This patient was seen by myself and Dr. Ennis, this note is written on his behalf Problem Qualifiers (1) Acute renal failure: Qualified Code: N17.9 - Acute renal failure, unspecified acute renal failure type (2) Anemia: Qualified Code: D64.9 - Anemia, unspecified type (3) Diabetic foot ulcer: Qualified Code: E11.621 - Diabetic ulcer of right midfoot associated with type 2 diabetes mellitus, limited to breakdown of skin (4) Cirrhosis: Qualified Code: K70.30 - Alcoholic cirrhosis of liver without ascites (5) CHF (congestive heart failure): Qualified Code: I50.9 - Chronic congestive heart failure, unspecified congestive heart failure type (6) DM (diabetes mellitus): Qualified Code: E11.22 - Type 2 diabetes mellitus with diabetic chronic kidney disease, unspecified CKD stage, unspecified mcfp insulin use status (7) Hepatitis C: Qualified Code: B18.2 - Chronic hepatitis C without hepatic coma Alyson Kingston Dec 06, 2016 08:36
--- NOTE | 2016-12-06 09:19 | HHI.DCPOC ---
Discharge Care Plan Diagnosis: (1) Intractable back pain (2) Weakness Your Health Problems Are: Anxiety Difficulty with ADL Goals to Promote Your Health * To prevent worsening of your condition and complications * To maintain your health at the optimal level Directions to Meet Your Goals Take your medications as prescribed Follow your dietary instruction Follow activity as directed Keep your appointments as scheduled Take your immunizations and boosters as scheduled If your symptoms worsen call your PCP, if no PCP go to Urgent Care Center or Emergency Room Smoking is Dangerous to Your Health. Avoid second hand smoke Call the 24-hour hour crisis hotline for domestic abuse at Alyson Kingston. [facility] Dec 06, 2016 09:19
[2016-12-06] MEDS: amLODIPine BESYLATE 5 MG TAB PO SCH (09:50)
[2016-12-06] MEDS: BUMETANIDE 1 MG TAB PO SCH ×2 (09:50→18:03)
[2016-12-06] MEDS: CARVEDILOL 6.25 MG TAB PO SCH ×2 (09:50→21:41)
[2016-12-06] MEDS: HYDROCHLOROTHIAZIDE 25 MG TAB PO SCH (09:50)
[2016-12-06] MEDS: ASPIRIN EC 81 MG TABEC PO SCH (09:50)
[2016-12-06] MEDS: TAMSULOSIN HCL 0.4 MG CAP PO SCH (09:50)
[2016-12-06] MEDS: INSULIN DETEMIR 100 UNITS/ML VIAL SQ SCH ×3 (09:55→18:05)
[2016-12-06] MEDS ORDERED: LORazepam 2 MG/ML VIAL IV PUSH SCH (10:00)
[2016-12-06] MEDS ORDERED: PNEUMOCOCCAL POLYVALENT INJ 25 MCG/0.5 ML SYR IM ONE (10:00)
[2016-12-06] MEDS ORDERED: GADODIAMIDE PF 287 MG/ML 5 ML VIAL (for RAD MRI) IV ONE (11:51)
--- NOTE | 2016-12-06 13:42 | RADRPT ---
EXAM DATE/TIME: 12/06/2016 11:29 CORRECTION Corrected on: December 06, 2016; [facility] COMPARISON: CTA THORACIC ABDOMINAL AORTA W 3D RECON, December 05, 2016, 15:01. INDICATIONS : Pain. CONTRAST: 22 cc Omniscan (gadodiamide) IV MEDICAL HISTORY : Diabetes mellitus type 2. Hypertension. Congestive heart failure. SURGICAL HISTORY : Tonsillectomy. Surgery noel feet. ENCOUNTER: Initial ACUITY: 2 day PAIN SCORE: 4/10 LOCATION: back TECHNIQUE: Multiplanar multisequence MRI of the thoracic spine was performed. FINDINGS: By MRI the marrow signal in the thoracic vertebrae appear homogeneous and normal. There is minimal i ncreased signal in the thoracic discs at T7-T8 and T8-T9 in a nonspecific fashion. This is unusual a ppearance to an inflammatory process. There is some subtle enhancement at T9-T10 which is more suspicious for an inflammatory process. Thi s could be a very early discitis. An acute Schmorl's type endplate disc process could give this similar appearance. There is no evidence for cord involvement. CONCLUSION: Abnormal T7-T8, T8-T9 and T9-T10 disc space. Considerations include osteomyelitis at T9-T10 and an a cute Schmorl's type endplate herniation.. Randy Jaramillo MD FACR on December 06, 2016 at 13:18 Board Certified Radiologist. This report was verified electronically. Randy Jaramillo MD FACR on December 06, 2016 at 16:24 Board Certified Radiologist. This report was verified electronically.
[2016-12-06] MEDS ORDERED: METHOCARBAMOL 500 MG TAB PO PRN (19:00)
[2016-12-06] MEDS ORDERED: PILL SPLITTER OTHER PRN (19:00)
[2016-12-06] MEDS: ATORVASTATIN 20 MG TAB PO SCH (21:41)
[2016-12-07] VITALS (9 sets, daily range): BP systolic 160–205; BP diastolic 74–96; PULSE 66–99; RESP 18–19; TEMP 97.8–98.8; O2SAT 96–99
[2016-12-07] MEDS ORDERED: GABA300C5 PO (01:36)
[2016-12-07] MEDS ORDERED: METH750T PO (01:39)
[2016-12-07] MEDS: MORPHINE SULFATE 4 MG/ML INJ IV PUSH PRN (02:32)
[2016-12-07] MEDS: LEVOTHYROXINE SODIUM 50 MCG TAB PO SCH (06:00)
[2016-12-07] MEDS: INSULIN ASPART SUPPLEMENTAL SCALE SQ SCH ×2 (06:11→13:16)
[2016-12-07] MEDS: ACETAMINOPHEN/HYDROcodone 325 MG/10 MG TAB PO PRN ×2 (06:13→11:38)
--- NOTE | 2016-12-07 08:33 | HHI.PR ---
Subjective Remarks c/o mid upper back pain now, requesting po narc no fever no cp no sob waiting for ID input BP elevated, meds being given Objective Objective Results - Vital Signs Date Time Temp Pulse Resp B/P Pulse Ox O2 Delivery O2 Flow Rate FiO2 12/07/16 08:24 98.1 82 19 205/95 98 12/07/16 04:00 98.8 87 18 171/78 99 12/07/16 00:00 98.0 66 18 164/74 99 12/06/16 23:00 86 12/06/16 20:04 98.1 72 18 162/72 96 12/06/16 20:00 86 12/06/16 15:59 98.1 84 14 166/77 97 12/06/16 15:18 78 12/06/16 15:16 21 I/O 12/06/16 12/06/16 12/06/16 12/07/16 12/07/16 12/07/16 06:59 14:59 22:59 06:59 14:59 22:59 Intake Total 480 ml Output Total 600 ml Balance -600 ml 480 ml Intake Oral 480 ml Output Urine Total 600 ml Result Diagram: 12/06/16 0458 12/06/16 0458 Imaging Last Impressions Foot X-Ray 12/05/16 1312 Signed Impressions: Service Date/Time: Monday, December 05, 2016 13:24 - CONCLUSION: 1. No acute fracture or dislocation. 2. Old healed fracture involving the midshaft of the right fourth metatarsal. 3. Stable previous amputations of the right third and fifth digits. 4. Arthritic changes involving the right first interphalangeal joint and the right ankle joint. Jasbir Nagy MD Chest X-Ray 12/05/16 1307 Signed Impressions: Service Date/Time: Monday, December 05, 2016 13:20 - CONCLUSION: Stable chest without evidence of acute process. Old right-sided rib fractures. Frank Roque MD Aorta CTA 12/05/16 1307 Signed Impressions: Service Date/Time: Monday, December 05, 2016 15:01 - CONCLUSION: No evidence of aortic aneurysm or dissection. Cholelithiasis. Nodular heterogeneous appearing liver characteristic of chronic parenchymal disease. Pancreatic calcific deposits characteristic of previous pancreatitis. No acute inflammatory change noted. No acute abnormality. 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 SKIN: No rashes, ecchymoses or lesions. Cool and dry. Right plantar ulcer with fibrotic tissues, no exudate, no redness. HEAD: Atraumatic. Normocephalic. No temporal or scalp tenderness. EYES: Pupils equal round and reactive. Extraocular motions intact. No scleral icterus. No injection or drainage. ENT: Nose without bleeding, purulent drainage or septal hematoma. Throat without erythema, tonsillar hypertrophy or exudate. Uvula midline. Airway patent. NECK: Trachea midline. No JVD or lymphadenopathy. Supple, nontender, no meningeal signs. CARDIOVASCULAR: Regular rate and rhythm with murmur, 2/6. RESPIRATORY: Clear to auscultation. Breath sounds equal bilaterally. No wheezes , rales, or rhonchi. GASTROINTESTINAL: Abdomen soft, non-tender, nondistended. No hepato-splenomegaly , or palpable masses. No guarding. MUSCULOSKELETAL: Extremities without clubbing, cyanosis. Bilateral lower extremity with +1 pretibial edema, pedal pulses +1 bilaterally. Partial toe amputations noted. No joint tenderness, effusion, or edema noted. No calf tenderness. Negative Homans sign bilaterally. Point tenderness to right shoulder blade. No abnormalities noted. Able to flex and extend right shoulder. NEUROLOGICAL: Awake, alert oriented 3. No focal deficits. Urinary Catheter: No Vascular Central Line Catheter: No A/P Diagnosis: (1) Intractable back pain (2) Weakness (3) Hyperkalemia (4) Acute renal failure (5) CKD (chronic kidney disease), stage III (6) Anemia (7) Hyponatremia (8) Diabetic foot ulcer (9) Cirrhosis (10) CHF (congestive heart failure) (11) DM (diabetes mellitus) (12) Neuropathy (13) Hepatitis C (14) Valvular disease Assessment and Plan 56-year-old male patient with multiple comorbidities, presented to the emergency room with evaluation of weakness in back pain. Noted hypotensive, lactic acid negative. No fever, chills. Indicated he had been fasting that morning and had taken diuretics. Patient does not appear septic, possibly near syncope secondary to dehydration, need to rule out infectious process. -Continue with IV fluids, normal saline at 100 hour -MRI of thoracic spine-? discitis T9-T10, site not amenable for bx if needed. D/ W Dr. Jaramillo. spoke to pt and S.O. about MRI findings. Recommend that he stay for further evaluation, consulted ID. His court appointment is not until Sunday. He is willing to stay in hospital . Pt. has no fever, no WBC -Sedimentation rate elevated, CRP okay -f/u on ID recommendations. Right shoulder blade pain, appears to be musculoskeletal.Pain now moving to mid upper back Continue with pain management Acute on chronic renal injury, possibly secondary to dehydration. Patient did receive contrast with CT, we will need to monitor renal function closely. Hyperkalemia -renal fx stable, dc IVF Type 2 diabetes, better now -Accu-Cheks before meals and at bedtime with insulin therapy History of HTN, currently hypotensive BP up, continue home meds. DC IVF Right plantar foot chronic diabetic ulcer, it does not appear infected Diabetic neuropathy Patient is to follow-up with Dr. Perez as outpatient. CAD, prior history of [place] Valvular heart disease -Continuous cardiac telemetry Anemia, had recent GI evaluation HH stable SCDs for DVT prophylaxis wait for ID input. Poss dc today or may need inpatient admit for abx if recommended. D/W RN D/W Dr. Ennis D/W pt This patient was seen by myself and Dr. Ennis, this note is written on his behalf Problem Qualifiers (1) Acute renal failure: Qualified Code: N17.9 - Acute renal failure, unspecified acute renal failure type (2) Anemia: Qualified Code: D64.9 - Anemia, unspecified type (3) Diabetic foot ulcer: Qualified Code: E11.621 - Diabetic ulcer of right midfoot associated with type 2 diabetes mellitus, limited to breakdown of skin (4) Cirrhosis: Qualified Code: K70.30 - Alcoholic cirrhosis of liver without ascites (5) CHF (congestive heart failure): Qualified Code: I50.9 - Chronic congestive heart failure, unspecified congestive heart failure type (6) DM (diabetes mellitus): Qualified Code: E11.22 - Type 2 diabetes mellitus with diabetic chronic kidney disease, unspecified CKD stage, 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
[2016-12-07] MEDS: amLODIPine BESYLATE 5 MG TAB PO SCH (08:45)
[2016-12-07] MEDS: TAMSULOSIN HCL 0.4 MG CAP PO SCH (08:45)
[2016-12-07] MEDS: CARVEDILOL 6.25 MG TAB PO SCH (08:45)
[2016-12-07] MEDS: ASPIRIN EC 81 MG TABEC PO SCH (08:45)
[2016-12-07] MEDS: HYDROCHLOROTHIAZIDE 25 MG TAB PO SCH (08:45)
[2016-12-07] MEDS: BUMETANIDE 1 MG TAB PO SCH (08:45)
[2016-12-07] MEDS: INSULIN DETEMIR 100 UNITS/ML VIAL SQ SCH ×2 (08:48→13:18)
[2016-12-07] MEDS ORDERED: cloNIDine HCL 0.1 MG TAB PO PRN (11:00)
--- NOTE | 2016-12-07 12:16 | PD.CONS ---
History of Present Illness Service Infectious disease Consult Requested By Dr Ennis Reason for Consult Evaluate patient for possible discitis Primary Care Physician Angel Edwards DO Diagnoses: History of Present Illness Patient seen and examined. Records reviewed. Patient is a 56-year-old male, with multiple medical problem, has known chronic low back pain, and goes to a pain management physician. He presented with a new pain which is in his upper mid back below his shoulder blade about 2 days prior to admission. He described it as a burning type of pain that goes up to his neck area. He felt somewhat sluggish and his was very concerned so the patient was taken to the hospital for further evaluation and treatment. There's been no fever or chills. He denies any recent fall or trauma or any heavy lifting. Patient has not had any pain like this in the past. Most of this pain is in the lumbar area. Since admission he has not been febrile. His WBC is normal. Sedimentation rate is 47, and C-reactive protein is normal. He denies any GI or any urinary complaints or any respiratory complaint currently. MRI of the thoracic spine is showing some subtle enhancement at T9 to T10. At the present time patient's back pain is markedly improved. His been ambulating in his room. Infectious disease consultation has been requested to make recommendation regarding further workup and management. Review of Systems Constitutional: COMPLAINS OF: Fatigue, DENIES: Diaphoretic episodes, Fever, Chills, Night Sweats Eyes: DENIES: Eye pain Ears, nose, mouth, throat: DENIES: Nasal discharge, Oral lesions, Throat pain, Sinus Pain Respiratory: DENIES: Cough, Shortness of breath Cardiovascular: DENIES: Chest pain, Palpitations, Dyspnea on Exertion Gastrointestinal: DENIES: Abdominal pain, Diarrhea, Nausea, Vomiting, Difficulty Swallowing Genitourinary: DENIES: Dysuria Musculoskeletal: COMPLAINS OF: Back pain, DENIES: Joint pain, Joint Swelling, Neck pain Integumentary: DENIES: Rash Neurologic: DENIES: Headache, Localized weakness Psychiatric: DENIES: Confusion, Hallucinations Past Family Social History Allergies: Coded Allergies: *MDRO Multi-Drug Resistant Organism (Verified Adverse Reaction, Unknown, MRSA, 12/06/16) MRSA (foot wound) - 12/2014, 02/2015, 07/2015, 09/2015, 11/2015, 05/2016, 08/24/16 MRSA PCR (nares) POSITIVE - 04/02/16 & 11/15/16 Past Medical History Arthritis Skin cancer aortic stenosis, mitral valve regurgitation, carotid artery stenosis High Cholesterol Congestive Heart Failure Cirrhosis-alcoholic Coronary Artery Disease Diabetes Neuropathy Chronic foot ulcers History of MRSA infection GERD BPH Hepatitis C Hiatal Hernia Hypertension: Immune Disorder: No Chronic back pain Prior myocardial infarction, March 2016 CKD stage III His sleep apnea, doesn't use CPAP 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 No smoking, no substance abuse. Patient is , has grown children. Physical Exam Vital Signs Vital Signs Date Time Temp Pulse Resp B/P Pulse Ox O2 Delivery O2 Flow Rate FiO2 12/07/16 11:28 97.8 99 18 200/96 96 12/07/16 10:43 190/80 12/07/16 08:44 182/90 12/07/16 08:24 98.1 82 19 205/95 98 12/07/16 04:00 98.8 87 18 171/78 99 12/07/16 00:00 98.0 66 18 164/74 99 12/06/16 23:00 86 12/06/16 20:04 98.1 72 18 162/72 96 12/06/16 20:00 86 12/06/16 15:59 98.1 84 14 166/77 97 12/06/16 15:18 78 12/06/16 15:16 21 Physical Exam GENERAL: Patient is a well-nourished, well-developed CM, awake and alert, not in respiratory distress. SKIN: Warm and dry. Has a red papular rash in both legs, per patient, non- pruritic, nontender and has been present for w while HEAD: Atraumatic. Normocephalic. No temporal wasting, or tenderness. EYES: [place] conjunctiva. No petechia or hemorrhage. Pupils equal, round and reactive to light. Extraocular movements full and intact. No scleral icterus. No injection or drainage. EARS, NOSE AND THROAT: Nose without bleeding or purulent nasal discharge. No sinus tenderness. Mucous membranes pink and moist. No oral lesions noted. No exudate. No oral thrush. NECK: Trachea midline. Supple and not tender, no meningeal signs CARDIOVASCULAR: Regular rate and rhythm. No murmurs, rubs or gallops heard RESPIRATORY: Clear to auscultation. Breath sounds equal bilaterally. No rales , wheezing or rhonchi ABDOMEN: Soft, non-tender, nondistended. Bowel sounds present and normoactive. No guarding. No rebound. No organomegaly. EXTREMITIES: No clubbing, cyanosis, or edema. No joint effusion, has good ROM. No calf tenderness. Well perfused and warm. Multiple toes amputated. No open wounds NEUROLOGICAL: Awake and alert. Cranial nerves grossly intact. Motor grossly within normal limits. PSYCHIATRIC: Normal affect, calm and cooperative. LINE: No evidence of infection BACK: No spine deformity, no point tenderness Result Diagram: 12/06/16 0458 12/06/16 0458 Imaging Thoracic Spine MRI 12/06/16 0000 Signed Impressions: Service Date/Time: Tuesday, December 06, 2016 11:29 - CONCLUSION: Abnormal T7-T8, T8-T9 and T9-T10 disc space. Considerations include osteomyelitis at T9-T10 and an acute Schmorl's type endplate herniation.. Randy Jaramillo MD FACR Foot X-Ray 12/05/16 1312 Signed Impressions: Service Date/Time: Monday, December 05, 2016 13:24 - CONCLUSION: 1. No acute fracture or dislocation. 2. Old healed fracture involving the midshaft of the right fourth metatarsal. 3. Stable previous amputations of the right third and fifth digits. 4. Arthritic changes involving the right first interphalangeal joint and the right ankle joint. Jasbir Nagy MD Chest X-Ray 12/05/16 5757 Signed Impressions: Service Date/Time: Monday, December 05, 2016 13:20 - CONCLUSION: Stable chest without evidence of acute process. Old right-sided rib fractures. Frank Roque MD Aorta CTA 12/05/16 1307 Signed Impressions: Service Date/Time: Monday, December 05, 2016 15:01 - CONCLUSION: No evidence of aortic aneurysm or dissection. Cholelithiasis. Nodular heterogeneous appearing liver characteristic of chronic parenchymal disease. Pancreatic calcific deposits characteristic of previous pancreatitis. No acute inflammatory change noted. No acute abnormality. Frank Roque MD Assessment and Plan Assessment and Plan IMPRESSION Thoracic mid back pain, etiology? - MRI ?early discitis or Smorl's type herniation - his back pain has markedly improved, which favors more non-infectious cuase, CRP is also normal Chronic low back pain Known DM, and hx multiple DFI requiring amputations RECOMMENDATION Long discussion with Dr Ennis Since back pain better, I would favor doing follow-up MRI of his Tspine which could be done as outpatient If this is early discitis, it would show more changes, and pursue further work- up at that time - with CT guided aspiration/biopsy and send specimen for routine C/S, AFB and fungal as well as path report Discussions have been made with IR and yield for biopsy at this time likely very low and may give a sampling error with negative findings Thank you for this consultation Alma Rowe MD Dec 07, 2016 12:16
== END 2016-12-07 15:12 | disposition home or self-care (01) ==
LOC: NEPE 12:40 → NEDA 15:50 → NEPGCP 17:50
PROVIDERS: ADMIT Specialist; ATTEND Specialist
DX: M54.6 Pain in thoracic spine (principal); G89.29 Other chronic pain; M54.5 Low back pain; N17.9 Acute kidney failure, unspecified; I13.0 Hypertensive heart and chronic kidney disease with heart failure and stage 1 through stage 4 chronic kidney disease, or unspecified chronic kidney disease; E11.22 Type 2 diabetes mellitus with diabetic chronic kidney disease; N18.3 Chronic kidney disease, stage 3 (moderate); I50.9 Heart failure, unspecified; E87.5 Hyperkalemia; E11.65 Type 2 diabetes mellitus with hyperglycemia; I95.9 Hypotension, unspecified; E11.40 Type 2 diabetes mellitus with diabetic neuropathy, unspecified; D64.9 Anemia, unspecified; E11.621 Type 2 diabetes mellitus with foot ulcer; E87.1 Hypo-osmolality and hyponatremia; L97.519 Non-pressure chronic ulcer of other part of right foot with unspecified severity; K70.30 Alcoholic cirrhosis of liver without ascites; B19.20 Unspecified viral hepatitis C without hepatic coma; I25.2 Old myocardial infarction; I25.10 Atherosclerotic heart disease of native coronary artery without angina pectoris; E78.5 Hyperlipidemia, unspecified; E86.0 Dehydration; E78.00 Pure hypercholesterolemia, unspecified; I08.0 Rheumatic disorders of both mitral and aortic valves; N40.0 Benign prostatic hyperplasia without lower urinary tract symptoms; Z86.14 Personal history of Methicillin resistant Staphylococcus aureus infection; Z85.828 Personal history of other malignant neoplasm of skin; Z89.421 Acquired absence of other right toe(s); Z79.4 Long term (current) use of insulin; Z79.82 Long term (current) use of aspirin
CPT/HCPCS: 71010; 71275; 72157; 73630; 74174; 80048; 80053; 82550; 82552; 82948; 83605; 83690; 83735; 84484; 85025; 85027; 85610; 85652; 85730; 86140; 93005; 96361; 96372; 96374; 96375; 96376; 99285; A9579; G0378; J1170; J1815; J2060; J2270; J7030; Q9963; Q9967

== ENCOUNTER 2017-02-16 00:02 | Emergency (ER) | payer MEDICARE ==
[~2017-02-16] VITALS: Ht 177.8 cm; Wt 113.6 kg
[~2017-02-16 00:02] MED LIST changes: +GABA300C5 PO
[2017-02-16 00:07] VITALS: BP 164/77; PULSE 79; RESP 16; TEMP 98.5; O2SAT 96
[2017-02-16] MEDS ORDERED: LOSA50TA PO (01:01)
[2017-02-16] MEDS ORDERED: CARV3.12 PO (01:01)
[2017-02-16] MEDS ORDERED: METH750T PO (01:01)
[2017-02-16] MEDS ORDERED: ELBA1TAB (01:01)
[2017-02-16] MEDS ORDERED: DIAZ5TAB PO (01:01)
[2017-02-16] MEDS ORDERED: POTA-163 PO (01:01)
[2017-02-16] MEDS ORDERED: ACETAMINOPHEN/HYDROcodone 325 MG/5 MG TAB PO ONE (01:15)
[2017-02-16] MEDS ORDERED: SULFAMETHOXAZOLE-TRIMETHOPRIM DS 800-160 MG TAB PO ONE (01:15)
[2017-02-16] MEDS ORDERED: BACT800T5 PO (01:16)
--- NOTE | 2017-02-16 01:17 | PD ---
HPI Chief Complaint: Skin Problem Time Seen by Provider: 00:54 Travel History International Travel<30 days: No Contact w/Intl Traveler<30days: No Traveled to known affect area: No History of Present Illness HPI The patient is a 56-year-old male who presents emergency department for an abscess on the neck. The patient notes a three-day history of increased swelling over the posterior aspect of the head at the junction of the neck. He notes 3 discrete nodules which are tender without any visible drainage. He does have a previous history of abscess. The patient does note a history of diabetes, states he takes Levemir NovoLog, however, is unsure of the exact dosing. He does not know what his blood sugar was upon arrival. He denies any fever, chills, or sweats. The patient states he had an appointment with his physician yesterday, however, missed his appointment because he was "too busy". Symptoms are mild to moderate, there are no alleviating or exacerbating factors. PFSH Past Medical History Hx Anticoagulant Therapy: Yes Arthritis: Yes Asthma: No Blood Disorders: No Anxiety: No Depression: No Heart Rhythm Problems: Yes (Murmur) Cancer: Yes (skin cancer) Cardiovascular Problems: Yes High Cholesterol: No Chemotherapy: No Chest Pain: Yes Congestive Heart Failure: Yes Cirrhosis: Yes (alcoholic) COPD: No Coronary Artery Disease: Yes Diabetes: Yes Patient Takes Glucophage: No Diminished Hearing: No Endocrine: Yes Gastrointestinal Disorders: Yes (Acid reflux) GERD: Yes Hepatitis: Yes (C) Hiatal Hernia: Yes Hypertension: Yes Immune Disorder: No Implanted Vascular Access Dvce: No Musculoskeletal: Yes (Buldging disk, crhonic back pain, broken rib.) Neurologic: Yes (diabetic Neuropathy) Psychiatric: No Reproductive: No Respiratory: Yes Immunizations Current: No Myocardial Infarction: Yes (03/2016) Radiation Therapy: No Renal Failure: Yes (stage III chronic kidney disease) 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, 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.) Sleep Apnea: Yes (Not using C pap) Thyroid Disease: Yes (hypothyroidism) Past Surgical History Ear Surgery: No Endocrine Surgery: No Eye Surgery: No Genitourinary Surgery: No Neurologic Surgery: No Oral Surgery: Yes (TONSILLS REMOVED) Pacemaker: No Tonsillectomy: Yes Other Surgery: Yes (bilateral toe amputations, skin ca removal) Social History Alcohol Use: Yes Tobacco Use: No Substance Use: No Allergies-Medications (Allergen,Severity, Reaction): Coded Allergies: *MDRO Multi-Drug Resistant Organism (Verified Adverse Reaction, Unknown, MRSA, 02/16/17) MRSA (foot wound) - 12/2014, 02/2015, 07/2015, 09/2015, 11/2015, 05/2016, 08/24/16 MRSA PCR (nares) POSITIVE - 04/02/16 & 11/15/16 Reported Meds & Prescriptions Reported Meds & Active Scripts Active Bactrim DS (Sulfamethoxazole-Trimethoprim) 800-160 Mg Tab 1 Tab PO BID Glucocom Test Strips (Blood Glucose Test Strips) 1 Claribel Claribel 1 Ea .ROUTE DIRECTED Glucocom Blood Glucose Mo W/Device (Device) 1 Kit Kit 1 Kit .ROUTE DIRECTED Hydrochlorothiazide 25 Mg Tab 25 Mg PO DAILY Norvasc (Amlodipine Besylate) 5 Mg Tab 5 Mg PO DAILY Reported Zepatier 50-100 mg Tablet (Elbasvir/Grazoprevir) 1 Each Tablet Methocarbamol 750 Mg Tab 750 Mg PO BID Diazepam 5 Mg Tab 5 Mg PO BID PRN Losartan (Losartan Potassium) 50 Mg Tab 50 Mg PO DAILY Carvedilol 3.125 Mg Tab 3.125 Mg PO BID Potassium Chloride ER (Potassium Chloride) 20 Meq Tab 20 Meq PO DAILY Gabapentin 300 Mg Cap 300 Mg PO TID Bumetanide 1 Mg Tab 1 Mg PO BID Levemir Inj (Insulin Detemir) 1,000 unit/ 10 ML Vial 10 Units SQ TID Do not mix with any other Insulin. Novolog Inj (Insulin Aspart) 1,000 Unit/10 Ml Vial 10 Units SQ TID Lortab (Hydrocodone-Acetaminophen) 10-325 Mg Tab 1 Tab PO QID PRN Atorvastatin (Atorvastatin Calcium) 20 Mg Tab 20 Mg PO HS Aspirin 81 (Aspirin) 81 Mg Tabdr 81 Mg PO DAILY Levothyroxine (Levothyroxine Sodium) 50 Mcg Tab 50 Mcg PO DAILY Flomax (Tamsulosin HCl) 0.4 Mg Cap 0.4 Mg PO DAILY Review of Systems Except as stated in HPI: all other systems reviewed are Neg General / Constitutional: No: Fever HENT: Positive: Neck Pain, Other (as noted in the history of present illness) Skin: Positive Other (as noted in the history of present illness) Physical Exam Narrative GENERAL: Awake, alert, nontoxic-appearing 56-year-old male who appears his stated age and is in no acute respiratory distress. SKIN: Focused skin assessment warm/dry. Patient has 2 discrete circular abscesses on the posterior aspect of his noted a smaller one with minimal fluctuance. No visible drainage. HEAD: Atraumatic. Normocephalic. EYES: No injection or drainage. ENT: No nasal bleeding or discharge. Mucous membranes pink and moist. NECK: Trachea midline. No JVD. MUSCULOSKELETAL: No obvious deformities. No clubbing. No cyanosis. No edema. NEUROLOGICAL: Awake and alert. No obvious cranial nerve deficits. Motor grossly within normal limits. Normal speech. PSYCHIATRIC: Appropriate mood and affect; insight and judgment normal. Data Data Last Documented VS Vital Signs Date Time Temp Pulse Resp B/P (MAP) Pulse Ox O2 Delivery O2 Flow Rate FiO2 02/16/17 00:07 98.5 79 16 164/77 (106) 96 Room Air Orders Orders Wound Culture And Gram Stain (02/16/17 01:09) Sulfamet-Trimeth Ds 800-160 Mg (Bactrim (02/16/17 01:15) Acetamin-Hydrocod 325-5 Mg ([place] 5-325 (02/16/17 01:15) MDM Medical Decision Making Medical Screen Exam Complete: Yes Emergency Medical Condition: Yes Medical Record Reviewed: Yes Differential Diagnosis Differential diagnosis includes abscess, cellulitis, infected wound, folliculitis. Narrative Course The patient had 2 discrete abscesses which were fluctuant. I had a discussion with the patient regarding needle I and D of the abscess is, he was agreeable. The area was cleaned with alcohol and drained with a 18-gauge needle. There was purulent drainage removed from both of them which was cultured and sent to lab. The patient had a sterile dressing applied. Accu-Chek was obtained. The patient was administered Bactrim and [place]. The patient's blood glucose was 136 , he is stable for outpatient follow-up. Procedures Procedure Narrative 2 abscesses in the posterior aspect of the neck were cleaned with alcohol, incised and drained with an 18-gauge needle revealing purulent drainage. Culture was obtained and sent to lab. A sterile dressing was applied. The patient tolerated the procedure without difficulty and there was no obvious complications. Diagnosis Primary Impression: Abscess, neck Patient Instructions: General Instructions Additional Instructions: Apply warm compresses over the affected area. Medications as directed. Follow- up with her primary physician. Return if symptoms worsen or progress. Med/Other Pt SpecificInfo: Prescription(s) given Scripts Sulfamethoxazole-Trimethoprim (Bactrim DS) 800-160 Mg Tab 1 TAB PO BID for Infection, #14 TAB 0 Refills Prov: Dipesh Hills MD 02/16/17 Disposition: 01 DISCHARGE HOME Condition: Stable Dipesh Hills MD Feb 16, 2017 01:17
== END 2017-02-16 02:09 | disposition home or self-care (01) ==
LOC: NEPC 00:02
DX: L02.11 Cutaneous abscess of neck (principal); M13.80 Other specified arthritis, unspecified site; I50.9 Heart failure, unspecified; K70.30 Alcoholic cirrhosis of liver without ascites; I25.10 Atherosclerotic heart disease of native coronary artery without angina pectoris; K21.9 Gastro-esophageal reflux disease without esophagitis; E11.22 Type 2 diabetes mellitus with diabetic chronic kidney disease; I12.9 Hypertensive chronic kidney disease with stage 1 through stage 4 chronic kidney disease, or unspecified chronic kidney disease; N18.3 Chronic kidney disease, stage 3 (moderate)
CPT/HCPCS: 10160; 86403; 87070; 87205

== ENCOUNTER 2017-03-25 19:09 | Inpatient (IN) | payer MEDICARE ==
[~2017-03-25] VITALS: Ht 177.8 cm; Wt 119.3 kg
[~2017-03-25 19:09] MED LIST changes: +BACT800T5 PO; +CARV3.12 PO; -CARV6.25 PO; +DIAZ5TAB PO; +ELBA1TAB; +LOSA50TA PO; +METH750T PO; +POTA-163 PO; -ROBA750T PO; -TIZA4 PO
[2017-03-25 19:13] VITALS: BP 166/68; PULSE 85; RESP 16; TEMP 99.3; O2SAT 96
[2017-03-25] MEDS ORDERED: PIPERACIL-TAZO 3.375 GM PREMIX 50 ML IV ONE (20:00)
[2017-03-25] MEDS ORDERED: VANCOMYCIN INJ 1,000 MG in SODIUM CHLOR 0.9% 250 ML INJ 250 ML IV ONE (20:00)
--- NOTE | 2017-03-25 20:08 | PD ---
HPI Chief Complaint: Skin Problem Time Seen by Provider: 19:30 Travel History International Travel<30 days: No Contact w/Intl Traveler<30days: No Traveled to known affect area: No History of Present Illness HPI The patient is a 56 year old male who presents to the [facility] emergency department with a history of reportedly awakening this morning not feeling well. He reports that he had flulike symptoms and was concerned that he may be developing an infectious process. He reports that the last time that he felt this way he had an infection in his foot and required a partial amputation of his forefoot. The patient has a known history of diabetes mellitus. He reports he last checked his blood sugar yesterday and it was 176. He last administered insulin this morning. He reports that he is on insulin 3 times a day. He did not administer the other 2 doses of his insulin as he has been sleeping throughout the day due to fatigue. The patient's other symptoms include subjective fever, chills, body aches, and pain along the posterior aspect of the skin of his neck related to recurrent abscess formation. The patient was last seen in the emergency department related to infection on his neck in January. The patient had a wound culture done at that time that showed only skin organisms, however the patient does have a history of MRSA skin infections. Review of systems, the patient denies having any new or worsening cough or congestion, head congestion, nasal discharge. The patient does however report having some shortness of breath with exertion. The patient denies having any chest pressure or chest pain. The patient denies having any abdominal pain, nausea, vomiting, or diarrhea. The patient is noted on examination to have an area of abrasion along the anterior aspect of the left leg over the shins. He reports that he tripped 2 days ago over a vine in his yard. He denies having any increased pain at the site. He reports that it seems to be healing well. There is however some increased swelling along that left anterior mcnally associated with some mild erythema. On review of systems otherwise, the patient denies any neck pain with movement ( he does report pain superficially along the skin related to his skin infection) , urinary symptoms, or neurologic symptoms. REPLACED BY [facility] Past Medical History Narrative Medical The patient's past medical history is significant for poorly controlled diabetes mellitus, obesity, hypertension, hyperlipidemia, recurrent ulcers of his feet with a history of skin infections of his feet requiring partial forefoot amputations of bilateral feet, history of congestive heart failure, history of a heart murmur, history of coronary artery disease with prior myocardial infarction, history of hepatitis C, chronic renal insufficiency, chronic back pain, history of alcohol abuse, history of benign prostatic hypertrophy, history of sleep apnea, 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 Hx Anticoagulant Therapy: Yes Arthritis: Yes Asthma: No Blood Disorders: No Anxiety: No Depression: No Heart Rhythm Problems: Yes (Murmur) Cancer: Yes (skin cancer) Cardiovascular Problems: Yes High Cholesterol: No Chemotherapy: No Chest Pain: Yes Congestive Heart Failure: Yes Cirrhosis: Yes (alcoholic) COPD: No Coronary Artery Disease: Yes Diabetes: Yes Diminished Hearing: No Endocrine: Yes Gastrointestinal Disorders: Yes (Acid reflux) GERD: Yes Hepatitis: Yes (C) Hiatal Hernia: Yes Hypertension: Yes Immune Disorder: No Implanted Vascular Access Dvce: No Musculoskeletal: Yes (Buldging disk, crhonic back pain, broken rib.) Neurologic: Yes (diabetic Neuropathy) Psychiatric: No Reproductive: No Respiratory: Yes Immunizations Current: No Myocardial Infarction: Yes (03/2016) Radiation Therapy: No Renal Failure: Yes (stage III chronic kidney disease) 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, 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.) Sleep Apnea: Yes (Not using C pap) Thyroid Disease: Yes (hypothyroidism) Past Surgical History Narrative Surgical The patient's past surgical history is significant for 2 toes being resected from the right foot, once over 59 from the left foot, tonsillectomy, endoscopy and colonoscopy. Ear Surgery: No Endocrine Surgery: No Eye Surgery: No Genitourinary Surgery: No Neurologic Surgery: No Oral Surgery: Yes (TONSILLS REMOVED) Pacemaker: No Tonsillectomy: Yes Other Surgery: Yes (bilateral toe amputations, skin ca removal) Social History Alcohol Use: Yes Tobacco Use: No Substance Use: No Allergies-Medications (Allergen,Severity, Reaction): Coded Allergies: *MDRO Multi-Drug Resistant Organism (Verified Adverse Reaction, Unknown, MRSA, 03/25/17) MRSA (foot wound) - 12/2014, 02/2015, 07/2015, 09/2015, 11/2015, 05/2016, 08/24/16 MRSA PCR (nares) POSITIVE - 04/02/16 & 11/15/16 Reported Meds & Prescriptions Reported Meds & Active Scripts Active Glucocom Test Strips (Blood Glucose Test Strips) 1 Claribel Claribel 1 Ea .ROUTE DIRECTED Glucocom Blood Glucose Mo W/Device (Device) 1 Kit Kit 1 Kit .ROUTE DIRECTED Hydrochlorothiazide 25 Mg Tab 25 Mg PO DAILY Norvasc (Amlodipine Besylate) 5 Mg Tab 5 Mg PO DAILY Reported Zepatier 50-100 mg Tablet (Elbasvir/Grazoprevir) 1 Each Tablet Methocarbamol 750 Mg Tab 750 Mg PO BID Diazepam 5 Mg Tab 5 Mg PO BID PRN Losartan (Losartan Potassium) 50 Mg Tab 50 Mg PO DAILY Carvedilol 3.125 Mg Tab 3.125 Mg PO BID Potassium Chloride ER (Potassium Chloride) 20 Meq Tab 20 Meq PO DAILY Gabapentin 300 Mg Cap 300 Mg PO TID Bumetanide 1 Mg Tab 1 Mg PO BID Levemir Inj (Insulin Detemir) 1,000 unit/ 10 ML Vial 10 Units SQ TID Do not mix with any other Insulin. Novolog Inj (Insulin Aspart) 1,000 Unit/10 Ml Vial 10 Units SQ TID Lortab (Hydrocodone-Acetaminophen) 10-325 Mg Tab 1 Tab PO QID PRN Atorvastatin (Atorvastatin Calcium) 20 Mg Tab 20 Mg PO HS Aspirin 81 (Aspirin) 81 Mg Tabdr 81 Mg PO DAILY Levothyroxine (Levothyroxine Sodium) 50 Mcg Tab 50 Mcg PO DAILY Flomax (Tamsulosin HCl) 0.4 Mg Cap 0.4 Mg PO DAILY Review of Systems Except as stated in HPI: all other systems reviewed are Neg General / Constitutional: Positive: Fever, Chills Eyes: No: Visual changes HENT: No: Headaches, Congestion Cardiovascular: No: Chest Pain or Discomfort, Dyspnea on exertion Respiratory: No: Shortness of Breath Gastrointestinal: No: Nausea, Vomiting, Diarrhea, Abdominal Pain Genitourinary: No: Dysuria Musculoskeletal: No: Pain Skin: Positive Rash Neurologic: No: Weakness, Focal Abnormalities, Change in Mentation, Slurred Speech, Sensory Disturbance Psychiatric: No: Depression Endocrine: No: Polydipsia Hematologic/Lymphatic: No: Easy Bruising Physical Exam Narrative General: The patient is a well-developed well-nourished male in no acute distress Head and Neck exam: Head is normocephalic atraumatic. Eyes: EOMI, pupils are equal round and reactive to light. Nose: Midline septum with pink mucous membranes Mouth: Dentition unremarkable. Moist mucus membranes. Posterior oropharynx is not erythematous. No tonsillar hypertrophy. Uvula midline. Airway patent. Neck: No palpable lymphadenopathy. No nuchal rigidity. No thyromegaly. The patient is noted on examination of the posterior neck to have 3 areas of small pustule formation and better each less than 1 cm in greatest dimension, however there is fluctuance. There is no active drainage. There is tenderness on palpation superficially of the sites. The patient has no spinous process tenderness to palpation. No step-off or crepitus. No erythema or ecchymosis. Cardiovascular: Regular rate and rhythm with a 2/6 systolic murmur. No gallops or rubs. Lungs: Clear to auscultation bilaterally. No wheezes, rhonchi, or rales. Abdomen: Soft, without tenderness to palpation in all 4 quadrants of the abdomen. No guarding, rebound, or rigidity. Normal bowel sounds are audible. No tenderness on palpation of McBurney's point. Negative Asif's sign. Extremities: No clubbing or cyanosis. The patient has 1+ pitting edema bilateral lower extremities with light increase in edema in the left anterior mcnally compared to the right. There is no center of the area of swelling an area of abrasion with slight erythema surrounding the abrasion. There is no active drainage. 2+ pulses in all 4 extremities. No calf tenderness on palpation. The patient has less than 4 second capillary refill of bilateral feet. The patient reports having numbness and tingling to his feet which is chronic related to neuropathy. The patient is missing 2 toes of the right foot, one toe on the left foot. Back: No spinous process tenderness to palpation. No costovertebral angle tenderness to palpation. Neurologic Exam: Grossly nonfocal. Skin Exam: Intact skin that is warm and dry. Data Data Last Documented VS Vital Signs Date Time Temp Pulse Resp B/P (MAP) Pulse Ox O2 Delivery O2 Flow Rate FiO2 03/25/17 23:12 61 18 123/58 (79) 98 Room Air 03/25/17 20:12 98.4 Orders Orders Electrocardiogram (03/25/17 19:49) Complete Blood Count With Diff (03/25/17 19:49) Comprehensive Metabolic Panel (03/25/17 19:49) Creatine Kinase (Cpk) (03/25/17 19:49) Ckmb (Isoenzyme) Profile (03/25/17 19:49) Troponin I (03/25/17:49) B-Type Natriuretic Peptide (03/25/17:49) Prothrombin Time / Inr (Pt) (03/25/17 19:49) Act Partial Throm Time (Ptt) (03/25/17 19:49) Blood Culture (03/25/17:49) C-Reactive Protein (Crp) (03/25/17:49) Lipase (03/25/17:49) Westergren Sedimentation Rate (03/25/17:49) Magnesium (Mg) (03/25/17:49) Wound Culture And Gram Stain (03/25/17:49) Chest, Single Ap (03/25/17:49) Iv Access Insert/Monitor (03/25/17:49) Ecg Monitoring (03/25/17:49) Oximetry (03/25/17:49) Lactic Acid Sepsis Protocol (03/25/17 19:49) Piperacil-Tazo 3.375 Gm Premix (Zosyn 3. (03/25/17 20:00) Vancomycin Inj (Vancomycin Inj) (03/25/17 20:00) Lidocaine 1% Inj (Xylocaine 1% Inj) (03/25/17 20:15) Lidocaine Pf 1% Inj (Xylocaine-Mpf 1% In (03/25/17 20:22) Morphine Inj (Morphine Inj) (03/25/17 20:30) Ondansetron Inj (Zofran Inj) (03/25/17 20:30) CKMB (03/25/17 20:00) CKMB% (03/25/17 20:00) Sodium Chlorid 0.9% 500 Ml Inj (Ns 500 M (03/25/17 23:30) Admit Order (Ed Use Only) (03/25/17 23:26) Labs Laboratory Tests Test 03/25/17 20:00 White Blood Count 10.7 TH/MM3 Red Blood Count 3.49 MIL/MM3 Hemoglobin 9.8 GM/DL Hematocrit 30.5 % Mean Corpuscular Volume 87.4 FL Mean Corpuscular Hemoglobin 28.0 PG Mean Corpuscular Hemoglobin Concent 32.1 % Red Cell Distribution Width 17.3 % Platelet Count 157 TH/MM3 Mean Platelet Volume 7.2 FL Neutrophils (%) (Auto) 68.7 % Lymphocytes (%) (Auto) 15.8 % Monocytes (%) (Auto) 12.2 % Eosinophils (%) (Auto) 2.5 % Basophils (%) (Auto) 0.8 % Neutrophils # (Auto) 7.3 TH/MM3 Lymphocytes # (Auto) 1.7 TH/MM3 Monocytes # (Auto) 1.3 TH/MM3 Eosinophils # (Auto) 0.3 TH/MM3 Basophils # (Auto) 0.1 TH/MM3 CBC Comment DIFF FINAL Differential Comment Erythrocyte Sedimentation Rate 62 mm/hr Prothrombin Time 11.4 SEC Prothromb Time International Ratio 1.0 RATIO Activated Partial Thromboplast Time 24.9 SEC Blood Urea Nitrogen 47 MG/DL Creatinine 1.77 MG/DL Random Glucose 140 MG/DL Total Protein 8.4 GM/DL Albumin 3.6 GM/DL Calcium Level 8.4 MG/DL Magnesium Level 1.8 MG/DL Alkaline Phosphatase 137 U/L Aspartate Amino Transf (AST/SGOT) 30 U/L Alanine Aminotransferase (ALT/SGPT) 32 U/L Total Bilirubin 0.3 MG/DL Sodium Level 140 MEQ/L Potassium Level 4.0 MEQ/L Chloride Level 112 MEQ/L Carbon Dioxide Level 16.2 MEQ/L Anion Gap 12 MEQ/L Estimat Glomerular Filtration Rate 40 ML/MIN Lactic Acid Level 1.3 mmol/L Total Creatine Kinase 240 U/L Creatine Kinase MB 4.1 NG/ML Troponin I LESS THAN 0.02 NG/ML C-Reactive Protein 2.50 MG/DL B-Type Natriuretic Peptide 142 PG/ML Lipase 178 U/L [facility] Medical Decision Making Medical Screen Exam Complete: Yes Emergency Medical Condition: Yes Medical Record Reviewed: Yes Interpretation(s) Last Impressions Chest X-Ray 03/25/171948 Signed Impressions: Service Date/Time: Saturday, March 25, 2017 20:08 - CONCLUSION: The lungs are clear. Scott Crespo MD Differential Diagnosis Skin infection, versus sepsis related to a skin infection, versus DKA related to poorly controlled diabetes and related skin infection Narrative Course During the course of the patients emergency department visit, the patients history, examination, and differential diagnosis were reviewed with the patient. The patient had IV access obtained and blood work sent for analysis. The patient was placed on a media monitor with oximetry and blood pressure monitoring. An ECG was done on arrival. The patient's ECG reveals a sinus rhythm with a right bundle branch block, no acute ST segment elevation. QRS durations 162 ms. QTC is 452 ms. The patient was initially provided Zosyn 3.375 g IV, vancomycin 1 g IV. The patient was given morphine for pain, Zofran for nausea. The patients laboratory studies were reviewed and remarkable for a white count 10.7, hemoglobin 9.8 which is at the patient's baseline related to a prior history of anemia, platelets 157 with 12.2 monocytes, CMP is remarkable for chloride of 112, CO2 is 16.2, BUN is 47, creatinine 1.77 which is slightly increased compared to previously and may suggest a level of dehydration, glucose 140, lactic acid 1.3, calcium 8.4, alkaline phosphatase 137, CPK 240, MB 4.1, troponin I less than 0.02, C-reactive protein 2.5, lipase 178, PT PTT within normal limits Radiology studies were reviewed and remarkable for a chest x-ray that shows no acute cardiopulmonary disease or infiltrate. The patient will be admitted to the hospital for continued evaluation and treatment of failed outpatient management of skin infection and mild dehydration. The patient was given normal saline a 500 mL bolus 1. The patient was not aggressively rehydrated as the patient does have a heart murmur on examination and I have concerned given the patient's lower extremity edema for the patient to become easily fluid overloaded. The patients results were discussed with the patient, including the plan of care. I explained that further testing and/ or monitoring is indicated based on the patients history, examination, and/ or laboratory findings. Therefore, I recommended admission for additional evaluation. The patient expressed understanding and was agreeable with this plan. The patient was admitted to the hospital inStable condition and sent to a bed under the care of the family practice residents. Sepsis Criteria Sepsis Criteria (SIRS+source): Infect source susp/known Physician Communication Physician Communication The patient's case was discussed with the family practice residents who did agree to admit the patient for further evaluation and treatment at this time. Diagnosis Primary Impression: Abscess Additional Impressions: Cellulitis Qualified Codes: L03.116 - Cellulitis of left lower limb Failure of outpatient treatment Admitting Information Admitting Physician Requests: Admit Sweetie Zabala MD Mar 25, 2017 20:07
[2017-03-25 20:10] VITALS: RESP 20
[2017-03-25 20:12] VITALS: BP 175/81; PULSE 78; RESP 18; TEMP 98.4; O2SAT 98
[2017-03-25] MEDS ORDERED: LIDOCAINE HCL 1% 20 ML VIAL INFIL ONE (20:15)
[2017-03-25] MEDS ORDERED: LIDOCAINE HCL 1% PF 30 ML VIAL ONE (20:22)
[2017-03-25] MEDS ORDERED: ONDANSETRON HCL 4 MG/2 ML VIAL IV PUSH ONE (20:30)
[2017-03-25] MEDS ORDERED: MORPHINE SULFATE 4 MG/ML INJ IV PUSH ONE (20:30)
[2017-03-25 20:31] LABS: AUTOMATED NEUTROPHIL # 7.3 TH/MM3 (1.8-7.7); BASOPHIL # 0.1 TH/MM3 (0-0.2); BASOPHIL % 0.8 % (0.0-2.0); EOSINOPHIL # 0.3 TH/MM3 (0-0.4); EOSINOPHIL % 2.5 % (0.0-4.0); HEMATOCRIT 30.5 % (39.0-51.0); LYMPH % 15.8 % (9.0-44.0); LYMPHOCYTE # 1.7 TH/MM3 (1.0-4.8); MEAN CELL VOLUME 87.4 FL (80.0-100.0); MEAN CORPUSCULAR HGB CONC 32.1 % (32.0-36.0); MONO % 12.2 % (0.0-8.0); NEUT % 68.7 % (16.0-70.0); PLATELET COUNT 157 TH/MM3 (150-450); RED BLOOD COUNT 3.49 MIL/MM3 (4.50-5.90); RED CELL DISTRIBUTION WIDTH 17.3 % (11.6-17.2); WHITE BLOOD COUNT 10.7 TH/MM3 (4.0-11.0)
[2017-03-25 20:34] LABS: HEMO FLAGS DIFF FINAL
[2017-03-25 20:49] LABS: APTT (PATIENT) 24.9 SEC (24.3-30.1); PROTHROMBIN TIME - PATIENT 11.4 SEC (9.8-11.6)
--- NOTE | 2017-03-25 20:51 | RADRPT ---
EXAM DATE/TIME: 03/25/2017 20:08 [facility] COMPARISON: CHEST SINGLE AP, December 05, 2016, 13:20. INDICATIONS : Flu symptoms. Fever. MEDICAL HISTORY : None. SURGICAL HISTORY : None. ENCOUNTER: Initial ACUITY: 1 day PAIN SCORE: 6/10 LOCATION: Bilateral chest FINDINGS: Mild patient rotation towards the right. A single view of the chest demonstrates the lungs to be sym metrically aerated without evidence of mass, infiltrate or effusion. The cardiomediastinal contours are unremarkable. Osseous structures are intact. CONCLUSION: The lungs are clear. Scott Crespo MD on March 25, 2017 at 20:49 Board Certified Radiologist. This report was verified electronically.
[2017-03-25 20:52] LABS: ANION GAP 12 MEQ/L (5-15); AST (GOT) 30 U/L (15-37); BICARBONATE 16.2 MEQ/L (21.0-32.0); BLOOD UREA NITROGEN 47 MG/DL (7-18); CHLORIDE 112 MEQ/L (98-107); GLOMERULAR FILTRATION RATE 40 ML/MIN (>89); MAGNESIUM 1.8 MG/DL (1.5-2.5); SODIUM (NA) 140 MEQ/L (136-145)
--- NOTE | 2017-03-25 20:52 | PD ---
Physical Exam Date Seen by Provider: Mar 25, 2017 Time Seen by Provider: 20:49 Data Data Last Documented VS Vital Signs Date Time Temp Pulse Resp B/P (MAP) Pulse Ox O2 Delivery O2 Flow Rate FiO2 03/25/17 20:12 98.4 78 18 175/81 (112) 98 Room Air Orders Orders Electrocardiogram (03/25/17 19:49) Complete Blood Count With Diff (03/25/17 19:49) Comprehensive Metabolic Panel (03/25/17 19:49) Creatine Kinase (Cpk) (03/25/17 19:49) Ckmb (Isoenzyme) Profile (03/25/17 19:49) Troponin I (03/25/17 19:49) B-Type Natriuretic Peptide (03/25/17 19:49) Prothrombin Time / Inr (Pt) (03/25/17 19:49) Act Partial Throm Time (Ptt) (03/25/17 19:49) Blood Culture (03/25/17 19:49) C-Reactive Protein (Crp) (03/25/17 19:49) Lipase (03/25/17 19:49) Westergren Sedimentation Rate (03/25/17 19:49) Magnesium (Mg) (03/25/17 19:49) Wound Culture And Gram Stain (03/25/17 19:49) Chest, Single Ap (03/25/17 19:49) Iv Access Insert/Monitor (03/25/17 19:49) Ecg Monitoring (03/25/17 19:49) Oximetry (03/25/17 19:49) Lactic Acid Sepsis Protocol (03/25/17 19:49) Piperacil-Tazo 3.375 Gm Premix (Zosyn 3. (03/25/17 20:00) Vancomycin Inj (Vancomycin Inj) (03/25/17 20:00) Lidocaine 1% Inj (Xylocaine 1% Inj) (03/25/17 20:15) Lidocaine Pf 1% Inj (Xylocaine-Mpf 1% In (03/25/17 20:22) Morphine Inj (Morphine Inj) (03/25/17 20:30) Ondansetron Inj (Zofran Inj) (03/25/17 20:30) Labs Laboratory Tests Test 03/25/17 20:00 White Blood Count 10.7 TH/MM3 Red Blood Count 3.49 MIL/MM3 Hemoglobin 9.8 GM/DL Hematocrit 30.5 % Mean Corpuscular Volume 87.4 FL Mean Corpuscular Hemoglobin 28.0 PG Mean Corpuscular Hemoglobin Concent 32.1 % Red Cell Distribution Width 17.3 % Platelet Count 157 TH/MM3 Mean Platelet Volume 7.2 FL Neutrophils (%) (Auto) 68.7 % Lymphocytes (%) (Auto) 15.8 % Monocytes (%) (Auto) 12.2 % Eosinophils (%) (Auto) 2.5 % Basophils (%) (Auto) 0.8 % Neutrophils # (Auto) 7.3 TH/MM3 Lymphocytes # (Auto) 1.7 TH/MM3 Monocytes # (Auto) 1.3 TH/MM3 Eosinophils # (Auto) 0.3 TH/MM3 Basophils # (Auto) 0.1 TH/MM3 CBC Comment DIFF FINAL Differential Comment [facility] Medical Record Reviewed: Yes Supervised Visit with TOÑO: Yes Narrative Course Developed well-nourished 56-year-old male in no acute distress. I was asked by provider, Dr. Zabala to perform an I&D on an abscess noted to the left posterior portion of the neck. I&D was performed. Please see my procedural narrative. Wound culture was obtained during I&D. Patient tolerated the procedure well. Dr. Zabala retains care of this patient. Please see her documentation for further details and disposition. Procedures Procedure Narrative INCISION AND DRAINAGE OF ABSCESS: The area was prepped and was sterilely draped. A subcutaneous wheal of 1 % Xylocaine with a total number 5 mL was used to anesthetize the area properly. A number 11 scalpel was used to make a 0.50cm incision across the area of the abscess. The abscess was drained, complex loculations were broken down, and irrigated with normal saline. Cultures were obtained. Sterile dressing applied. Charis HagerP Mar 25, 2017 20:52
[2017-03-25 20:56] LABS: ALKALINE PHOSPHATASE 137 U/L (45-117); ALT (GPT) 32 U/L (12-78); CREATINE KINASE 240 U/L (39-308); TOTAL BILIRUBIN ADULT 0.3 MG/DL (0.2-1.0)
[2017-03-25 21:08] LABS: CKMB 4.1 NG/ML (0.5-3.6)
[2017-03-25 23:12] VITALS: BP 123/58; PULSE 61; RESP 18; O2SAT 98
[2017-03-25] MEDS ORDERED: SODIUM CHLORID 0.9% 500 ML INJ 500 ML IV ONE (23:30)
[2017-03-25] MEDS ORDERED: DIAZEPAM 5 MG TAB PO PRN (23:30)
[2017-03-25] MEDS ORDERED: ACETAMINOPHEN/HYDROcodone 325 MG/10 MG TAB PO PRN (23:30)
[2017-03-26] VITALS (7 sets, daily range): BP systolic 122–172; BP diastolic 57–76; PULSE 55–86; RESP 18–20; TEMP 97.2–101.6; O2SAT 95–100
[2017-03-26] MEDS ORDERED: LORazepam 2 MG TAB PO PRN
[2017-03-26] MEDS ORDERED: LACTULOSE SYRUP 20 GM/30 ML CUP PO PRN
[2017-03-26] MEDS ORDERED: LORazepam 1 MG TAB PO PRN
[2017-03-26] MEDS ORDERED: SODIUM CHLORIDE 0.9% FLUSH 10 ML FLUSH IV FLUSH PRN
[2017-03-26] MEDS ORDERED: MAGNESIUM HYDROXIDE SUSP 30 ML CUP PO PRN
[2017-03-26] MEDS ORDERED: BISACODYL 10 MG SUPP RECTAL PRN
[2017-03-26] MEDS ORDERED: ENOXAPARIN SODIUM 40 MG/0.4 ML SYRINGE SQ SCH
[2017-03-26] MEDS ORDERED: FLUMAZENIL 0.5 MG/5 ML VIAL IV PUSH PRN
[2017-03-26] MEDS ORDERED: LORazepam 2 MG/ML VIAL IV PUSH PRN ×4
[2017-03-26] MEDS ORDERED: SENNOSIDES 8.6 MG TAB PO PRN
--- NOTE | 2017-03-26 00:12 | HHI.HP ---
[facility] Service Family Medicine Primary Care Physician Braeden Parikh, DO Admission Diagnosis Cellulitis, Abscess, Failed outpt managment Diagnoses: International Travel<30 Days: No Contact w/Intl Traveler<30days: No Known Affected Area: No History of Present Illness 56 yr old M w/ significant PMHx of poorly controlled T2DM, CKD (stage III), HTN , HLD, CHF, and Hepatitis C, who presents to the ED for neck infection and "feeling ill." Accompanied by , who provides parts of the history. Patient reports that he began having flu-like symptoms this morning, such as subjective fever, fatigue, and muscle aches. He has a hx of diabetic foot infections requiring b/l toe amputations in the past. He felt this was a similar episode when he got an infection in his foot, prompting him to go to the ED. The abscess on the back of his neck developed a month ago in January. He came to the ED 02/16 for the same problem. He had an I & D performed on the neck abscess and was discharged home with a course of Bactrim, which he completed. He states that "the abscess never went away" and continued to drain clear fluid. He's tried "washing it, scrubbing it to get the dirt out, and rubbing it with alcohol." He's also had a few procedures to remove skin cancers on the back of his neck. Per chart review, he has hx of actinic keratosis, most likely removal of squamous cell carcinomas. In addition, the patient also complains of an abrasion on his left mcnally from tripping over a vine 2 days ago. The left leg is red, swollen, and warm. He states he is unable to feel pain around his left leg due to peripheral neuropathy. He reports that he is only able to check his sugar one time a day due to insurance issues. Last blood sugar check was 176. He takes Detemir 10 units TID and Aspart 10 units TID. He reports being compliant with his medications. Past smoker, 3ppd for 5 years. Drinks 10 beers/ day. He endorses some SOB with exertion, but denies URI symptoms, trouble swallowing, CP, abdominal pain, N/V, and diarrhea. PCP, Dr. Parkih [employer], Dr. Ezio Masters GI, Dr. Beltre (Becky Olea MD R1) Review of Systems Constitutional: COMPLAINS OF: Fever (subjective fever ), Chills, DENIES: Fatigue Eyes: DENIES: Vision loss Ears, nose, mouth, throat: DENIES: Throat pain, Ear Pain, Running Nose Respiratory: COMPLAINS OF: Shortness of breath (SOB w/ exertion) Cardiovascular: COMPLAINS OF: Lower Extremity Edema (pitting edema ), DENIES: Chest pain Gastrointestinal: DENIES: Abdominal pain, Diarrhea, Nausea, Vomiting, Difficulty Swallowing Genitourinary: DENIES: Dysuria Musculoskeletal: COMPLAINS OF: Muscle aches Integumentary: DENIES: Rash Hematologic/lymphatic: DENIES: Lymphadenopathy Neurologic: DENIES: Headache (Becky Olea MD R1) Past Family Social History Past Medical History Poorly controlled T2DM HTN HLD Hx of MRSA CHF CAD w/ prior [place] Hep C CKD (stage III) BPH Chronic back pain due to bulging disc Hypothyroidism GERD Sleep apnea Alcohol abuse Past Surgical History 3rd and 5th toe resected on right foot 5th toe resected on left foot Tonsillectomy Endoscopy Colonoscopy Skin cancer removal on back of neck (Becky Olea MD R1) Allergies: Coded Allergies: *MDRO Multi-Drug Resistant Organism (Verified Adverse Reaction, Unknown, MRSA, 03/25/17) MRSA (foot wound) - 12/2014, 02/2015, 07/2015, 09/2015, 11/2015, 05/2016, 08/24/16 MRSA PCR (nares) POSITIVE - 04/02/16 & 11/15/16 Family History Mother had emphysema and DM, at 67 Father of [place] at 67 Social History Lives with . Had adult children. Past smoker, 3ppd for 5 years. Drinks 10 cans of beer/ day. Denies illicit drug use (Becky Olea MD R1) Physical Exam Vital Signs Vital Signs Date Time Temp Pulse Resp B/P (MAP) Pulse Ox O2 Delivery O2 Flow Rate FiO2 03/25/17 23:12 61 18 123/58 (79) 98 Room Air 03/25/17 21:40 18 03/25/17 20:12 98.4 78 18 175/81 (112) 98 Room Air 03/25/17 20:10 20 03/25/17 19:13 99.3 85 16 166/68 (100) 96 Room Air Physical Exam GENERAL: obese male, lying in bed, in NAD HEAD: Atraumatic. Normocephalic. HEENT: PERRLA, EOMI, Throat clear, no exudates. Trachea midline. No JVD or lymphadenopathy. 3 (3-4mm) dark purple papules on posterior aspect of the neck, no drainage, tenderness on palpation and with movement. CARDIOVASCULAR: RRR, diffuse 2/6 ejection murmur, no r/g RESPIRATORY: Clear to auscultation. Breath sounds equal bilaterally. No wheezes , rales, or rhonchi. GASTROINTESTINAL: Abdomen soft, non-tender, nondistended. No hepato-splenomegaly , or palpable masses. No guarding. EXTREMITIES: 2+ pitting edema in lower extremities, crusty abrasion on left mcnally with surrounding erythema and warmth. Diminished dorsalis pedis pulses. Decreased sensation b/l in lower extremities due to diabetic neuropathy. Right foot with missing 3rd and 5th digit. Left foot with missing 5th digit. NEUROLOGICAL: Awake and alert, oriented x3 Laboratory Laboratory Tests Test 03/25/17 20:00 White Blood Count 10.7 Red Blood Count 3.49 Hemoglobin 9.8 Hematocrit 30.5 Mean Corpuscular Volume 87.4 Mean Corpuscular Hemoglobin 28.0 Mean Corpuscular Hemoglobin Concent 32.1 Red Cell Distribution Width 17.3 Platelet Count 157 Mean Platelet Volume 7.2 Neutrophils (%) (Auto) 68.7 Lymphocytes (%) (Auto) 15.8 Monocytes (%) (Auto) 12.2 Eosinophils (%) (Auto) 2.5 Basophils (%) (Auto) 0.8 Neutrophils # (Auto) 7.3 Lymphocytes # (Auto) 1.7 Monocytes # (Auto) 1.3 Eosinophils # (Auto) 0.3 Basophils # (Auto) 0.1 CBC Comment DIFF FINAL Differential Comment Prothrombin Time 11.4 Prothromb Time International Ratio 1.0 Activated Partial Thromboplast Time 24.9 Blood Urea Nitrogen 47 Creatinine 1.77 Random Glucose 140 Total Protein 8.4 Albumin 3.6 Calcium Level 8.4 Magnesium Level 1.8 Alkaline Phosphatase 137 Aspartate Amino Transf (AST/SGOT) 30 Alanine Aminotransferase (ALT/SGPT) 32 Total Bilirubin 0.3 Sodium Level 140 Potassium Level 4.0 Chloride Level 112 Carbon Dioxide Level 16.2 Anion Gap 12 Estimat Glomerular Filtration Rate 40 Lactic Acid Level 1.3 Total Creatine Kinase 240 Creatine Kinase MB 4.1 Troponin I LESS THAN 0.02 C-Reactive Protein 2.50 Lipase 178 Date/Time Source Procedure Growth Status 03/25/17 20:00 Blood Peripheral Aerobic Blood Culture Pending Received 03/25/17 20:00 Blood Peripheral Anaerobic Blood Culture Pending Received 03/25/17 21:00 Wound Neck Gram Stain Pending Received 03/25/17 21:00 Wound Neck Wound Culture Pending Received (Becky Olea MD R1) Result Diagram: 03/25/17199903/25/171999 Caprini VTE Risk Assessment Caprini VTE Risk Assessment: Mod/High Risk (score >= 2) Caprini Risk Assessment Model Point Value = 1 Point Value = 2 Point Value = 3 Point Value = 5 Age 41-60 Minor surgery BMI > 25 kg/m2 Swollen legs Varicose veins or History of unexplained or recurrent spontaneous Oral contraceptives or hormone replacement Sepsis (< 1 month) Serious lung disease, including pneumonia (< 1 month) Abnormal pulmonary function Acute myocardial infarction Congestive heart failure (< 1 month) History of inflammatory bowel disease Medical patient at bed rest Age 61-74 Arthroscopic surgery Major open surgery (> 45 min) Laparoscopic surgery (> 45 min) Malignancy Confined to bed (> 72 hours) Immobilizing plaster cast Central venous access Age >= 75 History of VTE Family history of VTE Factor V Leiden Prothrombin [id number] Lupus anticoagulant Anticardiolipin antibodies Elevated serum homocysteine Heparin-induced thrombocytopenia Other congenital or acquired thrombophilia Stroke (< 1 month) Elective arthroplasty Hip, pelvis, or leg fracture Acute spinal cord injury (< 1 month) Prophylaxis Regimen Total Risk Factor Score Risk Level Prophylaxis Regimen 0-1 Low Early ambulation 2 Moderate Order ONE of the following: *Sequential Compression Device (SCD) *Heparin 5000 units SQ BID 3-4 Higher Order ONE of the following medications: *Heparin 5000 units SQ TID *Enoxaparin/Lovenox 40 mg SQ daily (WT < 150 kg, CrCl > 30 mL/min) *Enoxaparin/Lovenox 30 mg SQ daily (WT < 150 kg, CrCl > 10-29 mL/min) *Enoxaparin/Lovenox 30 mg SQ BID (WT < 150 kg, CrCl > 30 mL/min) AND/OR *Sequential Compression Device (SCD) 5 or more Highest Order ONE of the following medications: *Heparin 5000 units SQ TID (Preferred with Epidurals) *Enoxaparin/Lovenox 40 mg SQ daily (WT < 150 kg, CrCl > 30 mL/min) *Enoxaparin/Lovenox 30 mg SQ daily (WT < 150 kg, CrCl > 10-29 mL/min) *Enoxaparin/Lovenox 30 mg SQ BID (WT < 150 kg, CrCl > 30 mL/min) AND *Sequential Compression Device (SCD) (Becky Olea MD R1) Assessment and Plan Assessment and Plan 56 yr old M w/ MDRO, s/p failed outpatient therapy of skin infection, admitted for neck abscess and LLE cellulitis Code Status DNR Discussed Condition With Dr. Mariann Aguilar (Becky Olea MD R1) Attending Attestation The patient has been seen and examined. The chart and all resident notes have been reviewed. I agree that inpatient care is appropriate and that a two midnight stay is expected for the reasons documented in the resident history and physical. I have discussed this with the resident and certify the resident s order for inpatient admission. (Nithya Block MD) Problem List: (1) Abscess of neck ICD Codes: L02.11 - Cutaneous abscess of neck Status: Acute Plan: 1 month hx of neck abscess -hx of MRSA -s/p I & D in ED -s/p Vancomycin 1000 mg once, Zosyn 3.375g once, 500ml bolus NS x1, patient was not aggressively rehydrated due to hx of CHF and lower extremity edema -Elevated chloride 112, CO2 16.2 ,BUN 47 Cr 1.77 on BMP, most likely due to mild dehydration -Vancomycin 1000 mg IV q12h -Zosyn 3.375 g q6h -No leukocytosis on CBC, WBC 10.7 -ESR elevated at 62, concerning for possible osteomyelitis, will order MRI of neck -CRP elevated at 2.50 -Lactic Acid 1.3 wnl -Wound culture pending -Blood cultures 2x pending -ID consulted, appreciate recs -Wound care consulted Pain control: Narco 325-5 mg PO q4h PRN pain 3-5 Narco 325-19 mg PO q4h PRN pain 6-10 Morphine 4mg IV push q3h for breakthrough pain (2) Cellulitis of left lower extremity ICD Codes: L03.116 - Cellulitis of left lower limb Status: Acute Plan: 2 day hx of LLE cellulitis -US w/ doppler ordered for lower extremities -Follow abx plan as above (3) Type 2 diabetes mellitus with peripheral neuropathy ICD Codes: E11.42 - Type 2 diabetes mellitus with diabetic polyneuropathy Status: Chronic Plan: -Novolog Sliding Scale -Continue home [id number] units SQ TID -Held home Aspart 10 units TID (4) CHF (congestive heart failure) ICD Codes: I50.9 - Heart failure, unspecified Status: Acute Plan: Last recorded Echo 11/08 showed EF of 55-66% -Echo ordered -BNP elevated at 142 -CXR wnl -Troponin less than 0.02 -EKG, sinus rhythm w/ RBBB, no acute ST segment elevation -Continue home loop diuretic, Bumetanide 1mg PO BID (5) HTN (hypertension) ICD Codes: I10 - Hypertension Status: Chronic Plan: -Continue home HTN meds -Amlodipine 5mg PO daily -Carvedilol 3.125 mg PO BID -Lorsartan 50mg PO daily (6) CKD (chronic kidney disease), stage III ICD Codes: N18.3 - Chronic kidney disease, stage 3 (moderate) Status: Acute Plan: -Estimated GFR 40 (7) Hepatitis C ICD Codes: B19.20 - Hepatitis C virus infection Status: Chronic Plan: -AST and ALT wnl -PT and PTT wnl -Continue home Elbasvir/ Grazoprevir 50-100mg daily (8) HLD (hyperlipidemia) ICD Codes: E78.5 - Hyperlipidemia, unspecified Status: Chronic Plan: -Continue home Atorvastatin 20 mg PO HS (9) Hypothyroidism ICD Codes: E03.9 - Hypothyroidism, unspecified Status: Chronic Plan: -Continue home Levothyroxine 50 mcg PO daily (10) BPH (benign prostatic hyperplasia) ICD Codes: N40.0 - Benign prostatic hyperplasia without lower urinary tract symptoms Status: Chronic Plan: -Continue home Flomax 0.4mg PO daily (11) Alcohol abuse ICD Codes: F10.10 - Alcohol abuse Status: Chronic Plan: -[facility] protocol (12) Nutrition, metabolism, and development symptoms ICD Codes: R63.8 - Other symptoms and signs concerning food and fluid intake Status: Acute Plan: Fluids: none Diet: Diabetic Diet Vitals q4h, monitor I & Os DVT ppx: Lovenox 30 mg SQ daily (Becky Olea MD R1) Physician Certification 2 Midnight Certification Type: Admission for Inpatient Services Order for Inpatient Services The services are ordered in accordance with Medicare regulations or non- Medicare payer requirements, as applicable. In the case of services not specified as inpatient-only, they are appropriately provided as inpatient services in accordance with the 2-midnight benchmark. Estimated LOS (days): 2 2 days is the estimated time the patient will need to remain in the hospital, assuming treatment plan goals are met and no additional complications. Post-Hospital Plan: Home (Becky Olea MD R1) Problem Qualifiers (1) Hepatitis C: Becky Olea MD R1 Mar 26, 2017 00:12 Nithya Block MD Mar 26, 2017 22:03
[2017-03-26] MEDS ORDERED: IBUPROFEN 400 MG TAB PO PRN (00:15)
[2017-03-26] MEDS ORDERED: NALOXONE HCL 0.4 MG/ML AMP IV PUSH PRN ×2 (00:15)
[2017-03-26] MEDS ORDERED: ACETAMINOPHEN/HYDROcodone 325 MG/5 MG TAB PO PRN (00:15)
[2017-03-26] MEDS ORDERED: Vancomycin Consult Pharmacy 1 EA OTHER SCH (00:15)
[2017-03-26] MEDS: BUMETANIDE 1 MG TAB PO SCH ×3 (00:49→21:06)
[2017-03-26] MEDS: METHOCARBAMOL 500 MG TAB PO SCH ×3 (00:50→21:05)
[2017-03-26] MEDS: ATORVASTATIN 20 MG TAB PO SCH ×2 (00:50→21:06)
[2017-03-26] MEDS ORDERED: METH750T PO (01:19)
[2017-03-26] MEDS ORDERED: THIA100T18 PO (01:27)
[2017-03-26] MEDS: DOCUSATE SODIUM 50 MG/SENNA 8.6 MG TAB PO SCH ×3 (01:45→21:06)
[2017-03-26] MEDS: SODIUM CHLORIDE 0.9% FLUSH 10 ML FLUSH IV FLUSH SCH ×3 (01:45→21:11)
[2017-03-26] MEDS ORDERED: VANCOMYCIN INJ 1,000 MG in SODIUM CHLOR 0.9% 250 ML INJ 250 ML IV ONE (02:00)
[2017-03-26] MEDS: PIPERACIL-TAZO 3.375 GM PREMIX 50 ML IV SCH ×3 (02:06→15:00)
[2017-03-26] MEDS: ACETAMINOPHEN/HYDROcodone 325 MG/10 MG TAB PO PRN ×2 (06:56→21:04)
[2017-03-26] MEDS: LEVOTHYROXINE SODIUM 50 MCG TAB PO SCH (06:56)
--- NOTE | 2017-03-26 08:30 | RADRPT ---
EXAM DATE/TIME: 03/26/2017 07:44 [facility] COMPARISON: US LEG BILATERAL VENOUS DOPPLER, January 19, 2015, 21:22. INDICATIONS : Bilateral lower extremity redness and swelling. MEDICAL HISTORY : Gastroesophageal reflux disease. Hypertension. Benign prostatic hyperplasia, (BPH) Hypothyroidism. Di abetic neuropathy. Seizures. Congestive heart failure. Coronary artery disease. Anticoagulant therapy . Hiatal hernia. Chronic kidney disease. Arthritis. Diabetes. Cirrhosis. Hepatitis C. Skin cancer. MR SA. SURGICAL HISTORY : Tonsillectomy. Orthopedic surgery, bilateral feet. ENCOUNTER: Subsequent ACUITY: >1 year PAIN SCORE: 0/10 LOCATION: Bilateral legs. TECHNIQUE: Venous ultrasound of the left and right leg was performed from the inguinal ligament to the proximal calf. Real-time, color Doppler and spectral tracing, compression and augmentation techniques were us ed. FINDINGS: RIGHT LEG: There is normal compressibility of the deep venous system from the inguinal region to the proximal ca lf. No echogenic clot is seen in the lumen of the common femoral, femoral, popliteal, and posterior tibial veins. There is a normal response of the venous system to proximal and distal augmentation an d respiration. LEFT LEG: There is normal compressibility of the deep venous system from the inguinal region to the proximal ca lf. No echogenic clot is seen in the lumen of the common femoral, femoral, popliteal, and posterior tibial veins. There is a normal response of the venous system to proximal and distal augmentation an d respiration. CONCLUSION: 1. No evidence of deep venous thrombosis. Stew Neal MD on March 26, 2017 at 8:29 Board Certified Radiologist. This report was verified electronically.
[2017-03-26] MEDS: INSULIN DETEMIR 100 UNITS/ML VIAL SQ SCH ×3 (08:47→17:37)
[2017-03-26] MEDS: INSULIN ASPART SUPPLEMENTAL SCALE SQ SCH ×4 (08:55→21:08)
[2017-03-26] MEDS: ASPIRIN EC 81 MG TABEC PO SCH (08:57)
[2017-03-26] MEDS: TAMSULOSIN HCL 0.4 MG CAP PO SCH (08:58)
[2017-03-26] MEDS: amLODIPine BESYLATE 5 MG TAB PO SCH (08:58)
[2017-03-26] MEDS: GABAPENTIN 300 MG CAP PO SCH ×3 (08:58→17:36)
[2017-03-26] MEDS: CARVEDILOL 3.125 MG TAB PO SCH ×2 (08:58→21:06)
[2017-03-26] MEDS: POTASSIUM CHLORIDE 20 MEQ CONTROLLED RELEASE TAB PO SCH (08:58)
[2017-03-26] MEDS: LOSARTAN 50 MG TAB PO SCH (08:59)
[2017-03-26] MEDS: ZEPATIER PO SCH (09:00)
[2017-03-26] MEDS ORDERED: ZEPATIER PO SCH ×2 (09:00)
[2017-03-26] MEDS: ENOXAPARIN SODIUM 30 MG/0.3 ML SYRINGE SQ SCH (09:01)
[2017-03-26 09:20] LABS: AUTOMATED NEUTROPHIL # 4.6 TH/MM3 (1.8-7.7); BASOPHIL # 0.1 TH/MM3 (0-0.2); BASOPHIL % 0.7 % (0.0-2.0); EOSINOPHIL # 0.3 TH/MM3 (0-0.4); HEMATOCRIT 28.3 % (39.0-51.0); HEMO FLAGS DIFF FINAL; LYMPH % 27.4 % (9.0-44.0); LYMPHOCYTE # 2.2 TH/MM3 (1.0-4.8); MEAN CORPUSCULAR HEMOGLOBIN 28.6 PG (27.0-34.0); MEAN CORPUSCULAR HGB CONC 32.5 % (32.0-36.0); MONO % 12.4 % (0.0-8.0); NEUT % 55.5 % (16.0-70.0); PLATELET COUNT 139 TH/MM3 (150-450); RED BLOOD COUNT 3.21 MIL/MM3 (4.50-5.90); WHITE BLOOD COUNT 8.2 TH/MM3 (4.0-11.0)
[2017-03-26] MEDS ORDERED: VANCOMYCIN INJ 1,000 MG in SODIUM CHLOR 0.9% 250 ML INJ 250 ML IV SCH (09:30)
[2017-03-26 09:37] LABS: ANION GAP 11 MEQ/L (5-15); BICARBONATE 17.7 MEQ/L (21.0-32.0); BLOOD UREA NITROGEN 44 MG/DL (7-18); CHLORIDE 111 MEQ/L (98-107); GLOMERULAR FILTRATION RATE 37 ML/MIN (>89); POTASSIUM 3.9 MEQ/L (3.5-5.1); SODIUM (NA) 140 MEQ/L (136-145)
[2017-03-26 09:38] LABS: ALT (GPT) 31 U/L (12-78)
[2017-03-26 09:43] LABS: ALKALINE PHOSPHATASE 124 U/L (45-117); AST (GOT) 25 U/L (15-37); TOTAL BILIRUBIN ADULT 0.5 MG/DL (0.2-1.0)
[2017-03-26] MEDS ORDERED: GADOBENATE DIM PF 529 MG/ML 5 ML VIAL (for RAD MRI) IV ONE (11:21)
--- NOTE | 2017-03-26 12:01 | RADRPT ---
EXAM DATE/TIME: 03/26/2017 10:47 [facility] COMPARISON: No previous studies available for comparison. INDICATIONS : Abscess. Boil on posterior of neck for the past month. CONTRAST: 22 cc Multihance (gadobenate) IV MEDICAL HISTORY : None. SURGICAL HISTORY : Tonsillectomy. 3 toes amputated ENCOUNTER: Subsequent ACUITY: 3 day PAIN SCORE: 4/10 LOCATION: posterior neck TECHNIQUE: Multiplanar, multisequence MRI examination of the cervical spine was performed. FINDINGS: VERTEBRAE: Normal vertebral body height. Homogeneous marrow signal. ALIGNMENT: No evidence of subluxation. CORD: Normal configuration and signal. POST FOSSA: The cerebellar tonsils are normal in position. POST-CONTRAST: No abnormal areas of enhancement are seen. No evidence for abnormal bony enhancement. No definitive f luid collection in the visualized portions of cervical spine. Subcentimeter level IV and V lymph node s. C2-C3: Minimal posterior disc osteophytes without significant central canal narrowing worse from a stenosis. C3-C4: Minimal bilateral uncovertebral osteophytes without significant central canal or neural foraminal miley nosis. C4-C5: Minimal disc bulge and uncovertebral osteophytes without significant central canal or neural foraminal stenosis. C5-C6: Eccentric right disc osteophyte complex with mild effacement of the anterior right lateral recess. Mi ld right neuroforaminal stenosis. C6-C7: Diffuse disc bulge with mild effacement of the anterior thecal sac. Significant neural foraminal sten osis. C7-T1: The thecal sac has a normal configuration. There is no evidence of disc herniation or spinal canal s tenosis. The neural foramina are patent bilaterally. CONCLUSION: 1. Subcentimeter level IV and V lymph nodes, likely reactive. 2. No evidence for discitis/osteomyelitis or soft tissue abscess in the visualized portions of the ce rvical spine. 3. Mild multilevel degenerative spondylosis, as above. Kirby Sultana MD on March 26, 2017 at 11:49 Board Certified Radiologist. This report was verified electronically.
[2017-03-26] MEDS: MORPHINE SULFATE 4 MG/ML INJ IV PUSH PRN ×2 (12:51→22:51)
--- NOTE | 2017-03-26 14:57 | PD.ID.CON ---
History of Present Illness Service ID Consult Requested By Dr. Block Reason for Consult Evaluation and Mment of Cellulitis of nape of neck and back. Primary Care Physician Braeden Parikh DO Diagnoses: History of Present Illness 56 yr old M w/ significant PMHx of poorly controlled T2DM, CKD (stage III), HTN , HLD, CHF, and Hepatitis C, who presents to the ED for neck infection and "feeling ill." Accompanied by , who provides parts of the history. Patient reports that he began having flu-like symptoms this morning, such as subjective fever, fatigue, and muscle aches. He has a hx of diabetic foot infections requiring b/l toe amputations in the past. He felt this was a similar episode when he got an infection in his foot, prompting him to go to the ED. The abscess on the back of his neck developed a month ago in January. He came to the ED 02/16 for the same problem. He had an I & D performed on the neck abscess and was discharged home with a course of Bactrim, which he completed. He states that "the abscess never went away" and continued to drain clear fluid. He's tried "washing it, scrubbing it to get the dirt out, and rubbing it with alcohol." He's also had a few procedures to remove skin cancers on the back of his neck. Per chart review, he has hx of actinic keratosis, most likely removal of squamous cell carcinomas. In addition, the patient also complains of an abrasion on his left mcnally from tripping over a vine 2 days ago. The left leg is red, swollen, and warm. He states he is unable to feel pain around his left leg due to peripheral neuropathy. He reports that he is only able to check his sugar one time a day due to insurance issues. Last blood sugar check was 176. He takes Detemir 10 units TID and Aspart 10 units TID. He reports being compliant with his medications. Past smoker, 3ppd for 5 years. Drinks 10 beers/ day. He endorses some SOB with exertion, but denies URI symptoms, trouble swallowing, CP, abdominal pain, N/V, and diarrhea. Past Family Social History Allergies: Coded Allergies: *MDRO Multi-Drug Resistant Organism (Verified Adverse Reaction, Unknown, MRSA, 03/25/17) MRSA (foot wound) - 12/2014, 02/2015, 07/2015, 09/2015, 11/2015, 05/2016, 08/24/16 MRSA PCR (nares) POSITIVE - 04/02/16 & 11/15/16 Past Medical History Poorly controlled T2DM HTN HLD Hx of MRSA CHF CAD w/ prior CO Hep C CKD (stage III) BPH Chronic back pain due to bulging disc Hypothyroidism GERD Sleep apnea Alcohol abuse Past Surgical History 3rd and 5th toe resected on right foot 5th toe resected on left foot Tonsillectomy Endoscopy Colonoscopy Skin cancer removal on back of neck Reported Medications I attest I obtained, updated or reviewed the home meds and current medications ( for name, dose, frequency and route of administration of medications) Reported Meds & Active Scripts Active Glucocom Test Strips (Blood Glucose Test Strips) 1 Claribel Claribel 1 Ea .ROUTE DIRECTED Glucocom Blood Glucose Mo W/Device (Device) 1 Kit Kit 1 Kit .ROUTE DIRECTED Hydrochlorothiazide 25 Mg Tab 25 Mg PO DAILY Norvasc (Amlodipine Besylate) 5 Mg Tab 5 Mg PO DAILY Reported Vitamin B-1 (Thiamine Mononitrate) 100 Mg Tab 100 Mg PO DAILY Methocarbamol 750 Mg Tab 750 Mg PO QID Zepatier 50-100 mg Tablet (Elbasvir/Grazoprevir) 1 Each Tablet Methocarbamol 750 Mg Tab 750 Mg PO BID Diazepam 5 Mg Tab 5 Mg PO BID PRN Losartan (Losartan Potassium) 50 Mg Tab 50 Mg PO DAILY Carvedilol 3.125 Mg Tab 3.125 Mg PO BID Potassium Chloride ER (Potassium Chloride) 20 Meq Tab 20 Meq PO DAILY Gabapentin 300 Mg Cap 300 Mg PO TID Bumetanide 1 Mg Tab 1 Mg PO BID Levemir Inj (Insulin Detemir) 1,000 unit/ 10 ML Vial 10 Units SQ TID Do not mix with any other Insulin. Novolog Inj (Insulin Aspart) 1,000 Unit/10 Ml Vial 10 Units SQ TID Lortab (Hydrocodone-Acetaminophen) 10-325 Mg Tab 1 Tab PO QID PRN Atorvastatin (Atorvastatin Calcium) 20 Mg Tab 20 Mg PO HS Aspirin 81 (Aspirin) 81 Mg Tabdr 81 Mg PO DAILY Levothyroxine (Levothyroxine Sodium) 50 Mcg Tab 50 Mcg PO DAILY Flomax (Tamsulosin HCl) 0.4 Mg Cap 0.4 Mg PO DAILY Active Ordered Medications Current Medications Medications (Trade) Dose Ordered Sig/Sergei Route Start Time Stop Time Status Last Admin (Norvasc) 5 mg DAILY PO 03/26/17 09:00 03/26/17 08:58 (Ecotrin Ec) 81 mg DAILY PO 03/26/17 09:00 03/26/17 08:57 (Lipitor) 20 mg HS PO 03/25/17 23:30 03/26/17 00:50 (Bumetanide) 1 mg BID PO 03/25/17 23:30 03/26/17 08:57 (Coreg) 3.125 mg BID PO 03/26/17 09:00 03/26/17 08:58 (Valium) 5 mg BID PRN PO 03/25/17 23:30 (Neurontin) 300 mg TID PO 03/26/17 09:00 03/26/17 17:36 (Levemir Inj) 10 units TID SQ 03/26/17 09:00 03/26/17 17:37 (Synthroid) 50 mcg DAILY@0700 PO 03/26/17 07:00 03/26/17 06:56 (Cozaar) 50 mg DAILY PO 03/26/17 09:00 03/26/17 08:59 (Robaxin) 750 mg BID PO 03/25/17 23:30 03/26/17 08:59 (KCl) 20 meq DAILY PO 03/26/17 09:00 03/26/17 08:58 (Flomax) 0.4 mg DAILY PO 03/26/17 09:00 03/26/17 08:58 (NS Flush) 2 ml UNSCH PRN IV FLUSH 03/26/17 00:00 (NS Flush) 2 ml BID IV FLUSH 03/26/17 00:00 03/26/17 09:00 (Nikki-Colace) 1 tab BID PO 03/26/17 00:00 03/26/17 08:58 (Milk Of Magnesia Liq) 30 ml Q12H PRN PO 03/26/17 00:00 (Senokot) 17.2 mg Q12H PRN PO 03/26/17 00:00 (Dulcolax Supp) 10 mg DAILY PRN RECTAL 03/26/17 00:00 (Lactulose Liq) 30 ml DAILY PRN PO 03/26/17 00:00 (Romazicon Inj) 0.2 mg Q1M PRN IV PUSH 03/26/17 00:00 (Ativan) 1 mg Q4H PRN PO 03/26/17 00:00 (Ativan Inj) 1 mg Q4H PRN IV PUSH 03/26/17 00:00 03/26/17 10:30 (Ativan) 2 mg Q2H PRN PO 03/26/17 00:00 (Ativan Inj) 2 mg Q2H PRN IV PUSH 03/26/17 00:00 (Ativan Inj) 2 mg Q1H PRN IV PUSH 03/26/17 00:00 (Ativan Inj) 2 mg Q15M PRN IV PUSH 03/26/17 00:00 Pharmacy Profile Note 0 ml @ 0 mls/hr UNSCH OTHER 03/26/17 00:15 Piperacillin Sod/ Tazobactam Sod 50 ml @ 100 mls/hr Q6H IV 03/26/17 03:00 03/26/17 15:00 (NovoLOG SUPPLEMENTAL SCALE) 1 ACHS SLIDING SCALE SQ 03/26/17 08:00 03/26/17 17:38 (Cylinder 5-325 Mg) 1 tab Q4H PRN PO 03/26/17 00:15 (Cylinder 10-325 Mg) 1 tab Q4H PRN PO 03/26/17 00:15 03/26/17 06:56 (Morphine Inj) 4 mg Q3H PRN IV PUSH 03/26/17 00:15 03/26/17 12:51 (Narcan Inj) 0.4 mg UNSCH PRN IV PUSH 03/26/17 00:15 (Flu (Quadrivalent) Vaccine Inj) 0.5 ml ONCE ONCE IM 03/27/17 10:00 03/27/17 10:01 (Pneumovax-23 Inj) 25 mcg ONCE ONCE IM 03/27/17 10:00 03/27/17 10:01 Patient Own Medication PT OWN MED: Zepat... DAILY PO 03/26/17 09:00 03/26/17 09:00 (Lovenox Inj) 30 mg Q24H SQ 03/26/17 09:00 03/26/17 09:01 Family History Mother had emphysema and DM, at 67 Father of CO at 67 Social History Lives with . Had adult children. Past smoker, 3ppd for 5 years. Drinks 10 cans of beer/ day. Denies illicit drug use Physical Exam Vital Signs Vital Signs Date Time Temp Pulse Resp B/P (MAP) Pulse Ox O2 Delivery O2 Flow Rate FiO2 03/26/17 12:00 98.3 73 18 164/76 (105) 99 03/26/17 08:00 97.6 61 18 126/61 (82) 97 03/26/17 05:00 97.5 57 18 122/57 (78) 96 03/26/17 01:26 97.2 63 18 162/71 (101) 100 03/26/17 00:40 03/25/17 23:12 61 18 123/58 (79) 98 Room Air 03/25/17 21:40 18 03/25/17 20:12 98.4 78 18 175/81 (112) 98 Room Air 03/25/17 20:10 20 03/25/17 19:13 99.3 85 16 166/68 (100) 96 Room Air Physical Exam GENERAL: Obese, well-developed patient, in no apparent distress. SKIN: Skin lesions on posterior superior aspect of back and nape of neck with erythema, pustules at base of hair follicles. Scabbing noted in places. On LLE he had erythema, tenderness, edema, scabbing with blood. HEAD: Atraumatic. Normocephalic. No temporal or scalp tenderness. EYES: Pupils equal round and reactive. Extraocular motions intact. No scleral icterus. No injection or drainage. ENT: Nose without bleeding, purulent drainage or septal hematoma. Throat without erythema, tonsillar hypertrophy or exudate. Uvula midline. Airway patent. NECK: Trachea midline. Supple, nontender, no meningeal signs. CARDIOVASCULAR: Regular rate and rhythm without murmurs, gallops, or rubs. RESPIRATORY: Clear to auscultation. Breath sounds equal bilaterally. No wheezes , rales, or rhonchi. GASTROINTESTINAL: Abdomen soft, non-tender, nondistended. MUSCULOSKELETAL: Extremities without clubbing, cyanosis, or edema. No joint tenderness, effusion, or edema noted. No calf tenderness. Negative Homans sign bilaterally. NEUROLOGICAL: Awake and alert. Grossly non focal Psych cooperative IV line sites with no e.o infection. Laboratory Laboratory Tests Test 03/25/17 20:00 03/26/17 08:33 White Blood Count 10.7 8.2 Red Blood Count 3.49 3.21 Hemoglobin 9.8 9.2 Hematocrit 30.5 28.3 Mean Corpuscular Volume 87.4 88.0 Mean Corpuscular Hemoglobin 28.0 28.6 Mean Corpuscular Hemoglobin Concent 32.1 32.5 Red Cell Distribution Width 17.3 17.0 Platelet Count 157 139 Mean Platelet Volume 7.2 7.4 Neutrophils (%) (Auto) 68.7 55.5 Lymphocytes (%) (Auto) 15.8 27.4 Monocytes (%) (Auto) 12.2 12.4 Eosinophils (%) (Auto) 2.5 4.0 Basophils (%) (Auto) 0.8 0.7 Neutrophils # (Auto) 7.3 4.6 Lymphocytes # (Auto) 1.7 2.2 Monocytes # (Auto) 1.3 1.0 Eosinophils # (Auto) 0.3 0.3 Basophils # (Auto) 0.1 0.1 CBC Comment DIFF FINAL DIFF FINAL Differential Comment Erythrocyte Sedimentation Rate 62 Prothrombin Time 11.4 Prothromb Time International Ratio 1.0 Activated Partial Thromboplast Time 24.9 Blood Urea Nitrogen 47 44 Creatinine 1.77 1.87 Random Glucose 140 127 Total Protein 8.4 7.8 Albumin 3.6 3.3 Calcium Level 8.4 8.3 Magnesium Level 1.8 Alkaline Phosphatase 137 124 Aspartate Amino Transf (AST/SGOT) 30 25 Alanine Aminotransferase (ALT/SGPT) 32 31 Total Bilirubin 0.3 0.5 Sodium Level 140 140 Potassium Level 4.0 3.9 Chloride Level 112 111 Carbon Dioxide Level 16.2 17.7 Anion Gap 12 11 Estimat Glomerular Filtration Rate 40 37 Lactic Acid Level 1.3 Total Creatine Kinase 240 Creatine Kinase MB 4.1 Troponin I LESS THAN 0.02 C-Reactive Protein 2.50 B-Type Natriuretic Peptide 142 Lipase 178 Date/Time Source Procedure Growth Status 03/25/17 20:00 Blood Peripheral Aerobic Blood Culture - Preliminary NO GROWTH IN 1 DAY Resulted 03/25/17 20:00 Blood Peripheral Anaerobic Blood Culture - Preliminary NO GROWTH IN 1 DAY Resulted 03/25/17 21:00 Wound Neck Gram Stain - Final Resulted 03/25/17 21:00 Wound Neck Wound Culture - Preliminary IMMATURE GROWTH - REINCUBATE Resulted Result Diagram: 03/26/17 0833 10/2/17 0833 Imaging Last Impressions Lower Extremity Ultrasound 03/26/17 0000 Signed Impressions: Service Date/Time: Sunday, March 26, 2017 07:44 - CONCLUSION: 1. No evidence of deep venous thrombosis. Stew Neal MD Cervical Spine MRI 03/26/17 0000 Signed Impressions: Service Date/Time: Sunday, March 26, 2017 10:47 - CONCLUSION: 1. Subcentimeter level IV and V lymph nodes, likely reactive. 2. No evidence for discitis/osteomyelitis or soft tissue abscess in the visualized portions of the cervical spine. 3. Mild multilevel degenerative spondylosis, as above. Kirby Sultana MD Chest X-Ray 03/25/171948 Signed Impressions: Service Date/Time: Saturday, March 25, 2017 20:08 - CONCLUSION: The lungs are clear. Scott Crespo MD Assessment and Plan Assessment and Plan Nape of neck cellulitis plus folliculitis H/o basal cell carcinoma s/p resection. If does not respond may need skin biopsy. LLE cellulitis. H/o MRSA DM uncontrolled in past. No recent A1C since May 2016. Last A1C 12.6 in May 2016. Hepatitis C genotype A positive. HCV virus load high in past. Recs: DC Zosyn IV Continue Vanco IV (target trough 10-15). Elevate leg Albin wrap leg. Follow cultures Follow clinically. Diabetes control essential. Counseled patient. Counseled about personal hygiene. Screen for Hepatocellular carcinoma (HCC): US liver and alpha feto protein (AFP ) tumor marker. CHG baths and mupirocin: normally would do it outpatient but since I observed some hygiene habits I think he may benefit from inpatient use as well. Discussed with patient that he has folliculitis at nape of neck and needs to use antidandruff shampoo to keep scalp clean shay around nape of neck. If after IV antibiotics and completion of this course of treatment it does not improve may need skin biopsy. Discussed Condition With Noted Code status: No Code DNR. No advance directive on file. Mariel Anna MD Mar 26, 2017 14:57
--- NOTE | 2017-03-26 15:07 | ECHRPT ---
Indication: CHF CONCLUSIONS The left ventricular systolic function is normal with an estimated ejection fraction in the range of 55-60%. Normal left ventricular size. Mild concentric left ventricular hypertrophy. No regional wall motion abnormalities are present. Mild mitral annular calcification. Diffuse calcification of the aortic valve. Severe aortic valve stenosis. Aortic valve area is 0.73 cm. Aortic valve mean gradient is 58 mmHg. There is trace tricuspid valve regurgitation. The estimated pulmonary arterial pressure is 43.9 mmHg. BP: 122 / 57 HR: Rhythm: Sinus MEASUREMENTS (Male / Female) Normal Values Technical Quality:Good 2D ECHO LV Diastolic Diameter PLAX 5.1 cm 4.2 - 5.9 / 3.9 - 5.3 cm LV Systolic Diameter PLAX 3.5 cm IVS Diastolic Thickness 1.3 cm 0.6 - 1.0 / 0.6 - 0.9 cm LVPW Diastolic Thickness 1.3 cm 0.6 - 1.0 / 0.6 - 0.9 cm LV Relative Wall Thickness 0.5 LVOT Diameter 2.3 cm Aortic Root Diameter 3.3 cm LA Systolic Diameter LX 3.4 cm 3.0 - 4.0 / 2.7 - 3.8 cm DOPPLER AV Peak Velocity 486.0 cm/s AV Peak Gradient 94.5 mmHg AV Mean Gradient 58.0 mmHg AV Velocity Time Integral 119.0 cm LVOT Peak Velocity 73.1 cm/s LVOT Peak Gradient 2.1 mmHg LVOT Velocity Time Integral 20.8 cm AV Area Cont Eq vti 0.7 cm AV Area Cont Eq pk 0.6 cm Mitral E Point Velocity 131.0 cm/s Mitral A Point Velocity 93.9 cm/s Mitral E to A Ratio 1.4 LV E' Lateral Velocity 7.0 cm/s Mitral E to LV E' Lateral Ratio 18.7 LV E' Septal Velocity 7.2 cm/s Mitral E to LV E' Septal Ratio 18.2 TR Peak Velocity 291.0 cm/s TR Peak Gradient 33.9 mmHg Right Atrial Pressure 10.0 mmHg Pulmonary Artery Systolic Pressu 43.9 mmHg Right Ventricular Systolic Press 43.9 mmHg PV Peak Velocity 86.5 cm/s PV Peak Gradient 3.0 mmHg FINDINGS LEFT VENTRICLE The left ventricular systolic function is normal with an estimated ejection fraction in the range of 55-60%. Normal left ventricular size. Mild concentric left ventricular hypertrophy. No regional wall motion abnormalities are present. RIGHT VENTRICLE Normal right ventricular size and systolic function. LEFT ATRIUM The left atrial size is normal. RIGHT ATRIUM The right atrial size is normal. ATRIAL SEPTUM Normal atrial septal thickness without atrial level shunting by limited color doppler interrogation. AORTA The aortic root and proximal ascending aorta are normal in size on limited imaging. MITRAL VALVE Mild mitral annular calcification. AORTIC VALVE Diffuse calcification of the aortic valve. Severe aortic valve stenosis. Aortic valve area is 0.73 cm. Aortic valve mean gradient is 58 mmHg. TRICUSPID VALVE There is trace tricuspid valve regurgitation. The estimated pulmonary arterial pressure is 43.9 mmHg. PULMONARY VALVE No pulmonary valve regurgitation or stenosis. VESSELS The inferior vena cava is normal in size. PERICARDIUM No pericardial effusion. Logan Owens MD (Electronically Signed) Final Date:26 March 2017 15:06
--- NOTE | 2017-03-26 15:11 | HHI.FPPN ---
Subjective Subjective Patient seen and examined with the resident team this am. Case reviewed and discussed Please refer to resident H&P for further details regarding HPI, ROS, PMH, SurgHx , Fh and SocHx In summary, patient is a 56yo male with a history of MRSA skin infections presenting with worsening of a posterior neck skin infection. Patient reportedly was seen in the emergency room about a month ago with drainage but has continued to have problems. He presented to the emergency room after the areas concerned continued to drain clear fluid. He been using alcohol preps and trying to clean the area himself. He presented to the emergency room after 2 days of feeling worse with subjective fevers. He does have a history of skin cancer, suspected basal cell per the patient and overlying the area of concern. Patient was seen after return from MRI and completion of 2-D echo, results pending. He reports that he is feeling better after antibiotic therapy. [facility] Objective Objective Laboratory Tests - Abnormals Test 03/25/17 20:00 03/26/17 08:33 Red Blood Count 3.49 MIL/MM3 3.21 MIL/MM3 Hemoglobin 9.8 GM/DL 9.2 GM/DL Hematocrit 30.5 % 28.3 % Red Cell Distribution Width 17.3 % Monocytes (%) (Auto) 12.2 % 12.4 % Monocytes # (Auto) 1.3 TH/MM3 1.0 TH/MM3 Erythrocyte Sedimentation Rate 62 mm/hr Blood Urea Nitrogen 47 MG/DL 44 MG/DL Creatinine 1.77 MG/DL 1.87 MG/DL Random Glucose 140 MG/DL 127 MG/DL Total Protein 8.4 GM/DL Calcium Level 8.4 MG/DL 8.3 MG/DL Alkaline Phosphatase 137 U/L 124 U/L Chloride Level 112 MEQ/L 111 MEQ/L Carbon Dioxide Level 16.2 MEQ/L 17.7 MEQ/L Estimat Glomerular Filtration Rate 40 ML/MIN 37 ML/MIN Creatine Kinase MB 4.1 NG/ML Troponin I LESS THAN 0.02 NG/ML C-Reactive Protein 2.50 MG/DL B-Type Natriuretic Peptide 142 PG/ML Platelet Count 139 TH/MM3 Albumin 3.3 GM/DL Vital Signs 03/25/17 03/25/17 03/25/17 03/25/17 19:13 20:10 20:12 21:40 Temp 99.3 98.4 Pulse 85 78 Resp 16 20 18 18 B/P (MAP) 166/68 (100) 175/81 (112) Pulse Ox 96 98 O2 Delivery Room Air Room Air 03/25/17 03/26/17 03/26/17 03/26/17 23:12 00:40 01:26 05:00 Temp 97.2 97.5 Pulse 61 63 57 Resp 18 18 18 B/P (MAP) 123/58 (79) 162/71 (101) 122/57 (78) Pulse Ox 98 100 96 O2 Delivery Room Air 03/26/17 03/26/17 08:00 12:00 Temp 97.6 98.3 Pulse 61 73 Resp 18 18 B/P (MAP) 126/61 (82) 164/76 (105) Pulse Ox 97 99 Physical exam GENERAL: Well-developed well-nourished overweight male sitting up in bed, NAD SKIN: Warm and dry. Sun-exposed skin over extremities and neck. Posterior neck with multiple pustules. No active drainage. There is tenderness to palpation over the posterior neck. HEAD: Normocephalic. Atraumatic EYES: No scleral icterus. No injection or drainage. ENT: OP clear. MM slightly dry. NECK: Supple, trachea midline. No JVD or lymphadenopathy. Skin as noted above. There is diminished range of motion in all directions but significantly improved from admission CARDIOVASCULAR: Regular rate and rhythm with 3 out of 6 blowing systolic ejection murmur c/w , no audible gallops, or rubs. RESPIRATORY: Breath sounds equal and clear to auscultation bilaterally. No accessory muscle use. GASTROINTESTINAL: Abdomen soft, non-tender, nondistended. Normal active bowel sounds, no rebound MUSCULOSKELETAL: No cyanosis, there is bilateral symmetric trace lower extremity edema to the midcalf. Left lower extremity with abrasion and mild purulent drainage and bleeding. BACK: Nontender without obvious deformity. No CVA tenderness. Neuro: Awake and alert, normal speech. Cranial nerves grossly intact. Assessment Assessment 56-year-old male with: Soft tissue skin infection posterior neck, rule out discitis/ osteomyelitis Acute renal insufficiency Poorly controlled T2DM HTN HLD Hx of MRSA skin infections CHF, currently compensated CAD w/ prior LA Hep C CKD (stage III) BPH Chronic back pain due to bulging disc Hypothyroidism GERD Sleep apnea Alcohol abuse PLAN PLAN Patient started on empiric antibiotic therapy Blood cultures pending Wound culture Infectious disease consultation given history of MDRO MRI to rule out discitis/osteomyelitis 2-D echo given possible hematogenous spread and significant murmur (though c/w ) Pain control Resume home meds as appropriate Accu-checks, insulin, SS Avoid nephrotoxic medications Patient seen and examined. Case reviewed and discussed. Agree with plan of care as discussed with me and documented in the resident note Nithya Block MD Mar 26, 2017 15:11
--- NOTE | 2017-03-26 18:16 | PD.WCN.NOT ---
Wound Consult Description: Received consult for wound management of neck from Doctor Becky Olea MD R1 Communicated with: RN Art [address] [place] [address] Recommendation: Cleanse lesions to L posterior neck with wound cleanser and pat dry and leave open to air Please cleanse L leg wound with wound cleanser and apply Optilock dressing secured in place with rolled gauze and tape. Change dressing as needed Additional Information: Patient seen on for evaluation of wound management of neck. Patient had recent I& D of posterior neck wound by TRACIE Hager on 03/25. Patient sat up on side of bed for wound assessment. 4 lesions noted to L posterior aspect of neck. Lesions are light purple in color with surround pink colored intact skin. Lesions are dry and intact. Scant sanguinous drainage is noted from the lesion on far left when cleansed with wound cleanser and gauze pad that is without odor. No Erythema, or induration is noted to periwound. Left lesions open to air. Bilateral lower legs are noted with edema, dusky leg discoloration that is shiny , with very little hair. Patient does complain of pain in calf area of BLE when walking to the bathroom. Small circular shaped, shallow wound is noted to L anterior aspect of mcnally. Minimal active sanguinous drainage without odor is assessed from wound bed. Cleansed wound with wound cleanser before applying Optilock dressing over wound and securing dressing with rolled gauze and tape.Patient states, "I bumped my leg on something." Zulma Roblero [facility] Mar 26, 2017 18:16
--- NOTE | 2017-03-26 19:30 | EKG ---
Date Performed: 03/25/2017 Time Performed: 21:20:28 PTAGE: 56 years EKG: Sinus rhythm RIGHT BUNDLE BRANCH BLOCK ABNORMAL ECG PREVIOUS TRACING : 12/05/2016 13.18 Compared to prior tracing no significant change DOCTOR: Richie Mitchell Interpretating Date/Time 03/26/2017 19:28:11
[2017-03-26] MEDS: MUPIROCIN 2% OINT 1 APPLIC/GM SYR EACH NARE SCH (21:04)
[2017-03-27] VITALS (9 sets, daily range): BP systolic 145–197; BP diastolic 66–86; PULSE 69–89; RESP 18–20; TEMP 97.7–101.5; O2SAT 94–99
[2017-03-27] MEDS: CHLORHEXIDINE GLUCONATE 2 % 1 PACK (2 CLOTHS) TOPICAL SCH (03:02)
[2017-03-27] MEDS: ACETAMINOPHEN/HYDROcodone 325 MG/10 MG TAB PO PRN ×3 (06:09→20:55)
[2017-03-27] MEDS: LEVOTHYROXINE SODIUM 50 MCG TAB PO SCH (06:09)
[2017-03-27 07:51] LABS: AUTOMATED NEUTROPHIL # 4.8 TH/MM3 (1.8-7.7); BASOPHIL # 0.1 TH/MM3 (0-0.2); BASOPHIL % 0.7 % (0.0-2.0); EOSINOPHIL # 0.2 TH/MM3 (0-0.4); HEMATOCRIT 27.1 % (39.0-51.0); HEMO FLAGS DIFF FINAL; LYMPH % 28.4 % (9.0-44.0); LYMPHOCYTE # 2.4 TH/MM3 (1.0-4.8); MEAN CELL VOLUME 88.9 FL (80.0-100.0); MEAN CORPUSCULAR HEMOGLOBIN 29.3 PG (27.0-34.0); MEAN CORPUSCULAR HGB CONC 32.9 % (32.0-36.0); MONO % 12.5 % (0.0-8.0); NEUT % 56.4 % (16.0-70.0); PLATELET COUNT 144 TH/MM3 (150-450); RED BLOOD COUNT 3.05 MIL/MM3 (4.50-5.90); RED CELL DISTRIBUTION WIDTH 16.9 % (11.6-17.2); WHITE BLOOD COUNT 8.5 TH/MM3 (4.0-11.0)
[2017-03-27] MEDS: INSULIN ASPART SUPPLEMENTAL SCALE SQ SCH ×4 (08:00→21:18)
[2017-03-27] MEDS: ZEPATIER PO SCH (08:08)
[2017-03-27] MEDS: ENOXAPARIN SODIUM 30 MG/0.3 ML SYRINGE SQ SCH (08:08)
[2017-03-27] MEDS: DOCUSATE SODIUM 50 MG/SENNA 8.6 MG TAB PO SCH ×2 (08:10→21:00)
[2017-03-27] MEDS: GABAPENTIN 300 MG CAP PO SCH ×3 (08:10→17:45)
[2017-03-27] MEDS: POTASSIUM CHLORIDE 20 MEQ CONTROLLED RELEASE TAB PO SCH (08:10)
[2017-03-27] MEDS: METHOCARBAMOL 500 MG TAB PO SCH ×2 (08:10→20:58)
[2017-03-27] MEDS: CARVEDILOL 3.125 MG TAB PO SCH ×2 (08:10→21:00)
[2017-03-27] MEDS: BUMETANIDE 1 MG TAB PO SCH ×2 (08:10→20:59)
[2017-03-27] MEDS: TAMSULOSIN HCL 0.4 MG CAP PO SCH (08:11)
[2017-03-27] MEDS: amLODIPine BESYLATE 5 MG TAB PO SCH (08:11)
[2017-03-27] MEDS: ASPIRIN EC 81 MG TABEC PO SCH (08:11)
[2017-03-27] MEDS: LOSARTAN 50 MG TAB PO SCH (08:11)
[2017-03-27] MEDS: INSULIN DETEMIR 100 UNITS/ML VIAL SQ SCH ×3 (08:14→17:46)
[2017-03-27 08:20] LABS: ALT (GPT) 27 U/L (12-78); ANION GAP 10 MEQ/L (5-15); AST (GOT) 20 U/L (15-37); BICARBONATE 19.3 MEQ/L (21.0-32.0); BLOOD UREA NITROGEN 41 MG/DL (7-18); CHLORIDE 112 MEQ/L (98-107); GLOMERULAR FILTRATION RATE 37 ML/MIN (>89); SODIUM (NA) 141 MEQ/L (136-145)
[2017-03-27 08:22] LABS: ALKALINE PHOSPHATASE 105 U/L (45-117); TOTAL BILIRUBIN ADULT 0.4 MG/DL (0.2-1.0)
[2017-03-27] MEDS: MUPIROCIN 2% OINT 1 APPLIC/GM SYR EACH NARE SCH ×2 (09:00→21:01)
[2017-03-27] MEDS: SODIUM CHLORIDE 0.9% FLUSH 10 ML FLUSH IV FLUSH SCH ×2 (09:00→21:15)
--- NOTE | 2017-03-27 09:08 | RADRPT ---
EXAM DATE/TIME: 03/27/2017 07:33 [facility] COMPARISON: US ABDOMEN - LIVER, February 20, 2016, 15:37. [facility] & [facility]/O CONTRAST, November 01, 2016 INDICATIONS : Evaluate for hepatocellular carcinoma. MEDICAL HISTORY : Gastroesophageal reflux disease. Hypertension. Benign prostatic hyperplasia, (BPH) Hypothyroidism. Di abetic neuropathy. Seizures. Congestive heart failure. Anticoagulant therapy. Hiatal hernia. Chronic kidney disease. Arthritis. Diabetes. Cirrhosis. Hepatitis C. Skin cancer. MRSA.Coronary artery diseas e. SURGICAL HISTORY : Tonsillectomy. Orthopedic surgery, bilateral feet. ENCOUNTER: Initial ACUITY: 1 day PAIN SCORE: 0/10 LOCATION: Bilateral upper quadrant MEASUREMENTS: LIVER: 19.0 cm length COMMON DUCT: 5 mm RIGHT KIDNEY: 12.0 x 6.3 x 6.9 cm SPLEEN: 13.2 cm length FINDINGS: LIVER: Liver is enlarged and diffusely echogenic with recanalized periumbilical vein suggesting some degree of portal hypertension. Focal mass noted on recent MRI examination is not demonstrated on this ultras ound exam. COMMON DUCT: No intraluminal mass or stone visualized. GALLBLADDER: Audible gallstones again demonstrated. Minimal gallbladder wall thickening likely due to chronic live r disease. No sonographic Asif's sign or pericolic cystic fluid. PANCREAS: The visualized portions are within normal limits. RIGHT KIDNEY: No hydronephrosis, stone or mass. SPLEEN: No focal lesion. CONCLUSION: 1. Hepatomegaly with diffuse increased echogenicity and recannulization of the periumbilical vein in this patient with hepatitis C consistent with early cirrhosis and some degree of portal hypertension. 2. Mass noted on recent MRI examination is not demonstrated on ultrasound exam. Consider multiphase C T or MRI examination for more direct comparison. 3. Cholelithiasis. Kirby Sultana MD on March 27, 2017 at 9:01 Board Certified Radiologist. This report was verified electronically.
[2017-03-27] MEDS ORDERED: INFLUENZA VIRUS VACCINE (QUADRIVALENT) 0.5 ML SYR IM ONE (10:00)
[2017-03-27] MEDS ORDERED: PNEUMOCOCCAL POLYVALENT INJ 25 MCG/0.5 ML SYR IM ONE (10:00)
[2017-03-27] MEDS: MORPHINE SULFATE 4 MG/ML INJ IV PUSH PRN ×3 (10:30→17:39)
--- NOTE | 2017-03-27 11:27 | HHI.FPPN ---
Subjective Remarks Patient was seen and examined this morning. He states he feels great this morning and wants to go home. He denies any fevers, headaches, chills, nausea, vomiting, diarrhea, constipation, abdominal pain, neck pain. He is able to move the neck well. He did require morphine IV medication today and he states that his pain is actually well controlled without it. He did also require dose of Ativan at 10:30 AM yesterday. He is eating and ambulating without difficulty. (Mariann Aguilar MD R2) Objective Vitals Vital Signs Date Time Temp Pulse Resp B/P (MAP) Pulse Ox O2 Delivery O2 Flow Rate FiO2 03/27/17 08:00 98.1 77 18 168/76 (106) 98 03/27/17 06:23 99.3 70 20 156/70 (98) 94 03/27/17 02:17 72 03/27/17 01:42 99.8 81 20 145/66 (92) 95 03/26/17 22:30 101.6 86 20 172/72 (105) 95 03/26/17 16:00 98.0 69 18 146/68 (94) 98 03/26/17 12:00 98.3 73 18 164/76 (105) 99 I/O 03/26/17 03/26/17 03/26/17 03/27/17 03/27/17 03/27/17 07:00 15:00 23:00 07:00 15:00 23:00 Intake Total 300 ml 50 ml Balance 300 ml 50 ml Intake IV Total 300 ml 50 ml # Voids 2 (Mariann Aguilar MD R2) Result Diagram: 03/27/1718 03/27/17718 Imaging Last Impressions Liver Ultrasound 03/27/17 0000 Signed Impressions: Service Date/Time: Monday, March 27, 2017 07:33 - CONCLUSION: 1. Hepatomegaly with diffuse increased echogenicity and recannulization of the periumbilical vein in this patient with hepatitis C consistent with early cirrhosis and some degree of portal hypertension. 2. Mass noted on recent MRI examination is not demonstrated on ultrasound exam. Consider multiphase CT or MRI examination for more direct comparison. 3. Cholelithiasis. Kirby Sultana MD Lower Extremity Ultrasound 03/26/17 0000 Signed Impressions: Service Date/Time: Sunday, March 26, 2017 07:44 - CONCLUSION: 1. No evidence of deep venous thrombosis. Stew Neal MD Cervical Spine MRI 03/26/17 0000 Signed Impressions: Service Date/Time: Sunday, March 26, 2017 10:47 - CONCLUSION: 1. Subcentimeter level IV and V lymph nodes, likely reactive. 2. No evidence for discitis/osteomyelitis or soft tissue abscess in the visualized portions of the cervical spine. 3. Mild multilevel degenerative spondylosis, as above. Kirby Sultana MD Chest X-Ray 03/25/171948 Signed Impressions: Service Date/Time: Saturday, March 25, 2017 20:08 - CONCLUSION: The lungs are clear. Scott Crespo MD Objective Remarks GENERAL: Obese male sitting at the side of the bed and then ambulating with no difficulty. He is in a good mood. SKIN: Warm and dry. Multiple 3-4mm dark purple papules on posterior aspect of the neck now scabbed over, without any active drainage. There is minimal tenderness to palpation and minimal induration over some and no fluctuation. Minimal surrounding erythema. He also has scattered telangiectasia on the chest. HEAD: Atraumatic. Normocephalic. EYES: Pupils equal and round. Mild scleral icterus. No injection or drainage. ENT: No nasal bleeding or discharge. Mucous membranes pink and moist. NECK: Trachea midline. No JVD. CARDIOVASCULAR: Regular rate and rhythm. Patient does have a 2/6 systolic ejection murmur. RESPIRATORY: No accessory muscle use. Clear to auscultation, with no wheezes or rhonchi. Breath sounds equal bilaterally. GASTROINTESTINAL: Abdomen soft, non-tender, nondistended. Hepatic and splenic margins not palpable. MUSCULOSKELETAL: Extremities without clubbing, cyanosis, or edema. No obvious deformities. NEUROLOGICAL: Awake and alert. No obvious cranial nerve deficits. Motor grossly within normal limits. Five out of 5 muscle strength in the arms and legs. Normal speech. EXTREMITIES: 2+ pitting edema in lower extremities, improving, left mcnally now covered with gauze dressing. Erythema and warmth has improved. Diminished dorsalis pedis pulses. Decreased sensation b/l in lower extremities due to diabetic neuropathy. Right foot with missing 3rd and 5th digit. Left foot with missing 5th digit. PSYCHIATRIC: Appropriate mood and affect; insight and judgment normal. Medications and IVs Inpatient Medications Acetaminophen/ Hydrocodone Bitart ([place] 5-325 Mg) 1 tab Q4H PRN PO PAIN SCALE 3 TO 5; Start 03/26/17 at 00:15 Acetaminophen/ Hydrocodone Bitart ([place] 10-325 Mg) 1 tab Q4H PRN PO PAIN SCALE 6 TO 10 Last administered on 03/27/17 09:00; Start 03/26/17 at 00:15 Amlodipine Besylate (Norvasc) 5 mg DAILY PO Last administered on 03/27/17 08: 11; Start 03/26/17 at 09:00 Aspirin (Ecotrin Ec) 81 mg DAILY PO Last administered on 03/27/17 08:11; Start 03/26/17 at 09:00 Atorvastatin Calcium (Lipitor) 20 mg HS PO Last administered on 03/26/17 21:06 ; Start 03/25/17 at 23:30 Bisacodyl (Dulcolax Supp) 10 mg DAILY PRN RECTAL SEVERE CONSITIPATION; Start 03/26/17 at 00:00 Bumetanide (Bumetanide) 1 mg BID PO Last administered on 03/27/17 08:10; Start 03/25/17 at 23:30 Carvedilol (Coreg) 3.125 mg BID PO Last administered on 03/27/17 08:10; Start 03/26/17 at 09:00 Chlorhexidine Gluconate (Chlorhexidine 2% Cloth) 3 pack DAILY@04 TOPICAL ; Start 03/27/17 at 04:00; Stop 03/31/17 at 04:01 Diazepam (Valium) 5 mg BID PRN PO ANXIETY; Start 03/25/17 at 23:30 Enoxaparin Sodium (Lovenox Inj) 30 mg Q24H SQ Last administered on 03/27/17 08 :08; Start 03/26/17 at 09:00 Flumazenil (Romazicon Inj) 0.2 mg Q1M PRN IV PUSH SEE LABEL COMMENTS; Start at 00:00 Gabapentin (Neurontin) 300 mg TID PO Last administered on 03/27/17 08:10; Start 03/26/17 at 09:00 Ibuprofen (Motrin) 400 mg Q6H PRN PO PAIN SCALE 1 TO 2; Start 03/26/17 at 00:15 ; Stop 03/26/17 at 19:00; Status DC Influenza Virus Vaccine (Flu (Quadrivalent) Vaccine Inj) 0.5 ml ONCE ONCE IM ; Start 03/27/17 at 10:00; Stop 03/27/17 at 10:01; Status DC Insulin Aspart (NovoLOG SUPPLEMENTAL SCALE) 1 ACHS SLIDING SCALE SQ Last administered on 03/26/17 17:38; Start 03/26/17 at 08:00 Insulin Detemir (Levemir Inj) 10 units TID SQ Last administered on 03/27/17 08 :14; Start 03/26/17 at 09:00 Lactulose (Lactulose Liq) 30 ml DAILY PRN PO SEVERE CONSITIPATION; Start at 00:00 Levothyroxine Sodium (Synthroid) 50 mcg DAILY@0700 PO Last administered on 03/27 06:09; Start 03/26/17 at 07:00 Lidocaine HCl (Xylocaine 1% Inj) 5 ml ONCE ONCE INFIL ; Start 03/25/17 at 20:15 ; Stop 03/25/17 at 20:16; Status DC Lorazepam (Ativan Inj) 2 mg Q15M PRN IV PUSH CIWA > 20; Start 03/26/17 at 00:00 Lorazepam (Ativan) 2 mg Q2H PRN PO CIWA 11-14; Start 03/26/17 at 00:00 Losartan Potassium (Cozaar) 50 mg DAILY PO Last administered on 03/27/17 08:11 ; Start 03/26/17 at 09:00 Magnesium Hydroxide (Milk Of Magnesia Liq) 30 ml Q12H PRN PO MILD - MODERATE CONSTIPATION; Start 03/26/17 at 00:00 Methocarbamol (Robaxin) 750 mg BID PO Last administered on 03/27/17 08:10; Start 03/25/17 at 23:30 Morphine Sulfate (Morphine Inj) 4 mg Q3H PRN IV PUSH BREAKTHROUGH PAIN Last administered on 03/27/17 10:30; Start 03/26/17 at 00:15 Mupirocin (Bactroban Nasal 2% Oint) 1 applic BID EACH NARE Last administered on 03/26/17 21:04; Start 03/26/17 at 21:00 Naloxone HCl (Narcan Inj) 0.4 mg UNSCH PRN IV PUSH SEE LABEL COMMENTS; Start 03/26/17 at 00:15 Ondansetron HCl (Zofran Inj) 4 mg ONCE ONCE IV PUSH Last administered on 20:56; Start 03/25/17 at 20:30; Stop 03/25/17 at 20:31; Status DC Patient Own Medication PT OWN MED: Zepat... DAILY PO Last administered on 08:08; Start 03/26/17 at 09:00 Pharmacy Profile Note 0 ml @ 0 mls/hr UNSCH OTHER ; Start 03/26/17 at 00:15 Piperacillin Sod/ Tazobactam Sod 50 ml @ 100 mls/hr Q6H IV Last administered on 03/26/17 15:00; Start 03/26/17 at 03:00; Stop 03/26/17 at 20:13; Status DC Pneumococcal Polyvalent Vaccine (Pneumovax-23 Inj) 25 mcg ONCE ONCE IM ; Start 03/27/17 at 10:00; Stop 03/27/17 at 10:01; Status DC Potassium Chloride (KCl) 20 meq DAILY PO Last administered on 03/27/17 08:10; Start 03/26/17 at 09:00 Senna/Docusate Sodium (Nikki-Colace) 1 tab BID PO Last administered on 08:10; Start 03/26/17 at 00:00 Sennosides (Senokot) 17.2 mg Q12H PRN PO MODERATE - SEVERE CONSTIPATION; Start 03/26/17 at 00:00 Sodium Chloride (NS Flush) 2 ml BID IV FLUSH Last administered on 03/26/17 21: 11; Start 03/26/17 at 00:00 Tamsulosin HCl (Flomax) 0.4 mg DAILY PO Last administered on 03/27/17 08:11; Start 03/26/17 at 09:00 Vancomycin HCl 1000 mg/Sodium Chloride 250 ml @ 250 mls/hr ONCE@0200 ONCE IV Last administered on 03/26/17 02:07; Start 03/26/17 at 02:00; Stop 03/26/17 at 02:59; Status DC (Mariann Aguilar MD R2) Urinary Catheter: No (Mariann Aguilar MD R2) Vascular Central Line Catheter: No (Mariann Aguilar MD R2) A/P Assessment and Plan 56-year-old M w/ history of MDRO and cirrhosis, s/p failed outpatient therapy of skin infection, admitted for neck abscess and LLE cellulitis. Clinically has improved significantly since I&D on 03/25 and IV antibiotics. Discharge Planning Likely today or tomorrow. He will need IV antibiotics and close follow-up. (Mariann Aguilar MD R2) Attending Attestation Patient seen and examined. Case reviewed and discussed Agree with plan of care as discussed with me and documented in the resident note. (Nithya Block MD) Problem List: (1) Abscess of neck ICD Codes: L02.11 - Cutaneous abscess of neck Status: Acute Plan: Continue vancomycin IV for now, ID consulted, appreciate recommendations. Patient is requiring IV pain medication at this time, counseled that he needs to be tolerating by mouth medications to go home Hospital course 1 month hx of neck abscess with history of MRSA -s/p I & D in ED 03/25 -s/p Vancomycin 1000 mg once, Zosyn 3.375g once, 500ml bolus NS x1, patient was not aggressively rehydrated due to hx of CHF and lower extremity edema -Elevated chloride 112, CO2 16.2 ,BUN 47 Cr 1.77 on BMP, most likely due to mild dehydration, repeat is reassuring -Vancomycin 1000 mg IV q12h with vancomycin pharmacy consult (03/25 - current) -Zosyn 3.375 g q6h, DC'd per ID (03/25-03/26) -No leukocytosis -ESR elevated at 62, concerning for possible osteomyelitis, MRI with no evidence of osteomyelitis -CRP elevated at 2.50, inflammatory process -Lactic Acid 1.3 wnl -Wound culture pending from 03/26. Wound culture 03/25 showing normal skin buck only -Blood cultures showing no growth 2 days -ID consulted, appreciate recs -Wound care consulted, no recommendations yet, likely can continue conservative management at home Pain control: Narco 325-5 mg PO q4h PRN pain 3-5 Narco 325-19 mg PO q4h PRN pain 6-10 Morphine 4mg IV push q3h for breakthrough pain (2) Cellulitis of left lower extremity ICD Codes: L03.116 - Cellulitis of left lower limb Status: Acute Plan: 2 day hx of LLE cellulitis -US w/ doppler ordered for lower extremities -Follow abx plan as above (3) Type 2 diabetes mellitus with peripheral neuropathy ICD Codes: E11.42 - Type 2 diabetes mellitus with diabetic polyneuropathy Status: Chronic Plan: -Novolog Sliding Scale, not requiring significant adjustments -Continue home Detemir 10 units SQ TID -Held home Aspart 10 units TID -Diabetic diet (4) CHF (congestive heart failure) ICD Codes: I50.9 - Heart failure, unspecified Status: Acute Plan: Echo this hospitalization showing EF 55-60% with severe aortic stenosis. Echo October 2016 showing no aortic stenosis. Will recommend close cardiology follow-up as outpatient as patient would be a candidate for valvular replacement Continue medical management as below Hospital course: -Last recorded Echo 11/08 showed EF of 55-60% -BNP mildly elevated at 142 -CXR wnl -Troponin less than 0.02 -EKG, sinus rhythm w/ RBBB, no acute ST segment elevation -Continue home loop diuretic, Bumetanide 1mg PO BID (5) HTN (hypertension) ICD Codes: I10 - Hypertension Status: Chronic Plan: Patient hypertensive to approximately 170s/80s this hospital stay. Asymptomatic. Medications from home list below. Will increase amlodipine to 10 mg today. Will start by mouth clonidine PRN Home HTN meds: -Amlodipine 5mg PO daily -Carvedilol 3.125 mg PO BID -Lorsartan 50mg PO daily (6) CKD (chronic kidney disease), stage III ICD Codes: N18.3 - Chronic kidney disease, stage 3 (moderate) Status: Acute Plan: -Estimated GFR 40 -Renally dose medications (7) Hepatitis C ICD Codes: B19.20 - Hepatitis C virus infection Status: Chronic Plan: -AST and ALT wnl -PT and PTT wnl -Continue home Elbasvir/ Grazoprevir 50-100mg daily -Will monitor liver function labs (8) HLD (hyperlipidemia) ICD Codes: E78.5 - Hyperlipidemia, unspecified Status: Chronic Plan: Chronic. Lipid profile from March 2016 were normal. -Continue home Atorvastatin 20 mg PO HS (9) Hypothyroidism ICD Codes: E03.9 - Hypothyroidism, unspecified Status: Chronic Plan: -Continue home Levothyroxine 50 mcg PO daily (10) BPH (benign prostatic hyperplasia) ICD Codes: N40.0 - Benign prostatic hyperplasia without lower urinary tract symptoms Status: Chronic Plan: -Continue home Flomax 0.4mg PO daily (11) Alcohol abuse ICD Codes: F10.10 - Alcohol abuse Status: Chronic Plan: -[facility] protocol (12) Nutrition, metabolism, and development symptoms ICD Codes: R63.8 - Other symptoms and signs concerning food and fluid intake Status: Acute Plan: Fluids: PO hydration Diet: Diabetic Diet Vitals q4h, Monitor I & Os DVT ppx: Lovenox 30 mg SQ daily (Mariann Aguilar MD R2) Problem Qualifiers (1) Hepatitis C: Mariann Aguilar MD R2 Mar 27, 2017 11:27 Nithya Block MD Apr 04, 2017 09:24
[2017-03-27] MEDS ORDERED: HYDR-3583 PO (12:21)
[2017-03-27] MEDS ORDERED: amLODIPine BESYLATE 5 MG TAB PO ONE (13:00)
--- NOTE | 2017-03-27 15:15 | HHI.PR ---
Addendum to Inpatient Note Additional Information Changed ABX to Ceftriaxone IV based on cultures Add doxy for staph and anti-inflammatory effect. Will follow in am. Mariel Anna MD Mar 27, 2017 15:15
[2017-03-27 16:13] LABS: HEMOGLOBIN A1a 1.2 %; HEMOGLOBIN A1b 0.7 %; HEMOGLOBIN Ao 82.4 %; HEMOGLOBIN F 1.2 %; HEMOGLOBIN LA1C 2.4 %; HEMOGLOBIN P3 6.3 %
[2017-03-27] MEDS: ceFAZolin 2 GM PREMIX 50 ML IV SCH (17:38)
[2017-03-27] MEDS: ATORVASTATIN 20 MG TAB PO SCH (20:59)
[2017-03-27] MEDS: DOXYCYCLINE HYCLATE 100 MG TAB PO SCH (21:00)
[2017-03-27] MEDS ORDERED: ACETAMINOPHEN 500 MG CPLT PO PRN (21:00)
[2017-03-28] VITALS: BP 175/79; PULSE 90; RESP 18; TEMP 100.7; O2SAT 97
[2017-03-28] MEDS: MORPHINE SULFATE 4 MG/ML INJ IV PUSH PRN ×2 (00:22→05:06)
[2017-03-28 02:26] VITALS: BP 162/72; PULSE 74; TEMP 99.1; O2SAT 99
[2017-03-28] MEDS: ACETAMINOPHEN/HYDROcodone 325 MG/10 MG TAB PO PRN ×4 (02:35→15:58)
[2017-03-28 04:00] VITALS: BP 147/65; PULSE 75; RESP 18; TEMP 99.2; O2SAT 95
[2017-03-28] MEDS: CHLORHEXIDINE GLUCONATE 2 % 1 PACK (2 CLOTHS) TOPICAL SCH ×2 (04:00→05:12)
[2017-03-28] MEDS: ceFAZolin 2 GM PREMIX 50 ML IV SCH ×2 (05:09→17:00)
[2017-03-28] MEDS: LEVOTHYROXINE SODIUM 50 MCG TAB PO SCH (06:38)
[2017-03-28] MEDS: INSULIN ASPART SUPPLEMENTAL SCALE SQ SCH ×3 (08:00→17:00)
[2017-03-28 08:39] VITALS: BP 136/67; PULSE 71; RESP 18; TEMP 99; O2SAT 95
[2017-03-28] MEDS: POTASSIUM CHLORIDE 20 MEQ CONTROLLED RELEASE TAB PO SCH (08:49)
[2017-03-28] MEDS: DOXYCYCLINE HYCLATE 100 MG TAB PO SCH (08:49)
[2017-03-28] MEDS: CARVEDILOL 3.125 MG TAB PO SCH (08:49)
[2017-03-28] MEDS: BUMETANIDE 1 MG TAB PO SCH (08:49)
[2017-03-28] MEDS: DOCUSATE SODIUM 50 MG/SENNA 8.6 MG TAB PO SCH (08:49)
[2017-03-28] MEDS: METHOCARBAMOL 500 MG TAB PO SCH (08:49)
[2017-03-28] MEDS: LOSARTAN 50 MG TAB PO SCH (08:50)
[2017-03-28] MEDS: MUPIROCIN 2% OINT 1 APPLIC/GM SYR EACH NARE SCH (08:50)
[2017-03-28] MEDS: TAMSULOSIN HCL 0.4 MG CAP PO SCH (08:50)
[2017-03-28] MEDS: INSULIN DETEMIR 100 UNITS/ML VIAL SQ SCH ×2 (08:50→12:57)
[2017-03-28] MEDS: GABAPENTIN 300 MG CAP PO SCH ×2 (08:50→12:02)
[2017-03-28] MEDS: ASPIRIN EC 81 MG TABEC PO SCH (08:50)
[2017-03-28] MEDS: SODIUM CHLORIDE 0.9% FLUSH 10 ML FLUSH IV FLUSH SCH (08:51)
[2017-03-28] MEDS: ZEPATIER PO SCH (08:51)
[2017-03-28] MEDS: ENOXAPARIN SODIUM 30 MG/0.3 ML SYRINGE SQ SCH (08:57)
--- NOTE | 2017-03-28 11:21 | HHI.FPPN ---
Subjective Remarks Patient seen and examined today. Currently states that he is feeling well. Pain improved to baseline. Although he had a short fever last night he notes it is after he received the pneumococcal vaccine and flu vaccine. States he's had similar reactions in the past. Pain in neck improved. No issues moving neck in all directions. Patient states while at home he does not exercise often however when he walks upstairs or walks a significant amount, for example in a grocery store, he will get short of breath. No chest pain. States he has good follow-up with his lead pressman Dr. Masters who is explained to him his options for his aortic stenosis. Otherwise feeling well. No further fevers, nausea, vomiting, chills, headache, abdominal pain, chest pain, shortness breath. (Reggie Smart MD R1) Objective Vitals Vital Signs Date Time Temp Pulse Resp B/P (MAP) Pulse Ox O2 Delivery O2 Flow Rate FiO2 03/28/17 08:39 99.0 71 18 136/67 (90) 95 03/28/17 04:00 99.2 75 18 147/65 (92) 95 03/28/17 02:26 99.1 74 162/72 (102) 99 03/28/17 00:00 100.7 90 18 175/79 (111) 97 03/27/17 21:00 89 03/27/17 20:00 101.5 82 18 197/86 (123) 97 03/27/17 16:00 98.4 81 18 181/84 (116) 98 03/27/17 12:00 97.7 71 18 173/81 (111) 99 I/O 03/27/17 03/27/17 03/27/17 03/28/17 03/28/17 03/28/17 07:00 15:00 23:00 07:00 15:00 23:00 # Voids 2 2 2 (Reggie Smart MD R1) Result Diagram: 03/27/1771703/27/17718 Objective Remarks GENERAL: Obese male sitting at the side of the bed and then ambulating with no difficulty. He is in a good mood. SKIN: Warm and dry. Folliculitis on the back the neck. Multiple 3-4mm dark purple papules on posterior aspect of the neck now scabbed over, without any active drainage. There is minimal tenderness to palpation and minimal induration over some and no fluctuation. Minimal surrounding erythema. He also has scattered telangiectasia on the chest. HEAD: Atraumatic. Normocephalic. EYES: Pupils equal and round. Mild scleral icterus. No injection or drainage. ENT: No nasal bleeding or discharge. Mucous membranes pink and moist. NECK: Trachea midline. No JVD. CARDIOVASCULAR: Regular rate and rhythm. Patient does have a 2/6 systolic ejection murmur. RESPIRATORY: No accessory muscle use. Clear to auscultation, with no wheezes or rhonchi. Breath sounds equal bilaterally. GASTROINTESTINAL: Abdomen soft, non-tender, nondistended. Hepatic and splenic margins not palpable. MUSCULOSKELETAL: Extremities without clubbing, cyanosis, or edema. No obvious deformities. NEUROLOGICAL: Awake and alert. No obvious cranial nerve deficits. Motor grossly within normal limits. Five out of 5 muscle strength in the arms and legs. Normal speech. EXTREMITIES: 2+ pitting edema in lower extremities, improving, left mcnally now covered with gauze dressing. Erythema and warmth has improved. Diminished dorsalis pedis pulses. Decreased sensation b/l in lower extremities due to diabetic neuropathy. Right foot with missing 3rd and 5th digit. Left foot with missing 5th digit. PSYCHIATRIC: Appropriate mood and affect; insight and judgment normal. Medications and IVs Current Medications Medications (Trade) Dose Ordered Sig/Sergei Route Start Time Stop Time Status Last Admin (Ecotrin Ec) 81 mg DAILY PO 03/26/17 09:00 03/28/17 08:50 (Lipitor) 20 mg HS PO 03/25/17 23:30 03/27/17 20:59 (Bumetanide) 1 mg BID PO 03/25/17 23:30 03/28/17 08:49 (Coreg) 3.125 mg BID PO 03/26/17 09:00 03/28/17 08:49 (Valium) 5 mg BID PRN PO 03/25/17 23:30 03/28/17 12:02 (Neurontin) 300 mg TID PO 03/26/17 09:00 03/28/17 12:02 (Levemir Inj) 10 units TID SQ 03/26/17 09:00 03/28/17 12:57 (Synthroid) 50 mcg DAILY@0700 PO 03/26/17 07:00 03/28/17 06:38 (Cozaar) 50 mg DAILY PO 03/26/17 09:00 03/28/17 08:50 (Robaxin) 750 mg BID PO 03/25/17 23:30 03/28/17 08:49 (KCl) 20 meq DAILY PO 03/26/17 09:00 03/28/17 08:49 (Flomax) 0.4 mg DAILY PO 03/26/17 09:00 03/28/17 08:50 (NS Flush) 2 ml UNSCH PRN IV FLUSH 03/26/17 00:00 (NS Flush) 2 ml BID IV FLUSH 03/26/17 00:00 03/28/17 08:51 (Nikki-Colace) 1 tab BID PO 03/26/17 00:00 03/28/17 08:49 (Milk Of Magnesia Liq) 30 ml Q12H PRN PO 03/26/17 00:00 (Senokot) 17.2 mg Q12H PRN PO 03/26/17 00:00 (Dulcolax Supp) 10 mg DAILY PRN RECTAL 03/26/17 00:00 (Lactulose Liq) 30 ml DAILY PRN PO 03/26/17 00:00 (Romazicon Inj) 0.2 mg Q1M PRN IV PUSH 03/26/17 00:00 (Ativan) 1 mg Q4H PRN PO 03/26/17 00:00 (Ativan Inj) 1 mg Q4H PRN IV PUSH 03/26/17 00:00 03/26/17 10:30 (Ativan) 2 mg Q2H PRN PO 03/26/17 00:00 (Ativan Inj) 2 mg Q2H PRN IV PUSH 03/26/17 00:00 (Ativan Inj) 2 mg Q1H PRN IV PUSH 03/26/17 00:00 (Ativan Inj) 2 mg Q15M PRN IV PUSH 03/26/17 00:00 (NovoLOG SUPPLEMENTAL SCALE) 1 ACHS SLIDING SCALE SQ 03/26/17 08:00 03/27/17 21:18 (Absaraka 5-325 Mg) 1 tab Q4H PRN PO 03/26/17 00:15 (Absaraka 10-325 Mg) 1 tab Q4H PRN PO 03/26/17 00:15 03/28/17 12:03 (Morphine Inj) 4 mg Q3H PRN IV PUSH 03/26/17 00:15 03/28/17 05:06 (Narcan Inj) 0.4 mg UNSCH PRN IV PUSH 03/26/17 00:15 Patient Own Medication PT OWN MED: Zepat... DAILY PO 03/26/17 09:00 03/28/17 08:51 (Lovenox Inj) 30 mg Q24H SQ 03/26/17 09:00 03/28/17 08:57 (Chlorhexidine 2% Cloth) 3 pack DAILY@04 TOPICAL 03/27/17 04:00 03/31/17 04:01 03/28/17 05:12 (Bactroban Nasal 2% Oint) 1 applic BID EACH NARE 03/26/17 21:00 03/28/17 08:50 (Norvasc) 10 mg DAILY PO 03/28/17 09:00 03/28/17 08:49 Cefazolin Sodium/ Dextrose 50 ml @ 100 mls/hr Q12H IV 03/27/17 17:00 03/28/17 05:09 (Vibratab) 100 mg Q12HR PO 03/27/17 21:00 03/28/17 08:49 (Tylenol) 1,000 mg Q6H PRN PO 03/27/17 21:00 03/27/17 21:15 (Reggie Smart MD R1) A/P Assessment and Plan 56-year-old M w/ history of MDRO and cirrhosis, s/p failed outpatient therapy of skin infection, admitted for neck abscess and LLE cellulitis. Clinically has improved significantly since I&D on 03/25 and IV antibiotics. Discharge Planning Likely today or tomorrow. He will need oral antibiotics and close follow-up. (Reggie Smart MD R1) Attending Attestation Patient seen and examined. Case reviewed and discussed Agree with plan of care as discussed with me and documented in the resident note. (Nithya Block MD) Problem List: (1) Abscess of neck ICD Codes: L02.11 - Cutaneous abscess of neck Status: Acute Plan: Continue vancomycin IV for now, ID consulted, appreciate recommendations. Able to be discharged with by mouth doxycycline. Fever last night likely due to vaccine administration, will discharge today with close follow-up if afebrile through the day. Patient also requiring IV pain medication early this morning. Tolerating well with oral pain medication. Hospital course 1 month hx of neck abscess with history of MRSA -s/p I & D in ED 03/25 -s/p Vancomycin 1000 mg once, Zosyn 3.375g once, 500ml bolus NS x1, patient was not aggressively rehydrated due to hx of CHF and lower extremity edema -Elevated chloride 112, CO2 16.2 ,BUN 47 Cr 1.77 on BMP, most likely due to mild dehydration, repeat is reassuring -Vancomycin 1000 mg IV q12h with vancomycin pharmacy consult (03/25 - current) -Zosyn 3.375 g q6h, DC'd per ID (03/25-03/26) -No leukocytosis -ESR elevated at 62, concerning for possible osteomyelitis, MRI with no evidence of osteomyelitis -CRP elevated at 2.50, inflammatory process -Lactic Acid 1.3 wnl -Wound culture pending from 03/26. Wound culture 03/25 showing normal skin buck only -Blood cultures showing no growth 2 days -ID consulted, appreciate recs -Wound care consulted, no recommendations yet, likely can continue conservative management at home Pain control: Narco 325-5 mg PO q4h PRN pain 3-5 Narco 325-19 mg PO q4h PRN pain 6-10 Morphine 4mg IV push q3h for breakthrough pain (2) Cellulitis of left lower extremity ICD Codes: L03.116 - Cellulitis of left lower limb Status: Acute Plan: 2 day hx of LLE cellulitis -US shows no DVT -Follow abx plan as above (3) Type 2 diabetes mellitus with peripheral neuropathy ICD Codes: E11.42 - Type 2 diabetes mellitus with diabetic polyneuropathy Status: Chronic Plan: -Novolog Sliding Scale, not requiring significant adjustments -Continue home Detemir 10 units SQ TID -Held home Aspart 10 units TID -Diabetic diet (4) CKD (chronic kidney disease), stage III ICD Codes: N18.3 - Chronic kidney disease, stage 3 (moderate) Status: Acute Plan: -Estimated GFR 40 -Renally dose medications (5) Severe aortic stenosis ICD Codes: I35.0 - Nonrheumatic aortic (valve) stenosis Plan: Echo this hospitalization showing EF 55-60% with severe aortic stenosis. Echo October 2016 showing no aortic stenosis. Will recommend close cardiology follow-up as outpatient as patient would be a candidate for valvular replacement, however patient states he has close follow- up with his lead pressman and is aware of possible options at this time. Continue medical management as below Hospital course: -Last recorded Echo 11/08 showed EF of 55-60% -BNP mildly elevated at 142 -CXR wnl -Troponin less than 0.02 -EKG, sinus rhythm w/ RBBB, no acute ST segment elevation -Continue home loop diuretic, Bumetanide 1mg PO BID (6) HTN (hypertension) ICD Codes: I10 - Hypertension Status: Chronic Plan: Patient hypertensive to approximately 170s/80s this hospital stay. Asymptomatic. Medications from home list below. Will increase amlodipine to 10 mg today. Will start by mouth clonidine PRN Home HTN meds: -Amlodipine 5mg PO daily -Carvedilol 3.125 mg PO BID -Lorsartan 50mg PO daily (7) Hepatitis C ICD Codes: B19.20 - Hepatitis C virus infection Status: Chronic Plan: -Liver ultrasound report states there is a mass noted in recent MRI examination which was not demonstrated on ultrasound exam. Consider multiphase CT or MRI examination for more direct comparison. Spoke with radiologist today, due to patient's decreased GFR he recommends outpatient MRI with eovist contrast. However, upon review of our imaging records, we could not find any MRI with mention of a hepatic mass. -AST and ALT wnl -PT and PTT wnl -Continue home Elbasvir/ Grazoprevir 50-100mg daily -Will monitor liver function labs (8) HLD (hyperlipidemia) ICD Codes: E78.5 - Hyperlipidemia, unspecified Status: Chronic Plan: Chronic. Lipid profile from March 2016 were normal. -Continue home Atorvastatin 20 mg PO HS (9) Hypothyroidism ICD Codes: E03.9 - Hypothyroidism, unspecified Status: Chronic Plan: -Continue home Levothyroxine 50 mcg PO daily (10) BPH (benign prostatic hyperplasia) ICD Codes: N40.0 - Benign prostatic hyperplasia without lower urinary tract symptoms Status: Chronic Plan: -Continue home Flomax 0.4mg PO daily (11) Alcohol abuse ICD Codes: F10.10 - Alcohol abuse Status: Chronic Plan: -[facility] protocol (12) Nutrition, metabolism, and development symptoms ICD Codes: R63.8 - Other symptoms and signs concerning food and fluid intake Status: Acute Plan: Fluids: PO hydration Diet: Diabetic Diet Vitals q4h, Monitor I & Os DVT ppx: Lovenox 30 mg SQ daily (Reggie Smart MD R1) Problem Qualifiers (1) Hepatitis C: Reggie Smart MD R1 Mar 28, 2017 11:21 Nithya Block MD Apr 04, 2017 09:23
[2017-03-28 12:17] VITALS: BP 136/66; PULSE 70; RESP 18; TEMP 98.4; O2SAT 96
--- NOTE | 2017-03-28 14:30 | HHI.PR ---
Addendum to Inpatient Note Addendum Reason: Additional Documentation Additional Information Case d.w : clinically improved. Folliculitis related cellulitis. DC on oral doxy for 7 days. anti dandruff shampoo for scalp and neck. CARISA wraps for LE. Elevation of leg for LE. Will sign off please call back if any change in clinical condition or questions. Mariel Anna MD Mar 28, 2017 14:30
--- NOTE | 2017-03-28 16:19 | HHI.DS ---
Discharge Summary Admission Date Mar 25, 2017 at 23:28 Admitting Diagnosis Cellulitis, Abscess, Failed outpt managment (1) Abscess of neck Diagnosis: Principal Plan: Continue vancomycin IV for now, ID consulted, appreciate recommendations. Able to be discharged with by mouth doxycycline. Fever last night likely due to vaccine administration, will discharge today with close follow-up if afebrile through the day. Patient also requiring IV pain medication early this morning. Tolerating well with oral pain medication. Hospital course 1 month hx of neck abscess with history of MRSA -s/p I & D in ED 03/25 -s/p Vancomycin 1000 mg once, Zosyn 3.375g once, 500ml bolus NS x1, patient was not aggressively rehydrated due to hx of CHF and lower extremity edema -Elevated chloride 112, CO2 16.2 ,BUN 47 Cr 1.77 on BMP, most likely due to mild dehydration, repeat is reassuring -Vancomycin 1000 mg IV q12h with vancomycin pharmacy consult (03/25 - current) -Zosyn 3.375 g q6h, DC'd per ID (03/25-03/26) -No leukocytosis -ESR elevated at 62, concerning for possible osteomyelitis, MRI with no evidence of osteomyelitis -CRP elevated at 2.50, inflammatory process -Lactic Acid 1.3 wnl -Wound culture pending from 03/26. Wound culture 03/25 showing normal skin buck only -Blood cultures showing no growth 2 days -ID consulted, appreciate recs -Wound care consulted, no recommendations yet, likely can continue conservative management at home Pain control: Narco 325-5 mg PO q4h PRN pain 3-5 Narco 325-19 mg PO q4h PRN pain 6-10 Morphine 4mg IV push q3h for breakthrough pain ICD Codes: L02.11 - Cutaneous abscess of neck Status: Acute (2) Cellulitis of left lower extremity Diagnosis: Principal Plan: 2 day hx of LLE cellulitis -US shows no DVT -Follow abx plan as above ICD Codes: L03.116 - Cellulitis of left lower limb Status: Acute (3) Type 2 diabetes mellitus with peripheral neuropathy Diagnosis: Secondary Plan: -Novolog Sliding Scale, not requiring significant adjustments -Continue home Detemir 10 units SQ TID -Held home Aspart 10 units TID -Diabetic diet ICD Codes: E11.42 - Type 2 diabetes mellitus with diabetic polyneuropathy Status: Chronic (4) CHF (congestive heart failure) Diagnosis: Secondary Plan: Echo this hospitalization showing EF 55-60% with severe aortic stenosis. Echo October 2016 showing no aortic stenosis. 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 Continue medical management as below Hospital course: -Last recorded Echo 11/08 showed EF of 55-60% -BNP mildly elevated at 142 -CXR wnl -Troponin less than 0.02 -EKG, sinus rhythm w/ RBBB, no acute ST segment elevation -Continue home loop diuretic, Bumetanide 1mg PO BID ICD Codes: I50.9 - Heart failure, unspecified Status: Acute (5) HTN (hypertension) Diagnosis: Secondary Plan: Patient hypertensive to approximately 170s/80s this hospital stay. Asymptomatic. Medications from home list below. Will increase amlodipine to 10 mg today. Will start by mouth clonidine PRN Home HTN meds: -Amlodipine 5mg PO daily -Carvedilol 3.125 mg PO BID -Lorsartan 50mg PO daily ICD Codes: I10 - Hypertension Status: Chronic (6) CKD (chronic kidney disease), stage III Diagnosis: Secondary Plan: -Estimated GFR 40 -Renally dose medications ICD Codes: N18.3 - Chronic kidney disease, stage 3 (moderate) Status: Acute (7) Hepatitis C Diagnosis: Secondary Plan: -Liver ultrasound report states there is a mass noted in recent MRI examination which was not demonstrated on ultrasound exam. Consider multiphase CT or MRI examination for more direct comparison. Spoke with radiologist today, due to patient's decreased GFR he recommends outpatient MRI with eovist contrast -AST and ALT wnl -PT and PTT wnl -Continue home Elbasvir/ Grazoprevir 50-100mg daily -Will monitor liver function labs ICD Codes: B19.20 - Hepatitis C virus infection Status: Chronic (8) HLD (hyperlipidemia) Diagnosis: Secondary Plan: Chronic. Lipid profile from March 2016 were normal. -Continue home Atorvastatin 20 mg PO HS ICD Codes: E78.5 - Hyperlipidemia, unspecified Status: Chronic (9) Hypothyroidism Diagnosis: Secondary Plan: -Continue home Levothyroxine 50 mcg PO daily ICD Codes: E03.9 - Hypothyroidism, unspecified Status: Chronic (10) BPH (benign prostatic hyperplasia) Diagnosis: Secondary Plan: -Continue home Flomax 0.4mg PO daily ICD Codes: N40.0 - Benign prostatic hyperplasia without lower urinary tract symptoms Status: Chronic (11) Alcohol abuse Diagnosis: Secondary Plan: -CIWA protocol ICD Codes: F10.10 - Alcohol abuse Status: Chronic (12) Nutrition, metabolism, and development symptoms Plan: Fluids: PO hydration Diet: Diabetic Diet Vitals q4h, Monitor I & Os DVT ppx: Lovenox 30 mg SQ daily ICD Codes: R63.8 - Other symptoms and signs concerning food and fluid intake Status: Acute Brief History 56 yr old M w/ significant PMHx of poorly controlled T2DM, CKD (stage III), HTN , HLD, CHF, and Hepatitis C, who presents to the ED for neck infection and "feeling ill." Accompanied by , who provides parts of the history. Patient reports that he began having flu-like symptoms this morning, such as subjective fever, fatigue, and muscle aches. He has a hx of diabetic foot infections requiring b/l toe amputations in the past. He felt this was a similar episode when he got an infection in his foot, prompting him to go to the ED. The abscess on the back of his neck developed a month ago in January. He came to the ED 02/16 for the same problem. He had an I & D performed on the neck abscess and was discharged home with a course of Bactrim, which he completed. He states that "the abscess never went away" and continued to drain clear fluid. He's tried "washing it, scrubbing it to get the dirt out, and rubbing it with alcohol." He's also had a few procedures to remove skin cancers on the back of his neck. Per chart review, he has hx of actinic keratosis, most likely removal of squamous cell carcinomas. In addition, the patient also complains of an abrasion on his left mcnally from tripping over a vine 2 days ago. The left leg is red, swollen, and warm. He states he is unable to feel pain around his left leg due to peripheral neuropathy. He reports that he is only able to check his sugar one time a day due to insurance issues. Last blood sugar check was 176. He takes Detemir 10 units TID and Aspart 10 units TID. He reports being compliant with his medications. Past smoker, 3ppd for 5 years. Drinks 10 beers/ day. He endorses some SOB with exertion, but denies URI symptoms, trouble swallowing, CP, abdominal pain, N/V, and diarrhea. PCP, Dr. Parikh Medical Detailist, Dr. Ezio Masters GI, Dr. Beltre CBC/BMP: 03/27/17 0718 03/27/17 0719 Significant Findings Laboratory Tests Test 03/25/17 20:00 03/26/17 08:33 03/27/17 07:18 03/27/17 07:19 Red Blood Count 3.49 MIL/MM3 (4.50-5.90) 3.21 MIL/MM3 (4.50-5.90) 3.05 MIL/MM3 (4.50-5.90) Hemoglobin 9.8 GM/DL (13.0-17.0) 9.2 GM/DL (13.0-17.0) 8.9 GM/DL (13.0-17.0) Hematocrit 30.5 % (39.0-51.0) 28.3 % (39.0-51.0) 27.1 % (39.0-51.0) Red Cell Distribution Width 17.3 % (11.6-17.2) Monocytes (%) (Auto) 12.2 % (0.0-8.0) 12.4 % (0.0-8.0) 12.5 % (0.0-8.0) Monocytes # (Auto) 1.3 TH/MM3 (0-0.9) 1.0 TH/MM3 (0-0.9) 1.1 TH/MM3 (0-0.9) Erythrocyte Sedimentation Rate 62 mm/hr (0-20) Blood Urea Nitrogen 47 MG/DL (7-18) 44 MG/DL (7-18) 41 MG/DL (7-18) Creatinine 1.77 MG/DL (0.60-1.30) 1.87 MG/DL (0.60-1.30) 1.89 MG/DL (0.60-1.30) Random Glucose 140 MG/DL (74-106) 127 MG/DL (74-106) 109 MG/DL (74-106) Total Protein 8.4 GM/DL (6.4-8.2) Calcium Level 8.4 MG/DL (8.5-10.1) 8.3 MG/DL (8.5-10.1) Alkaline Phosphatase 137 U/L (45-117) 124 U/L (45-117) Chloride Level 112 MEQ/L (98-107) 111 MEQ/L (98-107) 112 MEQ/L (98-107) Carbon Dioxide Level 16.2 MEQ/L (21.0-32.0) 17.7 MEQ/L (21.0-32.0) 19.3 MEQ/L (21.0-32.0) Estimat Glomerular Filtration Rate 40 ML/MIN (>89) 37 ML/MIN (>89) 37 ML/MIN (>89) Creatine Kinase MB 4.1 NG/ML (0.5-3.6) Troponin I LESS THAN 0.02 NG/ML C-Reactive Protein 2.50 MG/DL (0.00-0.30) B-Type Natriuretic Peptide 142 PG/ML (0-100) Platelet Count 139 TH/MM3 (150-450) 144 TH/MM3 (150-450) Albumin 3.3 GM/DL (3.4-5.0) 3.2 GM/DL (3.4-5.0) Hemoglobin A1c 6.9 % (4.3-6.0) PE at Discharge GENERAL: Obese male sitting at the side of the bed and then ambulating with no difficulty. He is in a good mood. SKIN: Warm and dry. Folliculitis on the back the neck. Multiple 3-4mm dark purple papules on posterior aspect of the neck now scabbed over, without any active drainage. There is minimal tenderness to palpation and minimal induration over some and no fluctuation. Minimal surrounding erythema. He also has scattered telangiectasia on the chest. HEAD: Atraumatic. Normocephalic. EYES: Pupils equal and round. Mild scleral icterus. No injection or drainage. ENT: No nasal bleeding or discharge. Mucous membranes pink and moist. NECK: Trachea midline. No JVD. CARDIOVASCULAR: Regular rate and rhythm. Patient does have a 2/6 systolic ejection murmur. RESPIRATORY: No accessory muscle use. Clear to auscultation, with no wheezes or rhonchi. Breath sounds equal bilaterally. GASTROINTESTINAL: Abdomen soft, non-tender, nondistended. Hepatic and splenic margins not palpable. MUSCULOSKELETAL: Extremities without clubbing, cyanosis, or edema. No obvious deformities. NEUROLOGICAL: Awake and alert. No obvious cranial nerve deficits. Motor grossly within normal limits. Five out of 5 muscle strength in the arms and legs. Normal speech. EXTREMITIES: 2+ pitting edema in lower extremities, improving, left mcnally now covered with gauze dressing. Erythema and warmth has improved. Diminished dorsalis pedis pulses. Decreased sensation b/l in lower extremities due to diabetic neuropathy. Right foot with missing 3rd and 5th digit. Left foot with missing 5th digit. PSYCHIATRIC: Appropriate mood and affect; insight and judgment normal. Hospital Course Patient med 03/26 for posterior abscess of neck/folliculitis, cellulitis of left lower leg. Cervical spine MRI revealed no signs of osteomyelitis. Lower extremity ultrasound showed no signs of DVT. He was started on vancomycin 1 g every 12 hours and Zosyn 3.375 g every 6 hours. The following day was seen by infectious disease who to need the IV vancomycin and discontinued the IV Zosyn. Patient continued IV vancomycin until day of discharge 03/28, had clinically improved, and was recommended by infectious disease to continue oral doxycycline outpatient. Pt Condition on Discharge: Stable Discharge Instructions Follow up Referrals: Cardiology - 1 Week PCP Follow-up - 1 Week New Medications: Doxycycline Hyclate (Doxycycline Hyclate) 100 Mg Cap 100 MG PO BID for Infection for 7 Days, #14 CAP 0 Refills Hydrocodone-Acetaminophen (Hydrocodone-Acetaminophen) 10-325 mg Tab 1 TAB PO Q4-6H, #15 TAB Continued Medications: Amlodipine (Norvasc) 5 Mg Tab 5 MG PO DAILY for Blood Pressure Management, #30 TAB [address] (Aspirin 81) 81 Mg Tabdr 81 MG PO DAILY, TAB 0 Refills Atorvastatin (Atorvastatin) 20 Mg Tab 20 MG PO HS for Cholesterol Management, #30 TAB 0 Refills Bumetanide (Bumetanide) 1 Mg Tab 1 MG PO BID, #60 TAB 0 Refills Carvedilol (Carvedilol) 3.125 Mg Tab 3.125 MG PO BID, #60 TAB 0 Refills Diazepam (Diazepam) 5 Mg Tab 5 MG PO BID PRN for ANXIETY, TAB 0 Refills Elbasvir/Grazoprevir (Zepatier 50-100 mg Tablet) 1 Each Tablet Gabapentin (Gabapentin) 300 Mg Cap 300 MG PO TID, #90 CAP 0 Refills Hydrochlorothiazide (Hydrochlorothiazide) 25 Mg Tab 25 MG PO DAILY for Blood Pressure Management, #30 TAB 3 Refills Hydrocodone-Acetaminophen (Lortab) 10-325 Mg Tab 1 TAB PO QID PRN for BREAKTHROUGH PAIN, TAB 0 Refills Insulin Aspart Inj (Novolog Inj) 1,000 Unit/10 Ml Vial 10 UNITS SQ TID for Blood Sugar Management, #10 ML 0 Refills Insulin Detemir Inj (Levemir Inj) 1,000 unit/ 10 ML Vial 10 UNITS SQ TID for Blood Sugar Management, VIAL 0 Refills Do not mix with any other Insulin. Levothyroxine (Levothyroxine) 50 Mcg Tab 50 MCG PO DAILY for Thyroid, #30 TAB 0 Refills Losartan (Losartan) 50 Mg Tab 50 MG PO DAILY for Blood Pressure Management, #30 TAB 0 Refills Methocarbamol (Methocarbamol) 750 Mg Tab 750 MG PO BID for Muscle Spasm, #120 TAB 0 Refills Methocarbamol (Methocarbamol) 750 Mg Tab 750 MG PO QID for Muscle Spasm, #120 TAB 0 Refills Potassium Chloride ER (Potassium Chloride ER) 20 Meq Tab 20 MEQ PO DAILY for Electrolyte Replacement, #30 TAB 0 Refills Tamsulosin (Flomax) 0.4 Mg Cap 0.4 MG PO DAILY for Manage Prostate Problems, #30 CAP 0 Refills Thiamine Mononitrate (Vitamin B-1) 100 Mg Tab 100 MG PO DAILY, TAB Reggie Smart MD R1 Mar 28, 2017 16:19
--- NOTE | 2017-03-28 16:21 | HHI.DCPOC ---
Discharge Care Plan Diagnosis: (1) Cellulitis of left lower extremity (2) Abscess of neck (3) Diabetes mellitus (4) CKD (chronic kidney disease), stage III (5) Hepatitis C Goals to Promote Your Health * To prevent worsening of your condition and complications * To maintain your health at the optimal level Directions to Meet Your Goals Take your medications as prescribed Follow your dietary instruction Follow activity as directed Keep your appointments as scheduled Take your immunizations and boosters as scheduled If your symptoms worsen call your PCP, if no PCP go to Urgent Care Center or Emergency Room Smoking is Dangerous to Your Health. Avoid second hand smoke Call the 24-hour hour crisis hotline for domestic abuse at Reggie Smart MD R1 Mar 28, 2017 16:21 Nithya Block MD Apr 04, 2017 09:22
[2017-03-28] MEDS ORDERED: DOXY100C PO (16:28)
[2017-03-28 16:58] VITALS: BP 139/67; PULSE 69; RESP 18; TEMP 98.8; O2SAT 96
[2017-03-28 17:19] LABS: AUTOMATED NEUTROPHIL # 5.3 TH/MM3 (1.8-7.7); BASOPHIL % 0.3 % (0.0-2.0); EOSINOPHIL # 0.2 TH/MM3 (0-0.4); EOSINOPHIL % 2.5 % (0.0-4.0); HEMATOCRIT 27.5 % (39.0-51.0); HEMO FLAGS DIFF FINAL; LYMPH % 19.8 % (9.0-44.0); LYMPHOCYTE # 1.7 TH/MM3 (1.0-4.8); MEAN CELL VOLUME 88.7 FL (80.0-100.0); MEAN CORPUSCULAR HEMOGLOBIN 24.2 PG (27.0-34.0); MONO % 15.3 % (0.0-8.0); NEUT % 62.1 % (16.0-70.0); PLATELET COUNT 139 TH/MM3 (150-450); RED CELL DISTRIBUTION WIDTH 16.5 % (11.6-17.2); WHITE BLOOD COUNT 8.6 TH/MM3 (4.0-11.0)
[2017-03-28 17:32] LABS: BICARBONATE 18.9 MEQ/L (21.0-32.0); POTASSIUM 4.1 MEQ/L (3.5-5.1)
[2017-03-28 17:36] LABS: MEAN CORPUSCULAR HGB CONC 27.2 % (32.0-36.0)
[2017-03-29 13:52] LABS: HCV RNA PCR IU/ML LESS THAN 15 IU/mL (0-14); HCV RNA PCR LOGIU/ML LESS THAN 1.18 (0-1.18)
== END 2017-03-28 18:30 | disposition home or self-care (01) | DRG 603 ==
LOC: NEPE 19:09 → NEDA 23:28 → N05A 03-26 00:59
PROVIDERS: ADMIT Family Medicine; ATTEND Family Medicine
PROC: 0H94XZX Drainage of Neck Skin, External Approach, Diagnostic (ICD-10-PCS; principal; 2017-03-25)
DX: L02.11 Cutaneous abscess of neck (principal); E11.22 Type 2 diabetes mellitus with diabetic chronic kidney disease; E11.42 Type 2 diabetes mellitus with diabetic polyneuropathy; L03.116 Cellulitis of left lower limb; L03.221 Cellulitis of neck; I50.9 Heart failure, unspecified; E11.65 Type 2 diabetes mellitus with hyperglycemia; E86.0 Dehydration; Z86.14 Personal history of Methicillin resistant Staphylococcus aureus infection; I12.9 Hypertensive chronic kidney disease with stage 1 through stage 4 chronic kidney disease, or unspecified chronic kidney disease; N18.3 Chronic kidney disease, stage 3 (moderate); B19.20 Unspecified viral hepatitis C without hepatic coma; E78.5 Hyperlipidemia, unspecified; E03.9 Hypothyroidism, unspecified; N40.0 Benign prostatic hyperplasia without lower urinary tract symptoms; F10.10 Alcohol abuse, uncomplicated; Z79.4 Long term (current) use of insulin; Z79.82 Long term (current) use of aspirin; E66.9 Obesity, unspecified; Z68.37 Body mass index [BMI] 37.0-37.9, adult; Z89.422 Acquired absence of other left toe(s); Z89.421 Acquired absence of other right toe(s); I25.10 Atherosclerotic heart disease of native coronary artery without angina pectoris; I25.2 Old myocardial infarction; I35.0 Nonrheumatic aortic (valve) stenosis; R01.1 Cardiac murmur, unspecified; G47.30 Sleep apnea, unspecified; G89.29 Other chronic pain; M54.9 Dorsalgia, unspecified; S80.812A Abrasion, left lower leg, initial encounter; W18.40XA Slipping, tripping and stumbling without falling, unspecified, initial encounter; Z66 Do not resuscitate; L73.9 Follicular disorder, unspecified; Z23 Encounter for immunization; Z87.891 Personal history of nicotine dependence; Z85.828 Personal history of other malignant neoplasm of skin
CPT/HCPCS: 10060; 71010; 72156; 76705; 76937; 80048; 80053; 82105; 82550; 82552; 82948; 83036; 83605; 83690; 83735; 83880; 84484; 85025; 85610; 85652; 85730; 86140; 86403; 87040; 87070; 87147; 87186; 87205; 87522; 90471; 90472; 90686; 90732; 93005; 93306; 93970; 96365; 96367; 96375; A9577; G0008; G0009; J0690; J1650; J1815; J2060; J2270; J2405; J2543; J3370; J7040; J7050; Q2038

== ENCOUNTER 2017-05-01 18:32 | Emergency (ER) | payer MEDICARE ==
[~2017-05-01 18:32] MED LIST changes: -ASPI-110 PO; +ASPI1TAB57 PO; -BACT800T5 PO; +DOXY100C PO; +HYDR-3583 PO; +THIA100T16 PO
[2017-05-01 18:34] VITALS: BP 166/81; PULSE 72; RESP 18; TEMP 98; O2SAT 98
--- NOTE | 2017-05-01 19:44 | RADRPT ---
EXAM DATE/TIME: 05/01/2017 19:21 [facility] COMPARISON: CHEST SINGLE AP, March 25, 2017, 20:08. INDICATIONS : Right side chest and rib pain post fall. MEDICAL HISTORY : Gastroesophageal reflux disease. Hypertension. Hypothyroidism. Diabetic neuropathy. Seizures. Congest rishi heart failure. Coronary artery disease. SURGICAL HISTORY : None. ENCOUNTER: Initial ACUITY: 1 day PAIN SCORE: 9/10 LOCATION: Right chest. FINDINGS: A single view of the chest demonstrates the lungs to be symmetrically aerated without evidence of mas s, infiltrate or effusion. The cardiomediastinal contours are unremarkable. Posterior rib fractures are seen involving the right fourth through eighth ribs. There is callus formation associated with th peri fractures. CONCLUSION: 1. Subacute right fourth through eighth rib fractures. No acute fracture is appreciated. Scott Mendoza Jr., MD on May 01, 2017 at 19:41 Board Certified Radiologist. This report was verified electronically.
--- NOTE | 2017-05-01 19:45 | RADRPT ---
EXAM DATE/TIME: 05/01/2017 19:22 [facility] COMPARISON: No previous studies available for comparison. INDICATIONS : Right shoulder pain post fall. MEDICAL HISTORY : None. SURGICAL HISTORY : None. ENCOUNTER: Initial ACUITY: 1 day PAIN SCORE: 9/10 LOCATION: Right shoulder. FINDINGS: Multiple view examination of the right shoulder demonstrates no evidence of fracture or dislocation. Right fourth through eighth rib fractures are seen. There is callus formation associated with these f ractures. The glenohumeral and acromioclavicular joints are maintained. There is normal range of mo tion between internal and external rotation. Bony mineralization is normal. CONCLUSION: 1. Subacute right fourth through eighth rib fractures. No acute fracture observed. Scott Mendoza Jr., MD on May 01, 2017 at 19:42 Board Certified Radiologist. This report was verified electronically.
--- NOTE | 2017-05-01 19:57 | RADRPT ---
EXAM DATE/TIME: 05/01/2017 19:29 [facility] COMPARISON: CT BRAIN W/O CONTRAST, April 01, 2014, 11:45. INDICATIONS : Fell off porch on right shoulder,dizzy RADIATION DOSE: 56.35 CTDIvol (mGy) MEDICAL HISTORY : Seizures. Hypertension. Cardiovascular diseaseRenal failure,hepc SURGICAL HISTORY : None. ENCOUNTER: Initial ACUITY: 1 day PAIN SCALE: 10/10 LOCATION: cranial TECHNIQUE: Multiple contiguous axial images were obtained of the head. Using automated exposure control and adj ustment of the mA and/or kV according to patient size, radiation dose was kept as low as reasonably a chievable to obtain optimal diagnostic quality images. DICOM format image data is available electro nically for review and comparison. FINDINGS: CEREBRUM: The ventricles are normal for age. No evidence of midline shift, mass lesion, hemorrhage or acute in farction. No extra-axial fluid collections are seen. POSTERIOR FOSSA: The cerebellum and brainstem are intact. The 4th ventricle is midline. The cerebellopontine angle i s unremarkable. EXTRACRANIAL: The visualized portion of the orbits is intact. SKULL: The calvaria is intact. No evidence of skull fracture. CONCLUSION: No acute disease. Scott Mendoza Jr., MD on May 01, 2017 at 19:55 Board Certified Radiologist. This report was verified electronically.
--- NOTE | 2017-05-01 20:14 | RADRPT ---
EXAM DATE/TIME: 05/01/2017 19:31 [facility] COMPARISON: No previous studies available for comparison. INDICATIONS : Fell off porch, fell and hit right shoulder on ground. RADIATION DOSE: 40.17 CTDIvol (mGy) MEDICAL HISTORY : Seizures. Hypertension. Cardiovascular diseaseRenal failure,hepc,diabetic SURGICAL HISTORY : None. ENCOUNTER: Initial ACUITY: 1 day PAIN SCALE: 10/10 LOCATION: Right neck TECHNIQUE: Volumetric scanning of the cervical spine was performed. Multiplanar reconstructions in the sagittal, coronal and oblique axial planes were performed. Using automated exposure control and adjustment o f the mA and/or kV according to patient size, radiation dose was kept as low as reasonably achievable to obtain optimal diagnostic quality images. DICOM format image data is available electronically f or review and comparison. FINDINGS: VERTEBRAE: Normal vertebral body height. 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 ALIGNMENT: No evidence of subluxation. Calcified plaque involving the carotid arteries bilaterally. C2-C3: The bony spinal canal is normal in size. No evidence of disc bulge or herniation. The neural forami na are bilaterally patent. C3-C4: A mild central bulge. No abutment of the cord or central canal stenosis. Neural foramina are patent. C4-C5: The bony spinal canal is normal in size. No evidence of disc bulge or herniation. The neural forami na are bilaterally patent. C5-C6: There is a mild broad-based disc bulge eccentric to the right. No central canal stenosis. Neural fora nimo are patent bilaterally. C6-C7: The bony spinal canal is normal in size. No evidence of disc bulge or herniation. The neural forami na are bilaterally patent. C7-T1: The bony spinal canal is normal in size. No evidence of disc bulge or herniation. The neural forami na are bilaterally patent. CONCLUSION: 1. Degenerative changes. 2. No fracture or dislocation. 3. Carotid artery atherosclerotic calcifications. Scott Mendoza Jr., MD on May 01, 2017 at 20:08 Board Certified Radiologist. This report was verified electronically.
[2017-05-01] MEDS ORDERED: PERC5TAB12 PO (20:25)
[2017-05-01] MEDS ORDERED: LIDO1PAD52 TOPICAL (20:25)
[2017-05-01] MEDS ORDERED: oxyCODONE/ACETAMINOPHEN 5 MG/325 MG TAB PO ONE (20:30)
--- NOTE | 2017-05-01 20:30 | PD ---
HPI Chief Complaint: Fall Time Seen by Provider: 20:23 Travel History International Travel<30 days: No Contact w/Intl Traveler<30days: No Traveled to known affect area: No History of Present Illness HPI 56-year-old male presents after mechanical fall. Prior to arrival he fell off his patio on the ground, landing on his right rib cage and shoulder. He is having lateral right rib cage and right shoulder pain which is aching and worse with movement. He denies headache, neck pain, abdominal pain. He denies any other injuries and has no other complaints. PFSH Past Medical History Hx Anticoagulant Therapy: Yes Arthritis: Yes Asthma: No Blood Disorders: No Anxiety: No Depression: No Heart Rhythm Problems: Yes (Murmur) Cancer: Yes (skin cancer) Cardiovascular Problems: Yes (HTN) High Cholesterol: No Chemotherapy: No Chest Pain: Yes Congestive Heart Failure: Yes Cirrhosis: Yes (alcoholic) COPD: No Cerebrovascular Accident: No Coronary Artery Disease: Yes Diabetes: Yes Patient Takes Glucophage: No Diminished Hearing: No Endocrine: Yes Gastrointestinal Disorders: Yes (Acid reflux) GERD: Yes Genitourinary: Yes (frequency) Hepatitis: Yes (Hep C) Hiatal Hernia: Yes Hypertension: Yes Immune Disorder: No Implanted Vascular Access Dvce: No Musculoskeletal: Yes (Buldging disk, chonic back pain, broken rib.) Neurologic: Yes (Diabetic Neuropathy) Psychiatric: No Reproductive: No Respiratory: Yes Immunizations Current: Yes Migraines: No Myocardial Infarction: Yes (03/2016) Radiation Therapy: No Renal Failure: Yes (stage III chronic kidney disease) 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, 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.) Sleep Apnea: Yes (Not using C pap) Thyroid Disease: Yes (hypothyroidism) Past Surgical History Ear Surgery: No Endocrine Surgery: No Eye Surgery: No Genitourinary Surgery: No Neurologic Surgery: No Oral Surgery: Yes (TONSILLS REMOVED) Pacemaker: No Tonsillectomy: Yes Other Surgery: Yes (bilateral toe amputations, skin ca removal) Social History Alcohol Use: Yes Tobacco Use: No Substance Use: No Allergies-Medications (Allergen,Severity, Reaction): Coded Allergies: *MDRO Multi-Drug Resistant Organism (Verified Adverse Reaction, Unknown, MRSA, 03/25/17) MRSA (foot wound) - 12/2014, 02/2015, 07/2015, 09/2015, 11/2015, 05/2016, 08/24/16 MRSA PCR (nares) POSITIVE - 04/02/16 & 11/15/16 Reported Meds & Prescriptions Reported Meds & Active Scripts Active Lidocaine Patch 12 HR (Lidocaine) 5 % Patch 1 Patch TOPICAL DAILY PRN Remove patch after 12 hours Percocet (Oxycodone-Acetaminophen) 5-325 mg Tab 1 Tab PO Q6H PRN Doxycycline Hyclate 100 Mg Cap 100 Mg PO BID 7 Days Hydrocodone-Acetaminophen 10-325 mg Tab 1 Tab PO Q4-6H Glucocom Test Strips (Blood Glucose Test Strips) 1 Claribel Claribel 1 Ea .ROUTE DIRECTED Glucocom Blood Glucose Mo W/Device (Device) 1 Kit Kit 1 Kit .ROUTE DIRECTED Hydrochlorothiazide 25 Mg Tab 25 Mg PO DAILY Norvasc (Amlodipine Besylate) 5 Mg Tab 5 Mg PO DAILY Reported Vitamin B-1 (Thiamine Mononitrate) 100 Mg Tab 100 Mg PO DAILY Methocarbamol 750 Mg Tab 750 Mg PO QID Zepatier 50-100 mg Tablet (Elbasvir/Grazoprevir) 1 Each Tablet Methocarbamol 750 Mg Tab 750 Mg PO BID Diazepam 5 Mg Tab 5 Mg PO BID PRN Losartan (Losartan Potassium) 50 Mg Tab 50 Mg PO DAILY Carvedilol 3.125 Mg Tab 3.125 Mg PO BID Potassium Chloride ER (Potassium Chloride) 20 Meq Tab 20 Meq PO DAILY Gabapentin 300 Mg Cap 300 Mg PO TID Bumetanide 1 Mg Tab 1 Mg PO BID Levemir Inj (Insulin Detemir) 1,000 unit/ 10 ML Vial 10 Units SQ TID Do not mix with any other Insulin. Novolog Inj (Insulin Aspart) 1,000 Unit/10 Ml Vial 10 Units SQ TID Lortab (Hydrocodone-Acetaminophen) 10-325 Mg Tab 1 Tab PO QID PRN Atorvastatin (Atorvastatin Calcium) 20 Mg Tab 20 Mg PO HS Aspirin 81 (Aspirin) 81 Mg Tabdr 81 Mg PO DAILY Levothyroxine (Levothyroxine Sodium) 50 Mcg Tab 50 Mcg PO DAILY Flomax (Tamsulosin HCl) 0.4 Mg Cap 0.4 Mg PO DAILY Review of Systems Except as stated in HPI: all other systems reviewed are Neg Physical Exam Narrative GENERAL: Well-developed well-nourished male in no acute distress SKIN: Warm and dry. Minor abrasions right arm HEAD: Atraumatic. Normocephalic. EYES: Pupils equal and round. No scleral icterus. No injection or drainage. ENT: No nasal bleeding or discharge. Mucous membranes pink and moist. NECK: Trachea midline. No JVD. CARDIOVASCULAR: Regular rate and rhythm. No murmur appreciated. RESPIRATORY: No accessory muscle use. Clear to auscultation. Breath sounds equal bilaterally. GASTROINTESTINAL: Abdomen soft, non-tender, nondistended. Hepatic and splenic margins not palpable. MUSCULOSKELETAL: No obvious deformities. Tender to palpation lateral right rib cage and right shoulder. The patient retains full range of motion of the upper extremities. No tenderness to palpation along the cervical or thoracic or lumbar midline spine. NEUROLOGICAL: Awake and alert. No obvious cranial nerve deficits. Motor grossly within normal limits. Normal speech. PSYCHIATRIC: Appropriate mood and affect; insight and judgment normal. Data Data Last Documented VS Vital Signs Date Time Temp Pulse Resp B/P (MAP) Pulse Ox O2 Delivery O2 Flow Rate FiO2 05/01/17 20:05 98 Room Air 05/01/17 18:34 98.0 72 18 166/81 (109) Orders Orders Ct Brain W/O Iv Contrast(Rout) (05/01/17 ) Ct Cerv Spine W/O Contrast (05/01/17 ) Shoulder, Complete (>2vws) (05/01/17 ) Chest, Single Ap (05/01/17 ) Resp Incentive Spirometry (05/01/17 ) Oxycodone-Acetamin 5-325 Mg (Percocet (05/01/17 20:30) Ed Discharge Order (05/01/17 20:24) [facility] Medical Decision Making Medical Screen Exam Complete: Yes Emergency Medical Condition: Yes Medical Record Reviewed: Yes Differential Diagnosis Fracture, contusion, shoulder strain, proximal humeral fracture Narrative Course Imaging studies of the chest, right shoulder, CT brain, CT of the cervical spine were performed in triage and they reveal no acute abnormalities. Subacute rib fractures are noted which the patient reports is from a previous injury. At this point in time the plan is to discharge patient with a very short course of Percocet as well as Lidoderm patches. He will be given an incentive spirometer. Diagnosis Primary Impression: Chest wall contusion Additional Impression: Right shoulder strain Additional Instructions: Medication as needed. Incentive spirometer 10 times an hour while awake. Follow-up with primary care physician in 3-4 days. Return for any emergent medical conditions. Med/Other Pt SpecificInfo: Prescription(s) given Scripts Lidocaine Patch 12 HR (Lidocaine Patch 12 HR) 5 % Patch 1 PATCH TOPICAL DAILY Y for PAIN, #1 BOX 1 Refill Remove patch after 12 hours Prov: Walter Townsend MD 05/01/17 Oxycodone-Acetaminophen (Percocet) 5-325 mg Tab 1 TAB PO Q6H Y for PAIN, #12 TAB 0 Refills Prov: Walter Townsend MD 05/01/17 Disposition: 01 DISCHARGE HOME Condition: Stable Michele Arthur May 01, 2017 20:30
[2017-05-01 20:54] VITALS: BP 158/87
== END 2017-05-01 21:26 | disposition home or self-care (01) ==
LOC: NEPD 18:32
DX: S46.911A Strain of unspecified muscle, fascia and tendon at shoulder and upper arm level, right arm, initial encounter (principal); S20.219A Contusion of unspecified front wall of thorax, initial encounter; S22.41XA Multiple fractures of ribs, right side, initial encounter for closed fracture; M19.90 Unspecified osteoarthritis, unspecified site; I13.0 Hypertensive heart and chronic kidney disease with heart failure and stage 1 through stage 4 chronic kidney disease, or unspecified chronic kidney disease; I50.9 Heart failure, unspecified; N18.3 Chronic kidney disease, stage 3 (moderate); E11.22 Type 2 diabetes mellitus with diabetic chronic kidney disease; W19.XXXA Unspecified fall, initial encounter
CPT/HCPCS: 70450; 71010; 72125; 73030; 94150; 99285

== ENCOUNTER 2017-08-02 23:45 | Emergency (ER) | payer MEDICARE ==
[~2017-08-02] VITALS: Ht 177.8 cm; Wt 120.0 kg
[~2017-08-02 23:45] MED LIST changes: +LIDO1PAD52 TOPICAL; +PERC5TAB12 PO
[2017-08-02 23:47] VITALS: BP 186/86; PULSE 86; RESP 16; TEMP 97.6; O2SAT 98
[2017-08-03] MEDS ORDERED: PIPERACIL-TAZO 3.375 GM PREMIX 50 ML IV ONE (01:30)
[2017-08-03] MEDS ORDERED: VANCOMYCIN INJ 1,000 MG in SODIUM CHLOR 0.9% 250 ML INJ 250 ML IV ONE (01:30)
[2017-08-03 01:53] LABS: AUTOMATED NEUTROPHIL # 5.3 TH/MM3 (1.8-7.7); BASOPHIL # 0.1 TH/MM3 (0-0.2); BASOPHIL % 0.7 % (0.0-2.0); EOSINOPHIL # 0.4 TH/MM3 (0-0.4); EOSINOPHIL % 3.6 % (0.0-4.0); HEMATOCRIT 32.2 % (39.0-51.0); HEMOGLOBIN 10.5 GM/DL (13.0-17.0); LYMPHOCYTE # 3.8 TH/MM3 (1.0-4.8); MEAN CELL VOLUME 89.1 FL (80.0-100.0); MEAN CORPUSCULAR HEMOGLOBIN 29.1 PG (27.0-34.0); MEAN CORPUSCULAR HGB CONC 32.7 % (32.0-36.0); MONO % 6.9 % (0.0-8.0); MONOCYTE # 0.7 TH/MM3 (0-0.9); NEUT % 51.8 % (16.0-70.0); PLATELET COUNT 148 TH/MM3 (150-450); RED BLOOD COUNT 3.62 MIL/MM3 (4.50-5.90); RED CELL DISTRIBUTION WIDTH 17.7 % (11.6-17.2); WHITE BLOOD COUNT 10.2 TH/MM3 (4.0-11.0)
[2017-08-03 02:09] LABS: ALBUMIN 3.6 GM/DL (3.4-5.0); ALT (GPT) 91 U/L (12-78); AST (GOT) 62 U/L (15-37); BICARBONATE 22.4 MEQ/L (21.0-32.0); BLOOD UREA NITROGEN 43 MG/DL (7-18); CALCIUM 7.7 MG/DL (8.5-10.1); CHLORIDE 106 MEQ/L (98-107); CREATININE 1.72 MG/DL (0.60-1.30); GLOMERULAR FILTRATION RATE 41 ML/MIN (>89); GLUCOSE,RANDOM 182 MG/DL (74-106); MAGNESIUM 1.7 MG/DL (1.5-2.5); SODIUM (NA) 137 MEQ/L (136-145)
[2017-08-03 02:10] VITALS: O2SAT 99
[2017-08-03 02:11] VITALS: BP 144/67; PULSE 64; RESP 18; O2SAT 99
[2017-08-03 02:12] LABS: ALKALINE PHOSPHATASE 147 U/L (45-117); TOTAL BILIRUBIN ADULT 0.3 MG/DL (0.2-1.0); TOTAL PROTEIN 8.1 GM/DL (6.4-8.2)
[2017-08-03] MEDS ORDERED: BACT800T5 PO (04:19)
[2017-08-03] MEDS ORDERED: TRAM50 PO (04:19)
--- NOTE | 2017-08-03 04:19 | PD ---
HPI . 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 Patient has no complaints of focal weakness and Versed tingling, has no complaint of pain. PFSH Past Medical History Narrative Medical Past medical history reviewed Hx Anticoagulant Therapy: Yes Arthritis: Yes Asthma: No Blood Disorders: No Anxiety: No Depression: No Heart Rhythm Problems: Yes (Murmur) Cancer: Yes (skin cancer) Cardiovascular Problems: Yes (HTN, Murmor) High Cholesterol: No Chemotherapy: No Chest Pain: Yes Congestive Heart Failure: Yes Cirrhosis: Yes (alcoholic) COPD: No Cerebrovascular Accident: No Coronary Artery Disease: Yes Diabetes: Yes Patient Takes Glucophage: No Diminished Hearing: No Endocrine: Yes Gastrointestinal Disorders: Yes (Acid reflux) GERD: Yes Genitourinary: Yes (frequency) Hepatitis: Yes (Hep C) Hiatal Hernia: Yes Hypertension: Yes Immune Disorder: No Implanted Vascular Access Dvce: No Musculoskeletal: Yes (Buldging disk, chonic back pain, broken rib.) Neurologic: Yes (Diabetic Neuropathy) Psychiatric: No Reproductive: No Respiratory: Yes Immunizations Current: Yes Migraines: No Myocardial Infarction: Yes (03/2016) Radiation Therapy: No Renal Failure: Yes (stage III chronic kidney disease) 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, 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.) Sleep Apnea: Yes (Not using C pap) Thyroid Disease: Yes (hypothyroidism) Tetanus Vaccination: < 5 Years Influenza Vaccination: Yes Past Surgical History Ear Surgery: No Endocrine Surgery: No Eye Surgery: No Genitourinary Surgery: No Neurologic Surgery: No Oral Surgery: Yes (TONSILLS REMOVED) Pacemaker: No Tonsillectomy: Yes Other Surgery: Yes (bilateral toe amputations, skin ca removal) Social History Alcohol Use: Yes Tobacco Use: No Substance Use: No Allergies-Medications (Allergen,Severity, Reaction): Coded Allergies: *MDRO Multi-Drug Resistant Organism (Verified Adverse Reaction, Unknown, MRSA, 03/25/17) MRSA (foot wound) - 12/2014, 02/2015, 07/2015, 09/2015, 11/2015, 05/2016, 08/24/16 MRSA PCR (nares) POSITIVE - 04/02/16 & 11/15/16 Reported Meds & Prescriptions Reported Meds & Active Scripts Active Lidocaine Patch 12 HR (Lidocaine) 5 % Patch 1 Patch TOPICAL DAILY PRN Remove patch after 12 hours Percocet (Oxycodone-Acetaminophen) 5-325 mg Tab 1 Tab PO Q6H PRN Doxycycline Hyclate 100 Mg Cap 100 Mg PO BID 7 Days Hydrocodone-Acetaminophen 10-325 mg Tab 1 Tab PO Q4-6H Glucocom Test Strips (Blood Glucose Test Strips) 1 Claribel Claribel 1 Ea .ROUTE DIRECTED Glucocom Blood Glucose Mo W/Device (Device) 1 Kit Kit 1 Kit .ROUTE DIRECTED Hydrochlorothiazide 25 Mg Tab 25 Mg PO DAILY Norvasc (Amlodipine Besylate) 5 Mg Tab 5 Mg PO DAILY Reported Vitamin B-1 (Thiamine Mononitrate) 100 Mg Tab 100 Mg PO DAILY Methocarbamol 750 Mg Tab 750 Mg PO QID Zepatier 50-100 mg Tablet (Elbasvir/Grazoprevir) 1 Each Tablet Methocarbamol 750 Mg Tab 750 Mg PO BID Diazepam 5 Mg Tab 5 Mg PO BID PRN Losartan (Losartan Potassium) 50 Mg Tab 50 Mg PO DAILY Carvedilol 3.125 Mg Tab 3.125 Mg PO BID Potassium Chloride ER (Potassium Chloride) 20 Meq Tab 20 Meq PO DAILY Gabapentin 300 Mg Cap 300 Mg PO TID Bumetanide 1 Mg Tab 1 Mg PO BID Levemir Inj (Insulin Detemir) 1,000 unit/ 10 ML Vial 10 Units SQ TID Do not mix with any other Insulin. Novolog Inj (Insulin Aspart) 1,000 Unit/10 Ml Vial 10 Units SQ TID Lortab (Hydrocodone-Acetaminophen) 10-325 Mg Tab 1 Tab PO QID PRN Atorvastatin (Atorvastatin Calcium) 20 Mg Tab 20 Mg PO HS Aspirin 81 (Aspirin) 81 Mg Tabdr 81 Mg PO DAILY Levothyroxine (Levothyroxine Sodium) 50 Mcg Tab 50 Mcg PO DAILY Flomax (Tamsulosin HCl) 0.4 Mg Cap 0.4 Mg PO DAILY Narrative Medication Allergies and medications reviewed Review of Systems General / Constitutional: Positive: Fever Eyes: No: Visual changes HENT: No: Headaches Cardiovascular: No: Chest Pain or Discomfort Respiratory: No: Shortness of Breath Gastrointestinal: No: Abdominal Pain Genitourinary: No: Dysuria Musculoskeletal: No: Pain Skin: Positive Rash, Positive Lesions Neurologic: No: Weakness Psychiatric: No: Depression Endocrine: No: Polydipsia Hematologic/Lymphatic: No: Easy Bruising Physical Exam Narrative GENERAL: Awake and alert oriented 3 no acute distress. Patient appears comfortable, vital signs afebrile normal and stable SKIN: Warm and dry. Color is normal no diaphoresis cyanosis or pallor HEAD: Atraumatic. Normocephalic. EYES: Pupils equal and round. No scleral icterus. No injection or drainage. ENT: No nasal bleeding or discharge. Mucous membranes pink and moist. NECK: Trachea midline. No JVD. CARDIOVASCULAR: Regular rate and rhythm. RESPIRATORY: No accessory muscle use. Clear to auscultation. Breath sounds equal bilaterally. GASTROINTESTINAL: Abdomen soft, non-tender, nondistended. Hepatic and splenic margins not palpable. MUSCULOSKELETAL: Bilateral lower extremity circumferential dusky erythema mid calf bilaterally with several small recent appearing skin skin avulsion/ excoriations that are superficial on bilateral lower extremities and one on right foot between the second third toe webspace proximally. There is no surrounding erythema no discharge. NEUROLOGICAL: Awake and alert. No obvious cranial nerve deficits. Motor grossly within normal limits. Five out of 5 muscle strength in the arms and legs. Normal speech. PSYCHIATRIC: Appropriate mood and affect; insight and judgment normal. Data Data Last Documented VS Vital Signs Date Time Temp Pulse Resp B/P (MAP) Pulse Ox O2 Delivery O2 Flow Rate FiO2 08/03/17 03:24 08/03/17 02:11 64 18 99 Room Air 08/02/17 23:47 97.6 Orders Orders Complete Blood Count With Diff (08/03/17 01:20) Comprehensive Metabolic Panel (08/03/17 01:20) Lactic Acid Sepsis Protocol (08/03/17 01:20) Magnesium (Mg) (08/03/17 01:20) Urinalysis - C+S If Indicated (08/03/17 01:20) Blood Culture (08/03/17 01:20) Blood Glucose (08/03/17 01:20) Ecg Monitoring (08/03/17 01:20) Iv Access Insert/Monitor (08/03/17 01:20) Oximetry (08/03/17 01:20) Piperacil-Tazo 3.375 Gm Premix (Zosyn 3. (08/03/17 01:30) Vancomycin Inj (Vancomycin Inj) (08/03/17 01:30) Labs Laboratory Tests Test 08/03/17 01:40 White Blood Count 10.2 TH/MM3 Red Blood Count 3.62 MIL/MM3 Hemoglobin 10.5 GM/DL Hematocrit 32.2 % Mean Corpuscular Volume 89.1 FL Mean Corpuscular Hemoglobin 29.1 PG Mean Corpuscular Hemoglobin Concent 32.7 % Red Cell Distribution Width 17.7 % Platelet Count 148 TH/MM3 Mean Platelet Volume 7.0 FL Neutrophils (%) (Auto) 51.8 % Lymphocytes (%) (Auto) 37.0 % Monocytes (%) (Auto) 6.9 % Eosinophils (%) (Auto) 3.6 % Basophils (%) (Auto) 0.7 % Neutrophils # (Auto) 5.3 TH/MM3 Lymphocytes # (Auto) 3.8 TH/MM3 Monocytes # (Auto) 0.7 TH/MM3 Eosinophils # (Auto) 0.4 TH/MM3 Basophils # (Auto) 0.1 TH/MM3 CBC Comment DIFF FINAL Differential Comment Blood Urea Nitrogen 43 MG/DL Creatinine 1.72 MG/DL Random Glucose 182 MG/DL Total Protein 8.1 GM/DL Albumin 3.6 GM/DL Calcium Level 7.7 MG/DL Magnesium Level 1.7 MG/DL Alkaline Phosphatase 147 U/L Aspartate Amino Transf (AST/SGOT) 62 U/L Alanine Aminotransferase (ALT/SGPT) 91 U/L Total Bilirubin 0.3 MG/DL Sodium Level 137 MEQ/L Potassium Level 4.2 MEQ/L Chloride Level 106 MEQ/L Carbon Dioxide Level 22.4 MEQ/L Anion Gap 9 MEQ/L Estimat Glomerular Filtration Rate 41 ML/MIN Lactic Acid Level 1.8 mmol/L MDM Medical Decision Making Medical Screen Exam Complete: Yes Emergency Medical Condition: Yes Medical Record Reviewed: Yes Differential Diagnosis Skin excoriations, chronic venous stasis, possible acute on chronic cellulitis Narrative Course Patient's laboratory examinations reviewed, no significant abnormalities. Ejection with patient's chronicity to the appearance of his wounds, probable self excoriation of wounds as noted in history of present illness, outpatient wound therapy and antibiotics indicated. Patient was noted to be sleeping in bed comfortably, when awakened for results, stated he had severe back pain and is requesting narcotic pain medications as per nursing staff. Patient reevaluated, similar occurrence with patient needing to be awakened and then noting he had severe pain. Diagnosis Primary Impression: Chronic cellulitis Additional Impression: Multiple excoriations Patient Instructions: Cellulitis (ED), General Instructions Departure Forms: Tests/Procedures Additional Instructions: Bactrim DS one tablet twice daily for 10 days. Ultram 50 mg every 8 hours as needed for pain. Follow-up with your doctor/ wound clinic. Return for worsening Scripts Tramadol (Ultram) 50 Mg Tab 50 MG PO Q8H Y for PAIN, #15 TAB 0 Refills Prov: Jean Marti MD 08/03/17 Sulfamethoxazole-Trimethoprim (Bactrim DS) 800-160 Mg Tab 1 TAB PO BID for Infection, #20 TAB 0 Refills Prov: Jean Marti MD 08/03/17 Disposition: 01 DISCHARGE HOME Condition: Stable Jean Marti MD Aug 03, 2017 04:19
== END 2017-08-03 04:41 | disposition home or self-care (01) ==
LOC: NEPE 23:45
DX: L03.90 Cellulitis, unspecified (principal); I13.0 Hypertensive heart and chronic kidney disease with heart failure and stage 1 through stage 4 chronic kidney disease, or unspecified chronic kidney disease; N18.3 Chronic kidney disease, stage 3 (moderate); E11.22 Type 2 diabetes mellitus with diabetic chronic kidney disease; E11.69 Type 2 diabetes mellitus with other specified complication; E03.9 Hypothyroidism, unspecified; I25.10 Atherosclerotic heart disease of native coronary artery without angina pectoris; B19.20 Unspecified viral hepatitis C without hepatic coma; Z79.4 Long term (current) use of insulin
CPT/HCPCS: 80053; 83605; 83735; 85025; 87040; 96365; 96368; 99284; J2543; J3370; J7050

== ENCOUNTER 2017-11-08 17:22 | Emergency (ER) | payer MEDICARE ==
[~2017-11-08] VITALS: Ht 165.1 cm; Wt 125.0 kg
[~2017-11-08 17:22] MED LIST changes: +BACT800T5 PO; +TRAM50 PO
[2017-11-08 17:28] VITALS: BP 144/77; PULSE 70; RESP 18; TEMP 98.1; O2SAT 96
[2017-11-08] MEDS ORDERED: VANCOMYCIN INJ 1,000 MG in SODIUM CHLOR 0.9% 250 ML INJ 250 ML IV ONE (19:45)
--- NOTE | 2017-11-08 21:41 | RADRPT ---
EXAM DATE/TIME: 11/08/2017 20:09 CORRECTION Corrected on: November 08, 2017; [facility] COMPARISON: No previous studies available for comparison. INDICATIONS : Right tibia pain after falling on Sunday. MEDICAL HISTORY : Hypertension. Diabetes mellitus type II. Smoker. SURGICAL HISTORY : Several toes amputated. ENCOUNTER: Initial ACUITY: 2 days PAIN SCORE: 7/10 LOCATION: Right mid tibia. FINDINGS: Two view examination of the right tibia demonstrates no evidence of fracture or dislocation. Bony mi neralization is normal. The soft tissue structures are intact. Vascular calcifications are seen. The re is soft tissue swelling throughout the calf. The patient is status post amputation at the mid fift h metatarsal region. CONCLUSION: 1. No acute bony abnormality seen. 2. Soft tissue swelling. Dionisio Soria MD on November 08, 2017 at 21:38 Board Certified Radiologist. This report was verified electronically. Dionisio Soria MD on November 08, 2017 at 21:42 Board Certified Radiologist. This report was verified electronically.
--- NOTE | 2017-11-08 21:43 | RADRPT ---
EXAM DATE/TIME: 11/08/2017 20:14 [facility] COMPARISON: FOOT RIGHT LIMITED (2VWS), November 25, 2016, 3:22. INDICATIONS : Right foot pain after falling Sunday. MEDICAL HISTORY : Hypertension. Diabetes mellitus type II. SURGICAL HISTORY : Several toes amputated. ENCOUNTER: Initial ACUITY: 2 days PAIN SCORE: 4/10 LOCATION: Right lateral foot. FINDINGS: Two view examination of the right foot demonstrates the patient is status post amputation at the thir d digit at the MTP level and at the mid fifth metatarsal level. There is a healed fracture deformity of the fourth mid metatarsal. There also appears be healed fracture deformity of the second proximal phalanx. There is chronic degenerative change of the first interphalangeal joint. Vascular calcificat ions are seen. Soft tissue swelling is seen. CONCLUSION: 1. Chronic change as described above. 2. Soft tissue swelling. Dionisio Soria MD on November 08, 2017 at 21:40 Board Certified Radiologist. This report was verified electronically.
[2017-11-08 21:48] LABS: BILIRUBIN, URINE NEG (NEG); BLOOD, URINE NEG (NEG); GLUCOSE,URINE NEG (NEG); KETONE, URINE NEG (NEG); NITRITE,URINE NEG (NEG); URINE COLOR LIGHT-YELLOW (YELLW/STRAW); URINE LEUKOCYTE ESTERASE NEG (NEG)
--- NOTE | 2017-11-08 21:51 | PD ---
HPI Chief Complaint: Skin Problem Time Seen by Provider: 19:03 Travel History International Travel<30 days: No Contact w/Intl Traveler<30days: No Traveled to known affect area: No History of Present Illness HPI 57-year-old male that presents to the ED for evaluation of swelling and pain to his legs. Patient reports that about 2 days ago he had a mechanical fall. He lost his footing and landed on both of his legs. He states having a lot of pain on his foot and knee as well as his ankle. He states that he has been able to ambulate with some discomfort. He is noted that his legs have been getting more swelling. He has a history of CHF as well as diabetes. He has had amputations of his toes secondary to the diabetes and infections. Significant other is concerned the most about the swelling and redness the patient has some bout of his legs more noticeable on the right. Patient has an abrasion to the appears to have some purulence about 5 cm in diameter. Slightly tender to touch. Per patient is erythematous. He denies any fevers chills or sweats. He does this having some chronic shortness of breath and leg swelling that he has been taking Bumex and Lasix for. He states that he has been urinating less and less although he still takes the medications. He has a history of kidney disease as well. Denies any head injury. No chest pain. Has not seen anybody for this. Has not taken anything for this. History of MRSA. PFSH Past Medical History Hx Anticoagulant Therapy: Yes Arthritis: Yes Asthma: No Blood Disorders: No Anxiety: No Depression: No Heart Rhythm Problems: Yes (Murmur) Cancer: Yes (skin cancer) Cardiovascular Problems: Yes (HTN, Murmor) High Cholesterol: No Chemotherapy: No Chest Pain: Yes Congestive Heart Failure: Yes Cirrhosis: Yes (alcoholic) COPD: No Cerebrovascular Accident: No Coronary Artery Disease: Yes Diabetes: Yes Patient Takes Glucophage: No Diminished Hearing: No Endocrine: Yes Gastrointestinal Disorders: Yes (Acid reflux) GERD: Yes Genitourinary: Yes (frequency) Hepatitis: Yes (Hep C) Hiatal Hernia: Yes Hypertension: Yes Immune Disorder: No Implanted Vascular Access Dvce: No Musculoskeletal: Yes (Buldging disk, chonic back pain, broken rib.) Neurologic: Yes (Diabetic Neuropathy) Psychiatric: No Reproductive: No Respiratory: Yes Immunizations Current: Yes Migraines: No Myocardial Infarction: Yes (03/2016) Radiation Therapy: No Renal Failure: Yes (stage III chronic kidney disease) 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, 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.) Sleep Apnea: Yes (Not using C pap) Thyroid Disease: Yes (hypothyroidism) Tetanus Vaccination: > 5 Years Influenza Vaccination: Yes Past Surgical History Ear Surgery: No Endocrine Surgery: No Eye Surgery: No Genitourinary Surgery: No Neurologic Surgery: No Oral Surgery: Yes (TONSILLS REMOVED) Pacemaker: No Tonsillectomy: Yes Other Surgery: Yes (bilateral toe amputations, skin ca removal) Social History Alcohol Use: Yes Tobacco Use: No Substance Use: No Allergies-Medications (Allergen,Severity, Reaction): Coded Allergies: *MDRO Multi-Drug Resistant Organism (Verified Adverse Reaction, Unknown, MRSA, 03/25/17) MRSA (foot wound) - 12/2014, 02/2015, 07/2015, 09/2015, 11/2015, 05/2016, 08/24/16 MRSA PCR (nares) POSITIVE - 04/02/16 & 11/15/16 Reported Meds & Prescriptions Reported Meds & Active Scripts Active Hydrocodone-Acetaminophen 5-325 mg Tab 1 Tab PO Q6H PRN Clindamycin (Clindamycin HCl) 300 Mg Cap 300 Mg PO Q8HR 14 Days Ultram (Tramadol HCl) 50 Mg Tab 50 Mg PO Q8H PRN Hydrocodone-Acetaminophen 10-325 mg Tab 1 Tab PO Q4-6H Glucocom Test Strips (Blood Glucose Test Strips) 1 Claribel Claribel 1 Ea .ROUTE DIRECTED Glucocom Blood Glucose Mo W/Device (Device) 1 Kit Kit 1 Kit .ROUTE DIRECTED Hydrochlorothiazide 25 Mg Tab 25 Mg PO DAILY Norvasc (Amlodipine Besylate) 5 Mg Tab 5 Mg PO DAILY Reported Methocarbamol 750 Mg Tab 750 Mg PO QID Zepatier 50-100 mg Tablet (Elbasvir/Grazoprevir) 1 Each Tablet Methocarbamol 750 Mg Tab 750 Mg PO BID Diazepam 5 Mg Tab 5 Mg PO BID PRN Losartan (Losartan Potassium) 50 Mg Tab 50 Mg PO DAILY Carvedilol 3.125 Mg Tab 3.125 Mg PO BID Potassium Chloride ER (Potassium Chloride) 20 Meq Tab 20 Meq PO DAILY Gabapentin 300 Mg Cap 300 Mg PO TID Bumetanide 1 Mg Tab 1 Mg PO BID Levemir Inj (Insulin Detemir) 1,000 unit/ 10 ML Vial 10 Units SQ TID Do not mix with any other Insulin. Novolog Inj (Insulin Aspart) 1,000 Unit/10 Ml Vial 10 Units SQ TID Atorvastatin (Atorvastatin Calcium) 20 Mg Tab 20 Mg PO HS Aspirin 81 (Aspirin) 81 Mg Tabdr 81 Mg PO DAILY Levothyroxine (Levothyroxine Sodium) 50 Mcg Tab 50 Mcg PO DAILY Flomax (Tamsulosin HCl) 0.4 Mg Cap 0.4 Mg PO DAILY Review of Systems Except as stated in HPI: all other systems reviewed are Neg Physical Exam Narrative GENERAL: SKIN: Warm and dry. HEAD: Atraumatic. Normocephalic. EYES: Pupils equal and round. No scleral icterus. No injection or drainage. ENT: No nasal bleeding or discharge. Mucous membranes pink and moist. Tongue is midline. No uvula deviation. NECK: Trachea midline. No JVD. CARDIOVASCULAR: Regular rate and rhythm. No murmurs, S3, S4. RESPIRATORY: No accessory muscle use. Clear to auscultation. Breath sounds equal bilaterally. GASTROINTESTINAL: Abdomen soft, non-tender, nondistended. Hepatic and splenic margins not palpable. MUSCULOSKELETAL: Extremities without clubbing, cyanosis, or edema. No obvious deformities. Full range of motion of the upper and lower extremities bilaterally. 2+ pulses bilaterally. Patient does have old surgical scars from amputations to the toes on the right and left foot. Patient does have 2+ pitting edema on the lower extremities bilaterally more noticeable on the right than the left. Patient does have an abrasion of about 5 cm in diameter with some purulence and erythema noted on the anterior aspect of the mid tib-fib of the right leg. They are fully warm to touch. Patient also has some erythema noted on the left leg as well which is warm to touch. Patient does have some bruising as well on the right and left ankle. More noticeable on the right ankle on the medial malleolus. Able to move the feet bilaterally. Sensation intact bilaterally. NEUROLOGICAL: Awake and alert. No obvious cranial nerve deficits. Motor grossly within normal limits. Five out of 5 muscle strength in the arms and legs. Normal speech. PSYCHIATRIC: Appropriate mood and affect; insight and judgment normal. Data Data Last Documented VS Vital Signs Date Time Temp Pulse Resp B/P (MAP) Pulse Ox O2 Delivery O2 Flow Rate FiO2 11/08/17 17:28 98.1 70 18 144/77 (99) 96 Orders Orders Electrocardiogram (11/08/17 19:40) Complete Blood Count With Diff (11/08/17 19:40) Comprehensive Metabolic Panel (11/08/17 19:40) B-Type Natriuretic Peptide (11/08/17 19:40) Blood Culture (11/08/17 19:40) Urinalysis - C+S If Indicated (11/08/17 19:40) Magnesium (Mg) (11/08/17 19:40) Wound Culture And Gram Stain (11/08/17 19:40) Chest, Single Ap (11/08/17 19:40) Iv Access Insert/Monitor (11/08/17 19:40) Foot, Limited (2vws) (11/08/17 19:40) Foot, Complete (Eex0llt) (11/08/17 19:40) Knee, Complete (4vws) (11/08/17 19:40) Tibia/Fibula (Ap/Lat) (11/08/17 19:40) Tibia/Fibula (Ap/Lat) (11/08/17 ) Vancomycin Inj (Vancomycin Inj) (11/08/17 19:45) Us Leg Venous Doppler Bilat (11/08/17 ) Morphine Inj (Morphine Inj) (11/08/17 23:00) Ondansetron Odt (Zofran Odt) (11/08/17 23:00) Ed Discharge Order (11/08/17 22:55) Labs Laboratory Tests Test 11/08/17 20:06 11/08/17 21:39 Urine Color LIGHT-YELLOW Urine Turbidity CLEAR Urine pH 5.0 Urine Specific [place] 1.006 Urine Protein TRACE mg/dL Urine Glucose (UA) NEG mg/dL Urine Ketones NEG mg/dL Urine Occult Blood NEG Urine Nitrite NEG Urine Bilirubin NEG Urine Urobilinogen LESS THAN 2.0 MG/DL Urine Leukocyte Esterase NEG Microscopic Urinalysis Comment CULT NOT INDICATED White Blood Count 9.0 TH/MM3 Red Blood Count 3.25 MIL/MM3 Hemoglobin 9.6 GM/DL Hematocrit 29.5 % Mean Corpuscular Volume 90.6 FL Mean Corpuscular Hemoglobin 29.6 PG Mean Corpuscular Hemoglobin Concent 32.7 % Red Cell Distribution Width 14.2 % Platelet Count 186 TH/MM3 Mean Platelet Volume 6.7 FL Neutrophils (%) (Auto) 57.9 % Lymphocytes (%) (Auto) 25.2 % Monocytes (%) (Auto) 12.1 % Eosinophils (%) (Auto) 4.0 % Basophils (%) (Auto) 0.8 % Neutrophils # (Auto) 5.2 TH/MM3 Lymphocytes # (Auto) 2.3 TH/MM3 Monocytes # (Auto) 1.1 TH/MM3 Eosinophils # (Auto) 0.4 TH/MM3 Basophils # (Auto) 0.1 TH/MM3 CBC Comment DIFF FINAL Differential Comment Blood Urea Nitrogen 40 MG/DL Creatinine 1.59 MG/DL Random Glucose 91 MG/DL Total Protein 8.1 GM/DL Albumin 3.3 GM/DL Calcium Level 8.4 MG/DL Magnesium Level 1.8 MG/DL Alkaline Phosphatase 149 U/L Aspartate Amino Transf (AST/SGOT) 35 U/L Alanine Aminotransferase (ALT/SGPT) 36 U/L Total Bilirubin 0.4 MG/DL Sodium Level 135 MEQ/L Potassium Level 4.2 MEQ/L Chloride Level 105 MEQ/L Carbon Dioxide Level 18.6 MEQ/L Anion Gap 11 MEQ/L Estimat Glomerular Filtration Rate 45 ML/MIN [facility] Medical Decision Making Medical Screen Exam Complete: Yes Emergency Medical Condition: Yes Medical Record Reviewed: Yes Interpretation(s) Last Impressions Tibia/Fibula X-Ray 11/08/171939 Signed Impressions: Service Date/Time: October 20:09 - CONCLUSION: 1. No acute bony abnormality seen. 2. Soft tissue swelling. Dionisio Soria MD Knee X-Ray 11/08/171939 Signed Impressions: Service Date/Time: October 20:20 - CONCLUSION: No acute disease. Dionisio Soria MD Foot X-Ray 11/08/171939 Signed Impressions: Service Date/Time: October 20:22 - CONCLUSION: 1. No acute abnormality seen. 2. Chronic bony changes as described above. Dionisio Soria MD Foot X-Ray 11/08/171939 Signed Impressions: Service Date/Time: October 20:14 - CONCLUSION: 1. Chronic change as described above. 2. Soft tissue swelling. Dionisio Soria MD Chest X-Ray 11/08/17 1940 Signed Impressions: Service Date/Time: October 20:41 - CONCLUSION: No acute disease. Dionisio Soria MD Tibia/Fibula X-Ray 11/08/17 0000 Signed Impressions: Service Date/Time: October 20:18 - CONCLUSION: Soft tissue swelling. Dionisio Soria MD Lower Extremity Ultrasound 11/08/17 0000 Signed Impressions: Service Date/Time: , November 08, 2017 20:36 - CONCLUSION: No DVT. Dionisio Soria MD CBC Diagram 11/08/17 21:39 BMP Diagram 11/08/17 21:39 Total Protein 8.1, Albumin 3.3 L, Calcium Level 8.4 L, Magnesium Level 1.8, Alkaline Phosphatase 149 H, Aspartate Amino Transf (AST/SGOT) 35, Alanine Aminotransferase (ALT/SGPT) 36, Total Bilirubin 0.4 Differential Diagnosis Cellulitis versus CHF versus CKD versus osteomyelitis versus infected wound versus abscess versus fracture Narrative Course 57-year-old male that presents to the ED for evaluation of lower leg swelling and pain. Patient was properly examined and was found to have signs and symptoms concerning for infection. Legs themselves appear to be chronically swelling and some minor bruising noted. We will do x-rays and labs. Patient agrees with this. Patient will start IV vancomycin as he does have a history of MRSA. He did complain of leg swelling that has increased as well as not been able to be as much as he used to with his diuretics. CHF workup will be done as well. Labs and imaging still pending at the writing of this note. Case was discussed with my attending. BNP is still pending of the running of this note. My attending recommends the patient can be discharged with antibiotics. He does not believe that the BNP is going to provide any more information at this time. Patient was given IV dose of vancomycin here. Patient will be given prescription for clindamycin as well as Lortab for pain. Patient was told to elevate legs. Continue taking his medications as prescribed. See ED if any worsening symptoms. Recheck in 2 days. Diagnosis Primary Impression: Cellulitis of leg, right Patient Instructions: General Instructions, Narcotic given in the ED Additional Instructions: Take medication as prescribed. Elevate the legs while at home. Recheck in 48 hours. See ED if worsening symptoms. Ice or warm compresses as needed. Do not drink or drive while taking pain medication. Do not take this medication with tramadol. Med/Other Pt SpecificInfo: Prescription(s) given Scripts Hydrocodone-Acetaminophen (Hydrocodone-Acetaminophen) 5-325 mg Tab 1 TAB PO Q6H Y for PAIN, #10 TAB 0 Refills Prov: Walter Townsend MD 11/08/17 Clindamycin (Clindamycin) 300 Mg Cap 300 MG PO Q8HR for Infection for 14 Days, CAP 0 Refills Prov: Walter Townsend MD 11/08/17 Disposition: 01 DISCHARGE HOME Condition: David Lopez November 08, 2017 21:51
--- NOTE | 2017-11-08 21:53 | RADRPT ---
EXAM DATE/TIME: 11/08/2017 20:18 [facility] COMPARISON: No previous studies available for comparison. INDICATIONS : Left tibia pain after falling on Sunday MEDICAL HISTORY : Hypertension. Diabetes mellitus type II. Smoker. SURGICAL HISTORY : Several toes amputated. ENCOUNTER: Initial ACUITY: 2 days PAIN SCORE: 5/10 LOCATION: Left mid tibia. FINDINGS: Two view examination of the left tibia demonstrates no evidence of fracture or dislocation. Vascular calcifications are seen. Soft tissue swelling is seen at the calf and ankle regions. Bony mineraliza tion is normal. CONCLUSION: Soft tissue swelling. Dionisio Soria MD on November 08, 2017 at 21:51 Board Certified Radiologist. This report was verified electronically.
[2017-11-08 21:54] LABS: AUTOMATED NEUTROPHIL # 5.2 TH/MM3 (1.8-7.7); BASOPHIL # 0.1 TH/MM3 (0-0.2); BASOPHIL % 0.8 % (0.0-2.0); EOSINOPHIL # 0.4 TH/MM3 (0-0.4); HEMATOCRIT 29.5 % (39.0-51.0); HEMOGLOBIN 9.6 GM/DL (13.0-17.0); LYMPH % 25.2 % (9.0-44.0); LYMPHOCYTE # 2.3 TH/MM3 (1.0-4.8); MEAN CELL VOLUME 90.6 FL (80.0-100.0); MEAN CORPUSCULAR HEMOGLOBIN 29.6 PG (27.0-34.0); MEAN CORPUSCULAR HGB CONC 32.7 % (32.0-36.0); MEAN PLATELET VOLUME 6.7 FL (7.0-11.0); MONO % 12.1 % (0.0-8.0); MONOCYTE # 1.1 TH/MM3 (0-0.9); NEUT % 57.9 % (16.0-70.0); PLATELET COUNT 186 TH/MM3 (150-450); RED BLOOD COUNT 3.25 MIL/MM3 (4.50-5.90); RED CELL DISTRIBUTION WIDTH 14.2 % (11.6-17.2)
--- NOTE | 2017-11-08 21:54 | RADRPT ---
EXAM DATE/TIME: 11/08/2017 20:20 [facility] COMPARISON: No previous studies available for comparison. INDICATIONS : Left knee pain after falling on Sunday. MEDICAL HISTORY : Hypertension. Diabetes mellitus type II. Smoker. SURGICAL HISTORY : Several toes amputated. ENCOUNTER: Initial ACUITY: 2 days PAIN SCORE: 4/10 LOCATION: Left patella. FINDINGS: Four view examination of the left knee demonstrates no evidence of fracture or dislocation. Bony min eralization is normal. The articular surfaces are intact. The suprapatellar soft tissues have a nor mal configuration. Vascular calcifications are seen. CONCLUSION: No acute disease. Dionisio Soria MD on November 08, 2017 at 21:52 Board Certified Radiologist. This report was verified electronically.
--- NOTE | 2017-11-08 21:55 | RADRPT ---
EXAM DATE/TIME: 11/08/2017 20:22 [facility] COMPARISON: No previous studies available for comparison. INDICATIONS : Left foot pain after falling Sunday. MEDICAL HISTORY : Hypertension. Diabetes mellitus type II. Smoker. SURGICAL HISTORY : Several toes amputated. ENCOUNTER: Initial ACUITY: 2 days PAIN SCORE: 5/10 LOCATION: Left lateral foot. FINDINGS: Three view examination of the left foot demonstrates no soft tissue swelling, dislocation, or fractur e. The patient is status post amputation at the mid metatarsal level. There is a calcaneal spur at the plantar aponeurosis attachment site. There is mild hypertrophic change of the dorsal navicular ngoc ne. The tarsal bones appear intact. The interphalangeal and metatarsophalangeal joints are intact. The calcaneus is intact. Bony mineralization is normal. CONCLUSION: 1. No acute abnormality seen. 2. Chronic bony changes as described above. Dionisio Soria MD on November 08, 2017 at 21:52 Board Certified Radiologist. This report was verified electronically.
--- NOTE | 2017-11-08 21:56 | RADRPT ---
EXAM DATE/TIME: 11/08/2017 20:36 [facility] COMPARISON: US LEG BILATERAL VENOUS DOPPLER, March 26, 2017, 7:44. INDICATIONS : Bilateral leg swelling. MEDICAL HISTORY : Hypothyroidism. Congestive heart failure. Myocardial infarction. Diabetic neuropathy. Seizures. Antic oagulant therapy. Hypertension. Coronary artery disease. Sleep apnea. Dyspnea. Hiatal hernia. GERD. R enal disease. Arthritis. Fractured ribs. Hepatitis C. MRSA. SURGICAL HISTORY : Tonsillectomy. Bilateral feet surgery. 3 toes removed. Skin cancer removal. ENCOUNTER: Subsequent ACUITY: 4 - 6 days PAIN SCORE: 2/10 LOCATION: Bilateral legs. TECHNIQUE: Venous ultrasound of the left and right leg was performed from the inguinal ligament to the proximal calf. Real-time, color Doppler and spectral tracing, compression and augmentation techniques were us ed. FINDINGS: RIGHT LEG: There is normal compressibility of the deep venous system from the inguinal region to the proximal ca lf. No echogenic clot is seen in the lumen of the common femoral, femoral, popliteal, and posterior tibial veins. There is a normal response of the venous system to proximal and distal augmentation an d respiration. LEFT LEG: There is normal compressibility of the deep venous system from the inguinal region to the proximal ca lf. No echogenic clot is seen in the lumen of the common femoral, femoral, popliteal, and posterior tibial veins. There is a normal response of the venous system to proximal and distal augmentation an d respiration. CONCLUSION: No DVT. Dionisio Soria MD on November 08, 2017 at 21:54 Board Certified Radiologist. This report was verified electronically.
--- NOTE | 2017-11-08 22:04 | RADRPT ---
EXAM DATE/TIME: 11/08/2017 20:41 [facility] COMPARISON: CHEST SINGLE AP, May 01, 2017, 19:21. INDICATIONS : Syncope. MEDICAL HISTORY : Hypertension. Diabetes mellitus type II. SURGICAL HISTORY : Several toes amputated. ENCOUNTER: Initial ACUITY: 2 days PAIN SCORE: 0/10 LOCATION: Bilateral chest FINDINGS: A single view of the chest demonstrates the lungs to be symmetrically aerated without evidence of mas s, infiltrate or effusion. The cardiomediastinal contours are unremarkable. Old right rib fractures are seen.. CONCLUSION: No acute disease. Dionisio Soria MD on November 08, 2017 at 22:02 Board Certified Radiologist. This report was verified electronically.
[2017-11-08 22:40] LABS: ALBUMIN 3.3 GM/DL (3.4-5.0); AST (GOT) 35 U/L (15-37); BICARBONATE 18.6 MEQ/L (21.0-32.0); BLOOD UREA NITROGEN 40 MG/DL (7-18); CALCIUM 8.4 MG/DL (8.5-10.1); CHLORIDE 105 MEQ/L (98-107); CREATININE 1.59 MG/DL (0.60-1.30); GLOMERULAR FILTRATION RATE 45 ML/MIN (>89); GLUCOSE,RANDOM 91 MG/DL (74-106); MAGNESIUM 1.8 MG/DL (1.5-2.5); SODIUM (NA) 135 MEQ/L (136-145)
[2017-11-08 22:41] LABS: ALT (GPT) 36 U/L (12-78)
[2017-11-08 22:43] LABS: ALKALINE PHOSPHATASE 149 U/L (45-117); TOTAL BILIRUBIN ADULT 0.4 MG/DL (0.2-1.0); TOTAL PROTEIN 8.1 GM/DL (6.4-8.2)
[2017-11-08] MEDS ORDERED: HYDR-3516 PO (22:55)
[2017-11-08] MEDS ORDERED: CLIN300C5 PO (22:55)
[2017-11-08] MEDS ORDERED: ONDANSETRON ODT 4 MG TAB PO ONE (23:00)
[2017-11-08] MEDS ORDERED: MORPHINE SULFATE 4 MG/ML INJ IV PUSH ONE (23:00)
--- NOTE | 2017-11-09 12:21 | EKG ---
Date Performed: 11/08/2017 Time Performed: 21:27:13 PTAGE: 57 years EKG: Sinus rhythm PREVIOUS TRACING 03/25/2017 Compared to prior study, right bundle branch block is no long er present. DOCTOR: Stew Aguilar Interpretating Date/Time 11/09/2017 12:19:01
== END 2017-11-08 23:21 | disposition home or self-care (01) ==
LOC: NEPC 17:22
DX: L03.115 Cellulitis of right lower limb (principal); E03.9 Hypothyroidism, unspecified; I13.0 Hypertensive heart and chronic kidney disease with heart failure and stage 1 through stage 4 chronic kidney disease, or unspecified chronic kidney disease; E11.22 Type 2 diabetes mellitus with diabetic chronic kidney disease; N18.3 Chronic kidney disease, stage 3 (moderate); I50.9 Heart failure, unspecified; Z79.4 Long term (current) use of insulin
CPT/HCPCS: 71045; 73564; 73590; 73620; 73630; 80053; 81001; 83735; 83880; 85025; 87040; 87070; 93005; 93970; 96365; 96375; 99285; J2270; J3370; J7050; 87205

== ENCOUNTER 2018-03-18 01:10 | Inpatient (IN) ==
[2018-03-18] MEDS ORDERED: Morphine Inj 4 MG/ML Vial IV.PUSH ONE ×2 (02:04→04:08)
[2018-03-18] MEDS ORDERED: LORazepam 1 MG Tablet PO PRN (02:04)
[2018-03-18] MEDS ORDERED: Tetanus/Diphtheria Toxoid Adult Vaccine Inj 0.5 ML Vial IM ONE (02:18)
--- NOTE | 2018-03-18 02:18 | ED ---
HPI General Chief Complaint: Fall Stated Complaint: Fall Time Seen by Provider: 03/18/18 01:55 Source: patient and family Mode of arrival: EMS Limitations: no limitations History of Present Illness MD complaint: fall Onset (ago): minute(s) Fall from: other (Off the sofa) Fall witnessed: yes, by family Place fall occurred: home Loss of consciousness: none Prolonged down time: no Symptoms prior to fall: other (Intoxicated) Context: alcohol use Location of injury: other (Left thigh) Severity scale (1-10): 10 Associated symptoms (after fall): denies Related Data Home Medications Medication Instructions Recorded Confirmed aspirin 81 mg PO DAILY 03/18/18 03/18/18 atorvastatin 20 mg PO DAILY 03/18/18 03/18/18 bumetanide 1 mg PO BID 03/18/18 03/18/18 bumetanide 1 mg PO DAILY 03/18/18 03/18/18 carvedilol 6.25 mg PO BID 03/18/18 03/18/18 diazepam [Valium] 5 mg PO DAILY 03/18/18 03/18/18 doxycycline hyclate 100 mg PO BID 03/18/18 03/18/18 escitalopram oxalate [Lexapro] 10 mg PO DAILY 03/18/18 03/18/18 folic acid 1 mg PO DAILY 03/18/18 03/18/18 gabapentin 300 mg PO TID 03/18/18 03/18/18 insulin aspart U-100 [Novolog 1 sliding scale dose SUB-Q UD 03/18/18 03/18/18 U-100 Insulin aspart] insulin detemir U-100 [Levemir 10 unit SUB-Q QPM 03/18/18 03/18/18 U-100 Insulin] levothyroxine 50 mcg PO DAILY 03/18/18 03/18/18 losartan 100 mg PO DAILY 03/18/18 03/18/18 methocarbamol 750 mg PO QID 03/18/18 03/18/18 potassium chloride [Klor-Con M20] 10 meq PO DAILY 03/18/18 03/18/18 tamsulosin 0.4 mg PO DAILY 03/18/18 03/18/18 thiamine HCl (vitamin B1) [Vitamin 100 mg PO DAILY 03/18/18 03/18/18 B-1] ticagrelor [Brilinta] 90 mg PO BID 03/18/18 03/18/18 Allergies Allergy/AdvReac Type Severity Reaction Status Date / Time *MDRO Multi-Drug Resistant AdvReac Unknown MRSA Uncoded 03/25/17 20:07 Organism Review of Systems ROS: all other systems reviewed are negative Integumentary/Breasts Reports other [facility] Medical History Medical History Back fracture (Acute) CHF (congestive heart failure) (Acute) Chronic kidney disease (Acute) Diabetes (Acute) HTN (hypertension) (Acute) Heart attack (Acute) Hernia (Acute) Mitral valve disease (Acute) Neuropathic pain (Acute) Toe amputation status (Acute) Social History Social History Substance History: No History of Abuse Second Hand Smoke Exposure: No Smoking Status: Former smoker Tobacco Type: Cigarettes How Often Do You Have a Drink Containing Alcohol: 4 or more times a week Recent Travel in [facility] within the Last 8 Weeks: No Recent Out of Country Travel within the Last 8 Weeks: No Immunization History Tetanus Immunization: Unsure Hx Influenza Vaccine This Season: No Exam Const General: cooperative, healthy appearing and disheveled Nutritional Appearance: obese Orientation: alert, awake and oriented x3 HENMT Head: normal to inspection, normocephalic and atraumatic Eyes Alignment and Position: alignment normal Conjunctivae: conjunctivae normal Sclera: sclerae normal EOM: EOM intact bilaterally Neck Neck: normal visual inspection and full ROM Chest Chest: normal inspection of the chest Resp Effort & Inspection: normal respiratory effort and able to speak in complete sentences Cardio Rate: regular rate Rhythm: regular rhythm Back/Spine/Pelvis Cervical Spine: cervical ROM normal Thoracic/Lumbar Spine: thoraco-lumbar ROM normal Skin General: no rashes or lesions noted, turgor normal and dry skin Trauma: abrasion (Multiple abrasions to the lower extremities, particularly the right mcnally and the left foot) Neuro General: alert, awake, oriented x3, moves all extremities and CN's II-XI intact bilaterally Extrem Left lower extremity: hip/thigh Details: abnormal to inspection, tenderness, swelling, abnormal ROM and deformity Psych Appearance: grossly normal Mental Status: mental status grossly normal Speech and Movement: speech and movement normal Mood: congruent mood Affect: normal affect Attitude: cooperative Thought Process: normal Thought Content: normal Judgment: judgment good Course Consultations Consultation #1: Dr. Orozco Time: 04:12 Initial Documented Vital Signs Temperature 97.6 F 03/18/18 01:27 Pulse Rate 73 03/18/18 01:27 Respiratory Rate 20 03/18/18 01:27 Blood Pressure 123/60 03/18/18 01:27 Pulse Oximetry 97 03/18/18 01:27 Last Documented Vital Signs Temperature 97.6 F 03/18/18 01:27 Pulse Rate 73 03/18/18 01:27 Respiratory Rate 20 03/18/18 01:27 Blood Pressure 123/60 03/18/18 01:27 Pulse Oximetry 97 03/18/18 01:27 Medical Decision Making MDM Narrative Medical decision making narrative: This patient presents status post a fall off the sofa secondary to alcohol intoxication. His states that she tried to help him up and he did the splits. He subsequently developed acute pain in his left thigh and was brought to us via rescue for the evaluation of a left thigh injury. On exam, he has an obvious deformity of the left femur. He is distally neurovascularly intact. He also has multiple abrasions to the right mcnally and left foot secondary to a fall which occurred 2 days ago secondary to alcohol intoxication. Medical Screen Exam Complete: Yes Emergency Medical Condition: Yes Differential Diagnosis Differential Diagnosis: Differential diagnosis of extremity trauma includes but is not limited to fracture, sprain or strain, dislocation, contusion Lab Data Lab results reviewed: Yes I reviewed the patient's lab results. Result diagrams: 03/18/18 02:40 03/18/18 02:40 Lab Results 03/18/18 03/18/18 03/18/18 Range/Units 02:40 02:40 02:40 WBC 6.7 (4.0-11.0) th/mm3 RBC 3.48 L (4.50-5.90) mil/mm3 Hgb 9.6 L (13.0-17.0) gm/dL Hct 29.8 L (39.0-51.0) % MCV 85.6 (80.0-100.0) fL MCH 27.5 (27.0-34.0) pg MCHC 32.1 (32.0-36.0) % RDW 16.5 (11.6-17.2) % Plt Count 180 (150-450) th/mm3 MPV 6.6 L (7.0-11.0) fL Neut % (Auto) 59.4 (16.0-70.0) % Lymph % (Auto) 24.6 (9.0-44.0) % [place] % (Auto) 10.0 H (0.0-8.0) % Eos % (Auto) 4.9 H (0.0-4.0) % Baso % (Auto) 1.1 (0.0-2.0) % Neut # (Auto) 4.0 (1.8-7.7) th/mm3 Lymph # (Auto) 1.6 (1.0-4.8) th/mm3 [place] # (Auto) 0.7 (0.0-0.9) th/mm3 Eos # (Auto) 0.3 (0.0-0.4) th/mm3 Baso # (Auto) 0.1 (0.0-0.2) th/mm3 WBC Differential . Differential Comment Auto diff final PT 10.6 (9.8-11.6) sec INR 1.0 Ratio APTT 24.9 (24.3-30.1) sec Sodium 140 (136-145) meq/L Potassium 5.0 (3.5-5.1) meq/L Chloride 110 H (98-107) meq/L Carbon Dioxide 17.7 L (21.0-32.0) meq/L Anion Gap 12 (5-15) meq/L BUN 48 H (7-18) mg/dL Creatinine 1.70 H (0.60-1.30) mg/dL Estimated GFR 42 L (>89) mL/min Random Glucose 112 H (74-106) mg/dL Calcium 7.9 L (8.5-10.1) mg/dL Total Bilirubin 0.2 (0.2-1.0) mg/dL AST 34 (15-37) U/L ALT 26 (12-78) U/L Alkaline Phosphatase 132 H (45-117) U/L Total Protein 8.8 H (6.4-8.2) g/dL Albumin 3.5 (3.4-5.0) g/dL Serum Alcohol 227 H (0-5) mg/dL Blood Type Blood Type Recheck Antibody Screen 03/18/18 Range/Units 02:40 WBC (4.0-11.0) th/mm3 RBC (4.50-5.90) mil/mm3 Hgb (13.0-17.0) gm/dL Hct (39.0-51.0) % MCV (80.0-100.0) fL MCH (27.0-34.0) pg MCHC (32.0-36.0) % RDW (11.6-17.2) % Plt Count (150-450) th/mm3 MPV (7.0-11.0) fL Neut % (Auto) (16.0-70.0) % Lymph % (Auto) (9.0-44.0) % [place] % (Auto) (0.0-8.0) % Eos % (Auto) (0.0-4.0) % Baso % (Auto) (0.0-2.0) % Neut # (Auto) (1.8-7.7) th/mm3 Lymph # (Auto) (1.0-4.8) th/mm3 [place] # (Auto) (0.0-0.9) th/mm3 Eos # (Auto) (0.0-0.4) th/mm3 Baso # (Auto) (0.0-0.2) th/mm3 WBC Differential Differential Comment PT (9.8-11.6) sec INR Ratio APTT (24.3-30.1) sec Sodium (136-145) meq/L Potassium (3.5-5.1) meq/L Chloride (98-107) meq/L Carbon Dioxide (21.0-32.0) meq/L Anion Gap (5-15) meq/L BUN (7-18) mg/dL Creatinine (0.60-1.30) mg/dL Estimated GFR (>89) mL/min Random Glucose (74-106) mg/dL Calcium (8.5-10.1) mg/dL Total Bilirubin (0.2-1.0) mg/dL AST (15-37) U/L ALT (12-78) U/L Alkaline Phosphatase (45-117) U/L Total Protein (6.4-8.2) g/dL Albumin (3.4-5.0) g/dL Serum Alcohol (0-5) mg/dL Blood Type A Positive Blood Type Recheck Not needed Antibody Screen Negative Imaging Data Attestation: I personally reviewed and interpreted this imaging study as follows : Radiologist's impression: Chest X-Ray 03/18/18 02:04 CONCLUSION: 1. Lateral sixth rib fracture on the right. Posterior seventh rib fracture on the right. Findings are age-indeterminate 2. No acute cardiopulmonary disease identified. Femur X-Ray 03/18/18 02:04 CONCLUSION: Comminuted intratrochanteric/subtrochanteric proximal femur fracture. Discharge Plan Discharge Disposition Patient Disposition: 30 Still Patient Discharge Details Diagnosis: Closed left femoral fracture, Alcohol abuse, Closed rib fracture, Abrasion Physicians Team ED Provider: Nithya Harrison Primary Care Provider: Primary Care Shereen Lin Rxs /Orders / Referrals /Forms Prescriptions: No Action carvedilol 6.25 mg Tablet 6.25 mg PO BID RF: 0 doxycycline hyclate 100 mg Capsule 100 mg PO BID RF: 0 atorvastatin 20 mg Tablet 20 mg PO DAILY RF: 0 thiamine HCl (vitamin B1) [Vitamin B-1] 100 mg Tablet 100 mg PO DAILY RF: 0 potassium chloride [Klor-Con M20] 20 mEq Tablet,Er Particles/Crystals 10 meq PO DAILY RF: 0 methocarbamol 750 mg Tablet 750 mg PO QID RF: 0 tamsulosin 0.4 mg Capsule,Extended Release 24hr 0.4 mg PO DAILY RF: 0 insulin aspart U-100 [Novolog U-100 Insulin aspart] 100 unit/mL Solution 1 sliding scale dose SUB-Q UD RF: 0 levothyroxine 50 mcg Tablet 50 mcg PO DAILY RF: 0 gabapentin 300 mg Capsule 300 mg PO TID RF: 0 aspirin 81 mg Tablet,Chewable 81 mg PO DAILY RF: 0 bumetanide 1 mg Tablet 1 mg PO DAILY RF: 0 bumetanide 1 mg Tablet 1 mg PO BID RF: 0 folic acid 1 mg Tablet 1 mg PO DAILY RF: 0 losartan 100 mg Tablet 100 mg PO DAILY RF: 0 diazepam [Valium] 5 mg Tablet 5 mg PO DAILY RF: 0 escitalopram oxalate [Lexapro] 10 mg Tablet 10 mg PO DAILY RF: 0 insulin detemir U-100 [Levemir U-100 Insulin] 100 unit/mL Solution 10 unit SUB-Q QPM RF: 0 ticagrelor [Brilinta] 90 mg Tablet 90 mg PO BID RF: 0 Status ED Status: Pending Admission
[2018-03-18 02:56] LABS: Baso # (Auto) 0.1 th/mm3 (0.0-0.2); Baso % (Auto) 1.1 % (0.0-2.0); Eos # (Auto) 0.3 th/mm3 (0.0-0.4); Eos % (Auto) 4.9 % (0.0-4.0); Hematocrit 29.8 % (39.0-51.0); Hemoglobin 9.6 gm/dL (13.0-17.0); Lymph # (Auto) 1.6 th/mm3 (1.0-4.8); Lymph % (Auto) 24.6 % (9.0-44.0); Mean Corpuscular HGB Conc 32.1 % (32.0-36.0); Mean Corpuscular Hemoglobin 27.5 pg (27.0-34.0); Mean Corpuscular Volume 85.6 fL (80.0-100.0); Mean Platelet Volume 6.6 fL (7.0-11.0); Mono # (Auto) 0.7 th/mm3 (0.0-0.9); Neut % (Auto) 59.4 % (16.0-70.0); Platelet Count 180 th/mm3 (150-450); Red Blood Count 3.48 mil/mm3 (4.50-5.90); Red Cell Distribution Width 16.5 % (11.6-17.2); White Blood Count 6.7 th/mm3 (4.0-11.0)
[2018-03-18 03:00] LABS: Activated Partial Thrombo Time 24.9 sec (24.3-30.1); Prothrombin Time 10.6 sec (9.8-11.6)
[2018-03-18 03:10] LABS: Alanine Aminotransferase 26 U/L (12-78); Albumin 3.5 g/dL (3.4-5.0); Anion Gap 12 meq/L (5-15); Aspartate Aminotransferase 34 U/L (15-37); Blood Urea Nitrogen 48 mg/dL (7-18); Calcium 7.9 mg/dL (8.5-10.1); Carbon Dioxide 17.7 meq/L (21.0-32.0); Chloride 110 meq/L (98-107); Glomerular Filtration Rate 42 mL/min (>89); Glucose,Random 112 mg/dL (74-106); Sodium 140 meq/L (136-145)
[2018-03-18 03:13] LABS: Alkaline Phosphatase 132 U/L (45-117); Total Protein 8.8 g/dL (6.4-8.2)
[2018-03-18 03:14] LABS: Alcohol 227 mg/dL (0-5)
--- NOTE | 2018-03-18 03:59 | XR ---
EXAM DATE: 03/18/2018 3:52 AM EDT AGE/SEX: 57 years / Male INDICATIONS: Left femur pain after falling today. CLINICAL DATA: This is the patient's initial encounter. Patient reports that signs and symptoms have been present for 1 day and indicates a pain score of 10/10. MEDICAL/SURGICAL HISTORY: Hypertension. Diabetes mellitus type II. Congestive heart failure. None. COMPARISON: [facility] – [place], KNEE LEFT COMPLETE (4VWS), 11/08/2017. . FINDINGS: 7 views of the left femur. Comminuted displaced fracture of the proximal femur. Fracture involves the intertrochanteric and subtrochanteric regions. 30 degrees anterior angulation of the distal fragment . 25 degrees medial angulation of the distal fragment. Fragments are displaced up to one bone width. Hip alignment within normal limits. Diffuse arterial calcification. CONCLUSION: Comminuted intratrochanteric/subtrochanteric proximal femur fracture. Electronically signed by: Luis Daniel Clifton MD 03/18/2018 3:58 AM EDT
--- NOTE | 2018-03-18 04:02 | XR ---
EXAM DATE: 03/18/2018 3:50 AM EDT AGE/SEX: 57 years / Male INDICATIONS: Shortness of breath. CLINICAL DATA: This is the patient's initial encounter. Patient reports that signs and symptoms have been present for 1 day and indicates a pain score of 0/10. MEDICAL/SURGICAL HISTORY: Hypertension. Diabetes mellitus type II. Congestive heart failure. None. COMPARISON: [facility] [place], CHEST 2V PA&LAT, 03/11/2018. . FINDINGS: Single AP view of the chest. 6 lateral rib fracture on the right with 2 mm step off. Poste rior seventh rib fracture on the right with 5 mm step off. The lungs are clear. Cardiomediastinal si lhouette within normal limits. No evidence of pleural effusion or pneumothorax. CONCLUSION: 1. Lateral sixth rib fracture on the right. Posterior seventh rib fracture on the right. Findings ar e age-indeterminate 2. No acute cardiopulmonary disease identified. Electronically signed by: Luis Daniel Clifton MD 03/18/2018 4:01 AM EDT
[2018-03-18] MEDS ORDERED: Sod Chloride 0.9% Inj 1,000 ML IV.SIG SCH (04:15)
[2018-03-18] MEDS ORDERED: Morphine Inj 4 MG/ML Vial IV.PUSH PRN (04:18)
[2018-03-18] MEDS ORDERED: Acetaminophen 325 MG Tablet PO PRN (04:18)
[2018-03-18] MEDS ORDERED: Bisacodyl 10 MG Supp RECTAL PRN (04:18)
[2018-03-18] MEDS ORDERED: Dextrose 50% in Water 50 ML Vial IV.PUSH PRN (04:21)
--- NOTE | 2018-03-18 04:24 | P.HPIM ---
History of Present Illness Primary Care Physician: No Primary Care Physician History of Present Illness: This is a 57-year-old male with a PMH of HTN, Hyperlipidemia, CHF (Echo 10-17 with EF 55-60% and Severe ), CKD, DM and Alcohol Abuse who was brought to the ER by EMS for c/o left hip pain after a fall. Per , pt had "too much to drink" tonight, states he tried to get up from the couch and fell onto the floor , states she was able to get him up w/ assistance from other people, however he lost his balance and had 2nd fall at which time he c/o severe left hip pain. + obvious deformity. Pain is severe, constant, 10/10, worse w/ movement. On arrival, BP 123/60, HR 73, O2 sat 97% on RA, Afebrile. CBC unremarkable. INR 1.0. Creatinine 1.70, previously 1.80 on 12/23/2017. CXR with lateral sixth rib fracture on the right, posterior seventh rib fracture on the left, age indeterminate, no acute cardiopulmonary findings. Femur X-ray with comminuted intertrochanteric/subtrochanteric proximal femur fracture. - Diagnosis (1) Fall (2) Closed left femoral fracture (3) DM (diabetes mellitus) (4) Alcohol abuse Inpatient Certification: I certify that the inpatient services were ordered in accordance with Medicare regulations governing the order. This includes certification that hospital inpatient services are reasonable and necessary and in the case of services not specified as inpatient-only under 42 CFR 419.22(n), that they are appropriately provided as inpatient services in accordance to with the 2-midnight benchmark under 43 CFR 412.3(e) Estimated Total Length of Stay (Days): 2 Plans for Post Hospital Care: Not yet determined Review of Systems PAST FAMILY HISTORY: Reviewed. No h/o DM or CAD All other systems reviewed negative except as stated in HPI PMFSH - History History Provided By: Patient - Medical History Medical History: Medical History (Last Reviewed 03/18/18 @ 02:15 by Nithya Harrison) Back fracture CHF (congestive heart failure) Chronic kidney disease Diabetes HTN (hypertension) Heart attack Hernia Mitral valve disease Neuropathic pain Toe amputation status - Tobacco History Second Hand Smoke Exposure: No Smoking Status: Former smoker Tobacco Type: Cigarettes - Alcohol History How Often Do You Have a Drink Containing Alcohol: 4 or more times a week - Substance Use History Substance History: No History of Abuse - Travel History Recent Travel in the [place] Within the Last 8 Weeks: No Recent Travel Out of the Country Within the Last 8 Weeks: No - Immunization History Tetanus Immunization: Unsure Hx Influenza Vaccine This Season: No Medications and Allergies Active Medications: Active Medications Acetaminophen (Tylenol) 650 mg PO Q4H PRN PRN Reason: Temp > 100.4 Al Hydroxide/Mg Hydroxide (Milk Of Magnesia Liq) 30 ml PO Q12H PRN PRN Reason: Mild Constipation Atorvastatin Calcium (Lipitor) 20 mg PO DAILY [facility] Bisacodyl (Dulcolax Supp) 10 mg RECTAL DAILY PRN PRN Reason: SEVERE CONSITIPATION Bumetanide (Bumex) 1 mg PO BID [facility] Carvedilol (Coreg) 6.25 mg PO BID [facility] Dextrose (D50w Vial) 50 ml IV.PUSH UNSCH PRN PRN Reason: PER HYPOGLYCEMIA PROTOCOL Diazepam (Valium) 5 mg PO DAILY [facility] Escitalopram Oxalate (Lexapro) 10 mg PO DAILY [facility] Flumazenil (Romazecon Inj) 0.2 mg IV.PUSH Q1M PRN PRN Reason: OVERSEDATION Folic Acid (Folic Acid) 1 mg PO DAILY [facility] Gabapentin (Neurontin) 300 mg PO TID [facility] Glucagon (Glucagon Inj) 1 mg OTHER PRN PRN PRN Reason: for Hypoglycemia Protocol Sodium Chloride (Ns Inj) 1,000 mls @ 0 mls/hr IV.SIG BOLUS [facility] Sodium Chloride (Ns Inj) 1,000 mls @ 100 mls/hr IV.CONT .Q10H [facility] Insulin Aspart (Novolog Insulin Correctional Sugar Inj) 0 unit SQ ACHS [facility]; Protocol Lactulose (Lactulose Liq) 30 ml PO DAILY PRN PRN Reason: SEVERE CONSITIPATION Lorazepam (Ativan Inj) 1 mg IV.PUSH Q4H PRN PRN Reason: for CIWA 8-10 Lorazepam (Ativan Inj) 2 mg IV.PUSH Q15M PRN PRN Reason: for CIWA > 20 Lorazepam (Ativan Inj) 2 mg IV.PUSH Q1H PRN PRN Reason: for CIWA 15-20 Lorazepam (Ativan Inj) 2 mg IV.PUSH Q2H PRN PRN Reason: for CIWA 11-14 Lorazepam (Ativan) 2 mg PO Q2H PRN PRN Reason: for CIWA 11-14 Lorazepam (Ativan) 1 mg PO Q4H PRN PRN Reason: for CIWA 8-10 Morphine Sulfate (Morphine Inj) 2 mg IV.PUSH Q4H PRN PRN Reason: PAIN 6-10 Multivitamins (Theragran) 1 tab PO DAILY [facility] Ondansetron HCl (Zofran Inj) 4 mg IV.PUSH Q6H PRN PRN Reason: NAUSEA OR VOMITING Senna/Docusate Sodium (Nikki-Colace) 1 tab PO BID [facility] Sennosides (Senokot) 17.2 mg PO Q12H PRN PRN Reason: Moderate Constipation Sodium Chloride (Ns Flush) 2 ml IV.FLUSH UNSCH PRN PRN Reason: FLUSH AFTER USING IV ACCESS Tamsulosin HCl (Flomax) 0.4 mg PO DAILY [facility] Thiamine HCl (Vitamin B1) 100 mg PO DAILY [facility] Allergies Allergy/AdvReac Type Severity Reaction Status Date / Time *MDRO Multi-Drug Resistant AdvReac Unknown MRSA Uncoded 03/25/17 20:07 Organism Home Medications Medication Instructions Recorded Confirmed Type aspirin 81 mg PO DAILY 03/18/18 03/18/18 History atorvastatin 20 mg PO DAILY 03/18/18 03/18/18 History bumetanide 1 mg PO BID 03/18/18 03/18/18 History bumetanide 1 mg PO DAILY 03/18/18 03/18/18 History carvedilol 6.25 mg PO BID 03/18/18 03/18/18 History diazepam [Valium] 5 mg PO DAILY 03/18/18 03/18/18 History doxycycline hyclate 100 mg PO BID 03/18/18 03/18/18 History escitalopram oxalate [Lexapro] 10 mg PO DAILY 03/18/18 03/18/18 History folic acid 1 mg PO DAILY 03/18/18 03/18/18 History gabapentin 300 mg PO TID 03/18/18 03/18/18 History insulin aspart U-100 [Novolog 1 sliding scale dose SUB-Q UD 03/18/18 03/18/18 History U-100 Insulin aspart] insulin detemir U-100 [Levemir 10 unit SUB-Q QPM 03/18/18 03/18/18 History U-100 Insulin] levothyroxine 50 mcg PO DAILY 03/18/18 03/18/18 History losartan 100 mg PO DAILY 03/18/18 03/18/18 History methocarbamol 750 mg PO QID 03/18/18 03/18/18 History potassium chloride [Klor-Con M20] 10 meq PO DAILY 03/18/18 03/18/18 History tamsulosin 0.4 mg PO DAILY 03/18/18 03/18/18 History thiamine HCl (vitamin B1) [Vitamin 100 mg PO DAILY 03/18/18 03/18/18 History B-1] ticagrelor [Brilinta] 90 mg PO BID 03/18/18 03/18/18 History Exam Vital signs: Vital Signs 03/18/18 01:27 03/18/18 04:17 Temperature 97.6 F Pulse Rate 73 74 Respiratory Rate 20 18 Blood Pressure 123/60 137/65 Pulse Oximetry 97 96 Narrative: PE: GENERAL: Middle-aged white male in no acute distress, intoxicated, but answering questions appropriately. at bedside. SKIN: Focused skin assessment warm and dry. HEENT: PERRLA, EOMI. No scleral icterus or conjunctival pallor. No lid lag or facial droop. CARDIOVASCULAR: Regular rate and rhythm. No obvious murmurs to auscultation. No chest tenderness to palpation. RESPIRATORY: No obvious rhonchi or wheezing. Clear to auscultation. Breath sounds equal bilaterally. GASTROINTESTINAL: Abdomen soft, non-tender, nondistended. BS normal. MUSCULOSKELETAL: Extremities without clubbing, cyanosis, or edema. LLE w/ decreased ROM due to injury, +deformity, previous toe amputations. NEUROLOGICAL: Awake, alert and oriented x4. No focal neurologic deficits. Moving both upper and lower extremities spontaneously. PSYCHIATRIC: Appropriate mood and affect. Insight and judgment normal. Results - Labs CBC & Chem 7: 03/18/18 02:40 03/18/18 02:40 Labs: Short CBC 03/18/18 Range/Units 02:40 WBC 6.7 (4.0-11.0) th/mm3 Hgb 9.6 L (13.0-17.0) gm/dL Hct 29.8 L (39.0-51.0) % Plt Count 180 (150-450) th/mm3 BMP 03/18/18 02:40 Sodium 140 Potassium 5.0 Chloride 110 H Carbon Dioxide 17.7 L BUN 48 H Creatinine 1.70 H Calcium 7.9 L Liver Function 03/18/18 Range/Units 02:40 Total Bilirubin 0.2 (0.2-1.0) mg/dL AST 34 (15-37) U/L ALT 26 (12-78) U/L Alkaline Phosphatase 132 H (45-117) U/L Albumin 3.5 (3.4-5.0) g/dL - Imaging Impressions Chest X-Ray 03/18/18 02:04 CONCLUSION: 1. Lateral sixth rib fracture on the right. Posterior seventh rib fracture on the right. Findings are age-indeterminate 2. No acute cardiopulmonary disease identified. Femur X-Ray 03/18/18 02:04 CONCLUSION: Comminuted intratrochanteric/subtrochanteric proximal femur fracture. Caprini VTE Risk Assessment Caprini VTE Risk Assessment: Moderate/High Risk (score >= 2) Caprini Risk Assessment Model: Point Value = 1 Point Value = 2 Point Value = 3 Point Value = 5 Age 41-60 Minor surgery BMI > 25 kg/m2 Swollen legs Varicose veins or History of unexplained or recurrent spontaneous Oral contraceptives or hormone replacement Sepsis (< 1 month) Serious lung disease, including pneumonia (< 1 month) Abnormal pulmonary function Acute myocardial infarction Congestive heart failure (< 1 month) History of inflammatory bowel disease Medical patient at bed rest Age 61-74 Arthroscopic surgery Major open surgery (> 45 min) Laparoscopic surgery (> 45 min) Malignancy Confined to bed (> 72 hours) Immobilizing plaster cast Central venous access Age >= 75 History of VTE Family history of VTE Factor V Leiden Prothrombin [id number] Lupus anticoagulant Anticardiolipin antibodies Elevated serum homocysteine Heparin-induced thrombocytopenia Other congenital or acquired thrombophilia Stroke (< 1 month) Elective arthroplasty Hip, pelvis, or leg fracture Acute spinal cord injury (< 1 month) Prophylaxis Regimen: Total Risk Factor Score Risk Level Prophylaxis Regimen 0-1 Low Early ambulation 2 Moderate Order ONE of the following: *Sequential Compression Device (SCD) *Heparin 5000 units SQ BID 3-4 Higher Order ONE of the following medications: *Heparin 5000 units SQ TID *Enoxaparin/Lovenox 40 mg SQ daily (WT < 150 kg, CrCl > 30 mL/min) *Enoxaparin/Lovenox 30 mg SQ daily (WT < 150 kg, CrCl > 10-29 mL/min) *Enoxaparin/Lovenox 30 mg SQ BID (WT < 150 kg, CrCl > 30 mL/min) AND/OR *Sequential Compression Device (SCD) 5 or more Highest Order ONE of the following medications: *Heparin 5000 units SQ TID (Preferred with Epidurals) *Enoxaparin/Lovenox 40 mg SQ daily (WT < 150 kg, CrCl > 30 mL/min) *Enoxaparin/Lovenox 30 mg SQ daily (WT < 150 kg, CrCl > 10-29 mL/min) *Enoxaparin/Lovenox 30 mg SQ BID (WT < 150 kg, CrCl > 30 mL/min) AND *Sequential Compression Device (SCD) Assessment and Plan - Assessment (1) Fall Code(s): W19.XXXA - Unspecified fall, initial encounter Status: Acute (2) Closed left femoral fracture Code(s): S72.92XA - Unspecified fracture of left femur, initial encounter for closed fracture Status: Acute (3) DM (diabetes mellitus) Code(s): E11.9 - Type 2 diabetes mellitus without complications Status: Acute (4) Alcohol abuse Code(s): F10.10 - Alcohol abuse, uncomplicated Status: Acute - Plan A/P: 1. Fall: s/p fall at home while intoxicated, reports pt falls quite frequently when he drinks. No head trauma or LOC. CXR w/ right lateral 6th rib fx and right posterior 7th rib fx, age indeterminate, likely from previous fall. 2. Left Hip Fx: secondary to fall, X-ray w/ comminuted intertrochanteric/ subtrochanteric proximal femur fracture, images reviewed. Consult Ortho for further eval/intervention, NPO, analgesics/antiemetics as needed. 3. Alcohol Abuse: w/ Acute Alcohol Intoxication, Alcohol 227, CIWA, Seizure Precautions, MVT/Thiamine/Folate 4. DM: Sliding scale w/ Accu-Checks, resume home Insulin post op 5. DVT Prophylaxis: Anticoagulation post op 6. Social work for d/c planning as needed 7. Case discussed w/ ER physician at length, labs/records/imaging reviewed by me (2) Closed left femoral fracture Qualifiers: Encounter type: initial encounter Femur location: subtrochanteric Fracture alignment: displaced Qualified Code(s): S72.22XA - Displaced subtrochanteric fracture of left femur, initial encounter for closed fracture
[2018-03-18] MEDS: Sod Chloride 0.9% Inj 1,000 ML IV.CONT SCH ×2 (04:44→15:05)
[2018-03-18 04:57] LABS: Bilirubin,Urine Negative (Negative); Clarity,Urine Clear (Clear); Color,Urine Straw (Yellw/Straw); Glucose,Urine (UA) Negative (Negative); Leukocyte Esterase,Urine Negative (Negative); Nitrite,Urine Negative (Negative); Specific Gravity,Urine 1.006 (1.002-1.035)
--- NOTE | 2018-03-18 06:40 | P.PNOP ---
Subjective Interval history: Patient presents to the emergency room after a fall at home. Patient was intoxicated and fell out of a chair. Patient is a type I diabetic. Diagnosed with a left intertrochanteric femur fracture <AldacrystalReggie - Last Filed: 03/18/18 06:37> Physical Exam Vital signs: Vital Signs 03/18/18 01:27 03/18/18 04:17 03/18/18 05:43 Temperature 97.6 F 98.0 F Pulse Rate 73 74 73 Respiratory Rate 20 18 18 Blood Pressure 123/60 137/65 152/67 H Pulse Oximetry 97 96 95 Intake & Output 03/17/18 03/17/18 03/18/18 06:59 18:59 06:59 Output Total 350 / 350 Balance -350 / -350 Weight 127.006 kg Output: Urine 350 / 350 Other: Date of Last Bowel Movement 03/17/18 Weight On Admission 127.006 kg Narrative: Bilateral upper extremities: Full range of motion neurovascularly intact Right lower extremity: No pain with hip knee or ankle range of motion. He has no sensation over the plantar surface of his foot or over his toes. He does have sensation over the dorsum. He is missing 2 toes due to previous amputations Left lower extremity: Pain to palpation of hip and with any movement of hip. Minimal pain with palpation of knee or ankle. Has diminished sensation over the dorsum of his foot no sensation over the plantar surface of his foot. He is missing one toe due to previous amputation. Skin is consistent over the tibia for venous stasis. <VivianReggie - Last Filed: 03/18/18 06:37> Vital signs: Vital Signs 03/18/18 01:27 03/18/18 04:17 03/18/18 05:43 Temperature 97.6 F 98.0 F Pulse Rate 73 74 73 Respiratory Rate 20 18 18 Blood Pressure 123/60 137/65 152/67 H Pulse Oximetry 97 96 95 Intake & Output 03/17/18 03/18/18 03/18/18 18:59 06:59 18:59 Output Total 350 / 350 Balance -350 / -350 Weight 127.006 kg Output: Urine 350 / 350 Other: Date of Last Bowel Movement 03/17/18 Weight On Admission 127.006 kg <Chan Rapp - Last Filed: 03/18/18 07:54> Results - Labs CBC & Chem 7: 03/18/18 02:40 03/18/18 02:40 Laboratory Results - last 24 hr 03/18/18 03/18/18 03/18/18 02:40 02:40 02:40 WBC 6.7 RBC 3.48 L Hgb 9.6 L Hct 29.8 L MCV 85.6 MCH 27.5 MCHC 32.1 RDW 16.5 Plt Count 180 MPV 6.6 L Neut % (Auto) 59.4 Lymph % (Auto) 24.6 [place] % (Auto) 10.0 H Eos % (Auto) 4.9 H Baso % (Auto) 1.1 Neut # (Auto) 4.0 Lymph # (Auto) 1.6 [place] # (Auto) 0.7 Eos # (Auto) 0.3 Baso # (Auto) 0.1 WBC Differential . Differential Comment Auto diff final PT 10.6 INR 1.0 APTT 24.9 Sodium 140 Potassium 5.0 Chloride 110 H Carbon Dioxide 17.7 L Anion Gap 12 BUN 48 H Creatinine 1.70 H Estimated GFR 42 L Random Glucose 112 H Calcium 7.9 L Total Bilirubin 0.2 AST 34 ALT 26 Alkaline Phosphatase 132 H Total Protein 8.8 H Albumin 3.5 Urine Color Urine Clarity Urine pH Ur Specific [place] Urine Protein Urine Glucose (UA) Urine Ketones Urine Occult Blood Urine Nitrate Urine Bilirubin Urine Urobilinogen Ur Leukocyte Esterase Urine RBC Urine WBC Ur Microscopic Review Serum Alcohol 227 H Blood Type Blood Type Recheck Antibody Screen 03/18/18 03/18/18 02:40 04:45 WBC RBC Hgb Hct MCV MCH MCHC RDW Plt Count MPV Neut % (Auto) Lymph % (Auto) [place] % (Auto) Eos % (Auto) Baso % (Auto) Neut # (Auto) Lymph # (Auto) [place] # (Auto) Eos # (Auto) Baso # (Auto) WBC Differential Differential Comment PT INR APTT Sodium Potassium Chloride Carbon Dioxide Anion Gap BUN Creatinine Estimated GFR Random Glucose Calcium Total Bilirubin AST ALT Alkaline Phosphatase Total Protein Albumin Urine Color Straw Urine Clarity Clear Urine pH 5.0 Ur Specific [place] 1.006 Urine Protein 30 H Urine Glucose (UA) Negative Urine Ketones Negative Urine Occult Blood Moderate H Urine Nitrate Negative Urine Bilirubin Negative Urine Urobilinogen Less than 2 Ur Leukocyte Esterase Negative Urine RBC Less than 1 Urine WBC Less than 1 Ur Microscopic Review Not Reportable Serum Alcohol Blood Type A Positive Blood Type Recheck Not needed Antibody Screen Negative - Imaging Impressions Chest X-Ray 03/18/18 02:04 CONCLUSION: 1. Lateral sixth rib fracture on the right. Posterior seventh rib fracture on the right. Findings are age-indeterminate 2. No acute cardiopulmonary disease identified. Femur X-Ray 03/18/18 02:04 CONCLUSION: Comminuted intratrochanteric/subtrochanteric proximal femur fracture. <Reggie Park - Last Filed: 03/18/18 06:37> - Labs CBC & Chem 7: 03/18/18 02:40 03/18/18 02:40 Laboratory Results - last 24 hr 03/18/18 03/18/18 03/18/18 02:40 02:40 02:40 WBC 6.7 RBC 3.48 L Hgb 9.6 L Hct 29.8 L MCV 85.6 MCH 27.5 MCHC 32.1 RDW 16.5 Plt Count 180 MPV 6.6 L Neut % (Auto) 59.4 Lymph % (Auto) 24.6 [place] % (Auto) 10.0 H Eos % (Auto) 4.9 H Baso % (Auto) 1.1 Neut # (Auto) 4.0 Lymph # (Auto) 1.6 [place] # (Auto) 0.7 Eos # (Auto) 0.3 Baso # (Auto) 0.1 WBC Differential . Differential Comment Auto diff final PT 10.6 INR 1.0 APTT 24.9 Sodium 140 Potassium 5.0 Chloride 110 H Carbon Dioxide 17.7 L Anion Gap 12 BUN 48 H Creatinine 1.70 H Estimated GFR 42 L POC Glucose Random Glucose 112 H Calcium 7.9 L Total Bilirubin 0.2 AST 34 ALT 26 Alkaline Phosphatase 132 H Total Protein 8.8 H Albumin 3.5 Urine Color Urine Clarity Urine pH Ur Specific [place] Urine Protein Urine Glucose (UA) Urine Ketones Urine Occult Blood Urine Nitrate Urine Bilirubin Urine Urobilinogen Ur Leukocyte Esterase Urine RBC Urine WBC Ur Microscopic Review Serum Alcohol 227 H Blood Type Blood Type Recheck Antibody Screen 03/18/18 03/18/18 03/18/18 02:40 04:45 06:31 WBC RBC Hgb Hct MCV MCH MCHC RDW Plt Count MPV Neut % (Auto) Lymph % (Auto) [place] % (Auto) Eos % (Auto) Baso % (Auto) Neut # (Auto) Lymph # (Auto) [place] # (Auto) Eos # (Auto) Baso # (Auto) WBC Differential Differential Comment PT INR APTT Sodium Potassium Chloride Carbon Dioxide Anion Gap BUN Creatinine Estimated GFR POC Glucose 136 H Random Glucose Calcium Total Bilirubin AST ALT Alkaline Phosphatase Total Protein Albumin Urine Color Straw Urine Clarity Clear Urine pH 5.0 Ur Specific [place] 1.006 Urine Protein 30 H Urine Glucose (UA) Negative Urine Ketones Negative Urine Occult Blood Moderate H Urine Nitrate Negative Urine Bilirubin Negative Urine Urobilinogen Less than 2 Ur Leukocyte Esterase Negative Urine RBC Less than 1 Urine WBC Less than 1 Ur Microscopic Review Not Reportable Serum Alcohol Blood Type A Positive Blood Type Recheck Not needed Antibody Screen Negative - Imaging Impressions Chest X-Ray 03/18/18 02:04 CONCLUSION: 1. Lateral sixth rib fracture on the right. Posterior seventh rib fracture on the right. Findings are age-indeterminate 2. No acute cardiopulmonary disease identified. Femur X-Ray 03/18/18 02:04 CONCLUSION: Comminuted intratrochanteric/subtrochanteric proximal femur fracture. <Chan Rapp - Last Filed: 03/18/18 07:54> Assessment and Plan - Assessment and Plan Left intertrochanteric femur fracture N.p.o. Surgery this morning for intramedullary camryn fixation of the left femur Signed consent Continue medical care and diabetes control <Reggie Park - Last Filed: 03/18/18 06:37> - Assessment and Plan patient currently receiving norco 10/[address] Reggie Oneal and is receiving 30 day supplies at a time. Will defer to Dr Oneal for pain medication management. <Chan Rapp - Last Filed: 03/18/18 07:54>
[2018-03-18] MEDS ORDERED: HYDROmorphone PF Inj 2 MG/ML Vial ONE (06:47)
[2018-03-18] MEDS ORDERED: Sugammadex Inj 200 MG/2 ML Vial IV.PUSH ONE (06:47)
[2018-03-18] MEDS ORDERED: Chlorhexidine Gluconate 2% 1 Pack (2 Cloths) TOPICAL ONE (06:50)
[2018-03-18] MEDS ORDERED: Metoprolol Tartrate 25 MG Tablet PO ONE (06:50)
[2018-03-18] MEDS ORDERED: Sodium Chlor 0.9% Inj 500 ML IV.SIG SCH (07:00)
--- NOTE | 2018-03-18 07:15 | P.CONOP ---
[facility] Orthopedics Consult Note - [facility] Consult date: 03/18/18 Chief complaint: left femur fracture, alcohol abuse, multiple Narrative: Reji is a 57-year-old male with a PMH of HTN, Hyperlipidemia, CHF (Echo 10-17 with EF 55-60% and Severe ), CKD, DM and Alcohol Abuse. he had a fall at home resulting in left hip pain. Per , pt had "too much to drink" tonight. She states he tried to get up from the couch and fell onto the floor. She was able to get him up w/ assistance from other people, but he lost his balance and had 2nd fall at which time he c/o severe left hip pain. Pain is severe, constant, 10/10, worse w/ movement. Pain is improved with rest. He denies dizziness or loss of consciousness. On arrival, BP 123/60, HR 73, O2 sat 97% on RA, Afebrile. CBC unremarkable. INR 1.0. Creatinine 1.70, previously 1.80 on 12/23/2017. CXR with lateral sixth rib fracture on the right, posterior seventh rib fracture on the left, age indeterminate, no acute cardiopulmonary findings. Femur X-ray with comminuted intertrochanteric/subtrochanteric proximal femur fracture. Review of Systems Patient denies fevers, chills, weight loss, headache, visual changes, hearing loss, chest pain, palpitations, shortness of breath, nausea, vomiting, no urinary changes, diarrhea, bowel changes, neck pain, back pain, skin rashes, weakness of extremities, easy bleeding, enlarged lymph nodes, numbness of extremities, anxiety, or depression. Patient's social history, past medical history, and family history were reviewed on chart and with patient. [facility] - History History Provided By: Patient - Medical History Medical History: Medical History (Last Updated 03/18/18 @ 07:11 by Rodrigo Castelan MD) Toe amputation status (Acute) Amputated toe of right foot Back fracture CHF (congestive heart failure) Chronic kidney disease Diabetes HTN (hypertension) Heart attack Hernia Mitral valve disease Neuropathic pain - Family History Family History: Family History (Last Updated 03/18/18 @ 07:10 by Rodrigo Castelan MD) Other Family history of diabetes mellitus - Social History I have reviewed the patient's Social History: Yes - Tobacco History Second Hand Smoke Exposure: No Smoking Status: Former smoker Tobacco Type: Cigarettes - Alcohol History How Often Do You Have a Drink Containing Alcohol: 4 or more times a week - Substance Use History Substance History: No History of Abuse - Travel History Recent Travel in the [place] Within the Last 8 Weeks: No Recent Travel Out of the Country Within the Last 8 Weeks: No - Immunization History Tetanus Immunization: Unsure Hx Influenza Vaccine This Season: No Medications and Allergies Active Medications: Active Medications Acetaminophen (Tylenol) 650 mg PO Q4H PRN PRN Reason: Temp > 100.4 Al Hydroxide/Mg Hydroxide (Milk Of Magnesia Liq) 30 ml PO Q12H PRN PRN Reason: Mild Constipation Atorvastatin Calcium (Lipitor) 20 mg PO DAILY CODIE Bisacodyl (Dulcolax Supp) 10 mg RECTAL DAILY PRN PRN Reason: SEVERE CONSITIPATION Bumetanide (Bumex) 1 mg PO BID CODIE Carvedilol (Coreg) 6.25 mg PO BID CODIE Dextrose (D50w Vial) 50 ml IV.PUSH UNSCH PRN PRN Reason: PER HYPOGLYCEMIA PROTOCOL Diazepam (Valium) 5 mg PO DAILY CODIE Escitalopram Oxalate (Lexapro) 10 mg PO DAILY CODIE Flumazenil (Romazecon Inj) 0.2 mg IV.PUSH Q1M PRN PRN Reason: OVERSEDATION Folic Acid (Folic Acid) 1 mg PO DAILY [facility] Gabapentin (Neurontin) 300 mg PO TID CODIE Glucagon (Glucagon Inj) 1 mg OTHER PRN PRN PRN Reason: for Hypoglycemia Protocol Sodium Chloride (Ns Inj) 1,000 mls @ 0 mls/hr IV.SIG BOLUS CODIE Sodium Chloride (Ns Inj) 1,000 mls @ 100 mls/hr IV.CONT .Q10H [facility] Last Admin: 03/18/18 04:44 Dose: 100 mls/hr Lactated Ringer's (Lr 1000 Ml Inj) 1,000 mls @ 30 mls/hr IV.SIG .Q24H CODIE Stop: 03/19/18 06:59 Sodium Chloride (Ns Inj) 500 mls @ 30 mls/hr IV.SIG .Q10H CODIE Stop: 03/20/18 06:59 Insulin Aspart (Novolog Insulin Correctional Sugar Inj) 0 unit SQ ACHS CODIE; Protocol Lactulose (Lactulose Liq) 30 ml PO DAILY PRN PRN Reason: SEVERE CONSITIPATION Lorazepam (Ativan Inj) 1 mg IV.PUSH Q4H PRN PRN Reason: for CIWA 8-10 Lorazepam (Ativan Inj) 2 mg IV.PUSH Q15M PRN PRN Reason: for CIWA > 20 Lorazepam (Ativan Inj) 2 mg IV.PUSH Q1H PRN PRN Reason: for CIWA 15-20 Lorazepam (Ativan Inj) 2 mg IV.PUSH Q2H PRN PRN Reason: for CIWA 11-14 Lorazepam (Ativan) 2 mg PO Q2H PRN PRN Reason: for CIWA 11-14 Lorazepam (Ativan) 1 mg PO Q4H PRN PRN Reason: for CIWA 8-10 Morphine Sulfate (Morphine Inj) 2 mg IV.PUSH Q4H PRN PRN Reason: PAIN 6-10 Multivitamins (Theragran) 1 tab PO DAILY [facility] Ondansetron HCl (Zofran Inj) 4 mg IV.PUSH Q6H PRN PRN Reason: NAUSEA OR VOMITING Senna/Docusate Sodium (Nikki-Colace) 1 tab PO BID [facility] Sennosides (Senokot) 17.2 mg PO Q12H PRN PRN Reason: Moderate Constipation Sodium Chloride (Ns Flush) 2 ml IV.FLUSH UNSCH PRN PRN Reason: FLUSH AFTER USING IV ACCESS Tamsulosin HCl (Flomax) 0.4 mg PO DAILY CODIE Thiamine HCl (Vitamin B1) 100 mg PO DAILY [facility] Allergies Allergy/AdvReac Type Severity Reaction Status Date / Time *MDRO Multi-Drug Resistant AdvReac Unknown MRSA Uncoded 03/25/17 20:07 Organism Home Medications Medication Instructions Recorded Confirmed Type aspirin 81 mg PO DAILY 03/18/18 03/18/18 History atorvastatin 20 mg PO DAILY 03/18/18 03/18/18 History bumetanide 1 mg PO BID 03/18/18 03/18/18 History bumetanide 1 mg PO DAILY 03/18/18 03/18/18 History carvedilol 6.25 mg PO BID 03/18/18 03/18/18 History diazepam [Valium] 5 mg PO DAILY 03/18/18 03/18/18 History doxycycline hyclate 100 mg PO BID 03/18/18 03/18/18 History escitalopram oxalate [Lexapro] 10 mg PO DAILY 03/18/18 03/18/18 History folic acid 1 mg PO DAILY 03/18/18 03/18/18 History gabapentin 300 mg PO TID 03/18/18 03/18/18 History insulin aspart U-100 [Novolog 1 sliding scale dose SUB-Q UD 03/18/18 03/18/18 History U-100 Insulin aspart] insulin detemir U-100 [Levemir 10 unit SUB-Q QPM 03/18/18 03/18/18 History U-100 Insulin] levothyroxine 50 mcg PO DAILY 03/18/18 03/18/18 History losartan 100 mg PO DAILY 03/18/18 03/18/18 History methocarbamol 750 mg PO QID 03/18/18 03/18/18 History potassium chloride [Klor-Con M20] 10 meq PO DAILY 03/18/18 03/18/18 History tamsulosin 0.4 mg PO DAILY 03/18/18 03/18/18 History thiamine HCl (vitamin B1) [Vitamin 100 mg PO DAILY 03/18/18 03/18/18 History B-1] ticagrelor [Brilinta] 90 mg PO BID 03/18/18 03/18/18 History Exam Vital signs: Vital Signs 03/18/18 01:27 03/18/18 04:17 03/18/18 05:43 Temperature 97.6 F 98.0 F Pulse Rate 73 74 73 Respiratory Rate 20 18 18 Blood Pressure 123/60 137/65 152/67 H Pulse Oximetry 97 96 95 Intake & Output 03/17/18 03/18/18 03/18/18 18:59 06:59 18:59 Output Total 350 / 350 Balance -350 / -350 Weight 127.006 kg Output: Urine 350 / 350 Other: Date of Last Bowel Movement 03/17/18 Weight On Admission 127.006 kg Narrative: Reji is a 57-year-old male General: Awake and alert. No acute distress. Appears well-developed well- nourished, moderately overweight Head: Normocephalic, atraumatic pupils are equal Neck: Soft, nontender, trachea midline Abdomen: Soft, nondistended Examination of right arm reveals no pain or deformity with shoulder, elbow, or wrist motion. Skin is intact. Radial pulse is palpable. Normal capillary refill in fingers. Sensation is intact in radial, ulnar, and median nerve distributions. Forming And Assembling Supervisor strength is +5. No lymphadenopathy noted. Examination of left arm reveals no pain or deformity with shoulder, elbow, or wrist motion. Skin is intact. Radial pulse is palpable. Normal capillary refill in fingers. Sensation is intact in radial, ulnar, and median nerve distributions. Forming And Assembling Supervisor strength is +5. No lymphadenopathy noted. Examination of left lower extremity reveals no pain or deformity around his knee or ankle motion. He has severe pain with any knee or hip motion. His left leg is shortened and externally rotated. Skin is intact. Sensation is diminished in left foot. Dorsalis pedis pulse is palpable. Normal capillary refill and feet. Thigh and calf compartments are soft. No lymphadenopathy noted. Examination of right lower extremity reveals no pain or deformity with hip, knee , or ankle motion. He has had right toes amputated. Skin is intact except for superficial Abrasions. Sensation is diminished in right foot. Dorsalis pedis pulse is palpable. Normal capillary refill and feet. Thigh and calf compartments are soft. No lymphadenopathy noted. +5 strength of ankle dorsiflexion and plantarflexion. Results - Labs Result Diagrams: 03/18/18 02:40 03/18/18 02:40 Labs: Laboratory Results - last 24 hr 03/18/18 03/18/18 03/18/18 02:40 02:40 02:40 WBC 6.7 RBC 3.48 L Hgb 9.6 L Hct 29.8 L MCV 85.6 MCH 27.5 MCHC 32.1 RDW 16.5 Plt Count 180 MPV 6.6 L Neut % (Auto) 59.4 Lymph % (Auto) 24.6 [place] % (Auto) 10.0 H Eos % (Auto) 4.9 H Baso % (Auto) 1.1 Neut # (Auto) 4.0 Lymph # (Auto) 1.6 [place] # (Auto) 0.7 Eos # (Auto) 0.3 Baso # (Auto) 0.1 WBC Differential . Differential Comment Auto diff final PT 10.6 INR 1.0 APTT 24.9 Sodium 140 Potassium 5.0 Chloride 110 H Carbon Dioxide 17.7 L Anion Gap 12 BUN 48 H Creatinine 1.70 H Estimated GFR 42 L POC Glucose Random Glucose 112 H Calcium 7.9 L Total Bilirubin 0.2 AST 34 ALT 26 Alkaline Phosphatase 132 H Total Protein 8.8 H Albumin 3.5 Urine Color Urine Clarity Urine pH Ur Specific [place] Urine Protein Urine Glucose (UA) Urine Ketones Urine Occult Blood Urine Nitrate Urine Bilirubin Urine Urobilinogen Ur Leukocyte Esterase Urine RBC Urine WBC Ur Microscopic Review Serum Alcohol 227 H Blood Type Blood Type Recheck Antibody Screen 03/18/18 03/18/18 03/18/18 02:40 04:45 06:31 WBC RBC Hgb Hct MCV MCH MCHC RDW Plt Count MPV Neut % (Auto) Lymph % (Auto) [place] % (Auto) Eos % (Auto) Baso % (Auto) Neut # (Auto) Lymph # (Auto) [place] # (Auto) Eos # (Auto) Baso # (Auto) WBC Differential Differential Comment PT INR APTT Sodium Potassium Chloride Carbon Dioxide Anion Gap BUN Creatinine Estimated GFR POC Glucose 136 H Random Glucose Calcium Total Bilirubin AST ALT Alkaline Phosphatase Total Protein Albumin Urine Color Straw Urine Clarity Clear Urine pH 5.0 Ur Specific [place] 1.006 Urine Protein 30 H Urine Glucose (UA) Negative Urine Ketones Negative Urine Occult Blood Moderate H Urine Nitrate Negative Urine Bilirubin Negative Urine Urobilinogen Less than 2 Ur Leukocyte Esterase Negative Urine RBC Less than 1 Urine WBC Less than 1 Ur Microscopic Review Not Reportable Serum Alcohol Blood Type A Positive Blood Type Recheck Not needed Antibody Screen Negative - Diagnostic results Imaging: Impressions Chest X-Ray 03/18/18 02:04 CONCLUSION: 1. Lateral sixth rib fracture on the right. Posterior seventh rib fracture on the right. Findings are age-indeterminate 2. No acute cardiopulmonary disease identified. Femur X-Ray 03/18/18 02:04 CONCLUSION: Comminuted intratrochanteric/subtrochanteric proximal femur fracture. Hip x-ray: report reviewed, image reviewed Assessment and Plan - Assessment and Plan Reji has a comminuted displaced left hip intertrochanteric/subtrochanteric femur fracture. Treatment options were discussed. At this point I would recommend reduction and intramedullary nail fixation. Risks of surgery were discussed in depth with patient. All of his questions were answered. I also explained to patient that he needs to control his diabetes better. He does not check his blood sugars regularly. This puts him at increased risk of infection. The risk and benefits of surgery were discussed in depth with patient. The risk of surgery include bleeding, infection, injuries to arteries, nerves, or blood vessels, infection, wound complications, nonunion, malunion, painful hardware, and need for further surgery. I also discussed medical complications including blood clots, pneumonia, stroke, heart attack, and . Informed consent was obtained and all questions were answered. N.p.o.--plan on surgery this morning Calcium and vitamin D supplementation Physical therapy consult Follow-up with Dr. Castelan in 2 weeks Merary, Randall Kathleen A mid-level provider in my office (nurse practitioner or physician hotel administrative assistant) may see this patient on follow-up visits and continue to implement the objectives of this plan including: Starting or adjusting medications, injections , cast application, orthotics, brace application, physical therapy, radiological studies (including x-ray, MRI, CT, ultrasound, bone scan), vascular studies, neurologic studies, specialist consultation, and proceeding with surgical management, as appropriate.
[2018-03-18] MEDS: Insulin NovoLOG Aspart Correctional Sugar Inj SQ SCH ×4 (08:00→21:08)
[2018-03-18] MEDS ORDERED: Phenylephrine/NS 1000 MCG/10ML Syringe IV.PUSH ONE (08:05)
[2018-03-18] MEDS ORDERED: Lidocaine PF 1% Inj 5 ML Syringe OTHER ONE (08:05)
[2018-03-18] MEDS ORDERED: Bupivacaine/Epinephrine PF Inj 0.25% 10 ML Vial ONE (08:10)
[2018-03-18] MEDS: Folic Acid 1 MG Tablet PO SCH (09:00)
[2018-03-18] MEDS: Carvedilol 6.25 MG Tablet PO SCH ×2 (09:00→20:02)
[2018-03-18] MEDS: Gabapentin 300 MG Capsule PO SCH ×3 (09:00→18:00)
[2018-03-18] MEDS: Senna/Docusate Sodium 8.6/50 MG Tablet PO SCH ×2 (09:00→20:02)
[2018-03-18] MEDS: diazePAM 5 MG Tablet PO SCH (09:00)
[2018-03-18] MEDS: Escitalopram 10 MG Tablet PO SCH (09:00)
[2018-03-18] MEDS ORDERED: Post-op Orders (for Pharmacy) OTHER STA (09:01)
--- NOTE | 2018-03-18 09:07 | P.OP ---
- Preoperative Diagnosis (1) Closed left femoral fracture Date of procedure: 03/18/18 Procedure: Left femur reduction and intramedullary fixation Anesthesia: GETA Surgeon: Rodrigo Castelan MD Customer Service And Sales Consultant: KRISTIN Chaves PA-C The surgical procedure was assisted by my physician help desk assistant. My P.A. presence was necessary throughout this case for the manipulation and positioning of the surgical extremity. My P.A. was assisting me throughout the duration of this procedure. The skill set of a physician help desk assistant was medically necessary to complete this procedure. During the surgical case the surgical pathologist was working at the back table and the physician help desk assistant was directly assisting me. Operation and Findings: Implants used: Biomet 13 mm x 400 mm troch nail Plan of activity: Partial weightbearing 50 pounds Patient was seen and evaluated preoperatively. The patient has significant hip pain from proximal femur fracture. The risk and benefits of surgery were discussed in depth with the patient to include bleeding, infection, nonunion, malunion, need for hip replacement, painful hardware, as well as medical competitions including blood clots, stroke, heart attack, and . Informed consent was obtained. Operative site was marked. Patient was brought to the operating room and placed on fracture table. IV sedation was administered by anesthesiologist. Timeout procedure was performed. Hip and leg were prepped with alcohol followed by DuraPrep and draped in the usual sterile fashion. IV antibiotics were given prior to incision. Procedure began with reduction of fracture. Traction was applied. The leg was manipulated to achieve reduction. Excellent reduction was achieved. Fluoroscopy was used to confirm reduction. A three inch incision was made proximal to the trochanter. Subcutaneous tissue was dissected bluntly. Guidepin was placed at the tip of the trochanter and advanced into the femoral canal. Fluoroscopy confirmed appropriate guidepin placement. A opening reamer was placed over the guidepin. A long ball tipped guide pin was now placed down the femoral canal into the center of the distal femur. The nail length was now measured. Fluoroscopy confirmed appropriate guidepin placement. Flexible reamers were now passed over the guidepin to ream the intramedullary canal. The nail was attached to the insertion handle. Nail was now placed over the guidepin into the femoral canal. Fluoroscopy confirmed appropriate nail placement. A second incision was made over the lateral thigh. Cannulas were placed through the insertion handle down to the femur. Guidepin was now placed through the femoral nail into the center of the femoral head. Fluoroscopy confirmed appropriate guidepin placement. Screw length was measured. Cannulated drill was placed over the guidepin. Appropriate length lag screw was now placed. Traction was released and compression was applied. The set screw was now tightened in dynamic mode. Next, using perfect lytton technique two distal interlocking screws were placed. Screw holes were predrilled and screw lengths were measured. Final fluoroscopy revealed well aligned fracture with well-placed hardware. Incision was closed with 3-0 Vicryl and zo. Sterile dressings were applied. Patient was awakened and transferred to recovery room.
[2018-03-18] MEDS ORDERED: fentaNYL Citrate Inj 100 MCG/2 ML Ampul ONE (09:37)
--- NOTE | 2018-03-18 11:02 | XR ---
EXAM DATE: 03/18/2018 10:54 AM EDT AGE/SEX: 57 years / Male INDICATIONS: ORIF left femur fracture. CLINICAL DATA: This is the patient's subsequent encounter. Patient reports that signs and symptoms h ave been present for 1 day and indicates a pain score of Nonresponsive. MEDICAL/SURGICAL HISTORY: Non-responsive. Non-responsive. COMPARISON: No prior exams available for comparison. FINDINGS: 6 intraoperative films demonstrate patient's had an IM nail in the femur with a femoral neck screw. T here appears to be excellent alignment CONCLUSION: 6 intraoperative films demonstrate the patient is status post Femur fixation without complication. Electronically signed by: Sunny Artis MD 03/18/2018 11:00 AM EDT
[2018-03-18] MEDS: Calcium/Vitamin D 250/125 MG Tablet PO SCH ×2 (12:10→18:00)
--- NOTE | 2018-03-18 13:58 | P.PNIM ---
Subjective Interval history: This is a 57-year-old male with a PMH of HTN, Hyperlipidemia, CHF (Echo 10-17 with EF 55-60% and Severe ), CKD, DM and Alcohol Abuse who was brought to the ER by EMS for c/o left hip pain after a fall. Per , pt had "too much to drink" tonight, states he tried to get up from the couch and fell onto the floor , states she was able to get him up w/ assistance from other people, however he lost his balance and had 2nd fall at which time he c/o severe left hip pain. + obvious deformity. Pain is severe, constant, 10/10, worse w/ movement. On arrival, BP 123/60, HR 73, O2 sat 97% on RA, Afebrile. CBC unremarkable. INR 1.0. Creatinine 1.70, previously 1.80 on 12/23/2017. CXR with lateral sixth rib fracture on the right, posterior seventh rib fracture on the left, age indeterminate, no acute cardiopulmonary findings. Femur X-ray with comminuted intertrochanteric/subtrochanteric proximal femur fracture. 03-18 HAD SURGERY TODAY HAD LEFT FEMUR REDUCTION AND INTRAMEDULLARY FIXATION FOR A CLOSED LEFT FEMORAL FRACTURE TODAY WILL PROBABLY NEED SNF HAS HX OF HEAVY ALCOHOL DAILY WILL DO CIWA Physical Exam Vital signs: Vital Signs 03/18/18 01:27 03/18/18 04:17 03/18/18 05:43 Temperature 97.6 F 98.0 F Pulse Rate 73 74 73 Respiratory Rate 20 18 18 Blood Pressure 123/60 137/65 152/67 H Pulse Oximetry 97 96 95 03/18/18 09:26 03/18/18 09:30 03/18/18 09:45 Temperature 97.1 F L Pulse Rate 69 68 68 Respiratory Rate 9 L 14 9 L Blood Pressure 110/53 L 111/53 L 116/58 L Pulse Oximetry 91 L 97 100 03/18/18 10:00 Temperature 97.1 F L Pulse Rate 68 Respiratory Rate 12 Blood Pressure 129/62 Pulse Oximetry 99 Intake & Output 03/17/18 03/18/18 03/18/18 18:59 06:59 18:59 Output Total 350 / 350 50 / 50 Balance -350 / -350 -50 / -50 Weight 127.006 kg Output: Urine 350 / 350 Estimated Blood Loss 50 / 50 Other: Date of Last Bowel Movement 03/17/18 Weight On Admission 127.006 kg Narrative: GENERAL: Middle-aged white male in no acute distress, intoxicated, but answering questions appropriately. at bedside. SKIN: Focused skin assessment warm and dry. HEENT: PERRLA, EOMI. No scleral icterus or conjunctival pallor. No lid lag or facial droop. CARDIOVASCULAR: Regular rate and rhythm. No obvious murmurs to auscultation. No chest tenderness to palpation. RESPIRATORY: No obvious rhonchi or wheezing. Clear to auscultation. Breath sounds equal bilaterally. GASTROINTESTINAL: Abdomen soft, non-tender, nondistended. BS normal. MUSCULOSKELETAL: Extremities without clubbing, cyanosis, or edema. LLE w/ decreased ROM due to injury, +deformity, previous toe amputations. LEFT LEG DRESSED NEUROLOGICAL: Awake, alert and oriented x4. No focal neurologic deficits. Moving both upper and lower extremities spontaneously. PSYCHIATRIC: Appropriate mood and affect. Insight and judgment normal. Results - Labs CBC & Chem 7: 03/18/18 02:40 03/18/18 02:40 Laboratory Results - last 24 hr 03/18/18 03/18/18 03/18/18 02:40 02:40 02:40 WBC 6.7 RBC 3.48 L Hgb 9.6 L Hct 29.8 L MCV 85.6 MCH 27.5 MCHC 32.1 RDW 16.5 Plt Count 180 MPV 6.6 L Neut % (Auto) 59.4 Lymph % (Auto) 24.6 Cobb % (Auto) 10.0 H Eos % (Auto) 4.9 H Baso % (Auto) 1.1 Neut # (Auto) 4.0 Lymph # (Auto) 1.6 Cobb # (Auto) 0.7 Eos # (Auto) 0.3 Baso # (Auto) 0.1 WBC Differential . Differential Comment Auto diff final PT 10.6 INR 1.0 APTT 24.9 Sodium 140 Potassium 5.0 Chloride 110 H Carbon Dioxide 17.7 L Anion Gap 12 BUN 48 H Creatinine 1.70 H Estimated GFR 42 L POC Glucose Random Glucose 112 H Calcium 7.9 L Total Bilirubin 0.2 AST 34 ALT 26 Alkaline Phosphatase 132 H Total Protein 8.8 H Albumin 3.5 Urine Color Urine Clarity Urine pH Ur Specific [employer] Urine Protein Urine Glucose (UA) Urine Ketones Urine Occult Blood Urine Nitrate Urine Bilirubin Urine Urobilinogen Ur Leukocyte Esterase Urine RBC Urine WBC Ur Microscopic Review Serum Alcohol 227 H Blood Type Blood Type Recheck Antibody Screen 03/18/18 03/18/18 03/18/18 02:40 04:45 06:31 WBC RBC Hgb Hct MCV MCH MCHC RDW Plt Count MPV Neut % (Auto) Lymph % (Auto) Cobb % (Auto) Eos % (Auto) Baso % (Auto) Neut # (Auto) Lymph # (Auto) Cobb # (Auto) Eos # (Auto) Baso # (Auto) WBC Differential Differential Comment PT INR APTT Sodium Potassium Chloride Carbon Dioxide Anion Gap BUN Creatinine Estimated GFR POC Glucose 136 H Random Glucose Calcium Total Bilirubin AST ALT Alkaline Phosphatase Total Protein Albumin Urine Color Straw Urine Clarity Clear Urine pH 5.0 Ur Specific [employer] 1.006 Urine Protein 30 H Urine Glucose (UA) Negative Urine Ketones Negative Urine Occult Blood Moderate H Urine Nitrate Negative Urine Bilirubin Negative Urine Urobilinogen Less than 2 Ur Leukocyte Esterase Negative Urine RBC Less than 1 Urine WBC Less than 1 Ur Microscopic Review Not Reportable Serum Alcohol Blood Type A Positive Blood Type Recheck Not needed Antibody Screen Negative 03/18/18 03/18/18 09:32 12:12 WBC RBC Hgb Hct MCV MCH MCHC RDW Plt Count MPV Neut % (Auto) Lymph % (Auto) Cobb % (Auto) Eos % (Auto) Baso % (Auto) Neut # (Auto) Lymph # (Auto) Cobb # (Auto) Eos # (Auto) Baso # (Auto) WBC Differential Differential Comment PT INR APTT Sodium Potassium Chloride Carbon Dioxide Anion Gap BUN Creatinine Estimated GFR POC Glucose 147 H 139 H Random Glucose Calcium Total Bilirubin AST ALT Alkaline Phosphatase Total Protein Albumin Urine Color Urine Clarity Urine pH Ur Specific [employer] Urine Protein Urine Glucose (UA) Urine Ketones Urine Occult Blood Urine Nitrate Urine Bilirubin Urine Urobilinogen Ur Leukocyte Esterase Urine RBC Urine WBC Ur Microscopic Review Serum Alcohol Blood Type Blood Type Recheck Antibody Screen - Imaging Impressions Femur X-Ray 03/18/18 00:00 CONCLUSION: 6 intraoperative films demonstrate the patient is status post Femur fixation without complication. Chest X-Ray 03/18/18 02:04 CONCLUSION: 1. Lateral sixth rib fracture on the right. Posterior seventh rib fracture on the right. Findings are age-indeterminate 2. No acute cardiopulmonary disease identified. Femur X-Ray 03/18/18 02:04 CONCLUSION: Comminuted intratrochanteric/subtrochanteric proximal femur fracture. - Procedures (1) Closed left femoral fracture Date of procedure: 03/18/18 Procedure: Left femur reduction and intramedullary fixation Anesthesia: ELANA Surgeon: Rodrigo Castelan MD Contract Management Specialist: KRISTIN Chaves PA-C The surgical procedure was assisted by my physician academic assistant. My P.A. presence was necessary throughout this case for the manipulation and positioning of the surgical extremity. My P.A. was assisting me throughout the duration of this procedure. The skill set of a physician academic assistant was medically necessary to complete this procedure. During the surgical case the assembler surgical garment was working at the back table and the physician academic assistant was directly assisting me. Operation and Findings: Implants used: Biomet 13 mm x 400 mm troch nail Plan of activity: Partial weightbearing 50 pounds Patient was seen and evaluated preoperatively. The patient has significant hip pain from proximal femur fracture. The risk and benefits of surgery were discussed in depth with the patient to include bleeding, infection, nonunion, malunion, need for hip replacement, painful hardware, as well as medical competitions including blood clots, stroke, heart attack, and . Informed consent was obtained. Operative site was marked. Patient was brought to the operating room and placed on fracture table. IV sedation was administered by anesthesiologist. Timeout procedure was performed. Hip and leg were prepped with alcohol followed by DuraPrep and draped in the usual sterile fashion. IV antibiotics were given prior to incision. Procedure began with reduction of fracture. Traction was applied. The leg was manipulated to achieve reduction. Excellent reduction was achieved. Fluoroscopy was used to confirm reduction. A three inch incision was made proximal to the trochanter. Subcutaneous tissue was dissected bluntly. Guidepin was placed at the tip of the trochanter and advanced into the femoral canal. Fluoroscopy confirmed appropriate guidepin placement. A opening reamer was placed over the guidepin. A long ball tipped guide pin was now placed down the femoral canal into the center of the distal femur. The nail length was now measured. Fluoroscopy confirmed appropriate guidepin placement. Flexible reamers were now passed over the guidepin to ream the intramedullary canal. The nail was attached to the insertion handle. Nail was now placed over the guidepin into the femoral canal. Fluoroscopy confirmed appropriate nail placement. A second incision was made over the lateral thigh. Cannulas were placed through the insertion handle down to the femur. Guidepin was now placed through the femoral nail into the center of the femoral head. Fluoroscopy confirmed appropriate guidepin placement. Screw length was measured. Cannulated drill was placed over the guidepin. Appropriate length lag screw was now placed. Traction was released and compression was applied. The set screw was now tightened in dynamic mode. Next, using perfect [place] technique two distal interlocking screws were placed. Screw holes were predrilled and screw lengths were measured. Final fluoroscopy revealed well aligned fracture with well-placed hardware. Incision was closed with 3-0 Vicryl and zo. Sterile dressings were applied. Patient was awakened and transferred to recovery room. Documented By: Rodrigo Castelan MD Assessment and Plan - Assessment (1) Fall Code(s): W19.XXXA - Unspecified fall, initial encounter Status: Acute (2) Closed left femoral fracture Code(s): S72.92XA - Unspecified fracture of left femur, initial encounter for closed fracture Status: Acute (3) DM (diabetes mellitus) Code(s): E11.9 - Type 2 diabetes mellitus without complications Status: Acute (4) Alcohol abuse Code(s): F10.10 - Alcohol abuse, uncomplicated Status: Acute - Plan 1. Fall: s/p fall at home while intoxicated, reports pt falls quite frequently when he drinks. No head trauma or LOC. CXR w/ right lateral 6th rib fx and right posterior 7th rib fx, age indeterminate, likely from previous fall. 2. Left Hip Fx: secondary to fall, X-ray w/ comminuted intertrochanteric/ subtrochanteric proximal femur fracture, images reviewed. Consult Ortho for further eval/intervention, NPO, analgesics/antiemetics as needed. SP REPAIR OF LEFT HIP/FEMUR 3. Alcohol Abuse: w/ Acute Alcohol Intoxication, Alcohol 227, CIWA, Seizure Precautions, MVT/Thiamine/Folate 4. DM: Sliding scale w/ Accu-Checks, resume home Insulin post op 5. DVT Prophylaxis: Anticoagulation post op 6. Social work for d/c planning as needed AM LABS CIWA Code Status: FULL CODE Discussed Condition With: RN AND PT AND CM AND FAMILY Discharge Planning: WILL PROBABLY NEED SNF (2) Closed left femoral fracture Qualifiers: Encounter type: initial encounter Femur location: subtrochanteric Fracture alignment: displaced Qualified Code(s): S72.22XA - Displaced subtrochanteric fracture of left femur, initial encounter for closed fracture
[2018-03-18] MEDS: ceFAZolin Inj 3,000 MG in Sodium Chlor 0.9% Inj 100 ML IV.SIG SCH (16:00)
--- NOTE | 2018-03-18 18:31 | ECG ---
Date Performed: 03/18/2018 Time Performed: 04:15:10 PTAGE: 57 years EKG: Sinus rhythm INDETERMINATE AXIS RIGHT BUNDLE BRANCH BLOCK ABNORMAL ECG PREVIOUS TRACING : 11/08/2017 21.27 DOCTOR: Nicole Anglin Interpretating Date/Time 03/18/2018 18:29:55
[2018-03-18] MEDS: Morphine Inj 4 MG/ML Vial IV.PUSH PRN (21:22)
[2018-03-19] MEDS: ceFAZolin Inj 3,000 MG in Sodium Chlor 0.9% Inj 100 ML IV.SIG SCH ×2 (00:42→08:00)
[2018-03-19] MEDS: Sod Chloride 0.9% Inj 1,000 ML IV.CONT SCH ×3 (00:53→20:51)
[2018-03-19] MEDS: Morphine Inj 4 MG/ML Vial IV.PUSH PRN ×2 (05:59→19:03)
[2018-03-19 06:21] LABS: Baso # (Auto) 0.1 th/mm3 (0.0-0.2); Eos # (Auto) 0.3 th/mm3 (0.0-0.4); Eos % (Auto) 3.6 % (0.0-4.0); Hematocrit 21.4 % (39.0-51.0); Lymph # (Auto) 2.1 th/mm3 (1.0-4.8); Lymph % (Auto) 27.5 % (9.0-44.0); Mean Corpuscular HGB Conc 32.1 % (32.0-36.0); Mean Corpuscular Hemoglobin 27.5 pg (27.0-34.0); Mean Corpuscular Volume 85.5 fL (80.0-100.0); Mean Platelet Volume 6.6 fL (7.0-11.0); Mono % (Auto) 13.4 % (0.0-8.0); Neut # (Auto) 4.2 th/mm3 (1.8-7.7); Neut % (Auto) 54.5 % (16.0-70.0); Platelet Count 129 th/mm3 (150-450); Red Cell Distribution Width 16.5 % (11.6-17.2); White Blood Count 7.7 th/mm3 (4.0-11.0)
[2018-03-19 06:28] LABS: Hemoglobin 6.9 gm/dL (13.0-17.0)
--- NOTE | 2018-03-19 06:34 | P.PNOP ---
Subjective Interval history: POD 1 s/p IMN left femur doing well. reports pain but controlled. out of bed with therapy yesterday Physical Exam Vital signs: Vital Signs 03/18/18 08:00 03/18/18 09:26 03/18/18 09:30 Temperature 97.4 F L 97.1 F L Pulse Rate 68 69 68 Respiratory Rate 18 9 L 14 Blood Pressure 135/74 110/53 L 111/53 L Pulse Oximetry 94 L 91 L 97 03/18/18 09:45 03/18/18 10:00 03/18/18 16:00 Temperature 97.1 F L 98 F Pulse Rate 68 68 76 Respiratory Rate 9 L 12 18 Blood Pressure 116/58 L 129/62 166/72 H Pulse Oximetry 100 99 93 L 03/18/18 20:00 03/19/18 00:00 03/19/18 04:00 Temperature 99.1 F 99 F 99.6 F Pulse Rate 86 81 81 Respiratory Rate 18 17 16 Blood Pressure 169/73 H 128/64 142/68 H Pulse Oximetry 93 L 94 L 94 L Intake & Output 03/18/18 03/18/18 03/19/18 06:59 18:59 06:59 Intake Total 260 / 260 Output Total 350 / 350 1500 / 1500 Balance -350 / -350 -1500 / -1500 260 / 260 Weight 127.006 kg Intake: IV 260 / 260 Ancef Inj 3,000 MG In NS Inj 260 / 260 100 ML @ 100 mls/hr IV.SIG Q8H [facility] Rx#:[id number] Output: Urine 350 / 350 1450 / 1450 Estimated Blood Loss 50 / 50 Other: # Voids 1 Date of Last Bowel Movement 03/17/18 03/17/18 Weight On Admission 127.006 kg Narrative: LLE: dressings clean and dry. intact. NVI Results - Labs CBC & Chem 7: 03/19/18 05:47 03/18/18 02:40 Laboratory Results - last 24 hr 03/18/18 03/18/18 03/18/18 06:31 09:32 12:12 WBC RBC Hgb Hct MCV MCH MCHC RDW Plt Count MPV Prelim Diff (Auto) Neut % (Auto) Lymph % (Auto) [place]age % (Auto) Eos % (Auto) Baso % (Auto) Neut # (Auto) Lymph # (Auto) Gage # (Auto) Eos # (Auto) Baso # (Auto) Differential Comment POC Glucose 136 H 147 H 139 H 03/18/18 03/18/18 03/19/18 17:34 21:07 05:47 WBC 7.7 RBC 2.50 L Hgb 6.9 L* D Hct 21.4 L MCV 85.5 MCH 27.5 MCHC 32.1 RDW 16.5 Plt Count 129 L MPV 6.6 L Prelim Diff (Auto) Slide review pending Neut % (Auto) 54.5 Lymph % (Auto) 27.5 Gage % (Auto) 13.4 H Eos % (Auto) 3.6 Baso % (Auto) 1.0 Neut # (Auto) 4.2 Lymph # (Auto) 2.1 Gage # (Auto) 1.0 H Eos # (Auto) 0.3 Baso # (Auto) 0.1 Differential Comment . POC Glucose 127 H 165 H - Imaging Impressions Femur X-Ray 03/18/18 00:00 CONCLUSION: 6 intraoperative films demonstrate the patient is status post Femur fixation without complication. - Procedures (1) Closed left femoral fracture Date of procedure: 03/18/18 Procedure: Left femur reduction and intramedullary fixation Anesthesia: GETA Surgeon: Rodrigo Castelan MD Tester/Lift Trucker: KRISTIN Chaves PA-C The surgical procedure was assisted by my physician religious assistant. My P.A. presence was necessary throughout this case for the manipulation and positioning of the surgical extremity. My P.A. was assisting me throughout the duration of this procedure. The skill set of a physician religious assistant was medically necessary to complete this procedure. During the surgical case the surgical resident was working at the back table and the physician religious assistant was directly assisting me. Operation and Findings: Implants used: Biomet 13 mm x 400 mm troch nail Plan of activity: Partial weightbearing 50 pounds Patient was seen and evaluated preoperatively. The patient has significant hip pain from proximal femur fracture. The risk and benefits of surgery were discussed in depth with the patient to include bleeding, infection, nonunion, malunion, need for hip replacement, painful hardware, as well as medical competitions including blood clots, stroke, heart attack, and . Informed consent was obtained. Operative site was marked. Patient was brought to the operating room and placed on fracture table. IV sedation was administered by anesthesiologist. Timeout procedure was performed. Hip and leg were prepped with alcohol followed by DuraPrep and draped in the usual sterile fashion. IV antibiotics were given prior to incision. Procedure began with reduction of fracture. Traction was applied. The leg was manipulated to achieve reduction. Excellent reduction was achieved. Fluoroscopy was used to confirm reduction. A three inch incision was made proximal to the trochanter. Subcutaneous tissue was dissected bluntly. Guidepin was placed at the tip of the trochanter and advanced into the femoral canal. Fluoroscopy confirmed appropriate guidepin placement. A opening reamer was placed over the guidepin. A long ball tipped guide pin was now placed down the femoral canal into the center of the distal femur. The nail length was now measured. Fluoroscopy confirmed appropriate guidepin placement. Flexible reamers were now passed over the guidepin to ream the intramedullary canal. The nail was attached to the insertion handle. Nail was now placed over the guidepin into the femoral canal. Fluoroscopy confirmed appropriate nail placement. A second incision was made over the lateral thigh. Cannulas were placed through the insertion handle down to the femur. Guidepin was now placed through the femoral nail into the center of the femoral head. Fluoroscopy confirmed appropriate guidepin placement. Screw length was measured. Cannulated drill was placed over the guidepin. Appropriate length lag screw was now placed. Traction was released and compression was applied. The set screw was now tightened in dynamic mode. Next, using perfect [place] technique two distal interlocking screws were placed. Screw holes were predrilled and screw lengths were measured. Final fluoroscopy revealed well aligned fracture with well-placed hardware. Incision was closed with 3-0 Vicryl and zo. Sterile dressings were applied. Patient was awakened and transferred to recovery room. Documented By: Rodrigo Castelan MD Assessment and Plan - Assessment and Plan 1) Left Subtrochanteric Femur Fx s/p IMN - POD 1 -50%WB -daily dressing changes -CM for SNF placement as patient states he cannot ambulate in his apartment with walker -DVT prophylaxis -f/u with [facility] or [facility] in 2 weeks patient currently receiving norco 10/[address] Reggie Oneal and is receiving 30 day supplies at a time. Will defer to Dr Oneal for pain medication management.
[2018-03-19] MEDS ORDERED: Sodium Chlor 0.9% Inj 250 ML IV.SIG SCH (07:00)
[2018-03-19 07:09] LABS: Albumin 2.6 g/dL (3.4-5.0); Calcium 7.4 mg/dL (8.5-10.1); Carbon Dioxide 19.6 meq/L (21.0-32.0); Free T4 (Free Thyroxine) 0.98 ng/dL (0.76-1.46); Magnesium 1.9 mg/dL (1.5-2.5); Phosphorus 3.6 mg/dL (2.5-4.9); Thyroid Stimulating Hormone 2.14 uIU/mL (0.358-3.740); Total Protein 6.6 g/dL (6.4-8.2)
[2018-03-19] MEDS: Calcium/Vitamin D 250/125 MG Tablet PO SCH ×3 (08:08→17:06)
[2018-03-19] MEDS: Carvedilol 6.25 MG Tablet PO SCH ×2 (08:08→20:51)
[2018-03-19] MEDS: Senna/Docusate Sodium 8.6/50 MG Tablet PO SCH ×2 (08:08→20:51)
[2018-03-19] MEDS: Escitalopram 10 MG Tablet PO SCH (08:08)
[2018-03-19] MEDS: Folic Acid 1 MG Tablet PO SCH (08:08)
[2018-03-19] MEDS: Gabapentin 300 MG Capsule PO SCH ×3 (08:08→17:06)
[2018-03-19] MEDS: diazePAM 5 MG Tablet PO SCH (08:08)
[2018-03-19 08:10] LABS: Ovalocytes 1+
[2018-03-19] MEDS: Enoxaparin Inj 30 MG/0.3 ML Syringe SQ SCH ×2 (08:10→20:50)
[2018-03-19] MEDS: Insulin NovoLOG Aspart Correctional Sugar Inj SQ SCH ×4 (08:15→21:09)
--- NOTE | 2018-03-19 15:28 | P.PNIM ---
Subjective Interval history: This is a 57-year-old male with a PMH of HTN, Hyperlipidemia, CHF (Echo 10-17 with EF 55-60% and Severe ), CKD, DM and Alcohol Abuse who was brought to the ER by EMS for c/o left hip pain after a fall. Per , pt had "too much to drink" tonight, states he tried to get up from the couch and fell onto the floor , states she was able to get him up w/ assistance from other people, however he lost his balance and had 2nd fall at which time he c/o severe left hip pain. + obvious deformity. Pain is severe, constant, 10/10, worse w/ movement. On arrival, BP 123/60, HR 73, O2 sat 97% on RA, Afebrile. CBC unremarkable. INR 1.0. Creatinine 1.70, previously 1.80 on 12/23/2017. CXR with lateral sixth rib fracture on the right, posterior seventh rib fracture on the left, age indeterminate, no acute cardiopulmonary findings. Femur X-ray with comminuted intertrochanteric/subtrochanteric proximal femur fracture. 03-18 HAD SURGERY TODAY HAD LEFT FEMUR REDUCTION AND INTRAMEDULLARY FIXATION FOR A CLOSED LEFT FEMORAL FRACTURE TODAY WILL PROBABLY NEED SNF HAS HX OF HEAVY ALCOHOL DAILY WILL DO CIWA 03-19 DC TO [facility] TOMORROW AM LABS HAD BLOOD TRANSFUSION TODAY DW RN AND PT AND CM HAS PAIN IN LEFT FEMUR HIP Physical Exam Vital signs: Vital Signs 03/18/18 16:00 03/18/18 20:00 03/19/18 00:00 Temperature 98 F 99.1 F 99 F Pulse Rate 76 86 81 Respiratory Rate 18 18 17 Blood Pressure 166/72 H 169/73 H 128/64 Pulse Oximetry 93 L 93 L 94 L 03/19/18 04:00 03/19/18 08:00 03/19/18 10:08 Temperature 99.6 F 99.3 F 98.6 F Pulse Rate 81 82 74 Respiratory Rate 16 18 16 Blood Pressure 142/68 H 131/62 134/61 Pulse Oximetry 94 L 94 L 95 03/19/18 10:24 03/19/18 13:44 Temperature 99 F 99.1 F Pulse Rate 94 H 73 Respiratory Rate 16 16 Blood Pressure 137/63 165/72 H Pulse Oximetry 94 L 94 L Intake & Output 09/03/19/18 03/19/18 18:59 06:59 18:59 Intake Total 620 / 620 0 / 0 Output Total 1500 / 1500 950 / 950 Balance -1500 / -1500 -330 / -330 0 / 0 Weight 124.4 kg Intake: IV 260 / 260 Ancef Inj 3,000 MG In NS Inj 260 / 260 100 ML @ 100 mls/hr IV.SIG Q8H CODIE Rx#:[id number] Oral 360 / 360 Intake (Blood Product) Amt 0 / 0 Rbc As-3 Leukoreduced Unit 0 / 0 [id number] Output: Urine 1450 / 1450 950 / 950 Estimated Blood Loss 50 / 50 Other: # Voids 1 Date of Last Bowel Movement 03/17/18 Narrative: GENERAL: Middle-aged white male in no acute distress, intoxicated, but answering questions appropriately. at bedside. SKIN: Focused skin assessment warm and dry. HEENT: PERRLA, EOMI. No scleral icterus or conjunctival pallor. No lid lag or facial droop. CARDIOVASCULAR: Regular rate and rhythm. No obvious murmurs to auscultation. No chest tenderness to palpation. RESPIRATORY: No obvious rhonchi or wheezing. Clear to auscultation. Breath sounds equal bilaterally. GASTROINTESTINAL: Abdomen soft, non-tender, nondistended. BS normal. MUSCULOSKELETAL: Extremities without clubbing, cyanosis, or edema. LLE w/ decreased ROM due to injury, +deformity, previous toe amputations. LEFT LEG DRESSED NEUROLOGICAL: Awake, alert and oriented x4. No focal neurologic deficits. Moving both upper and lower extremities spontaneously. PSYCHIATRIC: Appropriate mood and affect. Insight and judgment normal. Results - Labs CBC & Chem 7: 03/19/18 05:47 03/19/18 05:47 Laboratory Results - last 24 hr 03/18/18 03/18/18 03/19/18 17:34 21:07 05:47 WBC RBC Hgb Hct MCV MCH MCHC RDW Plt Count MPV Prelim Diff (Auto) Neut % (Auto) Lymph % (Auto) [place] % (Auto) Eos % (Auto) Baso % (Auto) Neut # (Auto) Lymph # (Auto) [place] # (Auto) Eos # (Auto) Baso # (Auto) WBC Differential Diff Scan Differential Comment Ovalocytes Sodium 143 Potassium 5.0 Chloride 114 H Carbon Dioxide 19.6 L Anion Gap 9 BUN 46 H Creatinine 1.75 H Estimated GFR 40 L POC Glucose 127 H 165 H Random Glucose 104 Calcium 7.4 L* Prot Corrected Calcium 7.7 L Phosphorus 3.6 Magnesium 1.9 Total Bilirubin 0.3 AST 23 ALT 16 Alkaline Phosphatase 95 Total Protein 6.6 D Albumin 2.6 L D TSH 2.140 Free T4 0.98 MTS Gel Crossmatch 03/19/18 03/19/18 03/19/18 05:47 06:42 08:07 WBC 7.7 RBC 2.50 L Hgb 6.9 L* D Hct 21.4 L MCV 85.5 MCH 27.5 MCHC 32.1 RDW 16.5 Plt Count 129 L MPV 6.6 L Prelim Diff (Auto) Slide review pending Neut % (Auto) 54.5 Lymph % (Auto) 27.5 [place] % (Auto) 13.4 H Eos % (Auto) 3.6 Baso % (Auto) 1.0 Neut # (Auto) 4.2 Lymph # (Auto) 2.1 [place] # (Auto) 1.0 H Eos # (Auto) 0.3 Baso # (Auto) 0.1 WBC Differential . Diff Scan Auto diff confirmed Differential Comment . Ovalocytes 1+ H Sodium Potassium Chloride Carbon Dioxide Anion Gap BUN Creatinine Estimated GFR POC Glucose 131 H Random Glucose Calcium Prot Corrected Calcium Phosphorus Magnesium Total Bilirubin AST ALT Alkaline Phosphatase Total Protein Albumin TSH Free T4 MTS Gel Crossmatch See Detail 03/19/18 12:04 WBC RBC Hgb Hct MCV MCH MCHC RDW Plt Count MPV Prelim Diff (Auto) Neut % (Auto) Lymph % (Auto) [place] % (Auto) Eos % (Auto) Baso % (Auto) Neut # (Auto) Lymph # (Auto) [place] # (Auto) Eos # (Auto) Baso # (Auto) WBC Differential Diff Scan Differential Comment Ovalocytes Sodium Potassium Chloride Carbon Dioxide Anion Gap BUN Creatinine Estimated GFR POC Glucose 185 H Random Glucose Calcium Prot Corrected Calcium Phosphorus Magnesium Total Bilirubin AST ALT Alkaline Phosphatase Total Protein Albumin TSH Free T4 MTS Gel Crossmatch - Imaging Femur X-Ray 03/18/18 00:00 CONCLUSION: 6 intraoperative films demonstrate the patient is status post Femur fixation without complication. Chest X-Ray 03/18/18 02:04 CONCLUSION: 1. Lateral sixth rib fracture on the right. Posterior seventh rib fracture on the right. Findings are age-indeterminate 2. No acute cardiopulmonary disease identified. Femur X-Ray 03/18/18 02:04 CONCLUSION: Comminuted intratrochanteric/subtrochanteric proximal femur fracture. - Procedures (1) Closed left femoral fracture Date of procedure: 03/18/18 Procedure: Left femur reduction and intramedullary fixation Anesthesia: GETA Surgeon: Rodrigo Castelan MD Acetone Button Paster: KRISTIN Chaves PA-C The surgical procedure was assisted by my physician project construction assistant manager. My P.A. presence was necessary throughout this case for the manipulation and positioning of the surgical extremity. My P.A. was assisting me throughout the duration of this procedure. The skill set of a physician project construction assistant manager was medically necessary to complete this procedure. During the surgical case the operating room surgical technologist was working at the back table and the physician project construction assistant manager was directly assisting me. Operation and Findings: Implants used: Biomet 13 mm x 400 mm troch nail Plan of activity: Partial weightbearing 50 pounds Patient was seen and evaluated preoperatively. The patient has significant hip pain from proximal femur fracture. The risk and benefits of surgery were discussed in depth with the patient to include bleeding, infection, nonunion, malunion, need for hip replacement, painful hardware, as well as medical competitions including blood clots, stroke, heart attack, and . Informed consent was obtained. Operative site was marked. Patient was brought to the operating room and placed on fracture table. IV sedation was administered by anesthesiologist. Timeout procedure was performed. Hip and leg were prepped with alcohol followed by DuraPrep and draped in the usual sterile fashion. IV antibiotics were given prior to incision. Procedure began with reduction of fracture. Traction was applied. The leg was manipulated to achieve reduction. Excellent reduction was achieved. Fluoroscopy was used to confirm reduction. A three inch incision was made proximal to the trochanter. Subcutaneous tissue was dissected bluntly. Guidepin was placed at the tip of the trochanter and advanced into the femoral canal. Fluoroscopy confirmed appropriate guidepin placement. A opening reamer was placed over the guidepin. A long ball tipped guide pin was now placed down the femoral canal into the center of the distal femur. The nail length was now measured. Fluoroscopy confirmed appropriate guidepin placement. Flexible reamers were now passed over the guidepin to ream the intramedullary canal. The nail was attached to the insertion handle. Nail was now placed over the guidepin into the femoral canal. Fluoroscopy confirmed appropriate nail placement. A second incision was made over the lateral thigh. Cannulas were placed through the insertion handle down to the femur. Guidepin was now placed through the femoral nail into the center of the femoral head. Fluoroscopy confirmed appropriate guidepin placement. Screw length was measured. Cannulated drill was placed over the guidepin. Appropriate length lag screw was now placed. Traction was released and compression was applied. The set screw was now tightened in dynamic mode. Next, using perfect [place] technique two distal interlocking screws were placed. Screw holes were predrilled and screw lengths were measured. Final fluoroscopy revealed well aligned fracture with well-placed hardware. Incision was closed with 3-0 Vicryl and zo. Sterile dressings were applied. Patient was awakened and transferred to recovery room. Documented By: Rodrigo Castelan MD Assessment and Plan - Assessment (1) Fall Code(s): W19.XXXA - Unspecified fall, initial encounter Status: Acute (2) Closed left femoral fracture Code(s): S72.92XA - Unspecified fracture of left femur, initial encounter for closed fracture Status: Acute (3) DM (diabetes mellitus) Code(s): E11.9 - Type 2 diabetes mellitus without complications Status: Acute (4) Alcohol abuse Code(s): F10.10 - Alcohol abuse, uncomplicated Status: Acute - Plan 1. Fall: s/p fall at home while intoxicated, reports pt falls quite frequently when he drinks. No head trauma or LOC. CXR w/ right lateral 6th rib fx and right posterior 7th rib fx, age indeterminate, likely from previous fall. 2. Left Hip Fx: secondary to fall, X-ray w/ comminuted intertrochanteric/ subtrochanteric proximal femur fracture, images reviewed. Consult Ortho for further eval/intervention, NPO, analgesics/antiemetics as needed. SP REPAIR OF LEFT HIP/FEMUR 3. Alcohol Abuse: w/ Acute Alcohol Intoxication, Alcohol 227, CIWA, Seizure Precautions, MVT/Thiamine/Folate 4. DM: Sliding scale w/ Accu-Checks, resume home Insulin post op 5. DVT Prophylaxis: Anticoagulation post op 6. Social work for d/c planning as needed ANEMIA BEING TRANSFUSED TODAY WILL NEED AM LABS HOPEFULLY TO INPT REHAB TOMORROW AM LABS CIWA Code Status: FULL CODE Discussed Condition With: RN AND PT AND CM Discharge Planning: INPT REHAB TOMORROW (2) Closed left femoral fracture Qualifiers: Encounter type: initial encounter Femur location: subtrochanteric Fracture alignment: displaced Qualified Code(s): S72.22XA - Displaced subtrochanteric fracture of left femur, initial encounter for closed fracture
[2018-03-19 17:47] LABS: Hemoglobin A1c 6.4 % (4.3-6.0)
[2018-03-19 21:03] VITALS: RESP 18
[2018-03-20 06:44] LABS: Baso # (Auto) 0.1 th/mm3 (0.0-0.2); Baso % (Auto) 0.8 % (0.0-2.0); Eos # (Auto) 0.4 th/mm3 (0.0-0.4); Eos % (Auto) 3.7 % (0.0-4.0); Hemoglobin 8.2 gm/dL (13.0-17.0); Lymph # (Auto) 2.6 th/mm3 (1.0-4.8); Lymph % (Auto) 27.8 % (9.0-44.0); Mean Corpuscular HGB Conc 31.5 % (32.0-36.0); Mean Corpuscular Hemoglobin 27.1 pg (27.0-34.0); Mean Corpuscular Volume 86.1 fL (80.0-100.0); Mean Platelet Volume 6.9 fL (7.0-11.0); Mono # (Auto) 1.2 th/mm3 (0.0-0.9); Mono % (Auto) 12.9 % (0.0-8.0); Neut # (Auto) 5.2 th/mm3 (1.8-7.7); Neut % (Auto) 54.8 % (16.0-70.0); Platelet Count 127 th/mm3 (150-450); Red Blood Count 3.03 mil/mm3 (4.50-5.90); Red Cell Distribution Width 16.4 % (11.6-17.2); White Blood Count 9.5 th/mm3 (4.0-11.0)
[2018-03-20] MEDS: Sod Chloride 0.9% Inj 1,000 ML IV.CONT SCH (06:46)
[2018-03-20 06:58] LABS: Alanine Aminotransferase 15 U/L (12-78); Albumin 2.8 g/dL (3.4-5.0); Anion Gap 8 meq/L (5-15); Aspartate Aminotransferase 27 U/L (15-37); Blood Urea Nitrogen 44 mg/dL (7-18); Calcium 8.2 mg/dL (8.5-10.1); Carbon Dioxide 23.4 meq/L (21.0-32.0); Chloride 111 meq/L (98-107); Glomerular Filtration Rate 41 mL/min (>89); Glucose,Random 127 mg/dL (74-106); Magnesium 1.6 mg/dL (1.5-2.5); Phosphorus 3.1 mg/dL (2.5-4.9); Potassium 4.7 meq/L (3.5-5.1); Sodium 142 meq/L (136-145)
[2018-03-20 07:01] LABS: Alkaline Phosphatase 103 U/L (45-117); Total Protein 7.3 g/dL (6.4-8.2)
--- NOTE | 2018-03-20 07:35 | P.PNOP ---
Subjective Interval history: Resting comfortably. States that physical therapy is improving. He is anticipating a discharge to [facility] Physical Exam Vital signs: Vital Signs 03/19/18 08:00 03/19/18 10:08 03/19/18 10:24 Temperature 99.3 F 98.6 F 99 F Pulse Rate 82 74 94 H Respiratory Rate 18 16 16 Blood Pressure 131/62 134/61 137/63 Pulse Oximetry 94 L 95 94 L 03/19/18 12:00 03/19/18 13:44 03/19/18 18:57 Temperature 98.1 F 99.1 F 98.6 F Pulse Rate 72 73 80 Respiratory Rate 18 16 18 Blood Pressure 188/78 H 165/72 H 100/60 Pulse Oximetry 97 94 L 94 L 03/19/18 23:15 Temperature 98.6 F Pulse Rate 75 Respiratory Rate 18 Blood Pressure 160/72 H Pulse Oximetry 93 L Intake & Output 03/19/18 03/20/18 03/20/18 18:59 06:59 18:59 Intake Total 130 / 130 360 / 360 Output Total 525 / 525 Balance -395 / -395 360 / 360 Weight 126.7 kg Intake: IV 130 / 130 Ancef Inj 3,000 MG In NS Inj 130 / 130 100 ML @ 100 mls/hr IV.SIG Q8H CODIE Rx#:[id number] Oral 360 / 360 Intake (Blood Product) Amt 0 / 0 Rbc As-3 Leukoreduced Unit 0 / 0 [id number] Output: Urine 525 / 525 Other: # Voids 1,525 Date of Last Bowel Movement 03/19/18 # Bowel Movements 0 Narrative: Left lower extremity: Clean dry dressings intact. Moderate swelling. Intact distal pulses with continued diminished sensation over the plantar surface of the foot. Active dorsiflexion plantar flexion of foot Results - Labs CBC & Chem 7: 03/20/18 06:16 03/20/18 06:16 Laboratory Results - last 24 hr 03/19/18 03/19/18 03/19/18 05:47 05:47 06:42 WBC RBC Hgb Hct MCV MCH MCHC RDW Plt Count MPV Neut % (Auto) Lymph % (Auto) [place] % (Auto) Eos % (Auto) Baso % (Auto) Neut # (Auto) Lymph # (Auto) [place] # (Auto) Eos # (Auto) Baso # (Auto) WBC Differential . Diff Scan Auto diff confirmed Differential Comment Ovalocytes 1+ H Sodium Potassium Chloride Carbon Dioxide Anion Gap BUN Creatinine Estimated GFR POC Glucose Random Glucose Hemoglobin A1c 6.4 H Calcium Phosphorus Magnesium Total Bilirubin AST ALT Alkaline Phosphatase Total Protein Albumin MTS Gel Crossmatch See Detail 03/19/18 03/19/18 03/19/18 08:07 12:04 17:10 WBC RBC Hgb Hct MCV MCH MCHC RDW Plt Count MPV Neut % (Auto) Lymph % (Auto) [place] % (Auto) Eos % (Auto) Baso % (Auto) Neut # (Auto) Lymph # (Auto) [place] # (Auto) Eos # (Auto) Baso # (Auto) WBC Differential Diff Scan Differential Comment Ovalocytes Sodium Potassium Chloride Carbon Dioxide Anion Gap BUN Creatinine Estimated GFR POC Glucose 131 H 185 H 135 H Random Glucose Hemoglobin A1c Calcium Phosphorus Magnesium Total Bilirubin AST ALT Alkaline Phosphatase Total Protein Albumin MTS Gel Crossmatch 03/19/18 03/20/18 03/20/18 20:53 06:16 06:16 WBC 9.5 RBC 3.03 L Hgb 8.2 L Hct 26.0 L MCV 86.1 MCH 27.1 MCHC 31.5 L RDW 16.4 Plt Count 127 L MPV 6.9 L Neut % (Auto) 54.8 Lymph % (Auto) 27.8 [place] % (Auto) 12.9 H Eos % (Auto) 3.7 Baso % (Auto) 0.8 Neut # (Auto) 5.2 Lymph # (Auto) 2.6 [place] # (Auto) 1.2 H Eos # (Auto) 0.4 Baso # (Auto) 0.1 WBC Differential . Diff Scan Differential Comment Auto diff final Ovalocytes Sodium 142 Potassium 4.7 Chloride 111 H Carbon Dioxide 23.4 Anion Gap 8 BUN 44 H Creatinine 1.74 H Estimated GFR 41 L POC Glucose 182 H Random Glucose 127 H Hemoglobin A1c Calcium 8.2 L D Phosphorus 3.1 Magnesium 1.6 Total Bilirubin 0.4 AST 27 ALT 15 Alkaline Phosphatase 103 Total Protein 7.3 D Albumin 2.8 L MTS Gel Crossmatch - Procedures (1) Closed left femoral fracture Date of procedure: 03/18/18 Procedure: Left femur reduction and intramedullary fixation Anesthesia: GETA Surgeon: Rodrigo Castelan MD Relocation Coordinator: KRISTIN Chaves PA-C The surgical procedure was assisted by my physician legislative assistant. My P.A. presence was necessary throughout this case for the manipulation and positioning of the surgical extremity. My P.A. was assisting me throughout the duration of this procedure. The skill set of a physician legislative assistant was medically necessary to complete this procedure. During the surgical case the surgical attendant was working at the back table and the physician legislative assistant was directly assisting me. Operation and Findings: Implants used: Biomet 13 mm x 400 mm troch nail Plan of activity: Partial weightbearing 50 pounds Patient was seen and evaluated preoperatively. The patient has significant hip pain from proximal femur fracture. The risk and benefits of surgery were discussed in depth with the patient to include bleeding, infection, nonunion, malunion, need for hip replacement, painful hardware, as well as medical competitions including blood clots, stroke, heart attack, and . Informed consent was obtained. Operative site was marked. Patient was brought to the operating room and placed on fracture table. IV sedation was administered by anesthesiologist. Timeout procedure was performed. Hip and leg were prepped with alcohol followed by DuraPrep and draped in the usual sterile fashion. IV antibiotics were given prior to incision. Procedure began with reduction of fracture. Traction was applied. The leg was manipulated to achieve reduction. Excellent reduction was achieved. Fluoroscopy was used to confirm reduction. A three inch incision was made proximal to the trochanter. Subcutaneous tissue was dissected bluntly. Guidepin was placed at the tip of the trochanter and advanced into the femoral canal. Fluoroscopy confirmed appropriate guidepin placement. A opening reamer was placed over the guidepin. A long ball tipped guide pin was now placed down the femoral canal into the center of the distal femur. The nail length was now measured. Fluoroscopy confirmed appropriate guidepin placement. Flexible reamers were now passed over the guidepin to ream the intramedullary canal. The nail was attached to the insertion handle. Nail was now placed over the guidepin into the femoral canal. Fluoroscopy confirmed appropriate nail placement. A second incision was made over the lateral thigh. Cannulas were placed through the insertion handle down to the femur. Guidepin was now placed through the femoral nail into the center of the femoral head. Fluoroscopy confirmed appropriate guidepin placement. Screw length was measured. Cannulated drill was placed over the guidepin. Appropriate length lag screw was now placed. Traction was released and compression was applied. The set screw was now tightened in dynamic mode. Next, using perfect [place] technique two distal interlocking screws were placed. Screw holes were predrilled and screw lengths were measured. Final fluoroscopy revealed well aligned fracture with well-placed hardware. Incision was closed with 3-0 Vicryl and zo. Sterile dressings were applied. Patient was awakened and transferred to recovery room. Documented By: Rodrigo Castelan MD Assessment and Plan - Assessment and Plan 1) Left Subtrochanteric Femur Fx s/p IMN - POD 2 -50%WB -daily dressing changes -CM for SNF placement as patient states he cannot ambulate in his apartment with walker -DVT prophylaxis -f/u with [facility] in 2 weeks Orthopedically cleared for discharge to rehab patient currently receiving norco 10/[address] Reggie Oneal and is receiving 30 day supplies at a time. Will defer to Dr Oneal for pain medication management.
[2018-03-20] MEDS: Senna/Docusate Sodium 8.6/50 MG Tablet PO SCH (08:22)
[2018-03-20] MEDS: Carvedilol 6.25 MG Tablet PO SCH (08:22)
[2018-03-20] MEDS: Gabapentin 300 MG Capsule PO SCH ×2 (08:22→14:08)
[2018-03-20] MEDS: Calcium/Vitamin D 250/125 MG Tablet PO SCH ×2 (08:22→14:08)
[2018-03-20] MEDS: Folic Acid 1 MG Tablet PO SCH (08:22)
[2018-03-20] MEDS: Escitalopram 10 MG Tablet PO SCH (08:22)
[2018-03-20] MEDS: diazePAM 5 MG Tablet PO SCH (08:23)
[2018-03-20] MEDS: Enoxaparin Inj 30 MG/0.3 ML Syringe SQ SCH (08:23)
[2018-03-20] MEDS: Insulin NovoLOG Aspart Correctional Sugar Inj SQ SCH ×2 (08:40→12:15)
[2018-03-20 12:03] VITALS: BP 150/69; PULSE 72; TEMP 98; O2SAT 96
--- NOTE | 2018-03-20 12:54 | P.PNIM ---
Subjective Interval history: This is a 57-year-old male with a PMH of HTN, Hyperlipidemia, CHF (Echo 10-17 with EF 55-60% and Severe ), CKD, DM and Alcohol Abuse who was brought to the ER by EMS for c/o left hip pain after a fall. Per , pt had "too much to drink" tonight, states he tried to get up from the couch and fell onto the floor , states she was able to get him up w/ assistance from other people, however he lost his balance and had 2nd fall at which time he c/o severe left hip pain. + obvious deformity. Pain is severe, constant, 10/10, worse w/ movement. On arrival, BP 123/60, HR 73, O2 sat 97% on RA, Afebrile. CBC unremarkable. INR 1.0. Creatinine 1.70, previously 1.80 on 12/23/2017. CXR with lateral sixth rib fracture on the right, posterior seventh rib fracture on the left, age indeterminate, no acute cardiopulmonary findings. Femur X-ray with comminuted intertrochanteric/subtrochanteric proximal femur fracture. 03-18 HAD SURGERY TODAY HAD LEFT FEMUR REDUCTION AND INTRAMEDULLARY FIXATION FOR A CLOSED LEFT FEMORAL FRACTURE TODAY WILL PROBABLY NEED SNF HAS HX OF HEAVY ALCOHOL DAILY WILL DO CIWA 03-19 DC TO [facility] TOMORROW AM LABS HAD BLOOD TRANSFUSION TODAY DW RN AND PT AND CM HAS PAIN IN LEFT FEMUR HIP 03-20 HAD BLOOD TRANSFUSION YESTERDAY NO NEW ISSUES HAS CHRONIC PAIN WILL DC TO [facility] TODAY DW RN AND PT AND CM AND Physical Exam Vital signs: Vital Signs 03/19/18 13:44 03/19/18 18:57 03/19/18 23:15 Temperature 99.1 F 98.6 F 98.6 F Pulse Rate 73 80 75 Respiratory Rate 16 18 18 Blood Pressure 165/72 H 100/60 160/72 H Pulse Oximetry 94 L 94 L 93 L 03/20/18 08:00 03/20/18 12:00 Temperature 98.7 F 98.0 F Pulse Rate 73 72 Respiratory Rate 18 18 Blood Pressure 177/76 H 150/69 H Pulse Oximetry 95 96 Intake & Output 03/19/18 03/20/18 03/20/18 18:59 06:59 18:59 Intake Total 130 / 130 360 / 360 240 / 240 Output Total 525 / 525 300 / 300 Balance -395 / -395 360 / 360 -60 / -60 Weight 126.7 kg Intake: IV 130 / 130 Ancef Inj 3,000 MG In NS Inj 130 / 130 100 ML @ 100 mls/hr IV.SIG Q8H CODIE Rx#:[id number] Oral 360 / 360 240 / 240 Intake (Blood Product) Amt 0 / 0 Rbc As-3 Leukoreduced Unit 0 / 0 [id number] Output: Urine 525 / 525 300 / 300 Other: # Voids 1,525 Date of Last Bowel Movement 03/19/18 03/19/18 # Bowel Movements 0 Narrative: GENERAL: Middle-aged white male in no acute distress, intoxicated, but answering questions appropriately. at bedside. SKIN: Focused skin assessment warm and dry. HEENT: PERRLA, EOMI. No scleral icterus or conjunctival pallor. No lid lag or facial droop. CARDIOVASCULAR: Regular rate and rhythm. No obvious murmurs to auscultation. No chest tenderness to palpation. RESPIRATORY: No obvious rhonchi or wheezing. Clear to auscultation. Breath sounds equal bilaterally. GASTROINTESTINAL: Abdomen soft, non-tender, nondistended. BS normal. MUSCULOSKELETAL: Extremities without clubbing, cyanosis, or edema. LLE w/ decreased ROM due to injury, +deformity, previous toe amputations. LEFT LEG DRESSED NEUROLOGICAL: Awake, alert and oriented x4. No focal neurologic deficits. Moving both upper and lower extremities spontaneously. PSYCHIATRIC: Appropriate mood and affect. Insight and judgment normal. Results - Labs CBC & Chem 7: 03/20/18 06:16 03/20/18 06:16 Laboratory Results - last 24 hr 03/19/18 03/19/18 03/19/18 05:47 06:42 17:10 WBC RBC Hgb Hct MCV MCH MCHC RDW Plt Count MPV Neut % (Auto) Lymph % (Auto) [place] % (Auto) Eos % (Auto) Baso % (Auto) Neut # (Auto) Lymph # (Auto) [place] # (Auto) Eos # (Auto) Baso # (Auto) WBC Differential Differential Comment Sodium Potassium Chloride Carbon Dioxide Anion Gap BUN Creatinine Estimated GFR POC Glucose 135 H Random Glucose Hemoglobin A1c 6.4 H Calcium Phosphorus Magnesium Total Bilirubin AST ALT Alkaline Phosphatase Total Protein Albumin MTS Gel Crossmatch See Detail 09/03/20/18 03/20/18 20:53 06:16 06:16 WBC 9.5 RBC 3.03 L Hgb 8.2 L Hct 26.0 L MCV 86.1 MCH 27.1 MCHC 31.5 L RDW 16.4 Plt Count 127 L MPV 6.9 L Neut % (Auto) 54.8 Lymph % (Auto) 27.8 [place] % (Auto) 12.9 H Eos % (Auto) 3.7 Baso % (Auto) 0.8 Neut # (Auto) 5.2 Lymph # (Auto) 2.6 [place] # (Auto) 1.2 H Eos # (Auto) 0.4 Baso # (Auto) 0.1 WBC Differential . Differential Comment Auto diff final Sodium 142 Potassium 4.7 Chloride 111 H Carbon Dioxide 23.4 Anion Gap 8 BUN 44 H Creatinine 1.74 H Estimated GFR 41 L POC Glucose 182 H Random Glucose 127 H Hemoglobin A1c Calcium 8.2 L D Phosphorus 3.1 Magnesium 1.6 Total Bilirubin 0.4 AST 27 ALT 15 Alkaline Phosphatase 103 Total Protein 7.3 D Albumin 2.8 L MTS Gel Crossmatch 03/20/18 03/20/18 08:16 12:13 WBC RBC Hgb Hct MCV MCH MCHC RDW Plt Count MPV Neut % (Auto) Lymph % (Auto) [place] % (Auto) Eos % (Auto) Baso % (Auto) Neut # (Auto) Lymph # (Auto) [place] # (Auto) Eos # (Auto) Baso # (Auto) WBC Differential Differential Comment Sodium Potassium Chloride Carbon Dioxide Anion Gap BUN Creatinine Estimated GFR POC Glucose 145 H 165 H Random Glucose Hemoglobin A1c Calcium Phosphorus Magnesium Total Bilirubin AST ALT Alkaline Phosphatase Total Protein Albumin MTS Gel Crossmatch - Imaging Femur X-Ray 03/18/18 00:00 CONCLUSION: 6 intraoperative films demonstrate the patient is status post Femur fixation without complication. Chest X-Ray 03/18/18 02:04 CONCLUSION: 1. Lateral sixth rib fracture on the right. Posterior seventh rib fracture on the right. Findings are age-indeterminate 2. No acute cardiopulmonary disease identified. Femur X-Ray 03/18/18 02:04 CONCLUSION: Comminuted intratrochanteric/subtrochanteric proximal femur fracture. - Procedures (1) Closed left femoral fracture Date of procedure: 03/18/18 Procedure: Left femur reduction and intramedullary fixation Anesthesia: GETA Surgeon: Rodrigo Castelan MD Heel Splitter: KRISTIN Chaves PA-C The surgical procedure was assisted by my physician assistant warehouse manager. My P.A. presence was necessary throughout this case for the manipulation and positioning of the surgical extremity. My P.A. was assisting me throughout the duration of this procedure. The skill set of a physician assistant warehouse manager was medically necessary to complete this procedure. During the surgical case the surgical pathologist was working at the back table and the physician assistant warehouse manager was directly assisting me. Operation and Findings: Implants used: Biomet 13 mm x 400 mm troch nail Plan of activity: Partial weightbearing 50 pounds Patient was seen and evaluated preoperatively. The patient has significant hip pain from proximal femur fracture. The risk and benefits of surgery were discussed in depth with the patient to include bleeding, infection, nonunion, malunion, need for hip replacement, painful hardware, as well as medical competitions including blood clots, stroke, heart attack, and . Informed consent was obtained. Operative site was marked. Patient was brought to the operating room and placed on fracture table. IV sedation was administered by anesthesiologist. Timeout procedure was performed. Hip and leg were prepped with alcohol followed by DuraPrep and draped in the usual sterile fashion. IV antibiotics were given prior to incision. Procedure began with reduction of fracture. Traction was applied. The leg was manipulated to achieve reduction. Excellent reduction was achieved. Fluoroscopy was used to confirm reduction. A three inch incision was made proximal to the trochanter. Subcutaneous tissue was dissected bluntly. Guidepin was placed at the tip of the trochanter and advanced into the femoral canal. Fluoroscopy confirmed appropriate guidepin placement. A opening reamer was placed over the guidepin. A long ball tipped guide pin was now placed down the femoral canal into the center of the distal femur. The nail length was now measured. Fluoroscopy confirmed appropriate guidepin placement. Flexible reamers were now passed over the guidepin to ream the intramedullary canal. The nail was attached to the insertion handle. Nail was now placed over the guidepin into the femoral canal. Fluoroscopy confirmed appropriate nail placement. A second incision was made over the lateral thigh. Cannulas were placed through the insertion handle down to the femur. Guidepin was now placed through the femoral nail into the center of the femoral head. Fluoroscopy confirmed appropriate guidepin placement. Screw length was measured. Cannulated drill was placed over the guidepin. Appropriate length lag screw was now placed. Traction was released and compression was applied. The set screw was now tightened in dynamic mode. Next, using perfect [place] technique two distal interlocking screws were placed. Screw holes were predrilled and screw lengths were measured. Final fluoroscopy revealed well aligned fracture with well-placed hardware. Incision was closed with 3-0 Vicryl and zo. Sterile dressings were applied. Patient was awakened and transferred to recovery room. Documented By: Rodrigo Castelan MD Assessment and Plan - Assessment (1) Fall Code(s): W19.XXXA - Unspecified fall, initial encounter Status: Acute (2) Closed left femoral fracture Code(s): S72.92XA - Unspecified fracture of left femur, initial encounter for closed fracture Status: Acute (3) DM (diabetes mellitus) Code(s): E11.9 - Type 2 diabetes mellitus without complications Status: Acute (4) Alcohol abuse Code(s): F10.10 - Alcohol abuse, uncomplicated Status: Acute - Plan 1. Fall: s/p fall at home while intoxicated, reports pt falls quite frequently when he drinks. No head trauma or LOC. CXR w/ right lateral 6th rib fx and right posterior 7th rib fx, age indeterminate, likely from previous fall. 2. Left Hip Fx: secondary to fall, X-ray w/ comminuted intertrochanteric/ subtrochanteric proximal femur fracture, images reviewed. Consult Ortho for further eval/intervention, NPO, analgesics/antiemetics as needed. SP REPAIR OF LEFT HIP/FEMUR 3. Alcohol Abuse: w/ Acute Alcohol Intoxication, Alcohol 227, CIWA, Seizure Precautions, MVT/Thiamine/Folate 4. DM: Sliding scale w/ Accu-Checks, resume home Insulin post op 5. DVT Prophylaxis: Anticoagulation post op 6. Social work for d/c planning as needed ANEMIA BEING TRANSFUSED TODAY WILL NEED AM LABS TO INPT REHAB TODAY HAS CHRONIC PAIN PRIOR TO COMING TO HOSPITA TRANSFER TO [facility] TODAY Code Status: FULL CODE Discussed Condition With: RN AND PT AND CM Discharge Planning: INPT REHAB TODAY (2) Closed left femoral fracture Qualifiers: Encounter type: initial encounter Femur location: subtrochanteric Fracture alignment: displaced Qualified Code(s): S72.22XA - Displaced subtrochanteric fracture of left femur, initial encounter for closed fracture
--- NOTE | 2018-03-20 13:05 | P.DS ---
Date of admission: 03/18/18 04:12 Primary care physician: No Primary Care Physician Attending physician on discharge: Randy Bradshaw Anticipated date of discharge: 03/20/18 Brief History from admission: This is a 57-year-old male with a PMH of HTN, Hyperlipidemia, CHF (Echo 10-17 with EF 55-60% and Severe ), CKD, DM and Alcohol Abuse who was brought to the ER by EMS for c/o left hip pain after a fall. Per , pt had "too much to drink" tonight, states he tried to get up from the couch and fell onto the floor , states she was able to get him up w/ assistance from other people, however he lost his balance and had 2nd fall at which time he c/o severe left hip pain. + obvious deformity. Pain is severe, constant, 10/10, worse w/ movement. On arrival, BP 123/60, HR 73, O2 sat 97% on RA, Afebrile. CBC unremarkable. INR 1.0. Creatinine 1.70, previously 1.80 on 12/23/2017. CXR with lateral sixth rib fracture on the right, posterior seventh rib fracture on the left, age indeterminate, no acute cardiopulmonary findings. Femur X-ray with comminuted intertrochanteric/subtrochanteric proximal femur fracture. Patient update on day of discharge: This is a 57-year-old male with a PMH of HTN, Hyperlipidemia, CHF (Echo 10-17 with EF 55-60% and Severe ), CKD, DM and Alcohol Abuse who was brought to the ER by EMS for c/o left hip pain after a fall. Per , pt had "too much to drink" tonight, states he tried to get up from the couch and fell onto the floor , states she was able to get him up w/ assistance from other people, however he lost his balance and had 2nd fall at which time he c/o severe left hip pain. + obvious deformity. Pain is severe, constant, 10/10, worse w/ movement. On arrival, BP 123/60, HR 73, O2 sat 97% on RA, Afebrile. CBC unremarkable. INR 1.0. Creatinine 1.70, previously 1.80 on 12/23/2017. CXR with lateral sixth rib fracture on the right, posterior seventh rib fracture on the left, age indeterminate, no acute cardiopulmonary findings. Femur X-ray with comminuted intertrochanteric/subtrochanteric proximal femur fracture. 03-18 HAD SURGERY TODAY HAD LEFT FEMUR REDUCTION AND INTRAMEDULLARY FIXATION FOR A CLOSED LEFT FEMORAL FRACTURE TODAY WILL PROBABLY NEED SNF HAS HX OF HEAVY ALCOHOL DAILY WILL DO [facility] 03-19 DC TO [facility] TOMORROW AM LABS HAD BLOOD TRANSFUSION TODAY [facility] RN AND PT AND CM HAS PAIN IN LEFT FEMUR HIP 03-20 HAD BLOOD TRANSFUSION YESTERDAY NO NEW ISSUES HAS CHRONIC PAIN WILL DC TO [facility] TODAY DW RN AND PT AND CM AND DS: Diagnosis - Discharge Diagnosis (1) Fall Status: Acute (2) Closed left femoral fracture Status: Acute (3) DM (diabetes mellitus) Status: Chronic (4) Alcohol abuse Status: Chronic (5) Obese Status: Acute DS: Medications - Discharge Medications Prescriptions: rivaroxaban [Xarelto] 10 mg PO DAILY #14 tab DS: Summary Hospital Course: This is a 57-year-old male with a PMH of HTN, Hyperlipidemia, CHF (Echo 10-17 with EF 55-60% and Severe ), CKD, DM and Alcohol Abuse who was brought to the ER by EMS for c/o left hip pain after a fall. Per , pt had "too much to drink" tonight, states he tried to get up from the couch and fell onto the floor , states she was able to get him up w/ assistance from other people, however he lost his balance and had 2nd fall at which time he c/o severe left hip pain. + obvious deformity. Pain is severe, constant, 10/10, worse w/ movement. On arrival, BP 123/60, HR 73, O2 sat 97% on RA, Afebrile. CBC unremarkable. INR 1.0. Creatinine 1.70, previously 1.80 on 12/23/2017. CXR with lateral sixth rib fracture on the right, posterior seventh rib fracture on the left, age indeterminate, no acute cardiopulmonary findings. Femur X-ray with comminuted intertrochanteric/subtrochanteric proximal femur fracture. 03-18 HAD SURGERY TODAY HAD LEFT FEMUR REDUCTION AND INTRAMEDULLARY FIXATION FOR A CLOSED LEFT FEMORAL FRACTURE TODAY WILL PROBABLY NEED SNF HAS HX OF HEAVY ALCOHOL DAILY WILL DO [facility] 03-19 DC TO [facility] TOMORROW AM LABS HAD BLOOD TRANSFUSION TODAY [facility] RN AND PT AND CM HAS PAIN IN LEFT FEMUR HIP 03-20 HAD BLOOD TRANSFUSION YESTERDAY NO NEW ISSUES HAS CHRONIC PAIN WILL DC TO [facility] TODAY DW RN AND PT AND CM AND - Time Spent with Patient Total time spent providing and/or coordinating discharge services: Greater than 30 minutes Exam Vital signs: Vital Signs 03/19/18 13:44 03/19/18 18:57 03/19/18 23:15 Temperature 99.1 F 98.6 F 98.6 F Pulse Rate 73 80 75 Respiratory Rate 16 18 18 Blood Pressure 165/72 H 100/60 160/72 H Pulse Oximetry 94 L 94 L 93 L 03/20/18 08:00 03/20/18 12:00 Temperature 98.7 F 98.0 F Pulse Rate 73 72 Respiratory Rate 18 18 Blood Pressure 177/76 H 150/69 H Pulse Oximetry 95 96 Intake & Output 03/19/18 03/20/18 03/20/18 18:59 06:59 18:59 Intake Total 130 / 130 360 / 360 240 / 240 Output Total 525 / 525 300 / 300 Balance -395 / -395 360 / 360 -60 / -60 Weight 126.7 kg Intake: IV 130 / 130 Ancef Inj 3,000 MG In NS Inj 130 / 130 100 ML @ 100 mls/hr IV.SIG Q8H CODIE Rx#:[id number] Oral 360 / 360 240 / 240 Intake (Blood Product) Amt 0 / 0 Rbc As-3 Leukoreduced Unit 0 / 0 [id number] Output: Urine 525 / 525 300 / 300 Other: # Voids 1,525 Date of Last Bowel Movement 03/19/18 03/19/18 # Bowel Movements 0 Narrative: GENERAL: Middle-aged white male in no acute distress, intoxicated, but answering questions appropriately. at bedside. SKIN: Focused skin assessment warm and dry. HEENT: PERRLA, EOMI. No scleral icterus or conjunctival pallor. No lid lag or facial droop. CARDIOVASCULAR: Regular rate and rhythm. No obvious murmurs to auscultation. No chest tenderness to palpation. RESPIRATORY: No obvious rhonchi or wheezing. Clear to auscultation. Breath sounds equal bilaterally. GASTROINTESTINAL: Abdomen soft, non-tender, nondistended. BS normal. MUSCULOSKELETAL: Extremities without clubbing, cyanosis, or edema. LLE w/ decreased ROM due to injury, +deformity, previous toe amputations. LEFT LEG DRESSED NEUROLOGICAL: Awake, alert and oriented x4. No focal neurologic deficits. Moving both upper and lower extremities spontaneously. PSYCHIATRIC: Appropriate mood and affect. Insight and judgment normal. Results Procedures completed during hospitalization: (1) Closed left femoral fracture Date of procedure: 03/18/18 Procedure: Left femur reduction and intramedullary fixation Anesthesia: GETA Surgeon: Rodrigo Nash MD Manager Analysis: KRISTIN Chaves PA-C The surgical procedure was assisted by my physician assistant infant toddler teacher. My P.A. presence was necessary throughout this case for the manipulation and positioning of the surgical extremity. My P.A. was assisting me throughout the duration of this procedure. The skill set of a physician assistant infant toddler teacher was medically necessary to complete this procedure. During the surgical case the certified surgical technician was working at the back table and the physician assistant infant toddler teacher was directly assisting me. Operation and Findings: Implants used: Biomet 13 mm x 400 mm troch nail Plan of activity: Partial weightbearing 50 pounds Patient was seen and evaluated preoperatively. The patient has significant hip pain from proximal femur fracture. The risk and benefits of surgery were discussed in depth with the patient to include bleeding, infection, nonunion, malunion, need for hip replacement, painful hardware, as well as medical competitions including blood clots, stroke, heart attack, and . Informed consent was obtained. Operative site was marked. Patient was brought to the operating room and placed on fracture table. IV sedation was administered by anesthesiologist. Timeout procedure was performed. Hip and leg were prepped with alcohol followed by DuraPrep and draped in the usual sterile fashion. IV antibiotics were given prior to incision. Procedure began with reduction of fracture. Traction was applied. The leg was manipulated to achieve reduction. Excellent reduction was achieved. Fluoroscopy was used to confirm reduction. A three inch incision was made proximal to the trochanter. Subcutaneous tissue was dissected bluntly. Guidepin was placed at the tip of the trochanter and advanced into the femoral canal. Fluoroscopy confirmed appropriate guidepin placement. A opening reamer was placed over the guidepin. A long ball tipped guide pin was now placed down the femoral canal into the center of the distal femur. The nail length was now measured. Fluoroscopy confirmed appropriate guidepin placement. Flexible reamers were now passed over the guidepin to ream the intramedullary canal. The nail was attached to the insertion handle. Nail was now placed over the guidepin into the femoral canal. Fluoroscopy confirmed appropriate nail placement. A second incision was made over the lateral thigh. Cannulas were placed through the insertion handle down to the femur. Guidepin was now placed through the femoral nail into the center of the femoral head. Fluoroscopy confirmed appropriate guidepin placement. Screw length was measured. Cannulated drill was placed over the guidepin. Appropriate length lag screw was now placed. Traction was released and compression was applied. The set screw was now tightened in dynamic mode. Next, using perfect platinum technique two distal interlocking screws were placed. Screw holes were predrilled and screw lengths were measured. Final fluoroscopy revealed well aligned fracture with well-placed hardware. Incision was closed with 3-0 Vicryl and zo. Sterile dressings were applied. Patient was awakened and transferred to recovery room. Documented By: Rodrigo Nash MD Completed studies during hospitalization: Laboratory Results WBC 9.5 th/mm3 (4.0-11.0) 03/20/18 06:16 RBC 3.03 mil/mm3 (4.50-5.90) L 03/20/18 06:16 Hgb 8.2 gm/dL (13.0-17.0) L 03/20/18 06:16 Hct 26.0 % (39.0-51.0) L 03/20/18 06:16 MCV 86.1 fL (80.0-100.0) 03/20/18 06:16 MCH 27.1 pg (27.0-34.0) 03/20/18 06:16 MCHC 31.5 % (32.0-36.0) L 03/20/18 06:16 RDW 16.4 % (11.6-17.2) 03/20/18 06:16 Plt Count 127 th/mm3 (150-450) L 03/20/18 06:16 MPV 6.9 fL (7.0-11.0) L 03/20/18 06:16 Prelim Diff (Auto) Slide review pending 03/19/18 05:47 Neut % (Auto) 54.8 % (16.0-70.0) 03/20/18 06:16 Lymph % (Auto) 27.8 % (9.0-44.0) 03/20/18 06:16 [place] % (Auto) 12.9 % (0.0-8.0) H 03/20/18 06:16 Eos % (Auto) 3.7 % (0.0-4.0) 03/20/18 06:16 Baso % (Auto) 0.8 % (0.0-2.0) 03/20/18 06:16 Neut # (Auto) 5.2 th/mm3 (1.8-7.7) 03/20/18 06:16 Lymph # (Auto) 2.6 th/mm3 (1.0-4.8) 03/20/18 06:16 [place] # (Auto) 1.2 th/mm3 (0.0-0.9) H 03/20/18 06:16 Eos # (Auto) 0.4 th/mm3 (0.0-0.4) 03/20/18 06:16 Baso # (Auto) 0.1 th/mm3 (0.0-0.2) 03/20/18 06:16 WBC Differential . 03/20/18 06:16 Diff Scan Auto diff confirmed 03/19/18 05:47 Differential Comment Auto diff final 03/20/18 06:16 Ovalocytes 1+ (None) H 03/19/18 05:47 PT 10.6 sec (9.8-11.6) 03/18/18 02:40 INR 1.0 Ratio 03/18/18 02:40 APTT 24.9 sec (24.3-30.1) 03/18/18 02:40 Sodium 142 meq/L (136-145) 03/20/18 06:16 Potassium 4.7 meq/L (3.5-5.1) 03/20/18 06:16 Chloride 111 meq/L (98-107) H 03/20/18 06:16 Carbon Dioxide 23.4 meq/L (21.0-32.0) 03/20/18 06:16 Anion Gap 8 meq/L (5-15) 03/20/18 06:16 BUN 44 mg/dL (7-18) H 03/20/18 06:16 Creatinine 1.74 mg/dL (0.60-1.30) H 03/20/18 06:16 Estimated GFR 41 mL/min (>89) L 03/20/18 06:16 POC Glucose 165 mg/dl (68-110) H 03/20/18 12:13 Random Glucose 127 mg/dL (74-106) H 03/20/18 06:16 Hemoglobin A1c 6.4 % (4.3-6.0) H 03/19/18 05:47 Calcium 8.2 mg/dL (8.5-10.1) L D 03/20/18 06:16 Prot Corrected Calcium 7.7 mg/dL (8.5-10.1) L 03/19/18 05:47 Phosphorus 3.1 mg/dL (2.5-4.9) 03/20/18 06:16 Magnesium 1.6 mg/dL (1.5-2.5) 03/20/18 06:16 Total Bilirubin 0.4 mg/dL (0.2-1.0) 03/20/18 06:16 AST 27 U/L (15-37) 03/20/18 06:16 ALT 15 U/L (12-78) 03/20/18 06:16 Alkaline Phosphatase 103 U/L (45-117) 03/20/18 06:16 Total Protein 7.3 g/dL (6.4-8.2) D 03/20/18 06:16 Albumin 2.8 g/dL (3.4-5.0) L 03/20/18 06:16 TSH 2.140 uIU/mL (0.358-3.740) 03/19/18 05:47 Free T4 0.98 ng/dL (0.76-1.46) 03/19/18 05:47 Urine Color Straw (Yellw/Straw) 03/18/18 04:45 Urine Clarity Clear (Clear) 03/18/18 04:45 Urine pH 5.0 (5.0-8.5) 03/18/18 04:45 Ur Specific [place] 1.006 (1.002-1.035) 03/18/18 04:45 Urine Protein 30 mg/dL (Neg-Trace) H 03/18/18 04:45 Urine Glucose (UA) Negative mg/dL (Negative) 03/18/18 04:45 Urine Ketones Negative mg/dL (Negative) 03/18/18 04:45 Urine Occult Blood Moderate (Negative) H 03/18/18 04:45 Urine Nitrate Negative (Negative) 03/18/18 04:45 Urine Bilirubin Negative (Negative) 03/18/18 04:45 Urine Urobilinogen Less than 2 mg/dL (Less than 2) 03/18/18 04:45 Ur Leukocyte Esterase Negative (Negative) 03/18/18 04:45 Urine RBC Less than 1 /hpf (0-3) 03/18/18 04:45 Urine WBC Less than 1 /hpf (0-5) 03/18/18 04:45 Ur Microscopic Review Not Reportable 03/18/18 04:45 Serum Alcohol 227 mg/dL (0-5) H 03/18/18 02:40 Blood Type A Positive 03/18/18 02:40 Blood Type Recheck Not needed 03/18/18 02:40 Antibody Screen Negative 03/18/18 02:40 MTS Gel Crossmatch See Detail 03/19/18 06:42 Impressions Chest X-Ray 03/18/18 02:04 CONCLUSION: 1. Lateral sixth rib fracture on the right. Posterior seventh rib fracture on the right. Findings are age-indeterminate 2. No acute cardiopulmonary disease identified. Femur X-Ray 03/18/18 02:04 CONCLUSION: Comminuted intratrochanteric/subtrochanteric proximal femur fracture. Labs on day of discharge: Labs from last 24 hours 03/20/18 03/20/18 03/20/18 12:13 08:16 06:16 WBC RBC Hgb Hct MCV MCH MCHC RDW Plt Count MPV Neut % (Auto) Lymph % (Auto) [place] % (Auto) Eos % (Auto) Baso % (Auto) Neut # (Auto) Lymph # (Auto) [place] # (Auto) Eos # (Auto) Baso # (Auto) WBC Differential Differential Comment Sodium 142 Potassium 4.7 Chloride 111 H Carbon Dioxide 23.4 Anion Gap 8 BUN 44 H Creatinine 1.74 H Estimated GFR 41 L POC Glucose 165 H 145 H Random Glucose 127 H Hemoglobin A1c Calcium 8.2 L D Phosphorus 3.1 Magnesium 1.6 Total Bilirubin 0.4 AST 27 ALT 15 Alkaline Phosphatase 103 Total Protein 7.3 D Albumin 2.8 L MTS Gel Crossmatch 03/20/18 03/19/18 03/19/18 06:16 20:53 17:10 WBC 9.5 RBC 3.03 L Hgb 8.2 L Hct 26.0 L MCV 86.1 MCH 27.1 MCHC 31.5 L RDW 16.4 Plt Count 127 L MPV 6.9 L Neut % (Auto) 54.8 Lymph % (Auto) 27.8 [place] % (Auto) 12.9 H Eos % (Auto) 3.7 Baso % (Auto) 0.8 Neut # (Auto) 5.2 Lymph # (Auto) 2.6 [place] # (Auto) 1.2 H Eos # (Auto) 0.4 Baso # (Auto) 0.1 WBC Differential . Differential Comment Auto diff final Sodium Potassium Chloride Carbon Dioxide Anion Gap BUN Creatinine Estimated GFR POC Glucose 182 H 135 H Random Glucose Hemoglobin A1c Calcium Phosphorus Magnesium Total Bilirubin AST ALT Alkaline Phosphatase Total Protein Albumin MTS Gel Crossmatch 03/19/18 03/19/18 06:42 05:47 WBC RBC Hgb Hct MCV MCH MCHC RDW Plt Count MPV Neut % (Auto) Lymph % (Auto) [place] % (Auto) Eos % (Auto) Baso % (Auto) Neut # (Auto) Lymph # (Auto) [place] # (Auto) Eos # (Auto) Baso # (Auto) WBC Differential Differential Comment Sodium Potassium Chloride Carbon Dioxide Anion Gap BUN Creatinine Estimated GFR POC Glucose Random Glucose Hemoglobin A1c 6.4 H Calcium Phosphorus Magnesium Total Bilirubin AST ALT Alkaline Phosphatase Total Protein Albumin MTS Gel Crossmatch See Detail - Impressions ITS Impressions Chest X-Ray 03/18/18 02:04 CONCLUSION: 1. Lateral sixth rib fracture on the right. Posterior seventh rib fracture on the right. Findings are age-indeterminate 2. No acute cardiopulmonary disease identified. Femur X-Ray 03/18/18 02:04 CONCLUSION: Comminuted intratrochanteric/subtrochanteric proximal femur fracture. Discharge Plan - Discharge Disposition Patient Disposition: [facility] Inpatient - Discharge Order Discharge Orders: Discharge Order (Routine); Ordered 03/20/18 Ordered By: Randy Bradshaw Orthopedic Clear for Discharge (Routine); Ordered 03/20/18 Ordered By: Reggie [place] - Discharge Details Anticipated Discharge Date: 03/20/18 Discharge Comment: DC TO INPT REHAB - Physicians Team Primary Care Provider: Primary Care Physici,No Attending Provider: Randy Bradshaw Other Providers: Stephan Roman MD ; Rodrigo Nash MD
== END 2018-03-20 14:35 ==
LOC: NEPC 01:10 → NEDA 04:12 → N06 04:47
PROVIDERS: ADMIT Hospitalist; ATTEND Hospitalist